=== PATIENT | male | born 1955 | race Caucasian/White ===

== ENCOUNTER 2017-02-03 10:46 | Inpatient (IN) | payer MEDICARE ==
--- NOTE | 2017-02-03 12:02 | ED Physician Chart ---
ED Chief Complaint/HPI - Patient Information Date Seen:: 02/03/17 Time Seen:: 11:24 Chief Complaint:: Pt was found wandering in the public. History of Present Illness:: Brought in by Edith RENTERIA on 5150 because pt was found wandering on the street. Pt appears to be comfortable and is in no distress. Pt breathes comfortably and speaks clearly. He denies any bodily pain or discomfort. He prefers to sleep and is not cooperative; thus, H & P are limited. Allergies:: Allergies Allergy/AdvReac Type Severity Reaction Status Date / Time No Known Allergies Allergy Verified 02/03/17 11:16 Vitals:: Vital Signs - 8 hr 02/03/17 11:16 Temp 99.1 F HR 105 RR 16 BP 109/61 O2 Sat % 94 Historian:: Patient Family MD/PCP:: Unknown LMP:: N/A Review:: Nurse's Note Reviewed ED Review of Systems - Review of Systems General/Constitutional: Other (Pt does not cooperate for ROS.) ED Past Medical History - Past Medical History Past Medical History: Other (Pt does not cooperate to provide info on PMH.) Family History: Other (Pt does not cooperate to provide info on FHx.) Social History: Other (Pt does not cooperate to provide info on SHx.) Surgical History: other (Pt does not cooperate to provide info on Surgical Hx.) Psychiatricy History: Bipolar Medication: Reviewed Family Medical History - Family Member Mother History Unknown: Yes ED Physical Exam - Physical Examination General/Constitutional: Awake, Well-developed, well-nourished, Alert, No distress, Non-toxic appearing, Ambulatory Other Gen/Cons comments:: Breathes comfortably and speaks clearly. Pt is not fully cooperative. Head: Atraumatic Eyes: Lids, conjuctiva normal, PERRL, EOMI Skin: Nl inspection, No skin lesions, Well hydrated, No lymphadenopathy ENMT: External ears, nose nl, Nasal exam nl, Oropharynx nl Neck: Nontender, Full ROM w/o pain, No nuchal rigidity, No mass, No stridor Respiratory: Nl effort/Exclusion, Clear to Auscultation, No Wheeze/Rhonchi/Rales Cardio Vascular: RRR, No murmur, gallop, rubs GI: No tenderness/rebounding/guarding, No organomegaly, Normal BS's, Nondistended, No mass/bruits Other GI comments:: Abdomen is soft. Extremities: No tenderness or effusion, Full ROM, No edema Neuro/Psych: Alert/oriented (knows his name only.) Other Neuro/Psych comments:: Spontaneous movements noticed in all 4 extremities. Pt does not cooperate for full neurological exam. ED Labs/Radiology/EKG Results - Lab Results Results: Laboratory Tests 02/03/17 02/03/17 02/03/17 12:05 12:05 12:05 WBC 7.4 D RBC 4.62 Hgb 12.7 Hct 39.1 L MCV 84.6 MCH 27.5 MCHC Differential 32.5 RDW 13.3 Plt Count 287 D MPV 7.4 Neutrophils % 80.6 H Lymphocytes % 11.2 L Monocytes % 8.0 Eosinophils % 0.1 Basophils % 0.1 PT 10.9 INR 1.05 PTT (Actin FS) 26.1 Sodium 136 Potassium 4.0 Chloride 99 Carbon Dioxide 29.6 Anion Gap 11.4 BUN 22 Creatinine 1.0 Est GFR ( Amer) > 60.0 Est GFR (Non-Af Amer) > 60.0 BUN/Creatinine Ratio 22.0 Glucose 127 H Calcium 9.3 Total Bilirubin 0.6 AST 154 H ALT 64 H Alkaline Phosphatase 56 Total Protein 6.6 Albumin 3.8 L Globulin 2.8 Albumin/Globulin Ratio 1.4 TSH Urine Source Urine Color Urine Clarity Urine pH Ur Specific [place] Urine Protein Urine Glucose (UA) Urine Ketones Urine Blood Urine Nitrate Urine Bilirubin Urine Urobilinogen Ur Leukocyte Esterase Urine RBC Urine WBC Ur Epithelial Cells Urine Bacteria Urine Mucus Salicylates < 25.0 L Urine Opiates Screen Urine Methadone Screen Acetaminophen < 10.0 L Ur Barbiturates Screen Ur Tricyclics Screen Ur Phencyclidine Scrn Amphetamines Screen U Methamphetamines Scrn U Benzodiazepines Scrn U Cocaine Metab Screen U Cannabinoids Screen Ethyl Alcohol < 10 02/03/17 02/03/17 02/03/17 12:05 12:35 12:35 WBC RBC Hgb Hct MCV MCH MCHC Differential RDW Plt Count MPV Neutrophils % Lymphocytes % Monocytes % Eosinophils % Basophils % PT INR PTT (Actin FS) Sodium Potassium Chloride Carbon Dioxide Anion Gap BUN Creatinine Est GFR ( Amer) Est GFR (Non-Af Amer) BUN/Creatinine Ratio Glucose Calcium Total Bilirubin AST ALT Alkaline Phosphatase Total Protein Albumin Globulin Albumin/Globulin Ratio TSH 1.50 Urine Source CATH Urine Color YELLOW Urine Clarity CLEAR Urine pH 6.0 Ur Specific [place] >= 1.030 Urine Protein 30 H Urine Glucose (UA) NEGATIVE Urine Ketones 15 H Urine Blood MODERATE H Urine Nitrate NEGATIVE Urine Bilirubin SMALL H Urine Urobilinogen 0.2 Ur Leukocyte Esterase NEGATIVE Urine RBC 5-10 H Urine WBC 0-2 Ur Epithelial Cells OCCASIONAL Urine Bacteria 1+ H Urine Mucus FEW Salicylates Urine Opiates Screen POSITIVE H Urine Methadone Screen NEGATIVE Acetaminophen Ur Barbiturates Screen NEGATIVE Ur Tricyclics Screen POSITIVE H Ur Phencyclidine Scrn NEGATIVE Amphetamines Screen POSITIVE H U Methamphetamines Scrn NEGATIVE U Benzodiazepines Scrn POSITIVE H U Cocaine Metab Screen NEGATIVE U Cannabinoids Screen NEGATIVE Ethyl Alcohol ED Septic Shock - . Is Septic Shock (SBP<90, OR Lactate>4 mmol\L) present?: No - <6hrs of presentation: Vital Signs: Vital Signs - 8 hr 02/03/17 11:16 Temp 99.1 F HR 105 RR 16 BP 109/61 O2 Sat % 94 ED Reassessment (Disposition) - Reassessment Reassessment:: 1335 Pt remains stable. No new complaint or findings. 1350 Remaining lab results just became available. Lab results have been reviewed with pt. Management plan has been discussed. Pt is medically cleared for psych evaluation. 2300 Pt has been comfortable and stable. Pt is still uncooperative to provide further info. Awaiting psych evaluation. 02/04/17 0700 Pt slept through the night uneventfully. Psych evaluation is still pending. Case has been signed off to Dr. Hatch for continued care. Reassessment Condition:: Improved - Diagnosis Diagnosis:: Polysubstance abuse with amphetamine and opioid. Bipolar disorder. Urinary tract infection. Elevated ALT/AST, consider alcoholic liver disease. Mild hyperglycemia. ED Discharge Plan - Patient Disposition Instructions: Psychosis
[2017-02-03 12:11] LABS: % BASOPHILS 0.1 % (0.0-2.0); % EOSINOPHILS 0.1 % (0.0-5.0); % LYMPHOCYTES 11.2 % (20.0-50.0); % NEUTROPHILS 80.6 % (40.0-80.0); HEMATOCRIT 39.1 % (41.0-60); HEMOGLOBIN 12.7 gm/dL (12-16); LYMPHOCYTE ABSOLUTE 0.8 Th/cmm (1.5-3.0); MEAN CELL VOLUME 84.6 fl (80-99); MEAN CORPUSCULAR HEMOGLOBIN 27.5 pg (26.0-30.0); MEAN CORPUSCULAR HGB CONC 32.5 pg (28.0-36.0); MEAN PLATELET VOLUME 7.4 fl; MONOCYTE ABSOLUTE 0.6 Th/cmm (0.3-1.0); RED BLOOD COUNT 4.62 Mil/cmm (4.30-5.70); RED CELL DISTRIBUTION WIDTH 13.3 % (11.5-20.0)
[2017-02-03 12:12] LABS: PLATELET COUNT 287 Th/cmm (150-400); WHITE BLOOD COUNT 7.4 Th/cmm (4.8-10.8)
[2017-02-03 12:26] LABS: INR 1.05 (0.5-1.4); PROTHROMBIN TIME (TEST) 10.9 SECONDS (9.5-11.5)
[2017-02-03 12:29] LABS: ACETAMINOPHEN < 10.0 ug/mL (10.0-30.0); ALB/GLOB RATIO 1.4 (1.0-1.8); ALBUMIN 3.8 gm/dL (4.2-5.5); ALKALINE PHOSPHATASE 56 U/L (34-104); ANION GAP 11.4 (7.0-16.0); BILIRUBIN,TOTAL 0.6 mg/dL (0.3-1.0); BUN - UREA NITROGEN 22 mg/dL (7-25); CALCIUM SERUM 9.3 mg/dL (8.6-10.3); CARBON DIOXIDE 29.6 mEq/L (21.0-31.0); CHLORIDE 99 mEq/L (98-107); GFR AFRICAN-AMERICAN > 60.0 ml/min (>90); GFR NON AFRICAN-AMERICAN > 60.0 ml/min; GLUCOSE 127 mg/dL (70-105); SALICYLATES (ASPIRIN) < 25.0 mg/L (30.0-100.0); SGOT 154 U/L (13-39); SGPT/ALT 64 U/L (7-52); SODIUM SERUM 136 mEq/L (136-145); TOTAL PROTEIN,SERUM 6.6 gm/dL (6.0-8.3)
[2017-02-03 12:41] LABS: URINE MICROSCOPIC INDICATED? YES; URINE SOURCE CATH
[2017-02-03 12:46] LABS: URINE BILIRUBIN SMALL (NEGATIVE); URINE BLOOD MODERATE (NEGATIVE); URINE GLUCOSE (UA) NEGATIVE (NEGATIVE); URINE KETONE 15 mg/dL (NEGATIVE); URINE LEUKOCYTE ESTERASE NEGATIVE (NEGATIVE); URINE NITRATE NEGATIVE (NEGATIVE); URINE PROTEIN 30 mg/dL (NEGATIVE); URINE UROBILINOGEN 0.2 E.U./dL (0.2 - 1.0)
[2017-02-03 12:50] LABS: URINE CLARITY CLEAR (CLEAR); URINE COLOR YELLOW
[2017-02-03 12:53] LABS: URINE BACTERIA 1+ /hpf (NONE SEEN); URINE EPITHELIAL CELLS OCCASIONAL /lpf (FEW); URINE WBC 0-2 /hpf (0-5)
[2017-02-03 13:10] LABS: AMPHETAMINE URINE POSITIVE (NEGATIVE); BARBITURATES URINE NEGATIVE (NEGATIVE); COCAINE METABOLITE QUAL URINE NEGATIVE (NEGATIVE); PHENCYCLIDINE (PCP) URINE NEGATIVE (NEGATIVE)
[2017-02-03 13:11] LABS: BENZODIAZEPINES QUAL URINE POSITIVE (NEGATIVE); CANNABINOID THC NEGATIVE (NEGATIVE); METHADONE URINE NEGATIVE (NEGATIVE); METHAMPHETAMINES QUAL URINE NEGATIVE (NEGATIVE); OPIATES (MORPHINE) QUAL. URINE POSITIVE (NEGATIVE); TRICYCLICS (TCA) QUAL. URINE POSITIVE (NEGATIVE)
[2017-02-03] MEDS ORDERED: Sulfamethoxazole/TMP 800/160mg Tab PO ONE (13:40)
[2017-02-03] MEDS ORDERED: Sulfamethoxazole/TMP 800/160mg Tab ONE (15:02)
[2017-02-04] MEDS ORDERED: Sulfamethoxazole/TMP 800/160mg Tab PO ONE (01:29)
[2017-02-04] MEDS ORDERED: Sulfamethoxazole/TMP 800/160mg Tab ONE (07:23)
[2017-02-04] MEDS ORDERED: Hydrocodone/APAP 10 mg/325 mg Tab PO PRN (20:19)
[2017-02-04 20:24] VITALS: BP 103/64
[2017-02-04] MEDS ORDERED: Magnesium Hydroxide (MOM) 30 mL UDC PO PRN (20:28)
[2017-02-04] MEDS ORDERED: Maalox 30 mL Cup PO PRN (20:28)
[2017-02-05] MEDS: Multivitamin Tab PO SCH (09:44)
[2017-02-05] MEDS: Sulfamethoxazole/TMP 800/160mg Tab PO SCH ×2 (09:44→16:55)
--- NOTE | 2017-02-05 13:00 | History & Physical ---
ADMIT DATE: 02/05/2017 PATIENT IDENTIFICATION: A 61-year-old male. CHIEF COMPLAINT: "I am fine." HISTORY OF PRESENT ILLNESS: This is a 61-year-old male with a history of BPH, DJD, chronic pain, brought into the Emergency Room at [facility] for evaluation of aggressive behavior. When patient knocked the house asking to buy the bike and the patient was noted to have aggressive behavior and the patient was evaluated and subsequently admitted to the hospital for further treatment. PAST MEDICAL HISTORY: Remarkable for: 1. DJD. 2. Chronic pain. 3. BPH. 4. Hyperlipidemia. 5. History of post-traumatic stress syndrome. MEDICATIONS: List has been reviewed and reconciled appropriately. ALLERGIES: The patient is not allergic to any medications. SOCIAL HISTORY: The patient is homeless. The patient has a history of smoking cigarette also has a history of polysubstance abuse. The patient denies any alcohol use. FAMILY MEDICAL HISTORY: Unknown. REVIEW OF SYSTEMS: The patient currently denies any headache, blurred vision, double vision, dysphagia, odynophagia, runny nose, stuffy nose, fever, chills, cough, chest pain, shortness of breath, palpitation, dizziness, nausea, vomiting, diarrhea, dysuria, hematuria, hematochezia, melena. No history of any seizure or syncopal episode. PHYSICAL EXAMINATION: GENERAL: Alert, awake, oriented, lying in the bed without any acute distress. VITAL SIGNS: Temperature 98.1, pulse 78, respiratory rate 18, blood pressure 132/78. HEENT: Normocephalic, atraumatic. Extraocular muscles are intact. Tongue was pink and coated. Multiple poor dentition noted. NECK: Supple, no JVD, no hepatojugular reflex. No lymphadenopathy, thyromegaly or carotid bruit. HEART: Both heart sounds are regular. No S3, no S4, no murmur. CHEST: Lung equal in expansion, no wheezing, no crackles. ABDOMEN: Soft. No guarding, no rigidity. Liver, spleen palpable. No palpable mass. EXTREMITIES: No edema, no cyanosis. NEUROLOGIC: Nonfocal. AVAILABLE DIAGNOSTIC DATA: Reviewed. CLINICAL IMPRESSION: 1. Psychotic disorder exacerbation. 2. Chronic pain syndrome. 3. Posttraumatic stress syndrome. 4. Benign prostatic hyperplasia. 5. Degenerative joint disease. 6. Most likely prostatitis and urinary tract infection. 7. Debility. PLAN: The patient will be resuming his home medications, which include Soma as well as [place] for pain management. The patient will be receiving Flomax for his BPH, antibiotic will be continued for his urinary tract infection with Bactrim: Psychotic evaluation and management deferred to psychiatrist. The patient is medically stable to participate in the activity with the [facility]. The patient will be seen by us during his stay as well. I sincerely thank you, Dr. Charisma Huff for giving me the opportunity to participate in patient of yours. JOB# [id number]
[2017-02-06] MEDS: Sulfamethoxazole/TMP 800/160mg Tab PO SCH ×2 (09:04→16:51)
[2017-02-06] MEDS: Multivitamin Tab PO SCH (09:04)
--- NOTE | 2017-02-06 09:51 | General Progress Note ---
Subjective - Review of Systems Subjective: Patient is seen and examined. No new complaints. Patient is ambulating in hallway. Objective - Results Result Diagrams: 02/03/17 12:05 02/03/17 12:05 Recent Labs: Laboratory Last Values WBC 7.4 Th/cmm (4.8-10.8) D 02/03/17 12:05 RBC 4.62 Mil/cmm (4.30-5.70) 02/03/17 12:05 Hgb 12.7 gm/dL (12-16) 02/03/17 12:05 Hct 39.1 % (41.0-60) L 02/03/17 12:05 MCV 84.6 fl (80-99) 02/03/17 12:05 MCH 27.5 pg (26.0-30.0) 02/03/17 12:05 MCHC Differential 32.5 pg (28.0-36.0) 02/03/17 12:05 RDW 13.3 % (11.5-20.0) 02/03/17 12:05 Plt Count 287 Th/cmm (150-400) D 02/03/17 12:05 MPV 7.4 fl 02/03/17 12:05 Neutrophils % 80.6 % (40.0-80.0) H 02/03/17 12:05 Lymphocytes % 11.2 % (20.0-50.0) L 02/03/17 12:05 Monocytes % 8.0 % (2.0-10.0) 02/03/17 12:05 Eosinophils % 0.1 % (0.0-5.0) 02/03/17 12:05 Basophils % 0.1 % (0.0-2.0) 02/03/17 12:05 PT 10.9 SECONDS (9.5-11.5) 02/03/17 12:05 INR 1.05 (0.5-1.4) 02/03/17 12:05 PTT (Actin FS) 26.1 SECONDS (26.0-38.0) 02/03/17 12:05 Sodium 136 mEq/L (136-145) 02/03/17 12:05 Potassium 4.0 mEq/L (3.5-5.1) 02/03/17 12:05 Chloride 99 mEq/L (98-107) 02/03/17 12:05 Carbon Dioxide 29.6 mEq/L (21.0-31.0) 02/03/17 12:05 Anion Gap 11.4 (7.0-16.0) 02/03/17 12:05 BUN 22 mg/dL (7-25) 02/03/17 12:05 Creatinine 1.0 mg/dL (0.7-1.3) 02/03/17 12:05 Est GFR ( Amer) > 60.0 ml/min (>90) 02/03/17 12:05 Est GFR (Non-Af Amer) > 60.0 ml/min 02/03/17 12:05 BUN/Creatinine Ratio 22.0 02/03/17 12:05 Glucose 127 mg/dL (70-105) H 02/03/17 12:05 Calcium 9.3 mg/dL (8.6-10.3) 02/03/17 12:05 Total Bilirubin 0.6 mg/dL (0.3-1.0) 02/03/17 12:05 AST 154 U/L (13-39) H 02/03/17 12:05 ALT 64 U/L (7-52) H 02/03/17 12:05 Alkaline Phosphatase 56 U/L (34-104) 02/03/17 12:05 Total Protein 6.6 gm/dL (6.0-8.3) 02/03/17 12:05 Albumin 3.8 gm/dL (4.2-5.5) L 02/03/17 12:05 Globulin 2.8 gm/dL 02/03/17 12:05 Albumin/Globulin Ratio 1.4 (1.0-1.8) 02/03/17 12:05 TSH 1.50 uIU/ml (0.34-5.60) 02/03/17 12:05 Urine Source CATH 02/03/17 12:35 Urine Color YELLOW 02/03/17 12:35 Urine Clarity CLEAR (CLEAR) 02/03/17 12:35 Urine pH 6.0 (4.6 - 8.0) 02/03/17 12:35 Ur Specific [place] >= 1.030 (1.005-1.030) 02/03/17 12:35 Urine Protein 30 mg/dL (NEGATIVE) H 02/03/17 12:35 Urine Glucose (UA) NEGATIVE mg/dL (NEGATIVE) 02/03/17 12:35 Urine Ketones 15 mg/dL (NEGATIVE) H 02/03/17 12:35 Urine Blood MODERATE (NEGATIVE) H 02/03/17 12:35 Urine Nitrate NEGATIVE (NEGATIVE) 02/03/17 12:35 Urine Bilirubin SMALL (NEGATIVE) H 02/03/17 12:35 Urine Urobilinogen 0.2 E.U./dL (0.2 - 1.0) 02/03/17 12:35 Ur Leukocyte Esterase NEGATIVE (NEGATIVE) 02/03/17 12:35 Urine RBC 5-10 /hpf (0-5) H 02/03/17 12:35 Urine WBC 0-2 /hpf (0-5) 02/03/17 12:35 Ur Epithelial Cells OCCASIONAL /lpf (FEW) 02/03/17 12:35 Urine Bacteria 1+ /hpf (NONE SEEN) H 02/03/17 12:35 Urine Mucus FEW /lpf (FEW) 02/03/17 12:35 Salicylates < 25.0 mg/L (30.0-100.0) L 02/03/17 12:05 Urine Opiates Screen POSITIVE (NEGATIVE) H 02/03/17 12:35 Urine Methadone Screen NEGATIVE (NEGATIVE) 02/03/17 12:35 Acetaminophen < 10.0 ug/mL (10.0-30.0) L 02/03/17 12:05 Ur Barbiturates Screen NEGATIVE (NEGATIVE) 02/03/17 12:35 Ur Tricyclics Screen POSITIVE (NEGATIVE) H 02/03/17 12:35 Ur Phencyclidine Scrn NEGATIVE (NEGATIVE) 02/03/17 12:35 Amphetamines Screen POSITIVE (NEGATIVE) H 02/03/17 12:35 U Methamphetamines Scrn NEGATIVE (NEGATIVE) 02/03/17 12:35 U Benzodiazepines Scrn POSITIVE (NEGATIVE) H 02/03/17 12:35 U Cocaine Metab Screen NEGATIVE (NEGATIVE) 02/03/17 12:35 U Cannabinoids Screen NEGATIVE (NEGATIVE) 02/03/17 12:35 Ethyl Alcohol < 10 mg/dL (0-10) 02/03/17 12:05 - Physical Exam Vitals and I&O: Vital Signs Temp 97.8 F 02/06/17 06:43 Pulse 71 02/06/17 06:43 Resp 18 02/06/17 06:43 BP 124/77 02/06/17 06:43 Pulse Ox 96 02/06/17 06:43 Intake & Output 02/05/17 02/06/17 02/06/17 18:59 06:59 18:59 Intake Total 1200 960 Balance 1200 960 Intake: Oral 1200 960 Other: # Voids 4 3 # Bowel Movements 1 0 Active Medications: Current Medications Acetaminophen (Tylenol) 650 mg PO Q4HR PRN PRN Reason: Mild Pain / Temp above 100 Stop: 04/05/17 20:27 Acetaminophen/Hydrocodone Bitart ([place] 10 Mg/325 Mg) 1 tab PO Q6H PRN PRN Reason: Severe Pain Stop: 04/05/17 20:18 Al Hydrox/Mg Hydrox/Simethicone (Maalox) 30 ml PO Q4HR PRN PRN Reason: GI DISTRESS Stop: 04/05/17 20:27 Carisoprodol (Soma) 350 mg PO Q8HR PRN PRN Reason: Spasms Stop: 04/05/17 20:18 Divalproex Sodium (Depakote Er) 500 mg PO BID PATRICE PRN Reason: Protocol Stop: 04/06/17 08:59 Last Admin: 02/06/17 09:04 Dose: 500 mg Duloxetine HCl (Cymbalta) 60 mg PO BID PATRICE PRN Reason: Protocol Stop: 04/06/17 08:59 Last Admin: 02/06/17 09:04 Dose: 60 mg Lorazepam (Ativan) 2 mg PO Q6H PRN; Protocol PRN Reason: Agitation Stop: 04/06/17 05:43 Magnesium Hydroxide (Milk Of Magnesia) 30 ml PO HS PRN PRN Reason: Constipation Multivitamins/Vitamin C (Theragran) 1 tab PO DAILY PATRICE Stop: 04/06/17 08:59 Last Admin: 02/06/17 09:04 Dose: 1 tab Mupirocin (Bactroban Oint) 1 appl NS BID PATRICE Stop: 02/09/17 17:01 Last Admin: 02/06/17 09:04 Dose: 1 appl Quetiapine Fumarate (Seroquel Xr) 800 mg PO HS PATRICE PRN Reason: Protocol Stop: 04/06/17 20:59 Last Admin: 02/05/17 20:36 Dose: Not Given Tamsulosin HCl (Flomax) 0.4 mg PO HS PATRICE Stop: 04/05/17 20:59 Last Admin: 02/05/17 20:35 Dose: 0.4 mg Trazodone HCl (Desyrel) 200 mg PO HS PATRICE PRN Reason: Protocol Stop: 04/06/17 20:59 Last Admin: 02/05/17 20:36 Dose: Not Given Trimethoprim/Sulfamethoxazole (Bactrim Ds) 1 tab PO BID PATRICE Stop: 02/11/17 17:01 Last Admin: 02/06/17 09:04 Dose: 1 tab Zolpidem Tartrate (Ambien) 5 mg PO HS PRN PRN Reason: Insomnia Stop: 04/05/17 20:27 General: Alert, Oriented x3, No acute distress HEENT: Atraumatic, PERRLA, EOMI, Mucous membr. moist/pink Neck: Supple, JVD Cardiovascular: Regular rate, Normal S1, Normal S2 Lungs: Clear to auscultation, Normal air movement Abdomen: Bowel sounds, Soft Extremities: Pulses Neurological: Normal gait, Normal speech, Normal tone, Sensation intact, Reflexes 2+ - Procedures Procedures: Procedures Procedure Code Date CONTINUOUS INVASIVE MECHANICAL VENTILATION <96 CONSEC HRS 96.71 06/05/13 GROUP PSYCHOTHERAPY 29386 08/25/15 GROUP PSYCHOTHERAPY [id number] 08/25/15 INSERT EMERGENCY AIRWAY [id number] 06/05/13 INSERT ENDOTRACHEAL TUBE 96.04 06/05/13 VACCINATION NEC 99.55 06/24/13 Assessment/Plan - Problem List Patient Problems: All Active Problems Altered mental status (Active) R41.82 Drug overdose (Active) T50.901A Psychotic disorder (Acute) F29 - Assessment Assessment: BPH. Prostatits Chronic pain syndrome. DJD Psych disorder Post traumatic stress syndrome. - Plan Plan: Po antibiotics Flomax Pain control Psych meds Psych follow up General nursing care Continue other meds. Discussed with staff.
--- NOTE | 2017-02-06 15:08 | Psychosocial Evaluation ---
DATE OF SERVICE: 02/05/2017 CHIEF COMPLAINT: "I don't know. The police got me here." HISTORY OF PRESENT ILLNESS: The patient is a 61-year-old male who is well known to me from treatment of schizoaffective disorder. The patient has been confused and the patient was found by the police knocking on people's doors. The patient was disoriented and confused and he did not give any reason why he was knocking on people's doors. Chart reviewed and patient interviewed and discussed the patient's condition with the staff. The patient is still confused, who recognized myself, but he did not know my name and he did not know where he is at. He also was very reluctant to answer any of my questions and seems to be preoccupied. He also did not know where he lives and he could not tell me about his age or date. Also, it seems that the patient has not been taking his psychiatric medications and maybe he has been in the streets. PAST PSYCHIATRIC HISTORY: The patient has history of multiple psychiatric hospitalizations for treatment of schizoaffective disorder and also depression and possible suicidal thoughts. PAST MEDICAL HISTORY: The patient currently had no major medical problems and was medically cleared in the Emergency Room. CHEMICAL DEPENDENCY HISTORY: The patient has history of cannabis use. Not known at this time if he is still abusing any drugs. SOCIAL HISTORY: The patient seems to be homeless at this time. No other information known at this time. ALLERGIES: No known allergies. MENTAL STATUS EXAMINATION: The patient appears older than his stated age. Disheveled. Confused. Suspicious and paranoid. The patient tried to answer questions, but he seems to be confused and was not able to answer any of the questions as mentioned above and he also is reluctant and seemed paranoid to answer the questions. Also seems to be preoccupied. The patient does not answer questions regarding hallucinations or delusions or regarding suicide or homicide. The patient is alert, but seems to be disoriented to place, time, and person. Unable to assess his memory at this time because the patient was not able to answer questions. Poor insight and poor judgment. ASSESSMENT: Primary diagnosis: Schizoaffective disorder, bipolar type, with psychotic features. TREATMENT PLAN: Continue to monitor his behavior and his condition closely. Also, we will start the patient on Seroquel and we will adjust the dose. Also, we will try to get more information from the patient when able to answer more questions. ESTIMATED LENGTH OF STAY: 7-10 days. THE PATIENT'S STRENGTHS AND WEAKNESSES: The patient's strength is not clear at this time. Weaknesses: Poor judgment and his hallucinations. AFTER DISCHARGE PLAN: Placement and outpatient treatment. The patient also is a candidate for partial program. JOB# [id number]
--- NOTE | 2017-02-07 05:25 | Progress Notes ---
DATE: SUBJECTIVE: Chart reviewed and the patient interviewed. Also discussed the patient's condition with the staff and reviewed records and labs. The patient is still confused. The patient also is still unable to answer any of my questions coherently. He also still seems to be preoccupied and is still responding to stimuli. During my interview, the patient is disheveled. He is very slow in response. He seems to be slightly easier to redirect him than yesterday. He also denied any side effects of medications. ASSESSMENT: The patient is still psychotic and confused and considered to be gravely disabled. LABORATORY DATA: No new labs available for review. Urine drug screen was done and it is positive for amphetamines and for benzodiazepine. TREATMENT PLAN: Continue monitoring his behavior and his condition closely. Also, we will try to get more information from the patient regarding placement and where he was living. Estimated length of stay 2-3 days. JOB# [id number]
[2017-02-07] MEDS: Sulfamethoxazole/TMP 800/160mg Tab PO SCH ×2 (09:05→17:41)
[2017-02-07] MEDS: Multivitamin Tab PO SCH (09:05)
--- NOTE | 2017-02-07 20:04 | Progress Notes ---
DATE: 02/07/2017 SUBJECTIVE: Chart reviewed and the patient interviewed. Also discussed the patient's condition with the staff and reviewed records and labs. The patient is still confused and suspicious and paranoid, although he seems to be more alert and less sedated today. He still seems to be responding to stimuli. The patient also today is pacing up and down the unit. He is still unable to carry on any coherent conversation. Otherwise, the patient is compliant with taking his medications. The patient denies any side effects of medications. ASSESSMENT: The patient is still psychotic and is still considered to be gravely disabled. TREATMENT PLAN: Continue to monitor his behavior and his condition closely. Also, continue to adjust psychotropic medications and working on placement issue. Also, working on his confusion. JOB# [id number]
[2017-02-08] MEDS: Multivitamin Tab PO SCH (09:19)
[2017-02-08] MEDS: Sulfamethoxazole/TMP 800/160mg Tab PO SCH ×2 (09:19→16:16)
--- NOTE | 2017-02-08 09:25 | General Progress Note ---
Subjective - Review of Systems Subjective: Patient is seen and examined. No new complaints. Objective - Results Result Diagrams: 02/03/17 12:05 02/03/17 12:05 Recent Labs: Laboratory Last Values WBC 7.4 Th/cmm (4.8-10.8) D 02/03/17 12:05 RBC 4.62 Mil/cmm (4.30-5.70) 02/03/17 12:05 Hgb 12.7 gm/dL (12-16) 02/03/17 12:05 Hct 39.1 % (41.0-60) L 02/03/17 12:05 MCV 84.6 fl (80-99) 02/03/17 12:05 MCH 27.5 pg (26.0-30.0) 02/03/17 12:05 MCHC Differential 32.5 pg (28.0-36.0) 02/03/17 12:05 RDW 13.3 % (11.5-20.0) 02/03/17 12:05 Plt Count 287 Th/cmm (150-400) D 02/03/17 12:05 MPV 7.4 fl 02/03/17 12:05 Neutrophils % 80.6 % (40.0-80.0) H 02/03/17 12:05 Lymphocytes % 11.2 % (20.0-50.0) L 02/03/17 12:05 Monocytes % 8.0 % (2.0-10.0) 02/03/17 12:05 Eosinophils % 0.1 % (0.0-5.0) 02/03/17 12:05 Basophils % 0.1 % (0.0-2.0) 02/03/17 12:05 PT 10.9 SECONDS (9.5-11.5) 02/03/17 12:05 INR 1.05 (0.5-1.4) 02/03/17 12:05 PTT (Actin FS) 26.1 SECONDS (26.0-38.0) 02/03/17 12:05 Sodium 136 mEq/L (136-145) 02/03/17 12:05 Potassium 4.0 mEq/L (3.5-5.1) 02/03/17 12:05 Chloride 99 mEq/L (98-107) 02/03/17 12:05 Carbon Dioxide 29.6 mEq/L (21.0-31.0) 02/03/17 12:05 Anion Gap 11.4 (7.0-16.0) 02/03/17 12:05 BUN 22 mg/dL (7-25) 02/03/17 12:05 Creatinine 1.0 mg/dL (0.7-1.3) 02/03/17 12:05 Est GFR ( Amer) > 60.0 ml/min (>90) 02/03/17 12:05 Est GFR (Non-Af Amer) > 60.0 ml/min 02/03/17 12:05 BUN/Creatinine Ratio 22.0 02/03/17 12:05 Glucose 127 mg/dL (70-105) H 02/03/17 12:05 Calcium 9.3 mg/dL (8.6-10.3) 02/03/17 12:05 Total Bilirubin 0.6 mg/dL (0.3-1.0) 02/03/17 12:05 AST 154 U/L (13-39) H 02/03/17 12:05 ALT 64 U/L (7-52) H 02/03/17 12:05 Alkaline Phosphatase 56 U/L (34-104) 02/03/17 12:05 Total Protein 6.6 gm/dL (6.0-8.3) 02/03/17 12:05 Albumin 3.8 gm/dL (4.2-5.5) L 02/03/17 12:05 Globulin 2.8 gm/dL 02/03/17 12:05 Albumin/Globulin Ratio 1.4 (1.0-1.8) 02/03/17 12:05 TSH 1.50 uIU/ml (0.34-5.60) 02/03/17 12:05 Urine Source CATH 02/03/17 12:35 Urine Color YELLOW 02/03/17 12:35 Urine Clarity CLEAR (CLEAR) 02/03/17 12:35 Urine pH 6.0 (4.6 - 8.0) 02/03/17 12:35 Ur Specific [place] >= 1.030 (1.005-1.030) 02/03/17 12:35 Urine Protein 30 mg/dL (NEGATIVE) H 02/03/17 12:35 Urine Glucose (UA) NEGATIVE mg/dL (NEGATIVE) 02/03/17 12:35 Urine Ketones 15 mg/dL (NEGATIVE) H 02/03/17 12:35 Urine Blood MODERATE (NEGATIVE) H 02/03/17 12:35 Urine Nitrate NEGATIVE (NEGATIVE) 02/03/17 12:35 Urine Bilirubin SMALL (NEGATIVE) H 02/03/17 12:35 Urine Urobilinogen 0.2 E.U./dL (0.2 - 1.0) 02/03/17 12:35 Ur Leukocyte Esterase NEGATIVE (NEGATIVE) 02/03/17 12:35 Urine RBC 5-10 /hpf (0-5) H 02/03/17 12:35 Urine WBC 0-2 /hpf (0-5) 02/03/17 12:35 Ur Epithelial Cells OCCASIONAL /lpf (FEW) 02/03/17 12:35 Urine Bacteria 1+ /hpf (NONE SEEN) H 02/03/17 12:35 Urine Mucus FEW /lpf (FEW) 02/03/17 12:35 Salicylates < 25.0 mg/L (30.0-100.0) L 02/03/17 12:05 Urine Opiates Screen POSITIVE (NEGATIVE) H 02/03/17 12:35 Urine Methadone Screen NEGATIVE (NEGATIVE) 02/03/17 12:35 Acetaminophen < 10.0 ug/mL (10.0-30.0) L 02/03/17 12:05 Ur Barbiturates Screen NEGATIVE (NEGATIVE) 02/03/17 12:35 Ur Tricyclics Screen POSITIVE (NEGATIVE) H 02/03/17 12:35 Ur Phencyclidine Scrn NEGATIVE (NEGATIVE) 02/03/17 12:35 Amphetamines Screen POSITIVE (NEGATIVE) H 02/03/17 12:35 U Methamphetamines Scrn NEGATIVE (NEGATIVE) 02/03/17 12:35 U Benzodiazepines Scrn POSITIVE (NEGATIVE) H 02/03/17 12:35 U Cocaine Metab Screen NEGATIVE (NEGATIVE) 02/03/17 12:35 U Cannabinoids Screen NEGATIVE (NEGATIVE) 02/03/17 12:35 Ethyl Alcohol < 10 mg/dL (0-10) 02/03/17 12:05 - Physical Exam Vitals and I&O: Vital Signs Temp 97.8 F 02/08/17 06:43 Pulse 81 02/08/17 06:43 Resp 20 02/08/17 06:43 BP 108/69 02/08/17 06:43 Pulse Ox 98 02/08/17 06:43 Intake & Output 02/07/17 02/08/17 02/08/17 18:59 06:59 18:59 Intake Total 900 120 Balance 900 120 Intake: Oral 900 120 Other: # Voids 4 3 # Bowel Movements 1 Active Medications: Current Medications Acetaminophen (Tylenol) 650 mg PO Q4HR PRN PRN Reason: Mild Pain / Temp above 100 Stop: 04/05/17 20:27 Acetaminophen/Hydrocodone Bitart (Atkins 10 Mg/325 Mg) 1 tab PO Q6H PRN PRN Reason: Severe Pain Stop: 04/05/17 20:18 Al Hydrox/Mg Hydrox/Simethicone (Maalox) 30 ml PO Q4HR PRN PRN Reason: GI DISTRESS Stop: 04/05/17 20:27 Carisoprodol (Soma) 350 mg PO Q8HR PRN PRN Reason: Spasms Stop: 04/05/17 20:18 Divalproex Sodium (Depakote Er) 500 mg PO BID PATRICE PRN Reason: Protocol Stop: 04/06/17 08:59 Last Admin: 02/08/17 09:19 Dose: 500 mg Duloxetine HCl (Cymbalta) 60 mg PO BID PATRICE PRN Reason: Protocol Stop: 04/06/17 08:59 Last Admin: 02/08/17 09:19 Dose: 60 mg Lorazepam (Ativan) 2 mg PO Q6H PRN; Protocol PRN Reason: Agitation Stop: 04/06/17 05:43 Last Admin: 02/08/17 09:18 Dose: 2 mg Magnesium Hydroxide (Milk Of Magnesia) 30 ml PO HS PRN PRN Reason: Constipation Multivitamins/Vitamin C (Theragran) 1 tab PO DAILY PATRICE Stop: 04/06/17 08:59 Last Admin: 02/08/17 09:19 Dose: 1 tab Mupirocin (Bactroban Oint) 1 appl NS BID PATRICE Stop: 02/09/17 17:01 Last Admin: 02/08/17 09:20 Dose: 1 appl Quetiapine Fumarate (Seroquel Xr) 800 mg PO HS PATRICE PRN Reason: Protocol Stop: 04/06/17 20:59 Last Admin: 02/07/17 22:04 Dose: 800 mg Tamsulosin HCl (Flomax) 0.4 mg PO HS PATRICE Stop: 04/05/17 20:59 Last Admin: 02/07/17 22:04 Dose: 0.4 mg Trazodone HCl (Desyrel) 200 mg PO HS PATRICE PRN Reason: Protocol Stop: 04/06/17 20:59 Last Admin: 02/07/17 22:04 Dose: 200 mg Trimethoprim/Sulfamethoxazole (Bactrim Ds) 1 tab PO BID PATRICE Stop: 02/11/17 17:01 Last Admin: 02/08/17 09:19 Dose: 1 tab Zolpidem Tartrate (Ambien) 5 mg PO HS PRN PRN Reason: Insomnia Stop: 04/05/17 20:27 General: Alert, Oriented x3, No acute distress HEENT: Atraumatic, PERRLA, EOMI, Mucous membr. moist/pink Neck: Supple, JVD Cardiovascular: Regular rate, Normal S1, Normal S2 Lungs: Clear to auscultation, Normal air movement Abdomen: Bowel sounds, Soft Extremities: Pulses Neurological: Normal gait, Normal speech, Normal tone, Sensation intact, Reflexes 2+ - Procedures Procedures: Procedures Procedure Code Date CONTINUOUS INVASIVE MECHANICAL VENTILATION <96 CONSEC HRS 96.71 06/05/13 GROUP PSYCHOTHERAPY 96230 08/25/15 GROUP PSYCHOTHERAPY [id number] 08/25/15 INSERT EMERGENCY AIRWAY [id number] 06/05/13 INSERT ENDOTRACHEAL TUBE 96.04 06/05/13 VACCINATION NEC 99.55 06/24/13 Assessment/Plan - Problem List Patient Problems: All Active Problems Altered mental status (Active) R41.82 Drug overdose (Active) T50.901A Psychotic disorder (Acute) F29 - Assessment Assessment: BPH. Prostatits Chronic pain syndrome. DJD Psych disorder Post traumatic stress syndrome. - Plan Plan: Po antibiotics as ordered. Flomax. Pain control. Psych meds Psych follow up. General nursing care. Continue other meds. Discussed with staff.
[2017-02-09] MEDS: Multivitamin Tab PO SCH (09:03)
[2017-02-09] MEDS: Sulfamethoxazole/TMP 800/160mg Tab PO SCH ×2 (09:04→17:22)
--- NOTE | 2017-02-09 12:55 | Progress Notes ---
DATE: 02/09/[address] Huff. Case was discussed with staff of the patient, reviewed records. This is a well-known case to me as seen him covering for Dr. Huff by [facility]. The patient apparently was admitted here on the course of 02/2017 because of confusion time, the patient is not on people's doors disoriented, confused, did not give any reason why he was not on people's door. The patient could not recognize appropriately. Dr. Huff when he came in, he was very reluctant to answer questions. The patient has multiple prior hospitalizations was at [facility] with history of depression and suicide thoughts. The patient continues to be depressed, overwhelmed. He was able to recognize me. He is compliant with the medication with no side effects with Depakote 500 mg twice a day and duloxetine 60 mg twice a day with no side effects, no sedation, no nausea. He is also on Seroquel 800 mg at bedtime and group therapy, milieu therapy, adjust medication as needed. JOB# [id number]
--- NOTE | 2017-02-09 21:34 | Progress Notes ---
DATE: 02/08/2017 SUBJECTIVE: Chart reviewed and the patient interviewed. Also discussed the patient's condition with the staff and reviewed records and labs. The patient remains confused and anxious. The patient also is still not able to tell me where was he living prior to his admission and also he still seems to be preoccupied. Also, personal hygiene is still poor. He denies any use of street drugs prior to his admission and it is not clear the reason for his confusion except that he might not be compliant with taking his medications. During interview, the patient is rambling and he is having disorganized thoughts. Also, personal hygiene is still poor. Also, still seems to be preoccupied. ASSESSMENT: The patient is still psychotic and considered to be gravely disabled. TREATMENT PLAN: We will continue to monitor his behavior and his condition closely. Also, continue to work on his psychosis and adjusting psychotropic medications. Estimated length of stay 5-7 days. LABS: No new labs available for review. REASON FOR CONTINUED HOSPITAL STAY: The patient is still psychotic and confused. JOB# [id number]
[2017-02-10] MEDS: Multivitamin Tab PO SCH (08:10)
[2017-02-10] MEDS: Sulfamethoxazole/TMP 800/160mg Tab PO SCH ×2 (08:10→16:51)
--- NOTE | 2017-02-10 11:16 | Progress Notes ---
DATE: 02/10/2017 Case was discussed with staff of patient's records. The patient continues to have poor insight. Continues to be unable to make safe plan for self-care. He has multiple prior hospitalizations. Continues to be depressed, overwhelmed. No side effects with the medication, no sedation, no nausea, no extrapyramidal symptoms. He has a positive MRSA. His urine drug screen was positive for amphetamine, methamphetamine, tricyclic and cannabinoids. ____, he was using drugs before he came here. TSH is within normal range. His urinalysis shows proteinuria and ketonuria and blood and white cells and I was already signed off by Dr. Kent. His CBC shows low hematocrit, low lymphocyte, and high neutrophil. The rest within normal range. Chemistry panel with high blood sugar, high AST, and ALT. Dr. Kent signed off on that. So he is already aware of it. I will continue patient group therapy, milieu therapy, adjust medication as needed. JOB# [id number]
[2017-02-11] MEDS: Sulfamethoxazole/TMP 800/160mg Tab PO SCH ×2 (08:05→16:35)
[2017-02-11] MEDS: Multivitamin Tab PO SCH (08:05)
--- NOTE | 2017-02-12 00:13 | Progress Notes ---
DATE: 02/11/2017 Case was discussed with staff of the patient, reviewed records. The patient continues to have poor insight. He isolates himself. He is unpredictable and impulsive, needing redirection. He is compliant with the medication with no side effects, no sedation, no nausea, no extrapyramidal symptoms. He lives at [facility]. He is able to carry on a conversation appropriately. Able to recognize me. Apparently, he was using drugs prior to coming here, which may explain his confusion, acting out behavior and we will continue to work with the patient in group therapy, milieu therapy, and adjust the medication as needed. JOB# [id number]
[2017-02-12] MEDS: Multivitamin Tab PO SCH (08:26)
--- NOTE | 2017-02-12 12:02 | Progress Notes ---
DATE: 02/12/2017 Case was discussed with staff of the patient, reviewed records. The patient continues to be somewhat confused, easily agitated, internally preoccupied. Continues to be unpredictable, impulsive, needing redirection. Sleeping well and eating well. No side effects of the medication, no sedation, no nausea, no extrapyramidal symptoms. We will continue the patient in group therapy and milieu therapy and adjust medication as needed. [facility]# [id number]
[2017-02-13] MEDS: Multivitamin Tab PO SCH (08:18)
--- NOTE | 2017-02-14 08:05 | Progress Notes ---
DATE: 02/13/2017 SUBJECTIVE: Chart reviewed and the patient interviewed. Also discussed the patient's condition with the staff and reviewed records and labs. The patient still has flat affect and is still interacting minimally with others. Also, still having mood swings and still has periods of agitation. The patient also is still unable to provide any safe plan for self-care. Otherwise, the patient is compliant with taking his medications with no side effects of medications. MENTAL STATUS EXAMINATION: The patient is anxious and is disheveled. He also seems to be slightly confused. The patient also is unable to provide any safe plan for self-care and he has no income and talking about going to certain places that required money. ASSESSMENT: The patient is still considered to be gravely disabled. TREATMENT PLAN: We will continue monitoring his behavior and his condition closely. Also, discussed with the staff, possible placement in [facility] if possible and we will continue to work on placement issue and discharge plans as well as adjusting psychotropic medications. ESTIMATED LENGTH OF STAY: 2-4 days. REASON FOR HOSPITALIZATION: The patient is still considered to be gravely disabled. LABS: No new labs available for review. JOB# [id number]
[2017-02-14] MEDS: Multivitamin Tab PO SCH (08:10)
--- NOTE | 2017-02-14 09:53 | General Progress Note ---
Subjective - Review of Systems Subjective: Patient isn't examined. Patient denies any chest pain, shortness of breath, palpitation, dizziness, nausea, vomiting, headache, seizure, syncopal episode. Objective - Results Result Diagrams: 02/03/17 12:05 02/03/17 12:05 Recent Labs: Laboratory Last Values WBC 7.4 Th/cmm (4.8-10.8) D 02/03/17 12:05 RBC 4.62 Mil/cmm (4.30-5.70) 02/03/17 12:05 Hgb 12.7 gm/dL (12-16) 02/03/17 12:05 Hct 39.1 % (41.0-60) L 02/03/17 12:05 MCV 84.6 fl (80-99) 02/03/17 12:05 MCH 27.5 pg (26.0-30.0) 02/03/17 12:05 MCHC Differential 32.5 pg (28.0-36.0) 02/03/17 12:05 RDW 13.3 % (11.5-20.0) 02/03/17 12:05 Plt Count 287 Th/cmm (150-400) D 02/03/17 12:05 MPV 7.4 fl 02/03/17 12:05 Neutrophils % 80.6 % (40.0-80.0) H 02/03/17 12:05 Lymphocytes % 11.2 % (20.0-50.0) L 02/03/17 12:05 Monocytes % 8.0 % (2.0-10.0) 02/03/17 12:05 Eosinophils % 0.1 % (0.0-5.0) 02/03/17 12:05 Basophils % 0.1 % (0.0-2.0) 02/03/17 12:05 PT 10.9 SECONDS (9.5-11.5) 02/03/17 12:05 INR 1.05 (0.5-1.4) 02/03/17 12:05 PTT (Actin FS) 26.1 SECONDS (26.0-38.0) 02/03/17 12:05 Sodium 136 mEq/L (136-145) 02/03/17 12:05 Potassium 4.0 mEq/L (3.5-5.1) 02/03/17 12:05 Chloride 99 mEq/L (98-107) 02/03/17 12:05 Carbon Dioxide 29.6 mEq/L (21.0-31.0) 02/03/17 12:05 Anion Gap 11.4 (7.0-16.0) 02/03/17 12:05 BUN 22 mg/dL (7-25) 02/03/17 12:05 Creatinine 1.0 mg/dL (0.7-1.3) 02/03/17 12:05 Est GFR ( Amer) > 60.0 ml/min (>90) 02/03/17 12:05 Est GFR (Non-Af Amer) > 60.0 ml/min 02/03/17 12:05 BUN/Creatinine Ratio 22.0 02/03/17 12:05 Glucose 127 mg/dL (70-105) H 02/03/17 12:05 Calcium 9.3 mg/dL (8.6-10.3) 02/03/17 12:05 Total Bilirubin 0.6 mg/dL (0.3-1.0) 02/03/17 12:05 AST 154 U/L (13-39) H 02/03/17 12:05 ALT 64 U/L (7-52) H 02/03/17 12:05 Alkaline Phosphatase 56 U/L (34-104) 02/03/17 12:05 Total Protein 6.6 gm/dL (6.0-8.3) 02/03/17 12:05 Albumin 3.8 gm/dL (4.2-5.5) L 02/03/17 12:05 Globulin 2.8 gm/dL 02/03/17 12:05 Albumin/Globulin Ratio 1.4 (1.0-1.8) 02/03/17 12:05 TSH 1.50 uIU/ml (0.34-5.60) 02/03/17 12:05 Urine Source CATH 02/03/17 12:35 Urine Color YELLOW 02/03/17 12:35 Urine Clarity CLEAR (CLEAR) 02/03/17 12:35 Urine pH 6.0 (4.6 - 8.0) 02/03/17 12:35 Ur Specific [place] >= 1.030 (1.005-1.030) 02/03/17 12:35 Urine Protein 30 mg/dL (NEGATIVE) H 02/03/17 12:35 Urine Glucose (UA) NEGATIVE mg/dL (NEGATIVE) 02/03/17 12:35 Urine Ketones 15 mg/dL (NEGATIVE) H 02/03/17 12:35 Urine Blood MODERATE (NEGATIVE) H 02/03/17 12:35 Urine Nitrate NEGATIVE (NEGATIVE) 02/03/17 12:35 Urine Bilirubin SMALL (NEGATIVE) H 02/03/17 12:35 Urine Urobilinogen 0.2 E.U./dL (0.2 - 1.0) 02/03/17 12:35 Ur Leukocyte Esterase NEGATIVE (NEGATIVE) 02/03/17 12:35 Urine RBC 5-10 /hpf (0-5) H 02/03/17 12:35 Urine WBC 0-2 /hpf (0-5) 02/03/17 12:35 Ur Epithelial Cells OCCASIONAL /lpf (FEW) 02/03/17 12:35 Urine Bacteria 1+ /hpf (NONE SEEN) H 02/03/17 12:35 Urine Mucus FEW /lpf (FEW) 02/03/17 12:35 Salicylates < 25.0 mg/L (30.0-100.0) L 02/03/17 12:05 Urine Opiates Screen POSITIVE (NEGATIVE) H 02/03/17 12:35 Urine Methadone Screen NEGATIVE (NEGATIVE) 02/03/17 12:35 Acetaminophen < 10.0 ug/mL (10.0-30.0) L 02/03/17 12:05 Ur Barbiturates Screen NEGATIVE (NEGATIVE) 02/03/17 12:35 Ur Tricyclics Screen POSITIVE (NEGATIVE) H 02/03/17 12:35 Ur Phencyclidine Scrn NEGATIVE (NEGATIVE) 02/03/17 12:35 Amphetamines Screen POSITIVE (NEGATIVE) H 02/03/17 12:35 U Methamphetamines Scrn NEGATIVE (NEGATIVE) 02/03/17 12:35 U Benzodiazepines Scrn POSITIVE (NEGATIVE) H 02/03/17 12:35 U Cocaine Metab Screen NEGATIVE (NEGATIVE) 02/03/17 12:35 U Cannabinoids Screen NEGATIVE (NEGATIVE) 02/03/17 12:35 Ethyl Alcohol < 10 mg/dL (0-10) 02/03/17 12:05 - Physical Exam Vitals and I&O: Vital Signs Temp 97.4 F 02/14/17 06:50 Pulse 76 02/14/17 06:50 Resp 20 02/14/17 06:50 BP 110/70 02/14/17 06:50 Pulse Ox 97 02/14/17 06:50 Intake & Output 02/13/17 02/14/17 02/14/17 18:59 06:59 18:59 Intake Total 1200 120 Balance 1200 120 Intake: Oral 1200 120 Other: # Voids 3 # Bowel Movements 1 Active Medications: Current Medications Acetaminophen (Tylenol) 650 mg PO Q4HR PRN PRN Reason: Mild Pain / Temp above 100 Stop: 04/05/17 20:27 Al Hydrox/Mg Hydrox/Simethicone (Maalox) 30 ml PO Q4HR PRN PRN Reason: GI DISTRESS Stop: 04/05/17 20:27 Divalproex Sodium (Depakote Er) 500 mg PO BID PATRICE PRN Reason: Protocol Stop: 04/06/17 08:59 Last Admin: 02/14/17 08:10 Dose: 500 mg Duloxetine HCl (Cymbalta) 60 mg PO BID PATRICE PRN Reason: Protocol Stop: 04/06/17 08:59 Last Admin: 02/14/17 08:10 Dose: 60 mg Lorazepam (Ativan) 2 mg PO Q6H PRN; Protocol PRN Reason: Agitation Stop: 04/06/17 05:43 Last Admin: 02/14/17 03:58 Dose: 2 mg Multivitamins/Vitamin C (Theragran) 1 tab PO DAILY PATRICE Stop: 04/06/17 08:59 Last Admin: 02/14/17 08:10 Dose: 1 tab Quetiapine Fumarate (Seroquel Xr) 800 mg PO HS PATRICE PRN Reason: Protocol Stop: 04/06/17 20:59 Last Admin: 02/13/17 23:08 Dose: Not Given Tamsulosin HCl (Flomax) 0.4 mg PO HS PATRICE Stop: 04/05/17 20:59 Last Admin: 02/13/17 21:21 Dose: 0.4 mg Trazodone HCl (Desyrel) 200 mg PO HS PATRICE PRN Reason: Protocol Stop: 04/06/17 20:59 Last Admin: 02/13/17 21:21 Dose: 200 mg Zolpidem Tartrate (Ambien) 5 mg PO HS PRN PRN Reason: Insomnia Stop: 04/05/17 20:27 General: Alert, Oriented x3, No acute distress HEENT: Atraumatic, PERRLA, EOMI, Mucous membr. moist/pink Neck: Supple, JVD Cardiovascular: Regular rate, Normal S1, Normal S2 Lungs: Clear to auscultation, Normal air movement Abdomen: Bowel sounds, Soft Extremities: Pulses Neurological: Normal gait, Normal speech, Normal tone, Sensation intact, Reflexes 2+ - Procedures Procedures: Procedures Procedure Code Date CONTINUOUS INVASIVE MECHANICAL VENTILATION <96 CONSEC HRS 96.71 06/05/13 GROUP PSYCHOTHERAPY 00835 08/25/15 GROUP PSYCHOTHERAPY [id number] 08/25/15 INSERT EMERGENCY AIRWAY [id number] 06/05/13 INSERT ENDOTRACHEAL TUBE 96.04 06/05/13 VACCINATION NEC 99.55 06/24/13 Assessment/Plan - Problem List Patient Problems: All Active Problems Altered mental status (Active) R41.82 Drug overdose (Active) T50.901A Psychotic disorder (Acute) F29 - Assessment Assessment: BPH. Prostatits Chronic pain syndrome. DJD Psych disorder Post traumatic stress syndrome. - Plan Plan: Psychiatry was additional management deferred to psychiatrist. Flomax. Pain control. Symptoms management. Medication management. Psych follow up. General nursing care. Continue other meds. Discussed with staff. Nutritional Asmnt/Malnutr-PDOC - Dietary Evaluation Malnutrition Findings (Please click <Entered> for more info): Nutritional Asmnt/Malnutrition Start: 02/11/17 15: 28 Text: Status: Complete Freq: Document 02/11/17 15:28 LCADIG (Rec: 02/11/17 15:43 [email or web address]) Nutritional Asmnt/Malnutrition Patient General Information Nutritional Screening Low Risk Diagnosis psychosis Pertinent Medical Hx/Surgical Hx DJD, chronic pain, BPH, hyperlipidemia, post tramatic stress syndrome Subjective Information Per notes, PO intake 100%, meeting 100% of nutritional needs. Current Diet Order/ Nutrition Support regular Pertinent Medications MVI, vit C, bactrim Pertinent Labs Glu 127H, AST 154H, ALT 64H, Alb 3.8L Nutritional Hx/Data Height 1.8 m Height (Calculated Centimeters) 180.3 Current Weight (lbs) 90.718 kg Weight (Calculated Kilograms) 90.7 Weight (Calculated Grams) 35961.5 [place] Body Weight 172 % [place] Body Weight 116 Body Mass Index (BMI) 27.8 Weight Status Overweight GI Symptoms GI Symptoms None Last BM 02/10 Difficult in: None Skin Integrity/Comment: intact Current %PO Good (75-100%) Estimated Nutritional Goals BEE in Kcals: Using Current wt Adj wt of IBW Calories/Kcals/Kg 25-30 Kcals Calculated Protein: Using Current wt Adj wt of IBW Protein g/k.8-1 Protein Calculated 65-81 Fluid: ml Nutritional Problem No current Nutrition Prob Problem N/A Malnutrition Alert Protein-Calorie Malnutrition N/A Is there a minimum of two criteria No selected? Query Text:Check all the applicable criteria. A minimum of two criteria are recommended for diagnosis of either severe or non-severe malnutrition. Intervention/Recommendation Comments 1. Continue with current diet as ordered. 2. Monitor PO intake, wt weekly, labs and skin integrity 3. F/U as low risk in 7 days, 02/18 Expected Outcomes/Goals Expected Outcomes/Goals 1. PO intake continue to meet at least 75% of nutritional needs. 2. Wt stability, skin to remain intact, labs to approach WNL.
--- NOTE | 2017-02-15 01:25 | Progress Notes ---
DATE: SUBJECTIVE: Chart reviewed and the patient interviewed. Also discussed the patient's condition with the staff and reviewed records and labs. The patient is still rambling and is still restless and confused. The patient also is still disheveled. Personal hygiene is still poor. The patient is also still unable to provide any safe plan for self-care. He has also have episodes of irritability and anger. On the other hand, the patient is compliant with taking his medications with no side effects of medications. ASSESSMENT: The patient is still psychotic and also need placement. TREATMENT PLAN: We will continue monitoring his behavior and his condition closely. Also, continue to work on his irritability and also on his placement issue. Darvin Crenshaw is supposed to come to interview him later on today, but questionable if he has some Medicare days left or coverage and will check that later on with case hardener. JOB# [id number]
[2017-02-15] MEDS: Multivitamin Tab PO SCH (09:03)
[2017-02-16] MEDS: Multivitamin Tab PO SCH (09:00)
--- NOTE | 2017-02-16 16:15 | Progress Notes ---
DATE: 02/15/2017 PSYCHIATRIC PROGRESS NOTE Chart reviewed. The patient interviewed. Also discussed the patient's condition with the staff and reviewed records and labs. The patient is still extremely irritable and in angry mood. The patient also is still suspicious. The patient also is still demanding to go to a motel or hotel, but at the same time, he has no income and no money reserve to go there. The patient also is still at times thought to be confused. On the other hand he is compliant with taking his medications and no behavioral problems. During interview, the patient is calm and cooperative. Also thought processes, mainly goal directed. He denied hallucinations or delusions and denies suicidal or homicide. ASSESSMENT: The patient is showing improvement. TREATMENT PLAN: Continue current treatment. Also discussed with [employer]er [employer] the placement issue and it seems that the patient most probably will be discharged to a [facility]. At the same time, we will continue monitoring behavior and condition closely and will continue to follow up until the patient is discharged. If the patient is not discharged today as instructed then social work include to work on [facility] placement for the patient for next week since his criteria started to be less acute. JOB# [id number]
[2017-02-17] MEDS: Multivitamin Tab PO SCH (08:48)
--- NOTE | 2017-02-17 09:07 | Progress Notes ---
DATE: The patient was seen and evaluated. The patient's chart reviewed. Overnight nursing staff reported the patient is starting to feel a little bit less restless, less disorganized with intermittent in the times, some redirection for his ADLs. Today on [id number] evaluation, the patient reports he has been compliant with medications. He is a little bit less distraught, although noticed to have poor hygiene. MENTAL STATUS EXAMINATION: Poor attention to his ADLs, some mild irritability, anger. ASSESSMENT AND PLAN: The patient is a 61-year-old male with a history of schizophrenia. We will continue with the current medication regimen of Cymbalta 60 mg b.i.d., Seroquel 100 mg p.o. at bedtime, is able to tolerate medication well without any complications and continue working very closely with the medical case manager for safety point. JOB# [id number]
[2017-02-18] MEDS: Multivitamin Tab PO SCH (08:44)
--- NOTE | 2017-02-18 09:24 | General Progress Note ---
Subjective - Review of Systems Subjective: Patient is seen and examined. No new complaints or events. Objective - Results Result Diagrams: 02/03/17 12:05 02/03/17 12:05 Recent Labs: Laboratory Last Values WBC 7.4 Th/cmm (4.8-10.8) D 02/03/17 12:05 RBC 4.62 Mil/cmm (4.30-5.70) 02/03/17 12:05 Hgb 12.7 gm/dL (12-16) 02/03/17 12:05 Hct 39.1 % (41.0-60) L 02/03/17 12:05 MCV 84.6 fl (80-99) 02/03/17 12:05 MCH 27.5 pg (26.0-30.0) 02/03/17 12:05 MCHC Differential 32.5 pg (28.0-36.0) 02/03/17 12:05 RDW 13.3 % (11.5-20.0) 02/03/17 12:05 Plt Count 287 Th/cmm (150-400) D 02/03/17 12:05 MPV 7.4 fl 02/03/17 12:05 Neutrophils % 80.6 % (40.0-80.0) H 02/03/17 12:05 Lymphocytes % 11.2 % (20.0-50.0) L 02/03/17 12:05 Monocytes % 8.0 % (2.0-10.0) 02/03/17 12:05 Eosinophils % 0.1 % (0.0-5.0) 02/03/17 12:05 Basophils % 0.1 % (0.0-2.0) 02/03/17 12:05 PT 10.9 SECONDS (9.5-11.5) 02/03/17 12:05 INR 1.05 (0.5-1.4) 02/03/17 12:05 PTT (Actin FS) 26.1 SECONDS (26.0-38.0) 02/03/17 12:05 Sodium 136 mEq/L (136-145) 02/03/17 12:05 Potassium 4.0 mEq/L (3.5-5.1) 02/03/17 12:05 Chloride 99 mEq/L (98-107) 02/03/17 12:05 Carbon Dioxide 29.6 mEq/L (21.0-31.0) 02/03/17 12:05 Anion Gap 11.4 (7.0-16.0) 02/03/17 12:05 BUN 22 mg/dL (7-25) 02/03/17 12:05 Creatinine 1.0 mg/dL (0.7-1.3) 02/03/17 12:05 Est GFR ( Amer) > 60.0 ml/min (>90) 02/03/17 12:05 Est GFR (Non-Af Amer) > 60.0 ml/min 02/03/17 12:05 BUN/Creatinine Ratio 22.0 02/03/17 12:05 Glucose 127 mg/dL (70-105) H 02/03/17 12:05 Calcium 9.3 mg/dL (8.6-10.3) 02/03/17 12:05 Total Bilirubin 0.6 mg/dL (0.3-1.0) 02/03/17 12:05 AST 154 U/L (13-39) H 02/03/17 12:05 ALT 64 U/L (7-52) H 02/03/17 12:05 Alkaline Phosphatase 56 U/L (34-104) 02/03/17 12:05 Total Protein 6.6 gm/dL (6.0-8.3) 02/03/17 12:05 Albumin 3.8 gm/dL (4.2-5.5) L 02/03/17 12:05 Globulin 2.8 gm/dL 02/03/17 12:05 Albumin/Globulin Ratio 1.4 (1.0-1.8) 02/03/17 12:05 TSH 1.50 uIU/ml (0.34-5.60) 02/03/17 12:05 Urine Source CATH 02/03/17 12:35 Urine Color YELLOW 02/03/17 12:35 Urine Clarity CLEAR (CLEAR) 02/03/17 12:35 Urine pH 6.0 (4.6 - 8.0) 02/03/17 12:35 Ur Specific [place] >= 1.030 (1.005-1.030) 02/03/17 12:35 Urine Protein 30 mg/dL (NEGATIVE) H 02/03/17 12:35 Urine Glucose (UA) NEGATIVE mg/dL (NEGATIVE) 02/03/17 12:35 Urine Ketones 15 mg/dL (NEGATIVE) H 02/03/17 12:35 Urine Blood MODERATE (NEGATIVE) H 02/03/17 12:35 Urine Nitrate NEGATIVE (NEGATIVE) 02/03/17 12:35 Urine Bilirubin SMALL (NEGATIVE) H 02/03/17 12:35 Urine Urobilinogen 0.2 E.U./dL (0.2 - 1.0) 02/03/17 12:35 Ur Leukocyte Esterase NEGATIVE (NEGATIVE) 02/03/17 12:35 Urine RBC 5-10 /hpf (0-5) H 02/03/17 12:35 Urine WBC 0-2 /hpf (0-5) 02/03/17 12:35 Ur Epithelial Cells OCCASIONAL /lpf (FEW) 02/03/17 12:35 Urine Bacteria 1+ /hpf (NONE SEEN) H 02/03/17 12:35 Urine Mucus FEW /lpf (FEW) 02/03/17 12:35 Salicylates < 25.0 mg/L (30.0-100.0) L 02/03/17 12:05 Urine Opiates Screen POSITIVE (NEGATIVE) H 02/03/17 12:35 Urine Methadone Screen NEGATIVE (NEGATIVE) 02/03/17 12:35 Acetaminophen < 10.0 ug/mL (10.0-30.0) L 02/03/17 12:05 Ur Barbiturates Screen NEGATIVE (NEGATIVE) 02/03/17 12:35 Ur Tricyclics Screen POSITIVE (NEGATIVE) H 02/03/17 12:35 Ur Phencyclidine Scrn NEGATIVE (NEGATIVE) 02/03/17 12:35 Amphetamines Screen POSITIVE (NEGATIVE) H 02/03/17 12:35 U Methamphetamines Scrn NEGATIVE (NEGATIVE) 02/03/17 12:35 U Benzodiazepines Scrn POSITIVE (NEGATIVE) H 02/03/17 12:35 U Cocaine Metab Screen NEGATIVE (NEGATIVE) 02/03/17 12:35 U Cannabinoids Screen NEGATIVE (NEGATIVE) 02/03/17 12:35 Ethyl Alcohol < 10 mg/dL (0-10) 02/03/17 12:05 - Physical Exam Vitals and I&O: Vital Signs Temp 98.2 F 02/18/17 06:03 Pulse 84 12/18/17 06:03 Resp 20 02/18/17 06:03 BP 112/70 02/18/17 06:03 Pulse Ox 97 02/18/17 06:03 Intake & Output 02/17/17 02/18/17 02/18/17 18:59 06:59 18:59 Intake Total 2200 300 Balance 2200 300 Intake: Oral 2200 300 Other: # Voids 4 1 # Bowel Movements 0 0 Active Medications: Current Medications Acetaminophen (Tylenol) 650 mg PO Q4HR PRN PRN Reason: Mild Pain / Temp above 100 Stop: 04/05/17 20:27 Al Hydrox/Mg Hydrox/Simethicone (Maalox) 30 ml PO Q4HR PRN PRN Reason: GI DISTRESS Stop: 04/05/17 20:27 Divalproex Sodium (Depakote Er) 500 mg PO BID PATRICE PRN Reason: Protocol Stop: 04/06/17 08:59 Last Admin: 02/18/17 08:44 Dose: 500 mg Duloxetine HCl (Cymbalta) 60 mg PO BID PATRICE PRN Reason: Protocol Stop: 04/06/17 08:59 Last Admin: 02/18/17 08:44 Dose: 60 mg Lorazepam (Ativan) 2 mg PO Q6H PRN; Protocol PRN Reason: Agitation Stop: 04/06/17 05:43 Last Admin: 02/18/17 06:05 Dose: 2 mg Multivitamins/Vitamin C (Theragran) 1 tab PO DAILY PATRICE Stop: 04/06/17 08:59 Last Admin: 02/18/17 08:44 Dose: 1 tab Quetiapine Fumarate (Seroquel Xr) 800 mg PO HS PATRICE PRN Reason: Protocol Stop: 04/06/17 20:59 Last Admin: 02/17/17 22:07 Dose: 800 mg Tamsulosin HCl (Flomax) 0.4 mg PO HS PATRICE Stop: 04/05/17 20:59 Last Admin: 02/17/17 22:10 Dose: 0.4 mg Trazodone HCl (Desyrel) 200 mg PO HS PATRCIE PRN Reason: Protocol Stop: 04/06/17 20:59 Last Admin: 02/17/17 22:07 Dose: 200 mg Zolpidem Tartrate (Ambien) 5 mg PO HS PRN PRN Reason: Insomnia Stop: 04/05/17 20:27 General: Alert, Oriented x3, No acute distress HEENT: Atraumatic, PERRLA, EOMI, Mucous membr. moist/pink Neck: Supple, JVD Cardiovascular: Regular rate, Normal S1, Normal S2 Lungs: Clear to auscultation, Normal air movement Abdomen: Bowel sounds, Soft Extremities: Pulses Neurological: Normal gait, Normal speech, Normal tone, Sensation intact, Reflexes 2+ - Procedures Procedures: Procedures Procedure Code Date CONTINUOUS INVASIVE MECHANICAL VENTILATION <96 CONSEC HRS 96.71 06/05/13 GROUP PSYCHOTHERAPY 79701 08/25/15 GROUP PSYCHOTHERAPY GZHZZZZ 08/25/15 INSERT EMERGENCY AIRWAY [id number] 06/05/13 INSERT ENDOTRACHEAL TUBE 96.04 06/05/13 VACCINATION NEC 99.55 06/24/13 Assessment/Plan - Problem List Patient Problems: All Active Problems Altered mental status (Active) R41.82 Drug overdose (Active) T50.901A Psychotic disorder (Acute) F29 - Assessment Assessment: BPH. Prostatits Chronic pain syndrome. DJD Psych disorder Post traumatic stress syndrome. Debility. - Plan Plan: Psychiatry management deferred to psychiatrist. Flomax for BPH. Pain control. Symptoms management. Medication management. Psych follow up. General nursing care. Continue other meds. Discussed with staff. Nutritional Asmnt/Malnutr-PDOC - Dietary Evaluation Malnutrition Findings (Please click <Entered> for more info): Nutritional Asmnt/Malnutrition Start: 02/11/17 15: 28 Text: Status: Complete Freq: Document 02/11/17 15:28 LCADIG (Rec: 02/11/17 15:43 [email or web address]) Nutritional Asmnt/Malnutrition Patient General Information Nutritional Screening Low Risk Diagnosis psychosis Pertinent Medical Hx/Surgical Hx DJD, chronic pain, BPH, hyperlipidemia, post tramatic stress syndrome Subjective Information Per notes, PO intake 100%, meeting 100% of nutritional needs. Current Diet Order/ Nutrition Support regular Pertinent Medications MVI, vit C, bactrim Pertinent Labs Glu 127H, AST 154H, ALT 64H, Alb 3.8L Nutritional Hx/Data Height 1.8 m Height (Calculated Centimeters) 180.3 Current Weight (lbs) 90.718 kg Weight (Calculated Kilograms) 90.7 Weight (Calculated Grams) 96022.5 [place] Body Weight 172 % [place] Body Weight 116 Body Mass Index (BMI) 27.8 Weight Status Overweight GI Symptoms GI Symptoms None Last BM 02/10 Difficult in: None Skin Integrity/Comment: intact Current %PO Good (75-100%) Estimated Nutritional Goals BEE in Kcals: Using Current wt Adj wt of IBW Calories/Kcals/Kg 25-30 Kcals Calculated Protein: Using Current wt Adj wt of IBW Protein g/k.8-1 Protein Calculated 65-81 Fluid: ml Nutritional Problem No current Nutrition Prob Problem N/A Malnutrition Alert Protein-Calorie Malnutrition N/A Is there a minimum of two criteria No selected? Query Text:Check all the applicable criteria. A minimum of two criteria are recommended for diagnosis of either severe or non-severe malnutrition. Intervention/Recommendation Comments 1. Continue with current diet as ordered. 2. Monitor PO intake, wt weekly, labs and skin integrity 3. F/U as low risk in 7 days, 02/18 Expected Outcomes/Goals Expected Outcomes/Goals 1. PO intake continue to meet at least 75% of nutritional needs. 2. Wt stability, skin to remain intact, labs to approach WNL.
--- NOTE | 2017-02-18 09:56 | Progress Notes ---
DATE: 02/17/2017 SUBJECTIVE: The patient was seen and evaluated. The patient's chart reviewed. Overnight, nursing staff reported of mild irritability, but more redirectable than before. Today, on [id number] evaluation, the patient is little more calmer, cooperative and thought process is a little more goal oriented. MENTAL STATUS EXAMINATION: Denies any auditory or visual hallucinations. Denies any HI/SI. Some improvement is noted. ASSESSMENT AND PLAN: The patient continues to stabilize with the current medication regimen. We will continue monitoring and evaluating. We will continue working very closely with his rehabilitation caseworker to discharge the patient to a safe disposition to minimize the risk of ____ with homelessness. JOB# [id number]
--- NOTE | 2017-02-18 13:29 | Progress Notes ---
DATE: SUBJECTIVE: Chart reviewed and the patient interviewed. Also, I discussed the patient's condition with the staff and reviewed records and labs. The patient is still anxious and seems to be slightly confused. The patient also is still talking about his placement and he is still unable to provide a safe plan for placement or for discharge. The patient also is still resisting care. He also is still slightly suspicious and slightly paranoid. ASSESSMENT: The patient is still psychotic. The patient still needs close monitoring and placement. TREATMENT PLAN: Continue working on discharge plans and on placement issue. JOB# [id number]
[2017-02-19] MEDS: Multivitamin Tab PO SCH (08:10)
--- NOTE | 2017-02-20 00:13 | Progress Notes ---
DATE: 02/19/2017 SUBJECTIVE: Chart reviewed and the patient interviewed. Also discussed the patient's condition with the staff and reviewed records and labs. The patient's affect is brighter. The patient seems to be slightly less irritable and less agitated. He is still asking to leave to a facility with "my girlfriend." His girlfriend has been on a wheelchair and they cannot go into a prison according to executive secretary social welfare. At the same time, the patient is compliant with taking his medications. He seems to be less confused and less irritable. ASSESSMENT: The patient still needs placement. TREATMENT PLAN: Continue monitoring his medications and also working with case loader operator in regard to discharge plans and the placement issue. JOB# [id number]
[2017-02-20] MEDS: Multivitamin Tab PO SCH (13:02)
--- NOTE | 2017-02-20 22:49 | Progress Notes ---
DATE: 02/20/2017 SUBJECTIVE: Chart reviewed and the patient interviewed. Also discussed the patient's condition with the staff and reviewed records and labs. The patient is still trying to find excuses not to leave the facility. The patient said that he is not able to go to a intermediate and is asking to go to a place with his girlfriend who is also a patient in the hospital. The patient seems to be less confused and more cooperative with the treatment except that the patient is not willing to leave the facility. The patient is compliant with taking his medications with no side effects of medications. He denies any suicidal or homicidal ideations and he denies any auditory or visual hallucinations or delusions. ASSESSMENT: The patient is less psychotic. TREATMENT PLAN: Continue working with manager rn case in regard to discharge plans. The patient can go to either a motel or to a intermediate. I continued to talk to the social work coordinator about the importance of discharging the patient and giving him the hospital help, secondary gain, but she is still not able to discharge him in spite of my discharge orders for the last couple of days. We will continue working on discharging the patient and will continue to follow up. JOB# [id number]
[2017-02-21] MEDS: Multivitamin Tab PO SCH (08:26)
--- NOTE | 2017-02-21 10:39 | General Progress Note ---
Subjective - Review of Systems Subjective: Patient is seen and examined. Patient denies any chest pain,SOB,cough,headache,seizure,syncope,diarrhea, constipation. Objective - Results Result Diagrams: 02/03/17 12:05 02/03/17 12:05 Recent Labs: Laboratory Last Values WBC 7.4 Th/cmm (4.8-10.8) D 02/03/17 12:05 RBC 4.62 Mil/cmm (4.30-5.70) 02/03/17 12:05 Hgb 12.7 gm/dL (12-16) 02/03/17 12:05 Hct 39.1 % (41.0-60) L 02/03/17 12:05 MCV 84.6 fl (80-99) 02/03/17 12:05 MCH 27.5 pg (26.0-30.0) 02/03/17 12:05 MCHC Differential 32.5 pg (28.0-36.0) 02/03/17 12:05 RDW 13.3 % (11.5-20.0) 02/03/17 12:05 Plt Count 287 Th/cmm (150-400) D 02/03/17 12:05 MPV 7.4 fl 02/03/17 12:05 Neutrophils % 80.6 % (40.0-80.0) H 02/03/17 12:05 Lymphocytes % 11.2 % (20.0-50.0) L 02/03/17 12:05 Monocytes % 8.0 % (2.0-10.0) 02/03/17 12:05 Eosinophils % 0.1 % (0.0-5.0) 02/03/17 12:05 Basophils % 0.1 % (0.0-2.0) 02/03/17 12:05 PT 10.9 SECONDS (9.5-11.5) 02/03/17 12:05 INR 1.05 (0.5-1.4) 02/03/17 12:05 PTT (Actin FS) 26.1 SECONDS (26.0-38.0) 02/03/17 12:05 Sodium 136 mEq/L (136-145) 02/03/17 12:05 Potassium 4.0 mEq/L (3.5-5.1) 02/03/17 12:05 Chloride 99 mEq/L (98-107) 02/03/17 12:05 Carbon Dioxide 29.6 mEq/L (21.0-31.0) 02/03/17 12:05 Anion Gap 11.4 (7.0-16.0) 02/03/17 12:05 BUN 22 mg/dL (7-25) 02/03/17 12:05 Creatinine 1.0 mg/dL (0.7-1.3) 02/03/17 12:05 Est GFR ( Amer) > 60.0 ml/min (>90) 02/03/17 12:05 Est GFR (Non-Af Amer) > 60.0 ml/min 02/03/17 12:05 BUN/Creatinine Ratio 22.0 02/03/17 12:05 Glucose 127 mg/dL (70-105) H 02/03/17 12:05 Calcium 9.3 mg/dL (8.6-10.3) 02/03/17 12:05 Total Bilirubin 0.6 mg/dL (0.3-1.0) 02/03/17 12:05 AST 154 U/L (13-39) H 02/03/17 12:05 ALT 64 U/L (7-52) H 02/03/17 12:05 Alkaline Phosphatase 56 U/L (34-104) 02/03/17 12:05 Total Protein 6.6 gm/dL (6.0-8.3) 02/03/17 12:05 Albumin 3.8 gm/dL (4.2-5.5) L 02/03/17 12:05 Globulin 2.8 gm/dL 02/03/17 12:05 Albumin/Globulin Ratio 1.4 (1.0-1.8) 02/03/17 12:05 TSH 1.50 uIU/ml (0.34-5.60) 02/03/17 12:05 Urine Source CATH 02/03/17 12:35 Urine Color YELLOW 02/03/17 12:35 Urine Clarity CLEAR (CLEAR) 02/03/17 12:35 Urine pH 6.0 (4.6 - 8.0) 02/03/17 12:35 Ur Specific [place] >= 1.030 (1.005-1.030) 02/03/17 12:35 Urine Protein 30 mg/dL (NEGATIVE) H 02/03/17 12:35 Urine Glucose (UA) NEGATIVE mg/dL (NEGATIVE) 02/03/17 12:35 Urine Ketones 15 mg/dL (NEGATIVE) H 02/03/17 12:35 Urine Blood MODERATE (NEGATIVE) H 02/03/17 12:35 Urine Nitrate NEGATIVE (NEGATIVE) 02/03/17 12:35 Urine Bilirubin SMALL (NEGATIVE) H 02/03/17 12:35 Urine Urobilinogen 0.2 E.U./dL (0.2 - 1.0) 02/03/17 12:35 Ur Leukocyte Esterase NEGATIVE (NEGATIVE) 02/03/17 12:35 Urine RBC 5-10 /hpf (0-5) H 02/03/17 12:35 Urine WBC 0-2 /hpf (0-5) 02/03/17 12:35 Ur Epithelial Cells OCCASIONAL /lpf (FEW) 02/03/17 12:35 Urine Bacteria 1+ /hpf (NONE SEEN) H 02/03/17 12:35 Urine Mucus FEW /lpf (FEW) 02/03/17 12:35 Salicylates < 25.0 mg/L (30.0-100.0) L 02/03/17 12:05 Urine Opiates Screen POSITIVE (NEGATIVE) H 02/03/17 12:35 Urine Methadone Screen NEGATIVE (NEGATIVE) 02/03/17 12:35 Acetaminophen < 10.0 ug/mL (10.0-30.0) L 02/03/17 12:05 Ur Barbiturates Screen NEGATIVE (NEGATIVE) 02/03/17 12:35 Ur Tricyclics Screen POSITIVE (NEGATIVE) H 02/03/17 12:35 Ur Phencyclidine Scrn NEGATIVE (NEGATIVE) 02/03/17 12:35 Amphetamines Screen POSITIVE (NEGATIVE) H 02/03/17 12:35 U Methamphetamines Scrn NEGATIVE (NEGATIVE) 02/03/17 12:35 U Benzodiazepines Scrn POSITIVE (NEGATIVE) H 02/03/17 12:35 U Cocaine Metab Screen NEGATIVE (NEGATIVE) 02/03/17 12:35 U Cannabinoids Screen NEGATIVE (NEGATIVE) 02/03/17 12:35 Ethyl Alcohol < 10 mg/dL (0-10) 02/03/17 12:05 - Physical Exam Vitals and I&O: Vital Signs Temp 98 F 02/20/17 15:12 Pulse 94 12/20/17 15:12 Resp 20 02/20/17 15:12 BP 120/74 02/20/17 15:12 Pulse Ox 98 02/20/17 15:12 Intake & Output 02/20/17 02/21/17 02/21/17 18:59 06:59 18:59 Intake Total 240 Balance 240 Intake: Oral 240 Other: # Voids 2 # Bowel Movements 0 Active Medications: Current Medications Acetaminophen (Tylenol) 650 mg PO Q4HR PRN PRN Reason: Mild Pain / Temp above 100 Stop: 04/05/17 20:27 Al Hydrox/Mg Hydrox/Simethicone (Maalox) 30 ml PO Q4HR PRN PRN Reason: GI DISTRESS Stop: 04/05/17 20:27 Divalproex Sodium (Depakote Er) 500 mg PO BID PATRICE PRN Reason: Protocol Stop: 04/06/17 08:59 Last Admin: 02/21/17 08:26 Dose: 500 mg Duloxetine HCl (Cymbalta) 60 mg PO BID PATRICE PRN Reason: Protocol Stop: 04/06/17 08:59 Last Admin: 02/21/17 08:26 Dose: 60 mg Lorazepam (Ativan) 2 mg PO Q6H PRN; Protocol PRN Reason: Agitation Stop: 04/06/17 05:43 Last Admin: 02/21/17 07:42 Dose: 2 mg Multivitamins/Vitamin C (Theragran) 1 tab PO DAILY PATRICE Stop: 04/06/17 08:59 Last Admin: 02/21/17 08:26 Dose: 1 tab Quetiapine Fumarate (Seroquel Xr) 800 mg PO HS PATRICE PRN Reason: Protocol Stop: 04/06/17 20:59 Last Admin: 02/20/17 21:05 Dose: 800 mg Tamsulosin HCl (Flomax) 0.4 mg PO HS PATRICE Stop: 04/05/17 20:59 Last Admin: 02/20/17 21:05 Dose: 0.4 mg Trazodone HCl (Desyrel) 200 mg PO HS PATRICE PRN Reason: Protocol Stop: 04/06/17 20:59 Last Admin: 02/20/17 21:05 Dose: 200 mg Zolpidem Tartrate (Ambien) 5 mg PO HS PRN PRN Reason: Insomnia Stop: 04/05/17 20:27 General: Alert, Oriented x3, No acute distress HEENT: Atraumatic, PERRLA, EOMI, Mucous membr. moist/pink Neck: Supple, JVD Cardiovascular: Regular rate, Normal S1, Normal S2 Lungs: Clear to auscultation, Normal air movement Abdomen: Bowel sounds, Soft Extremities: Pulses Neurological: Normal gait, Normal speech, Normal tone, Sensation intact, Reflexes 2+ - Procedures Procedures: Procedures Procedure Code Date CONTINUOUS INVASIVE MECHANICAL VENTILATION <96 CONSEC HRS 96.71 06/05/13 GROUP PSYCHOTHERAPY 71527 08/25/15 GROUP PSYCHOTHERAPY GZHZZZZ 08/25/15 INSERT EMERGENCY AIRWAY [id number] 06/05/13 INSERT ENDOTRACHEAL TUBE 96.04 06/05/13 VACCINATION NEC 99.55 06/24/13 Assessment/Plan - Problem List Patient Problems: All Active Problems Altered mental status (Active) R41.82 Drug overdose (Active) T50.901A Psychotic disorder (Acute) F29 - Assessment Assessment: BPH. Prostatits Chronic pain syndrome. DJD Psych disorder Post traumatic stress syndrome. Debility. - Plan Plan: Psych meds. Psych follow up. Avoid bladder outlet obstruction. Flomax for BPH. Pain control. Symptoms management. Medication management. Psych follow up. General nursing care. Continue other meds. Discussed with staff. Nutritional Asmnt/Malnutr-PDOC - Dietary Evaluation Malnutrition Findings (Please click <Entered> for more info): Nutritional Asmnt/Malnutrition Start: 02/11/17 15: 28 Text: Status: Complete Freq: Document 02/11/17 15:28 LCHENG (Rec: 02/11/17 15:43 ADI [email or web address]) Nutritional Asmnt/Malnutrition Patient General Information Nutritional Screening Low Risk Diagnosis psychosis Pertinent Medical Hx/Surgical Hx DJD, chronic pain, BPH, hyperlipidemia, post tramatic stress syndrome Subjective Information Per notes, PO intake 100%, meeting 100% of nutritional needs. Current Diet Order/ Nutrition Support regular Pertinent Medications MVI, vit C, bactrim Pertinent Labs Glu 127H, AST 154H, ALT 64H, Alb 3.8L Nutritional Hx/Data Height 1.8 m Height (Calculated Centimeters) 180.3 Current Weight (lbs) 90.718 kg Weight (Calculated Kilograms) 90.7 Weight (Calculated Grams) 70385.5 [place] Body Weight 172 % [place] Body Weight 116 Body Mass Index (BMI) 27.8 Weight Status Overweight GI Symptoms GI Symptoms None Last BM 02/10 Difficult in: None Skin Integrity/Comment: intact Current %PO Good (75-100%) Estimated Nutritional Goals BEE in Kcals: Using Current wt Adj wt of IBW Calories/Kcals/Kg 25-30 Kcals Calculated Protein: Using Current wt Adj wt of IBW Protein g/k.8-1 Protein Calculated 65-81 Fluid: ml Nutritional Problem No current Nutrition Prob Problem N/A Malnutrition Alert Protein-Calorie Malnutrition N/A Is there a minimum of two criteria No selected? Query Text:Check all the applicable criteria. A minimum of two criteria are recommended for diagnosis of either severe or non-severe malnutrition. Intervention/Recommendation Comments 1. Continue with current diet as ordered. 2. Monitor PO intake, wt weekly, labs and skin integrity 3. F/U as low risk in 7 days, 02/18 Expected Outcomes/Goals Expected Outcomes/Goals 1. PO intake continue to meet at least 75% of nutritional needs. 2. Wt stability, skin to remain intact, labs to approach WNL.
--- NOTE | 2017-03-31 16:06 | Discharge Summary ---
DATE OF DISCHARGE: 02/21/2017 FINAL DIAGNOSES AND PRIMARY DIAGNOSES: Schizoaffective disorder, bipolar type, with psychotic features. REASON FOR HOSPITALIZATION: The patient was admitted to the hospital because of confusion and he was found by the police knocking on people's door in a confused state and was placed on a hold and brought into the hospital. HOSPITAL COURSE: The patient continued to be confused. The patient also was easily agitated and irritable. He also was anxious. The patient was started on Seroquel XR in a dose of 800 mg every day. The patient, in the beginning continued to be confused, but gradually the patient's affect was brighter. The patient was less irritable and less agitated. The patient also was more cooperative with the staff. The patient's placement was an issue and at the end, the patient was accepted in a [facility] and he was discharged there with plans for outpatient treatment in my office. Physical exam of the patient showed no major medical issues except benign prostatic hypertrophy and the patient was taking Flomax. AFTER DISCHARGE PLANS: The patient will be followed as an outpatient in my office. EXPECTED OUTCOME AFTER DISCHARGE: Guarded because of the patient's history with noncompliant with treatment recommendations and with discharge plans. JOB# [id number]
== END 2017-02-21 15:45 | disposition home or self-care (01) | DRG 885 ==
LOC: ER 10:46 → GERO 02-04 13:40
PROVIDERS: ADMIT Psychiatry & Neurology Psychiatry; ATTEND Psychiatry & Neurology Psychiatry
DX: F25.0 Schizoaffective disorder, bipolar type (principal); F29 Unspecified psychosis not due to a substance or known physiological condition; E78.5 Hyperlipidemia, unspecified; N39.0 Urinary tract infection, site not specified; F11.10 Opioid abuse, uncomplicated; F15.10 Other stimulant abuse, uncomplicated; F43.10 Post-traumatic stress disorder, unspecified; G89.4 Chronic pain syndrome; N40.0 Benign prostatic hyperplasia without lower urinary tract symptoms; M19.90 Unspecified osteoarthritis, unspecified site; N41.9 Inflammatory disease of prostate, unspecified; F19.10 Other psychoactive substance abuse, uncomplicated; R73.9 Hyperglycemia, unspecified; Z87.891 Personal history of nicotine dependence
CPT/HCPCS: 36415-UA; 80053-TC; 80307; 80320-TC; 80329-TC; 81001-TC; 84443-TC; 85025-TC; 85610-TC; 90899; G0410; Z7502; Z7610

== ENCOUNTER 2017-05-09 18:43 | Inpatient (IN) | payer MEDICARE ==
--- NOTE | 2017-05-09 21:22 | ED Physician Chart ---
ED Chief Complaint/HPI - Patient Information Date Seen:: 05/09/17 Time Seen:: 21:05 Chief Complaint:: depression History of Present Illness:: Patient's girlfriend recently and he's been depressed since then. He admits to depression but denies the desire to hurt himself or anyone else. Allergies:: Allergies Allergy/AdvReac Type Severity Reaction Status Date / Time No Known Allergies Allergy Verified 05/09/17 21:00 Vitals:: Vital Signs - 8 hr 05/09/17 20:00 Temp 97.8 F HR 72 RR 18 BP 111/72 O2 Sat % 97 Historian:: Patient Review:: Nurse's Note Reviewed, Transfer documents Reviewed ED Review of Systems - Review of Systems General/Constitutional: No fever, No chills Skin: No skin lesions Head: No headache Eyes: Acuity change ENT: No earache Neck: No neck pain, No swelling Cardio Vascular: No chest pain, No palpitations Pulmonary: No SOB GI: No nausea, No vomiting, No diarrhea G/U: No dysuria Musculoskeletal: No bone or joint pain Endocrine: No polyuria, No polydipsia Psychiatric: Prior psych history Hematopoietic: No bruising Allergic/Immuno: No urticaria Neurological: No syncope, No focal symptoms ED Past Medical History - Past Medical History Past Medical History: Other (bipolar disorder; benign prostatic hypertrophy; depression; schizoaffective disorder) Family History: Cancer Social History: Non Smoker, No Alcohol Surgical History: other (herniated disc) Psychiatricy History: Depression, Bipolar, Other (bipolar disorder) Family Medical History - Family Member Mother History Unknown: Yes Ethnicity: Non- Living Status: Still Living Hx Family Cancer: No Hx Family Coronary Artery Disease: No Hx Family Congestive Heart Failure: No Hx Family Hypertension: No Hx Family Stroke: No Hx Family Diabetes: No Hx Family Seizures: No Hx Family Dementia: No Hx Family AIDS: No Hx Family HIV: No Hx Family COPD: No Hx Family Hepatitis: No Hx Family Psychiatric Problems: No Hx Family Tuberculosis: No ED Labs/Radiology/EKG Results - Lab Results Comments:: Laboratory Results - last 24 hr 05/09/17 05/09/17 21:23 21:23 WBC 5.4 RBC 4.66 Hgb 13.2 Hct 39.4 L MCV 84.7 MCH 28.3 MCHC Differential 33.4 RDW 14.6 Plt Count 279 MPV 7.2 Neutrophils % 48.8 Lymphocytes % 41.7 Monocytes % 7.6 Eosinophils % 1.1 Basophils % 0.8 Sodium 136 Potassium 3.6 Chloride 103 Carbon Dioxide 28.1 Anion Gap 8.5 BUN 20 Creatinine 1.2 Est GFR ( Amer) > 60.0 Est GFR (Non-Af Amer) > 60.0 BUN/Creatinine Ratio 16.7 Glucose 111 H Calcium 9.3 Total Bilirubin 0.3 AST 20 ALT 16 Alkaline Phosphatase 50 Total Protein 6.7 Albumin 4.0 L Globulin 2.7 Albumin/Globulin Ratio 1.5 Triglycerides 160 H Cholesterol 202 H LDL Cholesterol Direct 139 HDL Cholesterol 45 - Radiology Results Results: Patient refuses EKG ED Septic Shock - . Is Septic Shock (SBP<90, OR Lactate>4 mmol\L) present?: No - <6hrs of presentation: Vital Signs: Vital Signs - 8 hr 05/09/17 20:00 Temp 97.8 F HR 72 RR 18 BP 111/72 O2 Sat % 97 ED Reassessment (Disposition) - Reassessment Reassessment Condition:: Unchanged - Diagnosis Diagnosis:: Depression; schizoaffective disorder; bipolar disorder - Patient Disposition Admitted to:: [facility] Admitting Medical Physician:: Joan Cano Admitting Psych Physician:: Sara Cao
[2017-05-09 21:29] LABS: % BASOPHILS 0.8 % (0.0-2.0); % EOSINOPHILS 1.1 % (0.0-5.0); % LYMPHOCYTES 41.7 % (20.0-50.0); % MONOCYTES 7.6 % (2.0-10.0); % NEUTROPHILS 48.8 % (40.0-80.0); EOSINOPHILE ABSOLUTE 0.1 Th/cmm (0.1-0.4); HEMATOCRIT 39.4 % (41.0-60); HEMOGLOBIN 13.2 gm/dL (12-16); LYMPHOCYTE ABSOLUTE 2.3 Th/cmm (1.5-3.0); MEAN CELL VOLUME 84.7 fl (80-99); MEAN CORPUSCULAR HEMOGLOBIN 28.3 pg (26.0-30.0); MEAN CORPUSCULAR HGB CONC 33.4 pg (28.0-36.0); MEAN PLATELET VOLUME 7.2 fl; MONOCYTE ABSOLUTE 0.4 Th/cmm (0.3-1.0); NEUTROPHILE ABSOLUTE 2.6 Th/cmm (1.8-8.0); PLATELET COUNT 279 Th/cmm (150-400); RED BLOOD COUNT 4.66 Mil/cmm (4.30-5.70); RED CELL DISTRIBUTION WIDTH 14.6 % (11.5-20.0); WHITE BLOOD COUNT 5.4 Th/cmm (4.8-10.8)
[2017-05-09 21:47] LABS: ALB/GLOB RATIO 1.5 (1.0-1.8); ALKALINE PHOSPHATASE 50 U/L (34-104); ANION GAP 8.5 (7.0-16.0); BILIRUBIN,TOTAL 0.3 mg/dL (0.3-1.0); BUN - UREA NITROGEN 20 mg/dL (7-25); CALCIUM SERUM 9.3 mg/dL (8.6-10.3); CARBON DIOXIDE 28.1 mEq/L (21.0-31.0); CHLORIDE 103 mEq/L (98-107); CHOLESTEROL 202 mg/dL (<200); CREATININE - SERUM 1.2 mg/dL (0.7-1.3); GFR AFRICAN-AMERICAN > 60.0 ml/min (>90); GFR NON AFRICAN-AMERICAN > 60.0 ml/min; GLUCOSE 111 mg/dL (70-105); HDL -HIGH DENSITY LIPOPROTEIN 45 mg/dL (23-92); POTASSIUM SERUM 3.6 mEq/L (3.5-5.1); SGOT 20 U/L (13-39); SGPT/ALT 16 U/L (7-52); SODIUM SERUM 136 mEq/L (136-145); TOTAL PROTEIN,SERUM 6.7 gm/dL (6.0-8.3); TRIGLYCERIDES 160 mg/dL (<150)
[2017-05-09 23:40] VITALS: BP 135/74
[2017-05-10] MEDS ORDERED: Magnesium Hydroxide (MOM) 30 mL UDC PO PRN (00:10)
[2017-05-10] MEDS ORDERED: Maalox 30 mL Cup PO PRN (00:10)
[2017-05-10] MEDS: Multivitamin Tab PO SCH (09:49)
--- NOTE | 2017-05-10 14:18 | History & Physical ---
ADMIT DATE: 05/09/2017 IDENTIFYING INFORMATION: The patient is a 62-year-old male. CHIEF COMPLAINT: No answer. HISTORY OF PRESENT ILLNESS: The patient apparently transferred and [facility] and they said that the patient has been very depressed. His fiancee a few days ago and that he has been agitated. When I tried to talk to him today, he was not participating. He is a well-known case to me. I have seen him many times before covering at [facility]. The patient also with history of substance abuse problem. MEDICAL HISTORY: Deferred to the medical doctor. MEDICATIONS: The patient has been on active Seroquel, Depakote, and Cymbalta. FAMILY AND SOCIAL HISTORY: The patient's fiancee just . The patient otherwise would not give me any information. I have no access to his records at this point. MENTAL STATUS EXAMINATION: The patient is appropriately dressed. His mood is depressed. Affect is sad. Thoughts are clear, concrete. Speech is coherent, not participating, and depressed. He would not answer any of my questions. He was upset that he was here. I was unable to test his memory. When asked about suicide, homicide, he would not answer. When asked about hallucination, he would not answer. His insight and judgment is impaired. IMPRESSION: AXIS I: Depression, recurrent, severe with possible psychosis, rule out bipolar disorder. MEDICAL DIAGNOSES: Deferred to the medical doctor. His asset is accepting treatment. Negative, poor cognition. INITIAL TREATMENT PLAN: The patient will be started back on his medication. We will do group therapy, milieu therapy, and individual therapy. ESTIMATED LENGTH OF STAY: 3-7 days. DISCHARGE CRITERIA: Decrease in depression, feeling better after discharge, outpatient. JOB# [id number]
[2017-05-10 18:29] LABS: A1C % 5.2 % (4.0-6.0)
--- NOTE | 2017-05-10 21:30 | History & Physical ---
ADMIT DATE: 05/09/2017 HISTORY OF PRESENT ILLNESS: The patient is a 62-year-old male with long history of benign prostatic hypertrophy, degenerative joint disease, psychosis, admitted to our [facility] for evaluation and treatment. The patient denies any chest pain, shortness of breath, nausea, vomiting, fever, or chills. PAST MEDICAL HISTORY: Significant for benign prostatic hypertrophy, degenerative joint disease, and psychosis. PAST SURGICAL HISTORY: No recent surgery. ALLERGIES: None. MEDICATIONS: Follow admission reconciliation. SOCIAL HISTORY: No smoking. No alcohol. No drugs. FAMILY HISTORY: Noncontributory. REVIEW OF SYSTEMS: IMMUNOSYSTEM: No history of chronic renal disorder. CARDIOVASCULAR SYSTEM: No coronary artery disease. ENDOCRINE SYSTEM: No diabetes or thyroid problem. GASTROINTESTINAL SYSTEM: No upper or lower gastrointestinal bleed. NEUROLOGICAL SYSTEM: Seizure disorder. MUSCULOSKELETAL SYSTEM: No muscular dystrophy. HEMATOLOGIC SYSTEM: No bleeding tendency. RESPIRATORY SYSTEM: No asthma. GENITOURINARY: No dysuria or hematuria. PHYSICAL EXAMINATION: GENERAL: He is awake, alert, oriented. VITAL SIGNS: Temperature 98, heart rate 88, and blood pressure 132/70. HEENT: Normocephalic. Pupils reactive to light and accommodation. Sclerae clear. NECK: Supple. Negative for lymphadenopathy, JVD, or bruit. CHEST: Entry of air bilateral normal. No rhonchi or wheezing. HEART: S1, S2 normal, no gallop rhythm. ABDOMEN: Soft, bowel sounds positive. EXTREMITIES: No edema. NEUROLOGIC: He is awake, alert, mildly confused. ASSESSMENT: 1. Benign prostatic hypertrophy. 2. Degenerative joint disease. 3. Psychosis. PLAN: The patient admitted to the hospital for more evaluation and treatment. The patient is medically stable for activity. JOB# [id number]
[2017-05-11] MEDS: Multivitamin Tab PO SCH (09:59)
--- NOTE | 2017-05-11 19:22 | Internal Medicine Prog Note ---
Internal Medicine Subjective - Subjective Service Date: 05/11/17 Patient seen and examined:: without staff Patient is:: awake, verbal, in bed, talking, confused Per staff patient has:: no adverse event (HE DENIES AN PAIN OR SOB.) Internal Medicine Objective - Results Result Diagrams: 05/09/17 21:23 05/09/17 21:23 Recent Labs: Laboratory Last Values WBC 5.4 Th/cmm (4.8-10.8) 05/09/17 21:23 RBC 4.66 Mil/cmm (4.30-5.70) 05/09/17 21:23 Hgb 13.2 gm/dL (12-16) 05/09/17 21:23 Hct 39.4 % (41.0-60) L 05/09/17 21: MCV 84.7 fl (80-99) 05/09/17 21:23 MCH 28.3 pg (26.0-30.0) 05/09/17 21: MCHC Differential 33.4 pg (28.0-36.0) 05/09/17 21:23 RDW 14.6 % (11.5-20.0) 05/09/17 21: Plt Count 279 Th/cmm (150-400) 05/09/17 21:23 MPV 7.2 fl 05/09/17 21: Neutrophils % 48.8 % (40.0-80.0) 05/09/17 21: Lymphocytes % 41.7 % (20.0-50.0) 05/09/17 21: Monocytes % 7.6 % (2.0-10.0) 05/09/17 21:23 Eosinophils % 1.1 % (0.0-5.0) 05/09/17 21:23 Basophils % 0.8 % (0.0-2.0) 05/09/17 21:23 Sodium 136 mEq/L (136-145) 05/09/17 21:23 Potassium 3.6 mEq/L (3.5-5.1) 05/09/17 21:23 Chloride 103 mEq/L (98-107) 05/09/17 21:23 Carbon Dioxide 28.1 mEq/L (21.0-31.0) 05/09/17 21:23 Anion Gap 8.5 (7.0-16.0) 05/09/17 21:23 BUN 20 mg/dL (7-25) 05/09/17 21:23 Creatinine 1.2 mg/dL (0.7-1.3) 05/09/17 21:23 Est GFR ( Amer) > 60.0 ml/min (>90) 05/09/17 21:23 Est GFR (Non-Af Amer) > 60.0 ml/min 05/09/17 21:23 BUN/Creatinine Ratio 16.7 05/09/17 21:23 Glucose 111 mg/dL (70-105) H 05/09/17 21:23 Hemoglobin A1c % 5.2 % (4.0-6.0) 05/09/17 21:23 Calcium 9.3 mg/dL (8.6-10.3) 05/09/17 21:23 Total Bilirubin 0.3 mg/dL (0.3-1.0) 05/09/17 21:23 AST 20 U/L (13-39) 05/09/17 21:23 ALT 16 U/L (7-52) 05/09/17 21:23 Alkaline Phosphatase 50 U/L (34-104) 05/09/17 21:23 Total Protein 6.7 gm/dL (6.0-8.3) 05/09/17 21:23 Albumin 4.0 gm/dL (4.2-5.5) L 05/09/17 21:23 Globulin 2.7 gm/dL 05/09/17 21:23 Albumin/Globulin Ratio 1.5 (1.0-1.8) 05/09/17 21:23 Triglycerides 160 mg/dL (<150) H 05/09/17 21:23 Cholesterol 202 mg/dL (<200) H 05/09/17 21:23 LDL Cholesterol Direct 139 mg/dL (75-193) 05/09/17 21:23 HDL Cholesterol 45 mg/dL (23-92) 05/09/17 21:23 TSH 0.92 uIU/ml (0.34-5.60) 05/09/17 21:23 RPR NONREACTIVE (NONREACTIVE) 05/09/17 21:23 - Physical Exam Vitals and I&O: Vital Signs Temp 98.5 F 03/10/18 16:41 Pulse 66 05/11/17 16:41 Resp 18 05/11/17 16:41 BP 138/90 05/11/17 16:41 Pulse Ox 100 05/11/17 16:41 Intake & Output 05/11/17 05/11/17 05/12/17 06:59 18:59 07:59 Intake Total 460 1300 Balance 460 1300 Intake: Oral 460 1300 Other: # Voids 1 3 # Bowel Movements 2 Active Medications: Current Medications Acetaminophen (Tylenol) 650 mg PO Q4HR PRN PRN Reason: Mild Pain / Temp above 100 Stop: 07/09/17 00:09 Al Hydrox/Mg Hydrox/Simethicone (Maalox) 30 ml PO Q4HR PRN PRN Reason: GI DISTRESS Stop: 07/09/17 00:09 Divalproex Sodium (Depakote Er) 500 mg PO BID PATRICE PRN Reason: Protocol Stop: 07/09/17 08:59 Last Admin: 05/11/17 17:25 Dose: 500 mg Duloxetine HCl (Cymbalta) 30 mg PO DAILY PATRICE PRN Reason: Protocol Stop: 07/09/17 08:59 Last Admin: 05/11/17 09:59 Dose: 30 mg Lorazepam (Ativan) 2 mg PO Q8H PRN; Protocol PRN Reason: Anxiety/agitation Stop: 07/09/17 05:26 Magnesium Hydroxide (Milk Of Magnesia) 30 ml PO HS PRN PRN Reason: Constipation Multivitamins/Vitamin C (Theragran) 1 tab PO DAILY PATRICE Stop: 07/09/17 08:59 Last Admin: 05/11/17 09:59 Dose: 1 tab Quetiapine Fumarate (Seroquel Xr) 800 mg PO HS PATRICE PRN Reason: Protocol Stop: 07/09/17 20:59 Last Admin: 05/10/17 20:42 Dose: 800 mg Tamsulosin HCl (Flomax) 0.4 mg PO HS PATRICE Stop: 07/09/17 20:59 Last Admin: 05/10/17 20:42 Dose: 0.4 mg Zolpidem Tartrate (Ambien) 5 mg PO HS PRN PRN Reason: Insomnia Stop: 07/09/17 00:09 General: demented HEENT: NC/AT, PERRLA, EOMI, anicteric sclerae, throat clear Neck: Supple, No JVD, No thyromegaly Lungs: CTAB Cardiovascular: RRR, Normal S1, Normal S2, without murmur Abdomen: soft, non-tender, non-distended Extremities: clear Neurological: no change - Procedures Procedures: Procedures Procedure Code Date CONTINUOUS INVASIVE MECHANICAL VENTILATION <96 CONSEC HRS 96.71 06/05/13 GROUP PSYCHOTHERAPY 19016 08/25/15 GROUP PSYCHOTHERAPY GZHZZZZ 08/25/15 INSERT EMERGENCY AIRWAY [id number] 06/05/13 INSERT ENDOTRACHEAL TUBE 96.04 06/05/13 VACCINATION NEC 99.55 06/24/13 Internal Medicine Assmt/Plan - Assessment Assessment: 1.BPH. 2.DJD. 3.PSYCHOSIS. - Plan Plan: CONTINUE ON CURRENT MEDICATION AND DIET.
--- NOTE | 2017-05-12 03:55 | Progress Notes ---
DATE: SUBJECTIVE: Chart reviewed and the patient interviewed. Also, discussed the patient's condition with the staff and reviewed records and labs. "I am getting crazy and this place is making even more." The patient said that his girlfriend of 47 years 3 days ago suddenly from a heart attack. The patient has been severely depressed and has been severely anxious. The patient also has been feeling hopeless and helpless. He is in angry and in irritable mood. Also his thought processes are circumstantial and tangential. The patient has been living in [facility]. He denies any auditory or visual hallucinations, but he is extremely angry and irritable. ASSESSMENT: The patient is still depressed and in angry mood. TREATMENT PLAN: We will continue to monitor his behavior and his condition closely. Also, continue to work on his ineffective coping and his severe level of depression and we will continue to follow up. Also continue adjusting psychotropic medications. [facility]# [id number]
[2017-05-12] MEDS: Multivitamin Tab PO SCH (08:20)
--- NOTE | 2017-05-12 23:50 | Internal Medicine Prog Note ---
Internal Medicine Subjective - Subjective Service Date: 05/12/17 Patient seen and examined:: without staff Patient is:: awake, verbal, in bed, talking, confused Per staff patient has:: no adverse event (HE DENIES AN PAIN OR SOB.) Internal Medicine Objective - Results Result Diagrams: 05/09/17 21:23 05/09/17 21:23 Recent Labs: Laboratory Last Values WBC 5.4 Th/cmm (4.8-10.8) 05/09/17 21:23 RBC 4.66 Mil/cmm (4.30-5.70) 05/09/17 21:23 Hgb 13.2 gm/dL (12-16) 05/09/17 21:23 Hct 39.4 % (41.0-60) L 05/09/17 21: MCV 84.7 fl (80-99) 05/09/17 21:23 MCH 28.3 pg (26.0-30.0) 05/09/17 21: MCHC Differential 33.4 pg (28.0-36.0) 05/09/17 21:23 RDW 14.6 % (11.5-20.0) 05/09/17 21: Plt Count 279 Th/cmm (150-400) 05/09/17 21:23 MPV 7.2 fl 05/09/17 21: Neutrophils % 48.8 % (40.0-80.0) 05/09/17 21: Lymphocytes % 41.7 % (20.0-50.0) 05/09/17 21: Monocytes % 7.6 % (2.0-10.0) 05/09/17 21:23 Eosinophils % 1.1 % (0.0-5.0) 05/09/17 21:23 Basophils % 0.8 % (0.0-2.0) 05/09/17 21:23 Sodium 136 mEq/L (136-145) 05/09/17 21:23 Potassium 3.6 mEq/L (3.5-5.1) 05/09/17 21:23 Chloride 103 mEq/L (98-107) 05/09/17 21:23 Carbon Dioxide 28.1 mEq/L (21.0-31.0) 05/09/17 21:23 Anion Gap 8.5 (7.0-16.0) 05/09/17 21:23 BUN 20 mg/dL (7-25) 05/09/17 21:23 Creatinine 1.2 mg/dL (0.7-1.3) 05/09/17 21:23 Est GFR ( Amer) > 60.0 ml/min (>90) 05/09/17 21:23 Est GFR (Non-Af Amer) > 60.0 ml/min 05/09/17 21:23 BUN/Creatinine Ratio 16.7 05/09/17 21:23 Glucose 111 mg/dL (70-105) H 05/09/17 21:23 Hemoglobin A1c % 5.2 % (4.0-6.0) 05/09/17 21:23 Calcium 9.3 mg/dL (8.6-10.3) 05/09/17 21:23 Total Bilirubin 0.3 mg/dL (0.3-1.0) 05/09/17 21:23 AST 20 U/L (13-39) 05/09/17 21:23 ALT 16 U/L (7-52) 05/09/17 21:23 Alkaline Phosphatase 50 U/L (34-104) 05/09/17 21:23 Total Protein 6.7 gm/dL (6.0-8.3) 05/09/17 21:23 Albumin 4.0 gm/dL (4.2-5.5) L 05/09/17 21:23 Globulin 2.7 gm/dL 05/09/17 21:23 Albumin/Globulin Ratio 1.5 (1.0-1.8) 05/09/17 21:23 Triglycerides 160 mg/dL (<150) H 05/09/17 21:23 Cholesterol 202 mg/dL (<200) H 05/09/17 21:23 LDL Cholesterol Direct 139 mg/dL (75-193) 05/09/17 21:23 HDL Cholesterol 45 mg/dL (23-92) 05/09/17 21:23 TSH 0.92 uIU/ml (0.34-5.60) 05/09/17 21:23 RPR NONREACTIVE (NONREACTIVE) 05/09/17 21:23 - Physical Exam Vitals and I&O: Vital Signs Temp 98.0 F 03/11/18 20:19 Pulse 77 05/12/17 20:19 Resp 19 05/12/17 20:19 BP 124/79 05/12/17 20:19 Pulse Ox 98 05/12/17 20:19 Intake & Output 05/12/17 05/12/17 05/13/17 06:59 18:59 06:59 Intake Total 1300 Balance 1300 Intake: Oral 1300 Other: # Voids 3 # Bowel Movements Active Medications: Current Medications Acetaminophen (Tylenol) 650 mg PO Q4HR PRN PRN Reason: Mild Pain / Temp above 100 Stop: 07/09/17 00:09 Al Hydrox/Mg Hydrox/Simethicone (Maalox) 30 ml PO Q4HR PRN PRN Reason: GI DISTRESS Stop: 07/09/17 00:09 Divalproex Sodium (Depakote Er) 500 mg PO BID PATRICE PRN Reason: Protocol Stop: 07/09/17 08:59 Last Admin: 05/12/17 17:53 Dose: 500 mg Duloxetine HCl (Cymbalta) 30 mg PO DAILY PATRICE PRN Reason: Protocol Stop: 07/09/17 08:59 Last Admin: 05/12/17 08:20 Dose: 30 mg Lorazepam (Ativan) 2 mg PO Q8H PRN; Protocol PRN Reason: Anxiety/agitation Stop: 07/09/17 05:26 Magnesium Hydroxide (Milk Of Magnesia) 30 ml PO HS PRN PRN Reason: Constipation Multivitamins/Vitamin C (Theragran) 1 tab PO DAILY PATRICE Stop: 07/09/17 08:59 Last Admin: 05/12/17 08:20 Dose: 1 tab Quetiapine Fumarate (Seroquel Xr) 800 mg PO HS PATRICE PRN Reason: Protocol Stop: 07/09/17 20:59 Last Admin: 05/12/17 21:41 Dose: 800 mg Tamsulosin HCl (Flomax) 0.4 mg PO HS PATRICE Stop: 07/09/17 20:59 Last Admin: 05/12/17 21:41 Dose: 0.4 mg Zolpidem Tartrate (Ambien) 5 mg PO HS PRN PRN Reason: Insomnia Stop: 07/09/17 00:09 Last Admin: 05/11/17 21:45 Dose: 5 mg General: demented HEENT: NC/AT, PERRLA, EOMI, anicteric sclerae, throat clear Neck: Supple, No JVD, No thyromegaly Lungs: CTAB Cardiovascular: RRR, Normal S1, Normal S2, without murmur Abdomen: soft, non-tender, non-distended Extremities: clear Neurological: no change - Procedures Procedures: Procedures Procedure Code Date CONTINUOUS INVASIVE MECHANICAL VENTILATION <96 CONSEC HRS 96.71 06/05/13 GROUP PSYCHOTHERAPY 00172 08/25/15 GROUP PSYCHOTHERAPY GZHZZZZ 08/25/15 INSERT EMERGENCY AIRWAY [id number] 06/05/13 INSERT ENDOTRACHEAL TUBE 96.04 06/05/13 VACCINATION NEC 99.55 06/24/13 Internal Medicine Assmt/Plan - Assessment Assessment: 1.BPH. 2.DJD. 3.PSYCHOSIS. - Plan Plan: CONTINUE ON CURRENT MEDICATION AND DIET.
[2017-05-13] MEDS: Multivitamin Tab PO SCH (09:37)
[2017-05-13 17:15] LABS: URINE MICROSCOPIC INDICATED? YES; URINE SOURCE CLEAN C
[2017-05-13 17:18] LABS: URINE BILIRUBIN NEGATIVE (NEGATIVE); URINE BLOOD NEGATIVE (NEGATIVE); URINE GLUCOSE (UA) NEGATIVE (NEGATIVE); URINE KETONE TRACE mg/dL (NEGATIVE); URINE LEUKOCYTE ESTERASE NEGATIVE (NEGATIVE); URINE NITRATE NEGATIVE (NEGATIVE); URINE PROTEIN NEGATIVE (NEGATIVE); URINE UROBILINOGEN 0.2 E.U./dL (0.2 - 1.0)
[2017-05-13 17:21] LABS: URINE CLARITY CLEAR (CLEAR); URINE COLOR YELLOW
--- NOTE | 2017-05-13 19:10 | Internal Medicine Prog Note ---
Internal Medicine Subjective - Subjective Service Date: 05/13/17 Patient seen and examined:: with staff (he feels better) Patient is:: awake, verbal, in bed, talking, confused Per staff patient has:: no adverse event (HE DENIES AN PAIN OR SOB.) Internal Medicine Objective - Results Result Diagrams: 05/09/17 21:23 05/09/17 21:23 Recent Labs: Laboratory Last Values WBC 5.4 Th/cmm (4.8-10.8) 05/09/17 21:23 RBC 4.66 Mil/cmm (4.30-5.70) 05/09/17 21:23 Hgb 13.2 gm/dL (12-16) 05/09/17 21:23 Hct 39.4 % (41.0-60) L 05/09/17 21:23 MCV 84.7 fl (80-99) 05/09/17 21:23 MCH 28.3 pg (26.0-30.0) 05/09/17 21: MCHC Differential 33.4 pg (28.0-36.0) 05/09/17 21:23 RDW 14.6 % (11.5-20.0) 05/09/17 21:23 Plt Count 279 Th/cmm (150-400) 05/09/17 21:23 MPV 7.2 fl 05/09/17 21:23 Neutrophils % 48.8 % (40.0-80.0) 05/09/17 21: Lymphocytes % 41.7 % (20.0-50.0) 05/09/17 21: Monocytes % 7.6 % (2.0-10.0) 05/09/17 21:23 Eosinophils % 1.1 % (0.0-5.0) 05/09/17 21:23 Basophils % 0.8 % (0.0-2.0) 05/09/17 21:23 Sodium 136 mEq/L (136-145) 05/09/17 21:23 Potassium 3.6 mEq/L (3.5-5.1) 05/09/17 21:23 Chloride 103 mEq/L (98-107) 05/09/17 21:23 Carbon Dioxide 28.1 mEq/L (21.0-31.0) 05/09/17 21:23 Anion Gap 8.5 (7.0-16.0) 05/09/17 21:23 BUN 20 mg/dL (7-25) 05/09/17 21:23 Creatinine 1.2 mg/dL (0.7-1.3) 05/09/17 21:23 Est GFR ( Amer) > 60.0 ml/min (>90) 05/09/17 21:23 Est GFR (Non-Af Amer) > 60.0 ml/min 05/09/17 21:23 BUN/Creatinine Ratio 16.7 05/09/17 21:23 Glucose 111 mg/dL (70-105) H 05/09/17 21:23 Hemoglobin A1c % 5.2 % (4.0-6.0) 05/09/17 21:23 Calcium 9.3 mg/dL (8.6-10.3) 05/09/17 21:23 Total Bilirubin 0.3 mg/dL (0.3-1.0) 05/09/17 21:23 AST 20 U/L (13-39) 05/09/17 21:23 ALT 16 U/L (7-52) 05/09/17 21:23 Alkaline Phosphatase 50 U/L (34-104) 05/09/17 21:23 Total Protein 6.7 gm/dL (6.0-8.3) 05/09/17 21:23 Albumin 4.0 gm/dL (4.2-5.5) L 05/09/17 21:23 Globulin 2.7 gm/dL 05/09/17 21:23 Albumin/Globulin Ratio 1.5 (1.0-1.8) 05/09/17 21:23 Triglycerides 160 mg/dL (<150) H 05/09/17 21:23 Cholesterol 202 mg/dL (<200) H 05/09/17 21:23 LDL Cholesterol Direct 139 mg/dL (75-193) 05/09/17 21:23 HDL Cholesterol 45 mg/dL (23-92) 05/09/17 21:23 TSH 0.92 uIU/ml (0.34-5.60) 05/09/17 21:23 Urine Color YELLOW 05/13/17 17:00 Urine Clarity CLEAR (CLEAR) 05/13/17 17:00 Urine pH 6.0 (4.6 - 8.0) 05/13/17 17:00 Ur Specific [place] 1.025 (1.005-1.030) 05/13/17 17:00 Urine Protein NEGATIVE mg/dL (NEGATIVE) 05/13/17 17:00 Urine Glucose (UA) NEGATIVE mg/dL (NEGATIVE) 05/13/17 17:00 Urine Ketones TRACE mg/dL (NEGATIVE) 05/13/17 17:00 Urine Blood NEGATIVE (NEGATIVE) 05/13/17 17:00 Urine Nitrate NEGATIVE (NEGATIVE) 05/13/17 17:00 Urine Bilirubin NEGATIVE (NEGATIVE) 05/13/17 17:00 Urine Urobilinogen 0.2 E.U./dL (0.2 - 1.0) 05/13/17 17:00 Ur Leukocyte Esterase NEGATIVE (NEGATIVE) 05/13/17 17:00 RPR NONREACTIVE (NONREACTIVE) 05/09/17 21:23 - Physical Exam Vitals and I&O: Vital Signs Temp 98.6 F 05/13/17 18:07 Pulse 74 05/13/17 18:07 Resp 18 05/13/17 18:07 BP 125/76 05/13/17 18:07 Pulse Ox 100 05/13/17 18:07 Intake & Output 05/13/17 05/13/17 05/14/17 06:59 18:59 06:59 Intake Total 120 Balance 120 Intake: Oral 120 Other: # Voids 1 # Bowel Movements 0 Active Medications: Current Medications Acetaminophen (Tylenol) 650 mg PO Q4HR PRN PRN Reason: Mild Pain / Temp above 100 Stop: 07/09/17 00:09 Al Hydrox/Mg Hydrox/Simethicone (Maalox) 30 ml PO Q4HR PRN PRN Reason: GI DISTRESS Stop: 07/09/17 00:09 Divalproex Sodium (Depakote Er) 500 mg PO BID PATRICE PRN Reason: Protocol Stop: 07/09/17 08:59 Last Admin: 05/13/17 16:53 Dose: 500 mg Duloxetine HCl (Cymbalta) 60 mg PO DAILY PATRICE PRN Reason: Protocol Stop: 07/13/17 08:59 Lorazepam (Ativan) 2 mg PO Q8H PRN; Protocol PRN Reason: Anxiety/agitation Stop: 07/09/17 05:26 Magnesium Hydroxide (Milk Of Magnesia) 30 ml PO HS PRN PRN Reason: Constipation Multivitamins/Vitamin C (Theragran) 1 tab PO DAILY PATRICE Stop: 07/09/17 08:59 Last Admin: 05/13/17 09:37 Dose: 1 tab Quetiapine Fumarate (Seroquel Xr) 800 mg PO HS PATRICE PRN Reason: Protocol Stop: 07/09/17 20:59 Last Admin: 05/12/17 21:41 Dose: 800 mg Tamsulosin HCl (Flomax) 0.4 mg PO HS PATRICE Stop: 07/09/17 20:59 Last Admin: 05/12/17 21:41 Dose: 0.4 mg Zolpidem Tartrate (Ambien) 5 mg PO HS PRN PRN Reason: Insomnia Stop: 07/09/17 00:09 Last Admin: 05/11/17 21:45 Dose: 5 mg General: demented HEENT: NC/AT, PERRLA, EOMI, anicteric sclerae, throat clear Neck: Supple, No JVD, No thyromegaly Lungs: CTAB Cardiovascular: RRR, Normal S1, Normal S2, without murmur Abdomen: soft, non-tender, non-distended Extremities: clear Neurological: no change - Procedures Procedures: Procedures Procedure Code Date CONTINUOUS INVASIVE MECHANICAL VENTILATION <96 CONSEC HRS 96.71 06/05/13 GROUP PSYCHOTHERAPY 10410 08/25/15 GROUP PSYCHOTHERAPY GZHZZZZ 08/25/15 INSERT EMERGENCY AIRWAY [id number] 06/05/13 INSERT ENDOTRACHEAL TUBE 96.04 06/05/13 VACCINATION NEC 99.55 06/24/13 Internal Medicine Assmt/Plan - Assessment Assessment: 1.BPH. 2.DJD. 3.PSYCHOSIS. - Plan Plan: CONTINUE ON CURRENT MEDICATION AND DIET.
--- NOTE | 2017-05-13 21:53 | Progress Notes ---
DATE: 05/13/2017 Case was discussed with staff of the patient. The patient continues to report grieving the of his 47-year-old fiance who passed over few days prior to admission from a heart attack. The patient continues to be very depressed, anxious, continues to be circumstantial. He continues to be angry, irritable. He has been compliant with the medication with no side effects, no sedation, no nausea, no extrapyramidal symptoms. He is on Seroquel 800 mg at bedtime, Cymbalta 30 mg daily, which I will be increasing the dose to 60 mg a day and so far no side effects, no sedation, no nausea, no extrapyramidal symptoms. The patient is also demanding to be on more Ativan. He is already on 2 mg every 8 hours with a history of addiction; however, he reported that he needs to be able to deal with the of his girlfriend and we will continue outpatient group therapy, milieu therapy, adjust medication as needed. [facility]# [id number]
[2017-05-14] MEDS: Multivitamin Tab PO SCH (08:52)
[2017-05-14 09:04] LABS: URINE BACTERIA OCCASIONAL /hpf (NONE SEEN); URINE EPITHELIAL CELLS FEW /lpf (FEW); URINE WBC 0-2 /hpf (0-5)
--- NOTE | 2017-05-14 12:35 | Discharge Summary ---
DATE OF DISCHARGE: 05/14/2017 IDENTIFYING INFORMATION: The patient is a 62-year-old male. CHIEF COMPLAINT: No answer. HISTORY OF PRESENT ILLNESS: Transferred here after a call from the board and care where he lives and they said that he is being depressed. His fiance a few days and that he has been agitated. When tried to talk to him, he was not participating, and nonverbal. I have seen at [facility] many times. The patient with a history of substance abuse. The patient minimized all the events that led to his admission. COURSE IN THE HOSPITAL: The patient was continued with medication prior to admission, which is Depakote 500 mg twice a day and Cymbalta, which I increased to 60 mg daily, and a multivitamin. He was on Seroquel 800 mg a day. He does have medications and also continued on his Flomax, multivitamin, magnesium, and Dulcolax. The patient progressively got better. He was sleeping well, eating well so as he improved. From the very beginning, he denied any intent to harm himself or anybody. He was concerned that he may lose his place and he promised that he will go to the day program as of tomorrow. So, as he improved, he was doing well. We felt he was ready to go to a lesser level of care. FINAL DIAGNOSIS: AXIS I: bipolar disorder, depressed. MEDICAL DIAGNOSIS: History of substance abuse. MEDICAL DIAGNOSES: Deferred to the medical doctor. The patient will be discharged with followup or the day program as of tomorrow at [place]. We will follow up with the psychiatrist, primary care physician and therapist. EXPECTED OUTCOME: Stable, if the patient complies with the above. JOB# [id number]
== END 2017-05-14 15:30 | disposition home or self-care (01) | DRG 885 ==
LOC: ER 18:43 → GERO2 22:11
PROVIDERS: ADMIT Psychiatry & Neurology Psychiatry; ATTEND Psychiatry & Neurology Psychiatry
DX: F31.5 Bipolar disorder, current episode depressed, severe, with psychotic features (principal); F03.91 Unspecified dementia, unspecified severity, with behavioral disturbance; M19.90 Unspecified osteoarthritis, unspecified site; N40.0 Benign prostatic hyperplasia without lower urinary tract symptoms; Z80.9 Family history of malignant neoplasm, unspecified; Z79.899 Other long term (current) drug therapy
CPT/HCPCS: 36415-UA; 80053-TC; 80061-TC; 81001-TC; 83036-90; 84443-TC; 85025-TC; 86592-TC; Z7610

== ENCOUNTER 2018-04-11 22:15 | Inpatient (IN) | payer MEDICARE ==
[2018-04-11] MEDS ORDERED: Magnesium Hydroxide (MOM) 30 mL UDC PO PRN (23:37)
[2018-04-11] MEDS ORDERED: Maalox 30 mL Cup PO PRN (23:37)
[2018-04-12 01:42] VITALS: BP 124/70
[2018-04-12 06:57] LABS: CHOLESTEROL 198 mg/dL (<200); HDL -HIGH DENSITY LIPOPROTEIN 45 mg/dL (23-92); TRIGLYCERIDES 273 mg/dL (<150)
[2018-04-12] MEDS: Multivitamin Tab PO SCH (08:48)
--- NOTE | 2018-04-12 13:43 | History & Physical ---
ADMIT DATE: 04/11/2018 IDENTIFYING INFORMATION: The patient is a 63-year-old male. CHIEF COMPLAINT: "I have been depressed." HISTORY OF PRESENT ILLNESS: The patient apparently was transferred from nursing facility as he has been depressed. He reports his 6 months ago and has been depressed since then. He reports that she overdosed. The patient is a well-known ____ to me. I have seen him before at [facility] for Dr. Huff. He has been hospitalized many times. He denies any current visual hallucinations or paranoia. He denies any current intent to harm himself or anybody. He feels very depressed. PAST PSYCHIATRIC HISTORY: Multiple prior admissions to this facility and other facility because of depression. MEDICAL HISTORY: The patient has no known drug allergy. MEDICATIONS: The patient was started on Depakote, Cymbalta, Ativan as needed, and Seroquel 800 mg at bedtime. He has benign prostatic hypertrophy, on Flomax. FAMILY AND SOCIAL HISTORY: The patient's 6 months ago for overdose. Denies family history of psychotic disorder. He is on disability, lives in a nursing facility. Denies current substance abuse; however, in the past, used to abuse alcohol and drugs. MENTAL STATUS EXAMINATION: The patient is appropriately dressed, not well groomed. He was alert and oriented to place, person, time, and situation. He reports feeling depressed, overwhelmed, unable to enjoy himself, with poor sleep, poor appetite, poor energy and motivation. He denies that he will harm himself or anybody now as long as he is in a safe place. He denies any visual hallucination. He seems to have average intelligence. ____ to give information, fund of knowledge and knowledge of the person and ____. Concentration is fair. He is able to answer questions appropriately as well as questions forward and backward. Long-term memory is good with age and date of . Recent memory events that led to coming here. Insight about his illness is fair. Judgment is poor with him, very depressed and wanting to harm himself. IMPRESSION: Major depression, recurrent, severe with no psychosis; rule out bipolar disorder. MEDICAL DIAGNOSES: As per medical doctor. PLAN: The patient was started back on his medication. We will do group therapy, milieu therapy, and individual therapy. ESTIMATED LENGTH OF STAY: 3-7 days. DISCHARGE CRITERIA: Decreasing agitation, feeling better, after discharge, no longer suicidal. After discharge, outpatient. [facility]# [id number]
--- NOTE | 2018-04-12 21:11 | History & Physical ---
ADMIT DATE: 04/11/2018 HISTORY OF PRESENT ILLNESS: The patient is a 63-year-old male with long history of hyperlipidemia, benign prostatic hypertrophy, insomnia, psychosis, admitted to [facility] under Dr. Huff's service. The patient denies any chest pain, shortness of breath, nausea, vomiting, fever or chills. PAST MEDICAL HISTORY: Significant for benign prostatic hypertrophy, hyperlipidemia, insomnia, psychosis. PAST SURGICAL HISTORY: No recent surgery. ALLERGIES: None. MEDICATIONS: Follow admission reconciliation. SOCIAL HISTORY: No smoking, no alcohol, no drugs. FAMILY HISTORY: Noncontributory. REVIEW OF SYSTEMS: IMMUNO SYSTEM: No history of chronic renal disorder. CARDIOVASCULAR SYSTEM: No coronary artery disease. ENDOCRINE SYSTEM: No diabetes or thyroid problem. GASTROINTESTINAL SYSTEM: No upper or lower gastrointestinal bleed. NEUROLOGICAL SYSTEM: No seizure disorder. SKELETOMUSCULAR SYSTEM: No muscular dystrophy. HEMATOLOGICAL: No bleeding tendencies. RESPIRATORY SYSTEM: No asthma. GENITOURINARY: No dysuria or hematuria. PHYSICAL EXAMINATION: GENERAL: He is awake, alert, oriented. VITAL SIGNS: Temperature 98, heart rate 88, blood pressure 132/70. HEENT: Normocephalic. Pupils reactive to light and accommodation. Sclerae clear. NECK: Supple. Negative for lymphadenopathy, JVD or bruit. CHEST: Entry of air bilateral normal. No rhonchi or wheezing. HEART: S1, S2 normal. No murmur or gallop rhythm. ABDOMEN: Soft, bowel sounds positive. EXTREMITIES: No edema. NEUROLOGIC: He is awake, alert, confused. No focal motor deficits. Cranial nerves 2-12 are intact. LABORATORY DATA: Triglyceride 273, cholesterol 198. ASSESSMENT: 1. Benign prostatic hypertrophy. 2. Hyperlipidemia. 3. Insomnia. 4. Psychosis. PLAN: The patient admitted to the hospital under Dr. Huff's service. Medical problems addressed during this hospitalization is psychosis. Medical problems addressed at discharge is benign prostatic hypertrophy, hyperlipidemia. The patient is medically stable for activity. Thank you Dr. Huff for asking me to see your patient. The patient cleared for activity. JOB# [id number]
[2018-04-13] MEDS: Multivitamin Tab PO SCH (08:33)
--- NOTE | 2018-04-13 20:57 | Internal Medicine Prog Note ---
Internal Medicine Subjective - Subjective Service Date: 04/13/18 Patient seen and examined:: with staff Patient is:: awake, verbal, in bed, talking, confused Per staff patient has:: no adverse event Internal Medicine Objective - Results Recent Labs: Laboratory Last Values Triglycerides 273 mg/dL (<150) H 04/12/18 06:15 Cholesterol 198 mg/dL (<200) 04/12/18 06:15 LDL Cholesterol Direct 119 mg/dL (75-193) 04/12/18 06:15 HDL Cholesterol 45 mg/dL (23-92) 04/12/18 06:15 - Physical Exam Vitals and I&O: Vital Signs Temp 98.8 F 04/13/18 18:32 Pulse 68 04/13/18 18:32 Resp 20 04/13/18 18:32 BP 104/68 04/13/18 18:32 Pulse Ox 96 04/13/18 18:32 Intake & Output 04/13/18 04/13/18 04/14/18 06:59 18:59 06:59 Intake Total 240 Balance 240 Intake: Oral 240 Other: # Voids 2 Active Medications: Current Medications Acetaminophen (Tylenol) 650 mg PO Q4HR PRN PRN Reason: Mild Pain / Temp above 100 Stop: 06/10/18 23:36 Al Hydrox/Mg Hydrox/Simethicone (Maalox) 30 ml PO Q4HR PRN PRN Reason: GI DISTRESS Stop: 06/10/18 23:36 Divalproex Sodium (Depakote Er) 500 mg PO BID PATRICE; Protocol Stop: 06/11/18 08:59 Last Admin: 04/13/18 16:07 Dose: 500 mg Duloxetine HCl (Cymbalta) 60 mg PO DAILY PATRICE; Protocol Stop: 06/11/18 08:59 Last Admin: 04/13/18 08:33 Dose: 60 mg Lorazepam (Ativan) 2 mg PO Q8H PRN; Protocol PRN Reason: Anxiety/agitation Stop: 06/10/18 23:36 Last Admin: 04/13/18 12:00 Dose: 2 mg Magnesium Hydroxide (Milk Of Magnesia) 30 ml PO HS PRN PRN Reason: Constipation Stop: 06/10/18 23:36 Multivitamins/Vitamin C (Theragran) 1 tab PO DAILY PATRICE Stop: 06/11/18 08:59 Last Admin: 04/13/18 08:33 Dose: 1 tab Quetiapine Fumarate (Seroquel Xr) 800 mg PO HS PATRICE; Protocol Stop: 06/11/18 20:59 Last Admin: 04/12/18 20:30 Dose: 800 mg Tamsulosin HCl (Flomax) 0.4 mg PO HS PATRICE Stop: 06/11/18 20:59 Last Admin: 04/12/18 20:31 Dose: 0.4 mg Zolpidem Tartrate (Ambien) 5 mg PO HS PRN PRN Reason: Insomnia Stop: 06/10/18 23:36 General: demented HEENT: NC/AT, PERRLA, EOMI, anicteric sclerae, throat clear Neck: Supple, No JVD, No thyromegaly, +2 carotid pulse wo bruit, No LAD Lungs: CTAB Cardiovascular: RRR, Normal S1, Normal S2, without murmur Abdomen: soft, non-tender, non-distended Extremities: clear Neurological: no change - Procedures Procedures: Procedures Procedure Code Date CONTINUOUS INVASIVE MECHANICAL VENTILATION <96 CONSEC HRS 96.71 06/05/13 GROUP PSYCHOTHERAPY 98159 08/25/15 GROUP PSYCHOTHERAPY GZHZZZZ 08/25/15 INSERT EMERGENCY AIRWAY [id number] 06/05/13 INSERT ENDOTRACHEAL TUBE 96.04 06/05/13 VACCINATION NEC 99.55 06/24/13 Internal Medicine Assmt/Plan - Assessment Assessment: 1.BPH. 2.HYPERLIPIDEMIA. 3.INSOMNIA. 4.PSYCHOSIS. - Plan Plan: CONTINUE ON CURRENT MEDICATION AND DIET.
--- NOTE | 2018-04-14 01:45 | Progress Notes ---
DATE: 04/13/2018 Case was discussed with staff of the patient, reviewed records. The patient continues to be depressed. Reporting have thoughts of wanting to harm himself. Continues to have poor insight, dealing with the passing of his ; however, he has been hospitalized many times since then. The patient has been compliant with the medication with no side effects, no sedation, no nausea, no extrapyramidal symptoms. We will continue to work with the patient in group therapy, milieu therapy, and adjust the medication as needed. JOB# [id number]
[2018-04-14] MEDS: Multivitamin Tab PO SCH (08:58)
--- NOTE | 2018-04-14 19:11 | Internal Medicine Prog Note ---
Internal Medicine Subjective - Subjective Service Date: 04/14/18 Patient seen and examined:: without staff Patient is:: awake, verbal, in bed, talking, confused Per staff patient has:: no adverse event Internal Medicine Objective - Results Recent Labs: Laboratory Last Values Triglycerides 273 mg/dL (<150) H 04/12/18 06:15 Cholesterol 198 mg/dL (<200) 04/12/18 06:15 LDL Cholesterol Direct 119 mg/dL (75-193) 04/12/18 06:15 HDL Cholesterol 45 mg/dL (23-92) 04/12/18 06:15 - Physical Exam Vitals and I&O: Vital Signs Temp 98.5 F 04/14/18 14:00 Pulse 76 04/14/18 14:00 Resp 18 04/14/18 14:00 BP 131/75 04/14/18 14:00 Pulse Ox 100 04/14/18 14:00 Intake & Output 04/14/18 04/14/18 04/15/18 06:59 18:59 06:59 Intake Total 480 Balance 480 Intake: Oral 480 Other: # Voids 2 Active Medications: Current Medications Acetaminophen (Tylenol) 650 mg PO Q4HR PRN PRN Reason: Mild Pain / Temp above 100 Stop: 06/10/18 23:36 Al Hydrox/Mg Hydrox/Simethicone (Maalox) 30 ml PO Q4HR PRN PRN Reason: GI DISTRESS Stop: 06/10/18 23:36 Divalproex Sodium (Depakote Er) 500 mg PO BID PATRICE; Protocol Stop: 06/11/18 08:59 Last Admin: 04/14/18 16:37 Dose: 500 mg Duloxetine HCl (Cymbalta) 60 mg PO DAILY PATRICE; Protocol Stop: 06/11/18 08:59 Last Admin: 04/14/18 08:57 Dose: 60 mg Lorazepam (Ativan) 2 mg PO Q8H PRN; Protocol PRN Reason: Anxiety/agitation Stop: 06/10/18 23:36 Last Admin: 04/14/18 18:37 Dose: 2 mg Magnesium Hydroxide (Milk Of Magnesia) 30 ml PO HS PRN PRN Reason: Constipation Stop: 06/10/18 23:36 Multivitamins/Vitamin C (Theragran) 1 tab PO DAILY PATRICE Stop: 06/11/18 08:59 Last Admin: 04/14/18 08:58 Dose: 1 tab Quetiapine Fumarate (Seroquel Xr) 800 mg PO HS PATRICE; Protocol Stop: 06/11/18 20:59 Last Admin: 04/13/18 21:17 Dose: 800 mg Tamsulosin HCl (Flomax) 0.4 mg PO HS PATRICE Stop: 06/11/18 20:59 Last Admin: 04/13/18 21:17 Dose: 0.4 mg Zolpidem Tartrate (Ambien) 5 mg PO HS PRN PRN Reason: Insomnia Stop: 06/10/18 23:36 General: demented HEENT: NC/AT, PERRLA, EOMI, anicteric sclerae, throat clear Neck: Supple, No JVD, No thyromegaly, +2 carotid pulse wo bruit, No LAD Lungs: CTAB Cardiovascular: RRR, Normal S1, Normal S2, without murmur Abdomen: soft, non-tender, non-distended Extremities: clear Neurological: no change - Procedures Procedures: Procedures Procedure Code Date CONTINUOUS INVASIVE MECHANICAL VENTILATION <96 CONSEC HRS 96.71 06/05/13 GROUP PSYCHOTHERAPY 44246 08/25/15 GROUP PSYCHOTHERAPY GZHZZZZ 08/25/15 INSERT EMERGENCY AIRWAY [id number] 06/05/13 INSERT ENDOTRACHEAL TUBE 96.04 06/05/13 VACCINATION NEC 99.55 06/24/13 Internal Medicine Assmt/Plan - Assessment Assessment: 1.BPH. 2.HYPERLIPIDEMIA. 3.INSOMNIA. 4.PSYCHOSIS. - Plan Plan: CONTINUE ON CURRENT MEDICATION AND DIET.
[2018-04-15] MEDS: Multivitamin Tab PO SCH (09:40)
--- NOTE | 2018-04-15 10:50 | Internal Medicine Prog Note ---
Internal Medicine Subjective - Subjective Service Date: 04/15/18 Patient seen and examined:: without staff (HE FEELS WELL,NO COMLAINTS.) Patient is:: awake, verbal, in bed, talking, confused Per staff patient has:: no adverse event Internal Medicine Objective - Results Recent Labs: Laboratory Last Values Triglycerides 273 mg/dL (<150) H 04/12/18 06:15 Cholesterol 198 mg/dL (<200) 04/12/18 06:15 LDL Cholesterol Direct 119 mg/dL (75-193) 04/12/18 06:15 HDL Cholesterol 45 mg/dL (23-92) 04/12/18 06:15 - Physical Exam Vitals and I&O: Vital Signs Temp 97.8 F 04/15/18 06:22 Pulse 65 04/15/18 06:22 Resp 20 04/15/18 06:22 BP 107/67 04/15/18 06:22 Pulse Ox 96 04/15/18 06:22 Intake & Output 04/14/18 04/15/18 04/15/18 18:59 06:59 18:59 Intake Total 300 Balance 300 Intake: Oral 300 Other: # Voids 1 # Bowel Movements 0 Active Medications: Current Medications Acetaminophen (Tylenol) 650 mg PO Q4HR PRN PRN Reason: Mild Pain / Temp above 100 Stop: 06/10/18 23:36 Al Hydrox/Mg Hydrox/Simethicone (Maalox) 30 ml PO Q4HR PRN PRN Reason: GI DISTRESS Stop: 06/10/18 23:36 Divalproex Sodium (Depakote Er) 500 mg PO BID PATRICE; Protocol Stop: 06/11/18 08:59 Last Admin: 04/15/18 09:40 Dose: 500 mg Duloxetine HCl (Cymbalta) 60 mg PO DAILY PATRICE; Protocol Stop: 06/11/18 08:59 Last Admin: 04/15/18 09:40 Dose: 60 mg Lorazepam (Ativan) 2 mg PO Q8H PRN; Protocol PRN Reason: Anxiety/agitation Stop: 06/10/18 23:36 Last Admin: 04/15/18 09:40 Dose: 2 mg Magnesium Hydroxide (Milk Of Magnesia) 30 ml PO HS PRN PRN Reason: Constipation Stop: 06/10/18 23:36 Multivitamins/Vitamin C (Theragran) 1 tab PO DAILY PATRICE Stop: 06/11/18 08:59 Last Admin: 04/15/18 09:40 Dose: 1 tab Quetiapine Fumarate (Seroquel Xr) 800 mg PO HS PATRICE; Protocol Stop: 06/11/18 20:59 Last Admin: 04/14/18 20:33 Dose: 800 mg Tamsulosin HCl (Flomax) 0.4 mg PO HS PATRICE Stop: 06/11/18 20:59 Last Admin: 04/14/18 20:33 Dose: 0.4 mg Zolpidem Tartrate (Ambien) 5 mg PO HS PRN PRN Reason: Insomnia Stop: 06/10/18 23:36 Last Admin: 04/14/18 20:33 Dose: 5 mg General: demented HEENT: NC/AT, PERRLA, EOMI, anicteric sclerae, throat clear Neck: Supple, No JVD, No thyromegaly, +2 carotid pulse wo bruit, No LAD Lungs: CTAB Cardiovascular: RRR, Normal S1, Normal S2, without murmur Abdomen: soft, non-tender, non-distended Extremities: clear Neurological: no change - Procedures Procedures: Procedures Procedure Code Date CONTINUOUS INVASIVE MECHANICAL VENTILATION <96 CONSEC HRS 96.71 06/05/13 GROUP PSYCHOTHERAPY 99566 08/25/15 GROUP PSYCHOTHERAPY GZHZZZZ 08/25/15 INSERT EMERGENCY AIRWAY [id number] 06/05/13 INSERT ENDOTRACHEAL TUBE 96.04 06/05/13 VACCINATION NEC 99.55 06/24/13 Internal Medicine Assmt/Plan - Assessment Assessment: 1.BPH. 2.HYPERLIPIDEMIA. 3.INSOMNIA. 4.PSYCHOSIS. - Plan Plan: CONTINUE ON CURRENT MEDICATION AND DIET.
--- NOTE | 2018-04-15 13:44 | Progress Notes ---
DATE: 04/14/2018 The patient is coming from a intermediate facility. Apparently, 6 months ago, depressed. Apparently, she overdosed. Dr. Cao knows the patient from [facility], hospitalized many times, multiple prior admissions. The patient is refusing to speak with me stating that I discharged him in the past, which is not in my recollection and he was calling the anti-semitic for some unclear reasons and then refused to speak with me after this. Ongoing verbalizations of SI per staff, very angry, upset, depressed appearing, withdrawn per dialysis social worker, he is homeless, residing in hotels, continuing to endorse SI. PLAN: We will continue to monitor. Given the endorsement of suicidal ideation, there is ongoing safety concerns. He is unfortunately a alluding to his passing away about 6 months ago. History of hospitalizations. [facility]# [id number]
[2018-04-16] MEDS: Multivitamin Tab PO SCH (09:04)
--- NOTE | 2018-04-16 12:54 | Progress Notes ---
DATE: 04/15/2018 SUBJECTIVE: The patient currently is a 63-year-old male, currently in the hospital. 6 months ago, depressed since then; apparently, she had overdosed. The patient with multiple hospitalizations in the past. He slept for about 9 hours last night, alert and oriented to name and place, he knows why he is here. The patient appears depressed, withdrawn, melancholic, ongoing concerns about suicide, suicidality. The patient is currently homeless, has no place to go and mostly living in hotels. The patient continues to intermittently verbalize SI. Medications were reviewed. ASSESSMENT: The patient is depressed, withdrawn, on fairly high doses of Seroquel and also Cymbalta. PLAN: We will continue to monitor. The patient with ongoing suicidal symptoms, not safe for lower level of care. JOB# [id number]
--- NOTE | 2018-04-16 20:20 | Internal Medicine Prog Note ---
Internal Medicine Subjective - Subjective Service Date: 04/16/18 Patient seen and examined:: with staff Patient is:: awake, verbal, in bed, talking, confused Per staff patient has:: no adverse event Internal Medicine Objective - Results Recent Labs: Laboratory Last Values Triglycerides 273 mg/dL (<150) H 04/12/18 06:15 Cholesterol 198 mg/dL (<200) 04/12/18 06:15 LDL Cholesterol Direct 119 mg/dL (75-193) 04/12/18 06:15 HDL Cholesterol 45 mg/dL (23-92) 04/12/18 06:15 - Physical Exam Vitals and I&O: Vital Signs Temp 98.1 F 04/16/18 14:00 Pulse 77 04/16/18 14:00 Resp 20 04/16/18 14:00 BP 114/73 04/16/18 14:00 Pulse Ox 98 04/16/18 14:00 Intake & Output 04/16/18 04/16/18 04/17/18 06:59 18:59 06:59 Intake Total 240 Balance 240 Intake: Oral 240 Other: # Voids 3 2 # Bowel Movements 0 0 Active Medications: Current Medications Acetaminophen (Tylenol) 650 mg PO Q4HR PRN PRN Reason: Mild Pain / Temp above 100 Stop: 06/10/18 23:36 Al Hydrox/Mg Hydrox/Simethicone (Maalox) 30 ml PO Q4HR PRN PRN Reason: GI DISTRESS Stop: 06/10/18 23:36 Divalproex Sodium (Depakote Er) 500 mg PO BID [facility]; Protocol Stop: 06/11/18 08:59 Last Admin: 04/16/18 17:35 Dose: 500 mg Duloxetine HCl (Cymbalta) 60 mg PO DAILY PATRICE; Protocol Stop: 06/11/18 08:59 Last Admin: 04/16/18 09:04 Dose: 60 mg Lorazepam (Ativan) 2 mg PO Q8H PRN; Protocol PRN Reason: Anxiety/agitation Stop: 06/10/18 23:36 Last Admin: 04/16/18 19:29 Dose: 2 mg Magnesium Hydroxide (Milk Of Magnesia) 30 ml PO HS PRN PRN Reason: Constipation Stop: 06/10/18 23:36 Multivitamins/Vitamin C (Theragran) 1 tab PO DAILY PATRICE Stop: 06/11/18 08:59 Last Admin: 04/16/18 09:04 Dose: 1 tab Quetiapine Fumarate (Seroquel Xr) 800 mg PO HS PATRICE; Protocol Stop: 06/11/18 20:59 Last Admin: 04/15/18 21:05 Dose: 800 mg Tamsulosin HCl (Flomax) 0.4 mg PO HS PATRICE Stop: 06/11/18 20:59 Last Admin: 04/15/18 21:05 Dose: 0.4 mg Zolpidem Tartrate (Ambien) 5 mg PO HS PRN PRN Reason: Insomnia Stop: 06/10/18 23:36 Last Admin: 04/15/18 21:05 Dose: 5 mg General: demented HEENT: NC/AT, PERRLA, EOMI, anicteric sclerae, throat clear Neck: Supple, No JVD, No thyromegaly, +2 carotid pulse wo bruit, No LAD Lungs: CTAB Cardiovascular: RRR, Normal S1, Normal S2, without murmur Abdomen: soft, non-tender, non-distended Extremities: clear Neurological: no change - Procedures Procedures: Procedures Procedure Code Date CONTINUOUS INVASIVE MECHANICAL VENTILATION <96 CONSEC HRS 96.71 06/05/13 GROUP PSYCHOTHERAPY [id number] 08/25/15 GROUP PSYCHOTHERAPY GZHZZZZ 08/25/15 INSERT EMERGENCY AIRWAY [id number] 06/05/13 INSERT ENDOTRACHEAL TUBE 96.04 06/05/13 VACCINATION NEC 99.55 06/24/13 Internal Medicine Assmt/Plan - Assessment Assessment: 1.BPH. 2.HYPERLIPIDEMIA. 3.INSOMNIA. 4.PSYCHOSIS. - Plan Plan: CONTINUE ON CURRENT MEDICATION AND DIET.
[2018-04-17] MEDS: Multivitamin Tab PO SCH (09:04)
--- NOTE | 2018-04-17 12:42 | Progress Notes ---
DATE: 04/16/2018 SUBJECTIVE: The patient continues to refuse interview, stating "I have nothing to say to you." The patient apparently is really upset because , multiple hospitalizations, well known to different psychiatrists in the hospital. Per staff, slept for about 8 hours, easily agitated, irritable, preoccupied and as of right now, not talking to me whatsoever. ASSESSMENT: The patient is refusing to speak with me. Ongoing symptoms; severely depressed, irritable. Continue Seroquel. Medications were noted. JOB# [id number]
--- NOTE | 2018-04-17 16:37 | Internal Medicine Prog Note ---
Internal Medicine Subjective - Subjective Service Date: 04/17/18 Patient seen and examined:: with staff Patient is:: awake, verbal, in bed, talking, confused Per staff patient has:: no adverse event Internal Medicine Objective - Results Recent Labs: Laboratory Last Values Triglycerides 273 mg/dL (<150) H 04/12/18 06:15 Cholesterol 198 mg/dL (<200) 04/12/18 06:15 LDL Cholesterol Direct 119 mg/dL (75-193) 04/12/18 06:15 HDL Cholesterol 45 mg/dL (23-92) 04/12/18 06:15 - Physical Exam Vitals and I&O: Vital Signs Temp 98.2 F 04/17/18 14:04 Pulse 80 04/17/18 14:04 Resp 20 04/17/18 14:04 BP 121/74 04/17/18 14:04 Pulse Ox 97 04/17/18 14:04 Intake & Output 04/16/18 04/17/18 04/17/18 18:59 06:59 18:59 Intake Total 120 Balance 120 Intake: Oral 120 Other: # Voids 2 2 # Bowel Movements 0 Active Medications: Current Medications Acetaminophen (Tylenol) 650 mg PO Q4HR PRN PRN Reason: Mild Pain / Temp above 100 Stop: 06/10/18 23:36 Al Hydrox/Mg Hydrox/Simethicone (Maalox) 30 ml PO Q4HR PRN PRN Reason: GI DISTRESS Stop: 06/10/18 23:36 Divalproex Sodium (Depakote Er) 500 mg PO BID [facility]; Protocol Stop: 06/11/18 08:59 Last Admin: 04/17/18 09:05 Dose: 500 mg Duloxetine HCl (Cymbalta) 60 mg PO BID [facility]; Protocol Stop: 06/16/18 08:59 Last Admin: 04/17/18 09:04 Dose: 60 mg Lorazepam (Ativan) 2 mg PO Q8H PRN; Protocol PRN Reason: Anxiety/agitation Stop: 06/10/18 23:36 Last Admin: 04/17/18 11:17 Dose: 2 mg Magnesium Hydroxide (Milk Of Magnesia) 30 ml PO HS PRN PRN Reason: Constipation Stop: 06/10/18 23:36 Multivitamins/Vitamin C (Theragran) 1 tab PO DAILY [facility]RICE Stop: 06/11/18 08:59 Last Admin: 04/17/18 09:04 Dose: 1 tab Quetiapine Fumarate (Seroquel Xr) 800 mg PO HS PATRICE; Protocol Stop: 06/11/18 20:59 Last Admin: 04/16/18 20:42 Dose: 800 mg Tamsulosin HCl (Flomax) 0.4 mg PO HS PATRICE Stop: 06/11/18 20:59 Last Admin: 04/16/18 20:43 Dose: 0.4 mg Zolpidem Tartrate (Ambien) 5 mg PO HS PRN PRN Reason: Insomnia Stop: 06/10/18 23:36 Last Admin: 04/16/18 20:43 Dose: 5 mg General: demented HEENT: NC/AT, PERRLA, EOMI, anicteric sclerae, throat clear Neck: Supple, No JVD, No thyromegaly, +2 carotid pulse wo bruit, No LAD Lungs: CTAB Cardiovascular: RRR, Normal S1, Normal S2, without murmur Abdomen: soft, non-tender, non-distended Extremities: clear Neurological: no change - Procedures Procedures: Procedures Procedure Code Date CONTINUOUS INVASIVE MECHANICAL VENTILATION <96 CONSEC HRS 96.71 06/05/13 GROUP PSYCHOTHERAPY 38146 08/25/15 GROUP PSYCHOTHERAPY GZHZZZZ 08/25/15 INSERT EMERGENCY AIRWAY [id number] 06/05/13 INSERT ENDOTRACHEAL TUBE 96.04 06/05/13 VACCINATION NEC 99.55 06/24/13 Internal Medicine Assmt/Plan - Assessment Assessment: 1.BPH. 2.HYPERLIPIDEMIA. 3.INSOMNIA. 4.PSYCHOSIS. - Plan Plan: CONTINUE ON CURRENT MEDICATION AND DIET.
--- NOTE | 2018-04-18 07:41 | Progress Notes ---
DATE: 04/17/2018 SUBJECTIVE: Chart reviewed and the patient interviewed. Also discussed the patient's condition with the staff and reviewed records and labs. The patient continued to be severely depressed and withdrawn. The patient also has lack of energy and lack of motivations. He also is still feeling hopeless and helpless. He also is interacting minimally with peers and with others. Otherwise, the patient continued to comply with taking his medications with no side effects of medications. ASSESSMENT: The patient is still depressed and high risk suicide. TREATMENT PLAN: Continue to monitor his behavior and his condition closely. Also, we will increase Cymbalta to 60 mg twice a day and will continue Seroquel 800 mg at bedtime and Depakote 500 mg twice a day. Also discussed with the patient placement issue and possible discharge plans and will work with case supervisor in regard to discharge plans. At the same time, we will continue monitoring his behavior and work on his ineffective coping. JOB# [id number]
[2018-04-18] MEDS: Multivitamin Tab PO SCH (08:18)
--- NOTE | 2018-04-18 21:10 | Internal Medicine Prog Note ---
Internal Medicine Subjective - Subjective Service Date: 04/11/18 Patient seen and examined:: with staff Patient is:: awake, verbal, in bed, talking, confused Per staff patient has:: no adverse event Internal Medicine Objective - Results Recent Labs: Laboratory Last Values Triglycerides 273 mg/dL (<150) H 04/12/18 06:15 Cholesterol 198 mg/dL (<200) 04/12/18 06:15 LDL Cholesterol Direct 119 mg/dL (75-193) 04/12/18 06:15 HDL Cholesterol 45 mg/dL (23-92) 04/12/18 06:15 - Physical Exam Vitals and I&O: Vital Signs Temp 98.2 F 04/18/18 14:00 Pulse 88 04/18/18 14:00 Resp 20 04/18/18 14:00 BP 127/79 04/18/18 14:00 Pulse Ox 98 04/18/18 14:00 Intake & Output 04/18/18 04/18/18 04/19/18 06:59 18:59 06:59 Intake Total 120 1500 Balance 120 1500 Intake: Oral 120 1500 Other: # Voids 3 3 # Bowel Movements 0 Active Medications: Current Medications Acetaminophen (Tylenol) 650 mg PO Q4HR PRN PRN Reason: Mild Pain / Temp above 100 Stop: 06/10/18 23:36 Al Hydrox/Mg Hydrox/Simethicone (Maalox) 30 ml PO Q4HR PRN PRN Reason: GI DISTRESS Stop: 06/10/18 23:36 Divalproex Sodium (Depakote Er) 500 mg PO BID [facility]; Protocol Stop: 06/11/18 08:59 Last Admin: 04/18/18 16:45 Dose: 500 mg Duloxetine HCl (Cymbalta) 60 mg PO BID [facility]; Protocol Stop: 06/16/18 08:59 Last Admin: 04/18/18 16:45 Dose: 60 mg Lorazepam (Ativan) 2 mg PO Q8H PRN; Protocol PRN Reason: Anxiety/agitation Stop: 06/10/18 23:36 Last Admin: 04/18/18 18:03 Dose: 2 mg Magnesium Hydroxide (Milk Of Magnesia) 30 ml PO HS PRN PRN Reason: Constipation Stop: 06/10/18 23:36 Multivitamins/Vitamin C (Theragran) 1 tab PO DAILY [facility] Stop: 06/11/18 08:59 Last Admin: 04/18/18 08:18 Dose: 1 tab Quetiapine Fumarate (Seroquel Xr) 800 mg PO HS [facility]; Protocol Stop: 06/11/18 20:59 Last Admin: 04/18/18 20:59 Dose: 800 mg Tamsulosin HCl (Flomax) 0.4 mg PO HS [facility] Stop: 06/11/18 20:59 Last Admin: 04/18/18 20:59 Dose: 0.4 mg Zolpidem Tartrate (Ambien) 5 mg PO HS PRN PRN Reason: Insomnia Stop: 06/10/18 23:36 Last Admin: 04/17/18 21:02 Dose: 5 mg General: demented HEENT: NC/AT, PERRLA, EOMI, anicteric sclerae, throat clear Neck: Supple, No JVD, No thyromegaly, +2 carotid pulse wo bruit, No LAD Lungs: CTAB Cardiovascular: RRR, Normal S1, Normal S2, without murmur Abdomen: soft, non-tender, non-distended Extremities: clear Neurological: no change - Procedures Procedures: Procedures Procedure Code Date CONTINUOUS INVASIVE MECHANICAL VENTILATION <96 CONSEC HRS 96.71 06/05/13 GROUP PSYCHOTHERAPY 78856 08/25/15 GROUP PSYCHOTHERAPY GZHZZZZ 08/25/15 INSERT EMERGENCY AIRWAY [id number] 06/05/13 INSERT ENDOTRACHEAL TUBE 96.04 06/05/13 VACCINATION NEC 99.55 06/24/13 Internal Medicine Assmt/Plan - Assessment Assessment: 1.BPH. 2.HYPERLIPIDEMIA. 3.INSOMNIA. 4.PSYCHOSIS. - Plan Plan: CONTINUE ON CURRENT MEDICATION AND DIET. Nutritional Asmnt/Malnutr-PDOC - Dietary Evaluation Malnutrition Findings (Please click <Entered> for more info): Nutritional Asmnt/Malnutrition Start: 04/18/18 15: 02 Text: Status: Complete Freq: Protocol: Document 04/18/18 15:02 LCHENG (Rec: 04/18/18 15:09 LCADIG DAIN-[email or web address]) Nutritional Asmnt/Malnutrition Patient General Information Nutritional Screening Low Risk Diagnosis suicidal ideation Pertinent Medical Hx/Surgical Hx BPH, hyperlipidemia, insomnia, pscychosis Subjective Information Pt seen eating in dining room. Per EMR, PO intake 100%. Current Diet Order/ Nutrition Support regular Pertinent Medications theragran, seroquel Pertinent Labs 04/12 reviewed Nutritional Hx/Data Height 1.83 m Height (Calculated Centimeters) 182.9 Current Weight (lbs) 82.554 kg Weight (Calculated Kilograms) 82.6 Weight (Calculated Grams) 92153.8 [place] Body Weight 178 Body Mass Index (BMI) 24.7 Weight Status Approriate GI Symptoms GI Symptoms None Last BM 04/15 Difficult in: None Skin Integrity/Comment: dryness Current %PO Good (75-100%) Estimated Nutritional Goals BEE in Kcals: Using Current wt Calories/Kcals/Kg 25-30 Kcals Calculated 1610-8058 Protein: Using Current wt Protein g/k Protein Calculated 82 Fluid: ml 2074-249ml (1ml/kcal) Nutritional Problem No current Nutrition Prob Problem N/A Malnutrition Alert Is there a minimum of two criteria No selected? Query Text:Check all the applicable criteria. A minimum of two criteria are recommended for diagnosis of either severe or non-severe malnutrition. Malnutrition Related to Morbid Obesity Malnutrition related to morbid obesity No Intervention/Recommendation Comments 1. Continue with current diet as ordered. 2. Monitor PO intake, wt, labs and skin integrity 3. F/U as low risk in 7 days Expected Outcomes/Goals Expected Outcomes/Goals 1. PO intake to meet at least 75% of nutritional needs. 2. Wt stability, skin to remain intact, labs to approach WNL.
[2018-04-19] MEDS: Multivitamin Tab PO SCH (08:20)
--- NOTE | 2018-04-19 14:45 | Progress Notes ---
DATE: 04/18/2018 DATE: 04/18/2018. SUBJECTIVE: Chart reviewed and the patient interviewed. Also discussed the patient's condition with the staff and reviewed records and labs. The patient remains in a depressed mood. The patient also is still isolative and withdrawn and he stays by himself most of the time. The patient also is still feeling hopeless and helpless with intermittent thoughts of suicide. Otherwise, the patient continued to comply with taking his medications with no side effects of medications. ASSESSMENT: The patient is still depressed and still high risk for suicide. TREATMENT PLAN: Continue to monitor behavior and condition closely. Also, continue to work on his ineffective coping and also work on discharge plans. [facility]# [id number]
--- NOTE | 2018-04-19 16:33 | Progress Notes ---
DATE: 04/19/2018 The patient in the hospital, depressed, withdrawn, wanting to talk to me with Dr. Huff noting he remains helpless, hopeless, ongoing concerns about safety, suicidality. Medications were noted. The patient has consistently been refusing to speak with me, well oriented, but angry, upset, ongoing verbalizations of anxiety, feeling on edge. The patient remains symptomatic, ongoing safety concerns. We will continue to monitor on an inpatient basis. [facility]# [id number]
--- NOTE | 2018-04-19 17:46 | General Progress Note ---
Subjective - Review of Systems Service Date: 04/19/18 Subjective: resting comfortably no distress Objective - Results Recent Labs: Laboratory Last Values Triglycerides 273 mg/dL (<150) H 04/12/18 06:15 Cholesterol 198 mg/dL (<200) 04/12/18 06:15 LDL Cholesterol Direct 119 mg/dL (75-193) 04/12/18 06:15 HDL Cholesterol 45 mg/dL (23-92) 04/12/18 06:15 - Physical Exam Vitals and I&O: Vital Signs Temp 97.6 F 04/19/18 14:00 Pulse 90 04/19/18 14:00 Resp 20 04/19/18 14:00 BP 135/77 04/19/18 14:00 Pulse Ox 97 04/19/18 14:00 Intake & Output 04/18/18 04/19/18 04/19/18 18:59 06:59 18:59 Intake Total 1500 Balance 1500 Intake: Oral 1500 Other: # Voids 3 # Bowel Movements 0 1 Active Medications: Current Medications Acetaminophen (Tylenol) 650 mg PO Q4HR PRN PRN Reason: Mild Pain / Temp above 100 Stop: 06/10/18 23:36 Al Hydrox/Mg Hydrox/Simethicone (Maalox) 30 ml PO Q4HR PRN PRN Reason: GI DISTRESS Stop: 06/10/18 23:36 Divalproex Sodium (Depakote Er) 500 mg PO BID [facility]; Protocol Stop: 06/11/18 08:59 Last Admin: 04/19/18 16:07 Dose: 500 mg Duloxetine HCl (Cymbalta) 60 mg PO BID [facility]; Protocol Stop: 06/16/18 08:59 Last Admin: 04/19/18 16:07 Dose: 60 mg Lorazepam (Ativan) 2 mg PO Q8H PRN; Protocol PRN Reason: Anxiety/agitation Stop: 06/10/18 23:36 Last Admin: 04/19/18 10:54 Dose: 2 mg Magnesium Hydroxide (Milk Of Magnesia) 30 ml PO HS PRN PRN Reason: Constipation Stop: 06/10/18 23:36 Multivitamins/Vitamin C (Theragran) 1 tab PO DAILY [facility] Stop: 06/11/18 08:59 Last Admin: 04/19/18 08:20 Dose: 1 tab Quetiapine Fumarate (Seroquel Xr) 800 mg PO HS [facility]; Protocol Stop: 06/11/18 20:59 Last Admin: 04/18/18 20:59 Dose: 800 mg Tamsulosin HCl (Flomax) 0.4 mg PO HS [facility] Stop: 06/11/18 20:59 Last Admin: 04/18/18 20:59 Dose: 0.4 mg Zolpidem Tartrate (Ambien) 5 mg PO HS PRN PRN Reason: Insomnia Stop: 06/10/18 23:36 Last Admin: 04/17/18 21:02 Dose: 5 mg General: No acute distress HEENT: Atraumatic, PERRLA Neck: Supple, JVD, Thyromegaly Cardiovascular: Regular rate, Normal S1, Normal S2 Lungs: Clear to auscultation Abdomen: Bowel sounds, Soft - Procedures Procedures: Procedures Procedure Code Date CONTINUOUS INVASIVE MECHANICAL VENTILATION <96 CONSEC HRS 96.71 06/05/13 GROUP PSYCHOTHERAPY 36163 08/25/15 GROUP PSYCHOTHERAPY GZHZZZZ 08/25/15 INSERT EMERGENCY AIRWAY [id number] 06/05/13 INSERT ENDOTRACHEAL TUBE 96.04 06/05/13 VACCINATION NEC 99.55 06/24/13 Assessment/Plan - Assessment Assessment: 1.BPH. 2.HYPERLIPIDEMIA. 3.INSOMNIA. 4.PSYCHOSIS. - Plan Plan: continue current treatment Nutritional Asmnt/Malnutr-PDOC - Dietary Evaluation Malnutrition Findings (Please click <Entered> for more info): Nutritional Asmnt/Malnutrition Start: 04/18/18 15: 02 Text: Status: Complete Freq: Protocol: Document 04/18/18 15:02 LCHENG (Rec: 04/18/18 15:09 LCADIG DAIN-[email or web address]) Nutritional Asmnt/Malnutrition Patient General Information Nutritional Screening Low Risk Diagnosis suicidal ideation Pertinent Medical Hx/Surgical Hx BPH, hyperlipidemia, insomnia, pscychosis Subjective Information Pt seen eating in dining room. Per EMR, PO intake 100%. Current Diet Order/ Nutrition Support regular Pertinent Medications theragran, seroquel Pertinent Labs 04/12 reviewed Nutritional Hx/Data Height 1.83 m Height (Calculated Centimeters) 182.9 Current Weight (lbs) 82.554 kg Weight (Calculated Kilograms) 82.6 Weight (Calculated Grams) 08938.8 [place] Body Weight 178 Body Mass Index (BMI) 24.7 Weight Status Approriate GI Symptoms GI Symptoms None Last BM 04/15 Difficult in: None Skin Integrity/Comment: dryness Current %PO Good (75-100%) Estimated Nutritional Goals BEE in Kcals: Using Current wt Calories/Kcals/Kg 25-30 Kcals Calculated 8281-7434 Protein: Using Current wt Protein g/k Protein Calculated 82 Fluid: ml 2074-2490ml (1ml/kcal) Nutritional Problem No current Nutrition Prob Problem N/A Malnutrition Alert Is there a minimum of two criteria No selected? Query Text:Check all the applicable criteria. A minimum of two criteria are recommended for diagnosis of either severe or non-severe malnutrition. Malnutrition Related to Morbid Obesity Malnutrition related to morbid obesity No Intervention/Recommendation Comments 1. Continue with current diet as ordered. 2. Monitor PO intake, wt, labs and skin integrity 3. F/U as low risk in 7 days Expected Outcomes/Goals Expected Outcomes/Goals 1. PO intake to meet at least 75% of nutritional needs. 2. Wt stability, skin to remain intact, labs to approach WNL.
[2018-04-20] MEDS: Multivitamin Tab PO SCH (09:40)
--- NOTE | 2018-04-20 17:08 | Progress Notes ---
DATE: 04/20/2018 The patient is well oriented, still depressed, withdrawn, melancholic, states that he has had a lot of losses. His wives have . The patient is lonely, he is still suicidal, endorsing suicidal ideations, fantasizing, not michael for safety. ASSESSMENT: The patient is mostly withdrawn, depressed, melancholic, ongoing SI, fair sleep, fair appetite, ongoing SI and anxiety and psychological distress, turmoil. PLAN: We will continue to monitor given his ongoing and severe symptoms, he is not safe for discharge. JOB# [id number]
--- NOTE | 2018-04-20 19:02 | General Progress Note ---
Subjective - Review of Systems Service Date: 04/20/18 Subjective: resting comfortably no distress Objective - Results Recent Labs: Laboratory Last Values Triglycerides 273 mg/dL (<150) H 04/12/18 06:15 Cholesterol 198 mg/dL (<200) 04/12/18 06:15 LDL Cholesterol Direct 119 mg/dL (75-193) 04/12/18 06:15 HDL Cholesterol 45 mg/dL (23-92) 04/12/18 06:15 - Physical Exam Vitals and I&O: Vital Signs Temp 98.0 F 04/20/18 14:00 Pulse 84 04/20/18 14:00 Resp 20 04/20/18 14:00 BP 125/67 04/20/18 14:00 Pulse Ox 98 04/20/18 14:00 Intake & Output 04/20/18 04/20/18 04/21/18 06:59 18:59 06:59 Intake Total 240 900 Balance 240 900 Intake: Oral 240 900 Other: # Voids 2 3 # Bowel Movements 1 Active Medications: Current Medications Acetaminophen (Tylenol) 650 mg PO Q4HR PRN PRN Reason: Mild Pain / Temp above 100 Stop: 06/10/18 23:36 Al Hydrox/Mg Hydrox/Simethicone (Maalox) 30 ml PO Q4HR PRN PRN Reason: GI DISTRESS Stop: 06/10/18 23:36 Divalproex Sodium (Depakote Er) 500 mg PO BID [facility]; Protocol Stop: 06/11/18 08:59 Last Admin: 04/20/18 17:45 Dose: 500 mg Duloxetine HCl (Cymbalta) 60 mg PO BID [facility]; Protocol Stop: 06/16/18 08:59 Last Admin: 04/20/18 17:44 Dose: 60 mg Lorazepam (Ativan) 2 mg PO Q8H PRN; Protocol PRN Reason: Anxiety/agitation Stop: 06/10/18 23:36 Last Admin: 04/20/18 17:46 Dose: 2 mg Magnesium Hydroxide (Milk Of Magnesia) 30 ml PO HS PRN PRN Reason: Constipation Stop: 06/10/18 23:36 Multivitamins/Vitamin C (Theragran) 1 tab PO DAILY [facility] Stop: 06/11/18 08:59 Last Admin: 04/20/18 09:40 Dose: Not Given Quetiapine Fumarate (Seroquel Xr) 800 mg PO HS [facility]; Protocol Stop: 06/11/18 20:59 Last Admin: 04/19/18 20:26 Dose: 800 mg Tamsulosin HCl (Flomax) 0.8 mg PO HS [facility] Stop: 06/18/18 20:59 Last Admin: 04/19/18 20:26 Dose: 0.8 mg Zolpidem Tartrate (Ambien) 5 mg PO HS PRN PRN Reason: Insomnia Stop: 06/10/18 23:36 Last Admin: 04/19/18 20:27 Dose: 5 mg General: No acute distress HEENT: Atraumatic, PERRLA Neck: Supple, JVD, Thyromegaly Cardiovascular: Regular rate, Normal S1, Normal S2 Lungs: Clear to auscultation Abdomen: Bowel sounds, Soft - Procedures Procedures: Procedures Procedure Code Date CONTINUOUS INVASIVE MECHANICAL VENTILATION <96 CONSEC HRS 96.71 06/05/13 GROUP PSYCHOTHERAPY 13283 08/25/15 GROUP PSYCHOTHERAPY GZHZZZZ 08/25/15 INSERT EMERGENCY AIRWAY [id number] 06/05/13 INSERT ENDOTRACHEAL TUBE 96.04 06/05/13 VACCINATION NEC 99.55 06/24/13 Assessment/Plan - Assessment Assessment: 1.BPH. 2.HYPERLIPIDEMIA. 3.INSOMNIA. 4.PSYCHOSIS. - Plan Plan: continue current treatment Nutritional Asmnt/Malnutr-PDOC - Dietary Evaluation Malnutrition Findings (Please click <Entered> for more info): Nutritional Asmnt/Malnutrition Start: 04/18/18 15: 02 Text: Status: Complete Freq: Protocol: Document 04/18/18 15:02 LCHENG (Rec: 04/18/18 15:09 LCADIG DAIN-FNS1) Nutritional Asmnt/Malnutrition Patient General Information Nutritional Screening Low Risk Diagnosis suicidal ideation Pertinent Medical Hx/Surgical Hx BPH, hyperlipidemia, insomnia, pscychosis Subjective Information Pt seen eating in dining room. Per EMR, PO intake 100%. Current Diet Order/ Nutrition Support regular Pertinent Medications theragran, seroquel Pertinent Labs 04/12 reviewed Nutritional Hx/Data Height 1.83 m Height (Calculated Centimeters) 182.9 Current Weight (lbs) 82.554 kg Weight (Calculated Kilograms) 82.6 Weight (Calculated Grams) 63308.8 [place] Body Weight 178 Body Mass Index (BMI) 24.7 Weight Status Approriate GI Symptoms GI Symptoms None Last BM / Difficult in: None Skin Integrity/Comment: dryness Current %PO Good (75-100%) Estimated Nutritional Goals BEE in Kcals: Using Current wt Calories/Kcals/Kg 25-30 Kcals Calculated 5976-6793 Protein: Using Current wt Protein g/k Protein Calculated 82 Fluid: ml 5-2490ml (1ml/kcal) Nutritional Problem No current Nutrition Prob Problem N/A Malnutrition Alert Is there a minimum of two criteria No selected? Query Text:Check all the applicable criteria. A minimum of two criteria are recommended for diagnosis of either severe or non-severe malnutrition. Malnutrition Related to Morbid Obesity Malnutrition related to morbid obesity No Intervention/Recommendation Comments 1. Continue with current diet as ordered. 2. Monitor PO intake, wt, labs and skin integrity 3. F/U as low risk in 7 days Expected Outcomes/Goals Expected Outcomes/Goals 1. PO intake to meet at least 75% of nutritional needs. 2. Wt stability, skin to remain intact, labs to approach WNL.
[2018-04-21] MEDS: Multivitamin Tab PO SCH (08:49)
--- NOTE | 2018-04-21 14:27 | General Progress Note ---
Subjective - Review of Systems Service Date: 04/21/18 Subjective: resting comfortably no distress Objective - Results Recent Labs: Laboratory Last Values Triglycerides 273 mg/dL (<150) H 04/12/18 06:15 Cholesterol 198 mg/dL (<200) 04/12/18 06:15 LDL Cholesterol Direct 119 mg/dL (75-193) 04/12/18 06:15 HDL Cholesterol 45 mg/dL (23-92) 04/12/18 06:15 - Physical Exam Vitals and I&O: Vital Signs Temp 97.7 F 04/21/18 14:09 Pulse 86 04/21/18 14:09 Resp 20 04/21/18 14:09 BP 121/71 04/21/18 14:09 Pulse Ox 94 04/21/18 14:09 Intake & Output 04/20/18 04/21/18 04/21/18 18:59 06:59 18:59 Intake Total 900 480 Balance 900 480 Intake: Oral 900 480 Other: # Voids 3 1 # Bowel Movements 1 Active Medications: Current Medications Acetaminophen (Tylenol) 650 mg PO Q4HR PRN PRN Reason: Mild Pain / Temp above 100 Stop: 06/10/18 23:36 Al Hydrox/Mg Hydrox/Simethicone (Maalox) 30 ml PO Q4HR PRN PRN Reason: GI DISTRESS Stop: 06/10/18 23:36 Divalproex Sodium (Depakote Er) 500 mg PO BID [facility]; Protocol Stop: 06/11/18 08:59 Last Admin: 04/21/18 08:49 Dose: 500 mg Duloxetine HCl (Cymbalta) 60 mg PO BID [facility]; Protocol Stop: 06/16/18 08:59 Last Admin: 04/21/18 08:49 Dose: 60 mg Lorazepam (Ativan) 2 mg PO Q8H PRN; Protocol PRN Reason: Anxiety/agitation Stop: 06/10/18 23:36 Last Admin: 04/21/18 10:02 Dose: 2 mg Magnesium Hydroxide (Milk Of Magnesia) 30 ml PO HS PRN PRN Reason: Constipation Stop: 06/10/18 23:36 Multivitamins/Vitamin C (Theragran) 1 tab PO DAILY [facility] Stop: 06/11/18 08:59 Last Admin: 04/21/18 08:49 Dose: 1 tab Quetiapine Fumarate (Seroquel Xr) 800 mg PO HS [facility]; Protocol Stop: 06/11/18 20:59 Last Admin: 04/20/18 20:41 Dose: 800 mg Tamsulosin HCl (Flomax) 0.8 mg PO HS [facility] Stop: 06/18/18 20:59 Last Admin: 04/20/18 20:41 Dose: 0.8 mg Zolpidem Tartrate (Ambien) 5 mg PO HS PRN PRN Reason: Insomnia Stop: 06/10/18 23:36 Last Admin: 04/20/18 20:41 Dose: 5 mg General: No acute distress HEENT: Atraumatic, PERRLA Neck: Supple, JVD, Thyromegaly Cardiovascular: Regular rate, Normal S1, Normal S2 Lungs: Clear to auscultation Abdomen: Bowel sounds, Soft - Procedures Procedures: Procedures Procedure Code Date CONTINUOUS INVASIVE MECHANICAL VENTILATION <96 CONSEC HRS 96.71 06/05/13 GROUP PSYCHOTHERAPY 15380 08/25/15 GROUP PSYCHOTHERAPY GZHZZZZ 08/25/15 INSERT EMERGENCY AIRWAY [id number] 06/05/13 INSERT ENDOTRACHEAL TUBE 96.04 06/05/13 VACCINATION NEC 99.55 06/24/13 Assessment/Plan - Assessment Assessment: 1.BPH. 2.HYPERLIPIDEMIA. 3.INSOMNIA. 4.PSYCHOSIS. - Plan Plan: continue current treatment Nutritional Asmnt/Malnutr-PDOC - Dietary Evaluation Malnutrition Findings (Please click <Entered> for more info): Nutritional Asmnt/Malnutrition Start: 04/18/18 15: 02 Text: Status: Complete Freq: Protocol: Document 04/18/18 15:02 LCHENG (Rec: 04/18/18 15:09 LCADIG DAIN-FNS1) Nutritional Asmnt/Malnutrition Patient General Information Nutritional Screening Low Risk Diagnosis suicidal ideation Pertinent Medical Hx/Surgical Hx BPH, hyperlipidemia, insomnia, pscychosis Subjective Information Pt seen eating in dining room. Per EMR, PO intake 100%. Current Diet Order/ Nutrition Support regular Pertinent Medications theragran, seroquel Pertinent Labs 04/12 reviewed Nutritional Hx/Data Height 1.83 m Height (Calculated Centimeters) 182.9 Current Weight (lbs) 82.554 kg Weight (Calculated Kilograms) 82.6 Weight (Calculated Grams) 32430.8 [place] Body Weight 178 Body Mass Index (BMI) 24.7 Weight Status Approriate GI Symptoms GI Symptoms None Last BM / Difficult in: None Skin Integrity/Comment: dryness Current %PO Good (75-100%) Estimated Nutritional Goals BEE in Kcals: Using Current wt Calories/Kcals/Kg 25-30 Kcals Calculated 3846-0123 Protein: Using Current wt Protein g/k Protein Calculated 82 Fluid: ml 5-2490ml (1ml/kcal) Nutritional Problem No current Nutrition Prob Problem N/A Malnutrition Alert Is there a minimum of two criteria No selected? Query Text:Check all the applicable criteria. A minimum of two criteria are recommended for diagnosis of either severe or non-severe malnutrition. Malnutrition Related to Morbid Obesity Malnutrition related to morbid obesity No Intervention/Recommendation Comments 1. Continue with current diet as ordered. 2. Monitor PO intake, wt, labs and skin integrity 3. F/U as low risk in 7 days Expected Outcomes/Goals Expected Outcomes/Goals 1. PO intake to meet at least 75% of nutritional needs. 2. Wt stability, skin to remain intact, labs to approach WNL.
[2018-04-22] MEDS: Multivitamin Tab PO SCH (08:07)
--- NOTE | 2018-04-22 14:41 | Progress Notes ---
DATE: 04/21/2018 SUBJECTIVE: Chart reviewed and the patient interviewed. Also discussed the patient's condition with the staff and reviewed records and labs. The patient continued to be severely depressed and is anxious and is still feeling hopeless and helpless. The patient also is still guarded and withdrawn and interacting minimally with others. The patient also still has intermittent thoughts of suicide. The patient also is compliant with taking medications with no side effects of medications. ASSESSMENT: The patient is still severely depressed and high risk of suicide. TREATMENT PLAN: Continue monitoring his behavior and his condition closely. Also, continue to adjust the psychotropic medications. Also working with porter sample case in regard to discharge plans and placement issue. JOB# [id number]
--- NOTE | 2018-04-22 21:14 | Internal Medicine Prog Note ---
Internal Medicine Subjective - Subjective Service Date: 04/22/18 Patient seen and examined:: without staff Patient is:: awake, verbal, in bed, talking, confused Per staff patient has:: no adverse event Internal Medicine Objective - Results Recent Labs: Laboratory Last Values Triglycerides 273 mg/dL (<150) H 04/12/18 06:15 Cholesterol 198 mg/dL (<200) 04/12/18 06:15 LDL Cholesterol Direct 119 mg/dL (75-193) 04/12/18 06:15 HDL Cholesterol 45 mg/dL (23-92) 04/12/18 06:15 - Physical Exam Vitals and I&O: Vital Signs Temp 98.4 F 04/22/18 20:27 Pulse 84 04/22/18 20:27 Resp 20 04/22/18 20:27 BP 120/73 04/22/18 20:27 Pulse Ox 94 04/22/18 20:27 Intake & Output 04/22/18 04/22/18 04/23/18 06:59 18:59 06:59 Intake Total 720 120 Balance 720 120 Intake: Oral 720 120 Other: # Voids 1 3 # Bowel Movements 0 Active Medications: Current Medications Acetaminophen (Tylenol) 650 mg PO Q4HR PRN PRN Reason: Mild Pain / Temp above 100 Stop: 06/10/18 23:36 Al Hydrox/Mg Hydrox/Simethicone (Maalox) 30 ml PO Q4HR PRN PRN Reason: GI DISTRESS Stop: 06/10/18 23:36 Divalproex Sodium (Depakote Er) 500 mg PO BID [facility]; Protocol Stop: 06/11/18 08:59 Last Admin: 04/22/18 16:40 Dose: 500 mg Duloxetine HCl (Cymbalta) 60 mg PO BID [facility]; Protocol Stop: 06/16/18 08:59 Last Admin: 04/22/18 16:41 Dose: 60 mg Lorazepam (Ativan) 2 mg PO Q8H PRN; Protocol PRN Reason: Anxiety/agitation Stop: 06/10/18 23:36 Last Admin: 04/22/18 20:12 Dose: 2 mg Magnesium Hydroxide (Milk Of Magnesia) 30 ml PO HS PRN PRN Reason: Constipation Stop: 06/10/18 23:36 Multivitamins/Vitamin C (Theragran) 1 tab PO DAILY [facility] Stop: 06/11/18 08:59 Last Admin: 04/22/18 08:07 Dose: 1 tab Quetiapine Fumarate (Seroquel Xr) 800 mg PO HS [facility]; Protocol Stop: 06/11/18 20:59 Last Admin: 04/22/18 20:12 Dose: 800 mg Tamsulosin HCl (Flomax) 0.8 mg PO HS [facility] Stop: 06/18/18 20:59 Last Admin: 04/22/18 20:12 Dose: 0.8 mg Zolpidem Tartrate (Ambien) 5 mg PO HS PRN PRN Reason: Insomnia Stop: 06/10/18 23:36 Last Admin: 04/21/18 21:29 Dose: 5 mg General: demented HEENT: NC/AT, PERRLA, EOMI, anicteric sclerae, throat clear Neck: Supple, No JVD, No thyromegaly, +2 carotid pulse wo bruit, No LAD Lungs: CTAB Cardiovascular: RRR, Normal S1, Normal S2, without murmur Abdomen: soft, non-tender, non-distended Extremities: clear Neurological: no change - Procedures Procedures: Procedures Procedure Code Date CONTINUOUS INVASIVE MECHANICAL VENTILATION <96 CONSEC HRS 96.71 06/05/13 GROUP PSYCHOTHERAPY 24834 08/25/15 GROUP PSYCHOTHERAPY GZHZZZZ 08/25/15 INSERT EMERGENCY AIRWAY [id number] 06/05/13 INSERT ENDOTRACHEAL TUBE 96.04 06/05/13 VACCINATION NEC 99.55 06/24/13 Internal Medicine Assmt/Plan - Assessment Assessment: 1.BPH. 2.HYPERLIPIDEMIA. 3.INSOMNIA. 4.PSYCHOSIS. - Plan Plan: CONTINUE ON CURRENT MEDICATION AND DIET. Nutritional Asmnt/Malnutr-PDOC - Dietary Evaluation Malnutrition Findings (Please click <Entered> for more info): Nutritional Asmnt/Malnutrition Start: 04/18/18 15: 02 Text: Status: Complete Freq: Protocol: Document 04/18/18 15:02 LCHENG (Rec: 04/18/18 15:09 [email or web address] [email or web address]) Nutritional Asmnt/Malnutrition Patient General Information Nutritional Screening Low Risk Diagnosis suicidal ideation Pertinent Medical Hx/Surgical Hx BPH, hyperlipidemia, insomnia, pscychosis Subjective Information Pt seen eating in dining room. Per EMR, PO intake 100%. Current Diet Order/ Nutrition Support regular Pertinent Medications theragran, seroquel Pertinent Labs 04/12 reviewed Nutritional Hx/Data Height 1.83 m Height (Calculated Centimeters) 182.9 Current Weight (lbs) 82.554 kg Weight (Calculated Kilograms) 82.6 Weight (Calculated Grams) 25643.8 [place] Body Weight 178 Body Mass Index (BMI) 24.7 Weight Status Approriate GI Symptoms GI Symptoms None Last BM 04/15 Difficult in: None Skin Integrity/Comment: dryness Current %PO Good (75-100%) Estimated Nutritional Goals BEE in Kcals: Using Current wt Calories/Kcals/Kg 25-30 Kcals Calculated 2707-2846 Protein: Using Current wt Protein g/k Protein Calculated 82 Fluid: ml 2074-249ml (1ml/kcal) Nutritional Problem No current Nutrition Prob Problem N/A Malnutrition Alert Is there a minimum of two criteria No selected? Query Text:Check all the applicable criteria. A minimum of two criteria are recommended for diagnosis of either severe or non-severe malnutrition. Malnutrition Related to Morbid Obesity Malnutrition related to morbid obesity No Intervention/Recommendation Comments 1. Continue with current diet as ordered. 2. Monitor PO intake, wt, labs and skin integrity 3. F/U as low risk in 7 days Expected Outcomes/Goals Expected Outcomes/Goals 1. PO intake to meet at least 75% of nutritional needs. 2. Wt stability, skin to remain intact, labs to approach WNL.
--- NOTE | 2018-04-22 22:18 | Progress Notes ---
DATE: SUBJECTIVE: Chart reviewed and the patient interviewed. Also discussed the patient's condition with the staff and reviewed the records and labs. The patient is still severely depressed and he is still guarded and withdrawn. The patient also continues to grieve his losses. The patient also is still, at times, having mood swings. Otherwise, the patient is denying any side effects of medications and he seems to be interacting more and doing more work in his recovery. ASSESSMENT: The patient is still depressed and high risk of suicide. TREATMENT PLAN: Continue to monitor his behavior and continue to work on his ineffective coping. Also, I contacted detention in [place] in order to have placement for the patient and we will continue to work with them in regard to placement. The patient will be interviewed today or tomorrow by them. JOB# [id number]
[2018-04-23] MEDS: Multivitamin Tab PO SCH (09:17)
--- NOTE | 2018-04-23 19:02 | Internal Medicine Prog Note ---
Internal Medicine Subjective - Subjective Service Date: 04/23/18 Patient seen and examined:: with staff Patient is:: awake, verbal, in bed, talking, confused Per staff patient has:: no adverse event Internal Medicine Objective - Results Recent Labs: Laboratory Last Values Triglycerides 273 mg/dL (<150) H 04/12/18 06:15 Cholesterol 198 mg/dL (<200) 04/12/18 06:15 LDL Cholesterol Direct 119 mg/dL (75-193) 04/12/18 06:15 HDL Cholesterol 45 mg/dL (23-92) 04/12/18 06:15 - Physical Exam Vitals and I&O: Vital Signs Temp 98.0 F 04/23/18 14:00 Pulse 88 04/23/18 14:00 Resp 20 04/23/18 14:00 BP 125/56 04/23/18 14:00 Pulse Ox 97 04/23/18 14:00 Intake & Output 04/23/18 04/23/18 04/24/18 06:59 18:59 06:59 Intake Total 120 900 Balance 120 900 Intake: Oral 120 900 Other: # Voids 1 3 # Bowel Movements 0 1 Active Medications: Current Medications Acetaminophen (Tylenol) 650 mg PO Q4HR PRN PRN Reason: Mild Pain / Temp above 100 Stop: 06/10/18 23:36 Al Hydrox/Mg Hydrox/Simethicone (Maalox) 30 ml PO Q4HR PRN PRN Reason: GI DISTRESS Stop: 06/10/18 23:36 Divalproex Sodium (Depakote Er) 500 mg PO BID [facility]; Protocol Stop: 06/11/18 08:59 Last Admin: 04/23/18 16:42 Dose: 500 mg Duloxetine HCl (Cymbalta) 60 mg PO BID [facility]; Protocol Stop: 06/16/18 08:59 Last Admin: 04/23/18 16:41 Dose: 60 mg Lorazepam (Ativan) 2 mg PO Q8H PRN; Protocol PRN Reason: Anxiety/agitation Stop: 06/10/18 23:36 Last Admin: 04/23/18 17:18 Dose: 2 mg Magnesium Hydroxide (Milk Of Magnesia) 30 ml PO HS PRN PRN Reason: Constipation Stop: 06/10/18 23:36 Multivitamins/Vitamin C (Theragran) 1 tab PO DAILY [facility] Stop: 06/11/18 08:59 Last Admin: 04/23/18 09:17 Dose: 1 tab Quetiapine Fumarate (Seroquel Xr) 800 mg PO HS [facility]; Protocol Stop: 06/11/18 20:59 Last Admin: 04/22/18 20:12 Dose: 800 mg Tamsulosin HCl (Flomax) 0.8 mg PO HS [facility] Stop: 06/18/18 20:59 Last Admin: 04/22/18 20:12 Dose: 0.8 mg Zolpidem Tartrate (Ambien) 5 mg PO HS PRN PRN Reason: Insomnia Stop: 06/10/18 23:36 Last Admin: 04/21/18 21:29 Dose: 5 mg General: demented HEENT: NC/AT, PERRLA, EOMI, anicteric sclerae, throat clear Neck: Supple, No JVD, No thyromegaly, +2 carotid pulse wo bruit, No LAD Lungs: CTAB Cardiovascular: RRR, Normal S1, Normal S2, without murmur Abdomen: soft, non-tender, non-distended Extremities: clear Neurological: no change - Procedures Procedures: Procedures Procedure Code Date CONTINUOUS INVASIVE MECHANICAL VENTILATION <96 CONSEC HRS 96.71 06/05/13 GROUP PSYCHOTHERAPY 62900 08/25/15 GROUP PSYCHOTHERAPY GZHZZZZ 08/25/15 INSERT EMERGENCY AIRWAY [id number] 06/05/13 INSERT ENDOTRACHEAL TUBE 96.04 06/05/13 VACCINATION NEC 99.55 06/24/13 Internal Medicine Assmt/Plan - Assessment Assessment: 1.BPH. 2.HYPERLIPIDEMIA. 3.INSOMNIA. 4.PSYCHOSIS. - Plan Plan: CONTINUE ON CURRENT MEDICATION AND DIET. Nutritional Asmnt/Malnutr-PDOC - Dietary Evaluation Malnutrition Findings (Please click <Entered> for more info): Nutritional Asmnt/Malnutrition Start: 04/18/18 15: 02 Text: Status: Complete Freq: Protocol: Document 04/18/18 15:02 LCHENG (Rec: 04/18/18 15:09 LCADIG [email or web address]) Nutritional Asmnt/Malnutrition Patient General Information Nutritional Screening Low Risk Diagnosis suicidal ideation Pertinent Medical Hx/Surgical Hx BPH, hyperlipidemia, insomnia, pscychosis Subjective Information Pt seen eating in dining room. Per EMR, PO intake 100%. Current Diet Order/ Nutrition Support regular Pertinent Medications theragran, seroquel Pertinent Labs 04/12 reviewed Nutritional Hx/Data Height 1.83 m Height (Calculated Centimeters) 182.9 Current Weight (lbs) 82.554 kg Weight (Calculated Kilograms) 82.6 Weight (Calculated Grams) 81621.8 [place] Body Weight 178 Body Mass Index (BMI) 24.7 Weight Status Approriate GI Symptoms GI Symptoms None Last BM 04/15 Difficult in: None Skin Integrity/Comment: dryness Current %PO Good (75-100%) Estimated Nutritional Goals BEE in Kcals: Using Current wt Calories/Kcals/Kg 25-30 Kcals Calculated 3741-9195 Protein: Using Current wt Protein g/k Protein Calculated 82 Fluid: ml 2074-2490ml (1ml/kcal) Nutritional Problem No current Nutrition Prob Problem N/A Malnutrition Alert Is there a minimum of two criteria No selected? Query Text:Check all the applicable criteria. A minimum of two criteria are recommended for diagnosis of either severe or non-severe malnutrition. Malnutrition Related to Morbid Obesity Malnutrition related to morbid obesity No Intervention/Recommendation Comments 1. Continue with current diet as ordered. 2. Monitor PO intake, wt, labs and skin integrity 3. F/U as low risk in 7 days Expected Outcomes/Goals Expected Outcomes/Goals 1. PO intake to meet at least 75% of nutritional needs. 2. Wt stability, skin to remain intact, labs to approach WNL.
--- NOTE | 2018-04-23 23:44 | Progress Notes ---
DATE: 04/23/2018 SUBJECTIVE: Chart reviewed and the patient interviewed. Also discussed the patient's condition with the staff and reviewed records and labs. The patient is still depressed. The patient also is still isolative and withdrawn. Also, still feeling hopeless and helpless with minimal interaction with others, but he is participating in groups. The patient also continued grieving her losses. On the other hand, the patient denies any thoughts of suicide. Also, compliant with taking medications, which include Seroquel, Cymbalta, and Depakote. ASSESSMENT: The patient is still depressed, but not suicidal. TREATMENT PLAN: Continue monitoring behavior. Also, working on placement issue for the patient. JOB# [id number]
[2018-04-24] MEDS: Multivitamin Tab PO SCH (08:13)
--- NOTE | 2018-04-24 17:26 | Internal Medicine Prog Note ---
Internal Medicine Subjective - Subjective Service Date: 04/24/18 Patient is:: awake, verbal, in bed, talking, confused Per staff patient has:: no adverse event Internal Medicine Objective - Results Recent Labs: Laboratory Last Values Triglycerides 273 mg/dL (<150) H 04/12/18 06:15 Cholesterol 198 mg/dL (<200) 04/12/18 06:15 LDL Cholesterol Direct 119 mg/dL (75-193) 04/12/18 06:15 HDL Cholesterol 45 mg/dL (23-92) 04/12/18 06:15 - Physical Exam Vitals and I&O: Vital Signs Temp 99.4 F 04/24/18 14:00 Pulse 88 04/24/18 14:00 Resp 20 04/24/18 14:00 BP 125/67 04/24/18 14:00 Pulse Ox 96 04/24/18 14:00 Intake & Output 04/23/18 04/24/18 04/24/18 18:59 06:59 18:59 Intake Total 900 240 Balance 900 240 Intake: Oral 900 240 Other: # Voids 3 2 # Bowel Movements 1 Active Medications: Current Medications Acetaminophen (Tylenol) 650 mg PO Q4HR PRN PRN Reason: Mild Pain / Temp above 100 Stop: 06/10/18 23:36 Al Hydrox/Mg Hydrox/Simethicone (Maalox) 30 ml PO Q4HR PRN PRN Reason: GI DISTRESS Stop: 06/10/18 23:36 Divalproex Sodium (Depakote Er) 500 mg PO BID [facility]; Protocol Stop: 06/11/18 08:59 Last Admin: 04/24/18 16:08 Dose: 500 mg Duloxetine HCl (Cymbalta) 60 mg PO BID [facility]; Protocol Stop: 06/16/18 08:59 Last Admin: 04/24/18 16:08 Dose: 60 mg Lorazepam (Ativan) 2 mg PO Q8H PRN; Protocol PRN Reason: Anxiety/agitation Stop: 06/10/18 23:36 Last Admin: 04/24/18 16:08 Dose: 2 mg Magnesium Hydroxide (Milk Of Magnesia) 30 ml PO HS PRN PRN Reason: Constipation Stop: 06/10/18 23:36 Multivitamins/Vitamin C (Theragran) 1 tab PO DAILY [facility] Stop: 06/11/18 08:59 Last Admin: 04/24/18 08:13 Dose: 1 tab Quetiapine Fumarate (Seroquel Xr) 800 mg PO HS [facility]; Protocol Stop: 06/11/18 20:59 Last Admin: 04/23/18 20:58 Dose: 800 mg Tamsulosin HCl (Flomax) 0.8 mg PO HS [facility] Stop: 06/18/18 20:59 Last Admin: 04/23/18 20:58 Dose: 0.8 mg Zolpidem Tartrate (Ambien) 5 mg PO HS PRN PRN Reason: Insomnia Stop: 06/10/18 23:36 Last Admin: 04/23/18 21:14 Dose: 5 mg General: demented HEENT: NC/AT, PERRLA, EOMI, anicteric sclerae, throat clear Neck: Supple, No JVD, No thyromegaly, +2 carotid pulse wo bruit, No LAD Lungs: CTAB Cardiovascular: RRR, Normal S1, Normal S2, without murmur Abdomen: soft, non-tender, non-distended Extremities: clear Neurological: no change - Procedures Procedures: Procedures Procedure Code Date CONTINUOUS INVASIVE MECHANICAL VENTILATION <96 CONSEC HRS 96.71 06/05/13 GROUP PSYCHOTHERAPY 19458 08/25/15 GROUP PSYCHOTHERAPY GZHZZZZ 08/25/15 INSERT EMERGENCY AIRWAY [id number] 06/05/13 INSERT ENDOTRACHEAL TUBE 96.04 06/05/13 VACCINATION NEC 99.55 06/24/13 Internal Medicine Assmt/Plan - Assessment Assessment: 1.BPH. 2.HYPERLIPIDEMIA. 3.INSOMNIA. 4.PSYCHOSIS. - Plan Plan: CONTINUE ON CURRENT MEDICATION AND DIET. Nutritional Asmnt/Malnutr-PDOC - Dietary Evaluation Malnutrition Findings (Please click <Entered> for more info): Nutritional Asmnt/Malnutrition Start: 04/18/18 15: 02 Text: Status: Complete Freq: Protocol: Document 04/18/18 15:02 LCHENG (Rec: 04/18/18 15:09 LCADIG [email or web address]) Nutritional Asmnt/Malnutrition Patient General Information Nutritional Screening Low Risk Diagnosis suicidal ideation Pertinent Medical Hx/Surgical Hx BPH, hyperlipidemia, insomnia, pscychosis Subjective Information Pt seen eating in dining room. Per EMR, PO intake 100%. Current Diet Order/ Nutrition Support regular Pertinent Medications theragran, seroquel Pertinent Labs 04/12 reviewed Nutritional Hx/Data Height 1.83 m Height (Calculated Centimeters) 182.9 Current Weight (lbs) 82.554 kg Weight (Calculated Kilograms) 82.6 Weight (Calculated Grams) 64316.8 [place] Body Weight 178 Body Mass Index (BMI) 24.7 Weight Status Approriate GI Symptoms GI Symptoms None Last BM 04/15 Difficult in: None Skin Integrity/Comment: dryness Current %PO Good (75-100%) Estimated Nutritional Goals BEE in Kcals: Using Current wt Calories/Kcals/Kg 25-30 Kcals Calculated 5181-4478 Protein: Using Current wt Protein g/k Protein Calculated 82 Fluid: ml 5-2490ml (1ml/kcal) Nutritional Problem No current Nutrition Prob Problem N/A Malnutrition Alert Is there a minimum of two criteria No selected? Query Text:Check all the applicable criteria. A minimum of two criteria are recommended for diagnosis of either severe or non-severe malnutrition. Malnutrition Related to Morbid Obesity Malnutrition related to morbid obesity No Intervention/Recommendation Comments 1. Continue with current diet as ordered. 2. Monitor PO intake, wt, labs and skin integrity 3. F/U as low risk in 7 days Expected Outcomes/Goals Expected Outcomes/Goals 1. PO intake to meet at least 75% of nutritional needs. 2. Wt stability, skin to remain intact, labs to approach WNL.
--- NOTE | 2018-04-24 19:07 | Progress Notes ---
DATE: 04/24/2018 PSYCHIATRIC PROGRESS NOTE SUBJECTIVE: Chart reviewed and the patient interviewed. Also discussed the patient's condition with the staff and reviewed records and labs. The patient is still severely depressed. The patient also is still feeling hopeless and helpless. The patient also still tends to isolate himself, although he has been getting out more. Otherwise, the patient continued to comply with taking his medications with no side effects of medications. ASSESSMENT: The patient is still depressed and at high risk for suicide. TREATMENT PLAN: Continue monitoring his behavior and his condition closely. Also, continue to work on discharge plans and the placement issue. The patient was interviewed yesterday by [facility] and is waiting for the results of their interview. [facility]# [id number]
[2018-04-25] MEDS: Multivitamin Tab PO SCH (09:03)
--- NOTE | 2018-04-28 09:24 | Discharge Summary ---
DATE OF DISCHARGE: 04/25/2018 FINAL DIAGNOSIS AND PRIMARY DIAGNOSIS: Bipolar disorder, depressed episode, severe without psychotic features. REASON FOR HOSPITALIZATION: The patient was admitted to the hospital because of increased depression and suicidal ideations as the patient was grieving his losses and have difficulty adjusting. HOSPITAL COURSE: The patient continued to be severely depressed and continued to feel hopeless and helpless. The patient had also continued to have thoughts of suicide. The patient was instructed on Seroquel 800 mg at the time and Depakote adjusted to 500 mg twice a day and Cymbalta increased to 60 mg twice a day. The patient's affect was brighter. The patient was less depressed and he was not suicidal. He also was able to comply with his medications and also cooperative with his treatment and the patient was discharged and accepted in [facility]. Physical exam of the patient showed no major medical problems. AFTER DISCHARGE PLANS: The patient discharged from the hospital with plans to follow him there. EXPECTED OUTCOME AFTER DISCHARGE: Fair if the patient continued with his outpatient treatment and follow up his discharge plans. [facility]# [id number]
== END 2018-04-25 18:30 | DRG 885 ==
LOC: GERO 22:15
PROVIDERS: ADMIT Psychiatry & Neurology Psychiatry; ATTEND Psychiatry & Neurology Psychiatry
DX: F33.2 Major depressive disorder, recurrent severe without psychotic features (principal); N40.0 Benign prostatic hyperplasia without lower urinary tract symptoms; E78.5 Hyperlipidemia, unspecified; G47.00 Insomnia, unspecified
CPT/HCPCS: 36415-UA; 80061-TC; 83036-90; G0410; Z7610

== ENCOUNTER 2018-07-25 11:53 | Inpatient (IN) | payer MEDICARE, MEDICAID ==
--- NOTE | 2018-07-25 13:02 | ED Physician Chart ---
ED Chief Complaint/HPI - Patient Information Date Seen:: 07/25/18 Time Seen:: 12:15 Chief Complaint:: Agitation History of Present Illness:: onset x 2 days of agitation and hostile behavior; no report of trauma, SIs, H/As , S/T, neck pain, cough, C/P, SOB, Abd. Pain, or urinary s/s Allergies:: Allergies Allergy/AdvReac Type Severity Reaction Status Date / Time No Known Allergies Allergy Verified 05/09/17 21:00 Vitals:: Vital Signs - 8 hr 07/25/18 12:15 Temp 97.6 F HR 88 RR 16 BP 127/79 O2 Sat % 97 Historian:: Patient Review:: Nurse's Note Reviewed, Old Chart Reviewed ED Review of Systems - Review of Systems General/Constitutional: No fever, No chills, No weight loss, No weakness, No diaphoresis, No edema, No loss of appetite Skin: No skin lesions, No rash, No bruising Head: No headache, No light-headedness Eyes: No loss of vision, No pain, No diplopia ENT: No earache, No nasal drainage, No sore throat, No tinnitus Neck: No neck pain, No swelling, No thyromegaly, No stiffness, No mass noted Cardio Vascular: No chest pain, No palpitations, No PND, No orthopnea, No edema Pulmonary: No SOB, No cough, No sputum, No wheezing GI: No nausea, No vomiting, No diarrhea, No pain, No melena, No hematochezia, No constipation, No hematemesis G/U: No dysuria, No frequency, No hematuria, No nacturia Musculoskeletal: No bone or joint pain, No back pain, No muscle pain Endocrine: No polyuria, No polydipsia Psychiatric: Prior psych history, Depression, Anxiety, No suicidal ideation, No homicidal ideation, No auditory hallucination, No visual hallucination Hematopoietic: No bruising, No lymphadenopathy Allergic/Immuno: No urticaria, No angioedema Neurological: No syncope, No focal symptoms, No weakness, No paresthesia, No headache, No seizure, No dizziness, No confusion, No vertigo ED Past Medical History - Past Medical History Obtainable: Yes Past Medical History: HTN Family History: HTN Social History: Non Smoker, No Alcohol, No Drug Use, Single, Care Facility Surgical History: None Psychiatricy History: Depression, Bipolar Medication: Reviewed Family Medical History - Family Member Mother History Unknown: Yes Ethnicity: Unknown Living Status: Unknown Hx Family Cancer: No Hx Family Coronary Artery Disease: No Hx Family Congestive Heart Failure: No Hx Family Hypertension: No Hx Family Stroke: No Hx Family Diabetes: No Hx Family Seizures: No Hx Family Dementia: No Hx Family AIDS: No Hx Family HIV: No Hx Family COPD: No Hx Family Hepatitis: No Hx Family Psychiatric Problems: No Hx Family Tuberculosis: No ED Physical Exam - Physical Examination General/Constitutional: Awake, Well-developed, well-nourished, Alert, No distress, GCS 15, Non-toxic appearing, Ambulatory Head: Atraumatic Eyes: Lids, conjuctiva normal, PERRL, EOMI Skin: Nl inspection, No rash, No skin lesions, No ecchymosis, Well hydrated, No lymphadenopathy ENMT: External ears, nose nl, TM canals nl, Nasal exam nl, Lips, teeth, gums nl , Oropharynx nl, Tonsils nl Neck: Nontender, Full ROM w/o pain, No JVD, No nuchal rigidity, No bruit, No mass, No stridor Other Neck comments:: supple; no meningeal signs; no cervical tenderness Respiratory: Nl effort/Exclusion, Clear to Auscultation, No Wheeze/Rhonchi/Rales Cardio Vascular: RRR, No murmur, gallop, rubs, NL S1 S2, Carotid/Femoral/Distal pulses equal bilaterally GI: No tenderness/rebounding/guarding, No organomegaly, No hernia, Normal BS's, Nondistended, No mass/bruits, No McBurney tenderness, Rectum exam nl Other GI comments:: no pulsatile masses : No CVA tenderness Extremities: No tenderness or effusion, Full ROM, normal strength in all extremities, No edema, Normal digits & nails Neuro/Psych: Alert/oriented, DTR's symmetric, Normal sensory exam, Normal motor strength, Judgement/insight normal, Mood normal, Normal gait, No focal deficits Other Neuro/Psych comments:: + Psychomotor Agitation; no SIs; Mood/Affect: Labile Misc: Normal back, No paraspinal tenderness ED Labs/Radiology/EKG Results - Lab Results Comments:: Reviewed - EKG Interpretations EKG Time:: 13:08 Rate & Rhythm: 76; NSR Comments:: non-specific st-t changes ED Septic Shock - . Is Septic Shock (SBP<90, OR Lactate>4 mmol\L) present?: No - <6hrs of presentation: Vital Signs: Vital Signs - 8 hr 07/25/18 12:15 Temp 97.6 F HR 88 RR 16 BP 127/79 O2 Sat % 97 ED Reassessment (Disposition) - Reassessment Reassessment Condition:: Improved - Diagnosis Diagnosis:: Agitation; Medical Clearance; Bipolar Disoder - Aftercare/Follow up Instructions Aftercare/Follow-Up Instructions:: Counseled pt regarding lab results/diagnosis & need follow up, Counseled pt & family regarding lab results/diagnosis & need follow up - Patient Disposition Discharge/Transfer:: Acute Care w/in this hosp Admitted to:: [facility] Condition at Disposition:: Stable, Improved
[2018-07-25 13:19] LABS: % BASOPHILS 0.5 % (0.0-2.0); % EOSINOPHILS 0.6 % (0.0-5.0); % LYMPHOCYTES 27.9 % (20.0-50.0); % MONOCYTES 6.7 % (2.0-10.0); % NEUTROPHILS 64.3 % (40.0-80.0); HEMATOCRIT 46.8 % (41.0-60); HEMOGLOBIN 15.1 gm/dL (12-16); MEAN CELL VOLUME 84.8 fl (80-99); MEAN CORPUSCULAR HEMOGLOBIN 27.4 pg (26.0-30.0); MEAN CORPUSCULAR HGB CONC 32.3 pg (28.0-36.0); MONOCYTE ABSOLUTE 0.5 Th/cmm (0.3-1.0); NEUTROPHILE ABSOLUTE 4.5 Th/cmm (1.8-8.0); PLATELET COUNT 263 Th/cmm (150-400); RED BLOOD COUNT 5.52 Mil/cmm (4.30-5.70); RED CELL DISTRIBUTION WIDTH 13.3 % (11.5-20.0)
[2018-07-25 13:42] LABS: ACETAMINOPHEN < 10.0 ug/mL (10.0-30.0); ALB/GLOB RATIO 1.7 (1.0-1.8); ALBUMIN 4.6 gm/dL (4.2-5.5); ALKALINE PHOSPHATASE 73 U/L (34-104); ANION GAP 15.6 (7.0-16.0); BILIRUBIN,TOTAL 0.8 mg/dL (0.3-1.0); BUN - UREA NITROGEN 13 mg/dL (7-25); CALCIUM SERUM 9.9 mg/dL (8.6-10.3); CARBON DIOXIDE 25.5 mEq/L (21.0-31.0); CHLORIDE 99 mEq/L (98-107); CHOLESTEROL 207 mg/dL (<200); GFR AFRICAN-AMERICAN > 60.0 ml/min (>90); GFR NON AFRICAN-AMERICAN > 60.0 ml/min; GLUCOSE 92 mg/dL (70-105); HDL -HIGH DENSITY LIPOPROTEIN 55 mg/dL (23-92); POTASSIUM SERUM 4.1 mEq/L (3.5-5.1); SGOT 24 U/L (13-39); SGPT/ALT 20 U/L (7-52); SODIUM SERUM 136 mEq/L (136-145); TOTAL PROTEIN,SERUM 7.3 gm/dL (6.0-8.3); TRIGLYCERIDES 77 mg/dL (<150)
[2018-07-25 16:18] LABS: URINE SOURCE CLEAN C
[2018-07-25 16:22] LABS: URINE BILIRUBIN NEGATIVE (NEGATIVE); URINE BLOOD NEGATIVE (NEGATIVE); URINE GLUCOSE (UA) NEGATIVE (NEGATIVE); URINE KETONE 15 mg/dL (NEGATIVE); URINE LEUKOCYTE ESTERASE NEGATIVE (NEGATIVE); URINE NITRATE NEGATIVE (NEGATIVE); URINE PROTEIN 30 mg/dL (NEGATIVE); URINE UROBILINOGEN 0.2 E.U./dL (0.2 - 1.0)
[2018-07-25 16:24] LABS: URINE CLARITY CLEAR (CLEAR); URINE COLOR YELLOW
[2018-07-25 16:28] LABS: URINE BACTERIA FEW /hpf (NONE SEEN); URINE EPITHELIAL CELLS FEW /lpf (FEW); URINE WBC 0-2 /hpf (0-5)
[2018-07-25 16:30] LABS: AMPHETAMINE URINE POSITIVE (NEGATIVE); BARBITURATES URINE NEGATIVE (NEGATIVE); BENZODIAZEPINES QUAL URINE POSITIVE (NEGATIVE); CANNABINOID THC NEGATIVE (NEGATIVE); COCAINE METABOLITE QUAL URINE NEGATIVE (NEGATIVE); METHADONE URINE NEGATIVE (NEGATIVE); METHAMPHETAMINES QUAL URINE NEGATIVE (NEGATIVE); OPIATES (MORPHINE) QUAL. URINE NEGATIVE (NEGATIVE); PHENCYCLIDINE (PCP) URINE NEGATIVE (NEGATIVE); TRICYCLICS (TCA) QUAL. URINE NEGATIVE (NEGATIVE)
[2018-07-25 16:35] LABS: URINE MICROSCOPIC INDICATED? YES
[2018-07-25 17:52] VITALS: BP 129/75
[2018-07-25] MEDS ORDERED: Maalox 30 mL Cup PO PRN (17:58)
--- NOTE | 2018-07-25 18:15 | History & Physical ---
ADMIT DATE: 07/25/2018 HISTORY OF PRESENT ILLNESS: The patient is a 63-year-old male with long history of benign prostatic hypertrophy, chronic back pain, psychosis, admitted to [facility] with Dr. Huff's service for evaluation and treatment. The patient denies any chest pain, shortness of breath, nausea, vomiting. No pain. PAST MEDICAL HISTORY: Benign prostatic hypertrophy, chronic constipation, psychosis. PAST SURGICAL HISTORY: No recent surgery. ALLERGIES: None. MEDICATIONS: Follow admission reconciliation. SOCIAL HISTORY: No smoker, no alcohol, no drug. FAMILY HISTORY: Noncontributory. REVIEW OF SYSTEMS: RENAL SYSTEM: No history of chronic renal disorder. CARDIOVASCULAR SYSTEM: No coronary artery disease. ENDOCRINE SYSTEM: No diabetes or thyroid problem. GASTROINTESTINAL SYSTEM: No upper or lower gastrointestinal bleed. NEUROLOGICAL SYSTEM: No seizure disorder. MUSCULOSKELETAL SYSTEM: No muscular dystrophy. HEMATOLOGIC SYSTEM: No bleeding tendencies. GENITOURINARY: He has benign prostatic hypertrophy. PHYSICAL EXAMINATION: GENERAL: He is awake, alert, oriented. VITAL SIGNS: Temperature 97.6, heart rate 88, blood pressure 127/79. HEENT: Normocephalic. Pupils reactive to light and accommodation. Sclerae clear. NECK: Supple. Negative for lymphadenopathy, JVD or bruit. CHEST: Bilaterally normal. No rhonchi or wheezing. HEART: S1, S2 normal. No murmur or gallop. ABDOMEN: Soft, bowel sounds positive. EXTREMITIES: No edema. BACK: Nontender. SKIN: Intact. GENITAL AND RECTAL: Done by primary physician, no complaint. NEUROLOGIC: He is awake, alert, oriented. Cranial nerves 1-12 are intact. ASSESSMENT: 1. Benign prostatic hypertrophy. 2. Chronic constipation. 3. Psychosis. PLAN: The patient admitted to the hospital under Dr. Huff's service. MEDICAL PROBLEMS TO BE ADDRESSED DURING HOSPITALIZATION: Psychosis. Problem to be addressed at discharge: Benign prostatic hypertrophy, this is medically stable for activity. Thank you Dr. Huff for asking to see your patient. The patient is full code. JOB# [id number]
[2018-07-25] MEDS ORDERED: Magnesium Hydroxide (MOM) 30 mL UDC PO PRN (19:58)
[2018-07-26 07:05] LABS: A1C 5.7 % (4.8-5.6)
[2018-07-26] MEDS: Multivitamin Tab PO SCH (08:10)
--- NOTE | 2018-07-26 18:26 | Psychiatric Evaluation ---
DATE OF SERVICE: PSYCHIATRIC INITIAL EVALUATION AND MENTAL STATUS EXAM PATIENT'S AGE: 63-year-old. SEX: Male. PHYSICIAN: Dr. Huff. CHIEF COMPLAINT: "I am homeless and have not been eating or sleeping for days." HISTORY OF PRESENT ILLNESS: The patient is a 63-year-old male who has been under my care for several years for treatment of schizoaffective disorder. The patient walked into my office on the same day of admission complaining of severe depression and hopeless and helpless feelings and "giving up life." The patient said "I am 63-year-old male and look at me I have nothing to live for." The patient had suicidal ideations with no specific plans. He has history of suicide. The patient is severely depressed and restless and has been feeling hopeless and helpless. He has not been sleeping at night and has lack of energy and lack of motivations. PAST PSYCHIATRIC HISTORY: The patient has history of multiple psychiatric hospitalizations and treatment of schizoaffective disorder, bipolar type and also depressed episodes. PAST MEDICAL HISTORY: The patient has history of benign prostatic hypertrophy and also chronic constipation. CHEMICAL DEPENDENCY HISTORY: The patient denies any recent alcohol or drug use. FAMILY PSYCHIATRIC AND CHEMICAL DEPENDENCY HISTORY: The patient denies. SOCIAL HISTORY: The patient currently is homeless. He was living in [facility] and left 2 months ago. He denies any alcohol or drug use. ALLERGIES: No known allergies. MENTAL STATUS EXAMINATION: The patient appears his stated age. Anxious. Sad affect. In a depressed mood. Disheveled. Thought processes are mainly goal directed. The patient denies auditory or visual hallucinations or delusions. The patient admits to suicidal ideations, but denies any homicidal ideations. The patient is alert and oriented to time, place, person, and situation. Intact immediate, recent and remote memories. Fair insight and fair judgment. Seems to be of average intelligence based on his verbal ability. ASSESSMENT: PRIMARY DIAGNOSIS: Schizoaffective disorder, bipolar type, depressed episode, severe, without psychotic features. MEDICAL DIAGNOSES: Benign prostatic hypertrophy. Chronic constipation. TREATMENT PLAN: We will monitor the patient's behavior and condition closely because of his severe depression and suicidal ideations. We will start individual as well as milieu psychotherapy. We will restart Depakote and Cymbalta and will adjust the dose. ESTIMATED LENGTH OF STAY: 7-10 days. THE PATIENT'S STRENGTHS AND WEAKNESSES: The patient seems to be in relatively fair health and cooperative with his treatment. Weaknesses is his ineffective coping. AFTER DISCHARGE PLAN: The patient will need placement and outpatient treatment and followup will continue as an outpatient. CRITERIA FOR DISCHARGE: The patient will not be suicidal and will stabilize psychotropic medications and will establish outpatient treatment plans. JOB# [id number]
--- NOTE | 2018-07-26 18:49 | General Progress Note ---
Subjective - Review of Systems Service Date: 07/26/18 Subjective: RESTING COMFORTABLY NO DISTRESS Objective - Results Result Diagrams: 07/25/18 13:13 07/25/18 13:13 Recent Labs: Laboratory Last Values WBC 7.0 Th/cmm (4.8-10.8) 07/25/18 13:13 RBC 5.52 Mil/cmm (4.30-5.70) 07/25/18 13:13 Hgb 15.1 gm/dL (12-16) 07/25/18 13:13 Hct 46.8 % (41.0-60) 07/25/18 13:13 MCV 84.8 fl (80-99) 07/25/18 13:13 MCH 27.4 pg (26.0-30.0) 07/25/18 13:13 MCHC Differential 32.3 pg (28.0-36.0) 07/25/18 13:13 RDW 13.3 % (11.5-20.0) 07/25/18 13:13 Plt Count 263 Th/cmm (150-400) 07/25/18 13:13 MPV 7.9 fl 07/25/18 13:13 Neutrophils % 64.3 % (40.0-80.0) 07/25/18 13:13 Lymphocytes % 27.9 % (20.0-50.0) 07/25/18 13:13 Monocytes % 6.7 % (2.0-10.0) 07/25/18 13:13 Eosinophils % 0.6 % (0.0-5.0) 07/25/18 13:13 Basophils % 0.5 % (0.0-2.0) 07/25/18 13:13 Sodium 136 mEq/L (136-145) 07/25/18 13:13 Potassium 4.1 mEq/L (3.5-5.1) 07/25/18 13:13 Chloride 99 mEq/L (98-107) 07/25/18 13:13 Carbon Dioxide 25.5 mEq/L (21.0-31.0) 07/25/18 13:13 Anion Gap 15.6 (7.0-16.0) 07/25/18 13:13 BUN 13 mg/dL (7-25) 07/25/18 13:13 Creatinine 1.0 mg/dL (0.7-1.3) 07/25/18 13:13 Est GFR ( Amer) > 60.0 ml/min (>90) 07/25/18 13:13 Est GFR (Non-Af Amer) > 60.0 ml/min 07/25/18 13:13 BUN/Creatinine Ratio 13.0 07/25/18 13:13 Glucose 92 mg/dL (70-105) 07/25/18 13:13 Calcium 9.9 mg/dL (8.6-10.3) 07/25/18 13:13 Total Bilirubin 0.8 mg/dL (0.3-1.0) 07/25/18 13:13 AST 24 U/L (13-39) 07/25/18 13:13 ALT 20 U/L (7-52) 07/25/18 13:13 Alkaline Phosphatase 73 U/L (34-104) 07/25/18 13:13 Troponin I < 0.01 ng/mL (0.01-0.05) L 07/25/18 13:13 Total Protein 7.3 gm/dL (6.0-8.3) 07/25/18 13:13 Albumin 4.6 gm/dL (4.2-5.5) 07/25/18 13:13 Globulin 2.7 gm/dL 07/25/18 13:13 Albumin/Globulin Ratio 1.7 (1.0-1.8) 07/25/18 13:13 Triglycerides 77 mg/dL (<150) 07/25/18 13:13 Cholesterol 207 mg/dL (<200) H 07/25/18 13:13 LDL Cholesterol Direct 128 mg/dL (75-193) 07/25/18 13:13 HDL Cholesterol 55 mg/dL (23-92) 07/25/18 13:13 TSH 1.48 uIU/ml (0.34-5.60) 07/25/18 13:13 Urine Source CLEAN C 07/25/18 13:30 Urine Color YELLOW 07/25/18 13:30 Urine Clarity CLEAR (CLEAR) 07/25/18 13:30 Urine pH 6.0 (4.6 - 8.0) 07/25/18 13:30 Ur Specific [place] >= 1.030 (1.005-1.030) 07/25/18 13:30 Urine Protein 30 mg/dL (NEGATIVE) H 07/25/18 13:30 Urine Glucose (UA) NEGATIVE mg/dL (NEGATIVE) 07/25/18 13:30 Urine Ketones 15 mg/dL (NEGATIVE) H 07/25/18 13:30 Urine Blood NEGATIVE (NEGATIVE) 07/25/18 13:30 Urine Nitrate NEGATIVE (NEGATIVE) 07/25/18 13:30 Urine Bilirubin NEGATIVE (NEGATIVE) 07/25/18 13:30 Urine Urobilinogen 0.2 E.U./dL (0.2 - 1.0) 07/25/18 13:30 Ur Leukocyte Esterase NEGATIVE (NEGATIVE) 07/25/18 13:30 Urine RBC 2-5 /hpf (0-5) H 07/25/18 13:30 Urine WBC 0-2 /hpf (0-5) 07/25/18 13:30 Ur Epithelial Cells FEW /lpf (FEW) 07/25/18 13:30 Urine Bacteria FEW /hpf (NONE SEEN) 07/25/18 13:30 Urine Mucus MODERATE /lpf (FEW) 07/25/18 13:30 Salicylates < 25.0 mg/L (30.0-100.0) L 07/25/18 13:13 Urine Opiates Screen NEGATIVE (NEGATIVE) 07/25/18 13:30 Urine Methadone Screen NEGATIVE (NEGATIVE) 07/25/18 13:30 Acetaminophen < 10.0 ug/mL (10.0-30.0) L 07/25/18 13:13 Ur Barbiturates Screen NEGATIVE (NEGATIVE) 07/25/18 13:30 Ur Tricyclics Screen NEGATIVE (NEGATIVE) 07/25/18 13:30 Ur Phencyclidine Scrn NEGATIVE (NEGATIVE) 07/25/18 13:30 Amphetamines Screen POSITIVE (NEGATIVE) H 07/25/18 13:30 U Methamphetamines Scrn NEGATIVE (NEGATIVE) 07/25/18 13:30 U Benzodiazepines Scrn POSITIVE (NEGATIVE) H 07/25/18 13:30 U Cocaine Metab Screen NEGATIVE (NEGATIVE) 07/25/18 13:30 U Cannabinoids Screen NEGATIVE (NEGATIVE) 07/25/18 13:30 Ethyl Alcohol < 10 mg/dL (0-10) 07/25/18 13:13 - Physical Exam Vitals and I&O: Vital Signs Temp 97.7 F 07/26/18 14:38 Pulse 84 07/26/18 14:38 Resp 20 07/26/18 14:38 BP 127/78 07/26/18 14:38 Pulse Ox 95 07/26/18 14:38 Intake & Output 07/25/18 07/26/18 07/26/18 18:59 06:59 18:59 Intake Total 720 1000 Balance 720 1000 Weight (lbs) 90.265 kg Intake: Oral 720 1000 Other: # Voids 2 4 # Bowel Movements 1 Weight Source Estimated Active Medications: Current Medications Acetaminophen (Tylenol) 650 mg PO Q4H PRN PRN Reason: MILD PAIN (LEVEL 1-3) Stop: 09/23/18 17:55 Last Admin: 07/25/18 20:25 Dose: 650 mg Al Hydrox/Mg Hydrox/Simethicone (Maalox) 30 ml PO Q4HR PRN PRN Reason: GI DISTRESS Stop: 09/23/18 17:57 Divalproex Sodium (Depakote Er) 500 mg PO BID [facility]; Protocol Stop: 09/24/18 08:59 Last Admin: 07/26/18 16:26 Dose: 500 mg Duloxetine HCl (Cymbalta) 60 mg PO BID [facility]; Protocol Stop: 09/24/18 08:59 Last Admin: 07/26/18 16:26 Dose: 60 mg Lorazepam (Ativan) 2 mg PO Q6HR PRN; Protocol PRN Reason: Anxiety Stop: 09/23/18 18:03 Last Admin: 07/26/18 13:26 Dose: 2 mg Magnesium Hydroxide (Milk Of Magnesia) 30 ml PO HS PRN PRN Reason: Constipation Multivitamins/Vitamin C (Theragran) 1 tab PO DAILY [facility] Stop: 09/24/18 08:59 Last Admin: 07/26/18 08:10 Dose: 1 tab Quetiapine Fumarate (Seroquel) 100 mg PO TID [facility]; Protocol Stop: 09/24/18 08:59 Last Admin: 07/26/18 13:25 Dose: 100 mg Tamsulosin HCl (Flomax) 0.4 mg PO HS [facility] Stop: 09/23/18 20:59 Last Admin: 07/25/18 20:25 Dose: 0.4 mg Zolpidem Tartrate (Ambien) 5 mg PO HS PRN PRN Reason: Insomnia Stop: 09/23/18 19:40 Last Admin: 07/25/18 20:25 Dose: 5 mg General: Alert, No acute distress HEENT: Atraumatic Neck: Supple, JVD Cardiovascular: Regular rate, Normal S1, Normal S2 Lungs: Clear to auscultation Abdomen: Bowel sounds, Soft - Procedures Procedures: Procedures Procedure Code Date CONTINUOUS INVASIVE MECHANICAL VENTILATION <96 CONSEC HRS 96.71 06/05/13 GROUP PSYCHOTHERAPY 38339 08/25/15 GROUP PSYCHOTHERAPY GZHZZZZ 08/25/15 INSERT EMERGENCY AIRWAY 22242 06/05/13 INSERT ENDOTRACHEAL TUBE 96.04 06/05/13 VACCINATION NEC 99.55 06/24/13 Assessment/Plan - Assessment Assessment: PSYCHOSIS CHRONIC CONSTIPATION BPH - Plan Plan: CONTINUE CURRENT TREATMENT
[2018-07-27] MEDS: Multivitamin Tab PO SCH (08:10)
--- NOTE | 2018-07-27 19:03 | General Progress Note ---
Subjective - Review of Systems Service Date: 07/27/18 Subjective: RESTING COMFORTABLY NO DISTRESS Objective - Results Result Diagrams: 07/25/18 13:13 07/25/18 13:13 Recent Labs: Laboratory Last Values WBC 7.0 Th/cmm (4.8-10.8) 07/25/18 13:13 RBC 5.52 Mil/cmm (4.30-5.70) 07/25/18 13:13 Hgb 15.1 gm/dL (12-16) 07/25/18 13:13 Hct 46.8 % (41.0-60) 07/25/18 13:13 MCV 84.8 fl (80-99) 07/25/18 13:13 MCH 27.4 pg (26.0-30.0) 07/25/18 13:13 MCHC Differential 32.3 pg (28.0-36.0) 07/25/18 13:13 RDW 13.3 % (11.5-20.0) 07/25/18 13:13 Plt Count 263 Th/cmm (150-400) 07/25/18 13:13 MPV 7.9 fl 07/25/18 13:13 Neutrophils % 64.3 % (40.0-80.0) 07/25/18 13:13 Lymphocytes % 27.9 % (20.0-50.0) 07/25/18 13:13 Monocytes % 6.7 % (2.0-10.0) 07/25/18 13:13 Eosinophils % 0.6 % (0.0-5.0) 07/25/18 13:13 Basophils % 0.5 % (0.0-2.0) 07/25/18 13:13 Sodium 136 mEq/L (136-145) 07/25/18 13:13 Potassium 4.1 mEq/L (3.5-5.1) 07/25/18 13:13 Chloride 99 mEq/L (98-107) 07/25/18 13:13 Carbon Dioxide 25.5 mEq/L (21.0-31.0) 07/25/18 13:13 Anion Gap 15.6 (7.0-16.0) 07/25/18 13:13 BUN 13 mg/dL (7-25) 07/25/18 13:13 Creatinine 1.0 mg/dL (0.7-1.3) 07/25/18 13:13 Est GFR ( Amer) > 60.0 ml/min (>90) 07/25/18 13:13 Est GFR (Non-Af Amer) > 60.0 ml/min 07/25/18 13:13 BUN/Creatinine Ratio 13.0 07/25/18 13:13 Glucose 92 mg/dL (70-105) 07/25/18 13:13 Calcium 9.9 mg/dL (8.6-10.3) 07/25/18 13:13 Total Bilirubin 0.8 mg/dL (0.3-1.0) 07/25/18 13:13 AST 24 U/L (13-39) 07/25/18 13:13 ALT 20 U/L (7-52) 07/25/18 13:13 Alkaline Phosphatase 73 U/L (34-104) 07/25/18 13:13 Troponin I < 0.01 ng/mL (0.01-0.05) L 07/25/18 13:13 Total Protein 7.3 gm/dL (6.0-8.3) 07/25/18 13:13 Albumin 4.6 gm/dL (4.2-5.5) 07/25/18 13:13 Globulin 2.7 gm/dL 07/25/18 13:13 Albumin/Globulin Ratio 1.7 (1.0-1.8) 07/25/18 13:13 Triglycerides 77 mg/dL (<150) 07/25/18 13:13 Cholesterol 207 mg/dL (<200) H 07/25/18 13:13 LDL Cholesterol Direct 128 mg/dL (75-193) 07/25/18 13:13 HDL Cholesterol 55 mg/dL (23-92) 07/25/18 13:13 TSH 1.48 uIU/ml (0.34-5.60) 07/25/18 13:13 Urine Source CLEAN C 07/25/18 13:30 Urine Color YELLOW 07/25/18 13:30 Urine Clarity CLEAR (CLEAR) 07/25/18 13:30 Urine pH 6.0 (4.6 - 8.0) 07/25/18 13:30 Ur Specific [place] >= 1.030 (1.005-1.030) 07/25/18 13:30 Urine Protein 30 mg/dL (NEGATIVE) H 07/25/18 13:30 Urine Glucose (UA) NEGATIVE mg/dL (NEGATIVE) 07/25/18 13:30 Urine Ketones 15 mg/dL (NEGATIVE) H 07/25/18 13:30 Urine Blood NEGATIVE (NEGATIVE) 07/25/18 13:30 Urine Nitrate NEGATIVE (NEGATIVE) 07/25/18 13:30 Urine Bilirubin NEGATIVE (NEGATIVE) 07/25/18 13:30 Urine Urobilinogen 0.2 E.U./dL (0.2 - 1.0) 07/25/18 13:30 Ur Leukocyte Esterase NEGATIVE (NEGATIVE) 07/25/18 13:30 Urine RBC 2-5 /hpf (0-5) H 07/25/18 13:30 Urine WBC 0-2 /hpf (0-5) 07/25/18 13:30 Ur Epithelial Cells FEW /lpf (FEW) 07/25/18 13:30 Urine Bacteria FEW /hpf (NONE SEEN) 07/25/18 13:30 Urine Mucus MODERATE /lpf (FEW) 07/25/18 13:30 Salicylates < 25.0 mg/L (30.0-100.0) L 07/25/18 13:13 Urine Opiates Screen NEGATIVE (NEGATIVE) 07/25/18 13:30 Urine Methadone Screen NEGATIVE (NEGATIVE) 07/25/18 13:30 Acetaminophen < 10.0 ug/mL (10.0-30.0) L 07/25/18 13:13 Ur Barbiturates Screen NEGATIVE (NEGATIVE) 07/25/18 13:30 Ur Tricyclics Screen NEGATIVE (NEGATIVE) 07/25/18 13:30 Ur Phencyclidine Scrn NEGATIVE (NEGATIVE) 07/25/18 13:30 Amphetamines Screen POSITIVE (NEGATIVE) H 07/25/18 13:30 U Methamphetamines Scrn NEGATIVE (NEGATIVE) 07/25/18 13:30 U Benzodiazepines Scrn POSITIVE (NEGATIVE) H 07/25/18 13:30 U Cocaine Metab Screen NEGATIVE (NEGATIVE) 07/25/18 13:30 U Cannabinoids Screen NEGATIVE (NEGATIVE) 07/25/18 13:30 Ethyl Alcohol < 10 mg/dL (0-10) 07/25/18 13:13 - Physical Exam Vitals and I&O: Vital Signs Temp 97.7 F 07/27/18 14:00 Pulse 76 07/27/18 14:00 Resp 18 07/27/18 14:00 BP 92/62 07/27/18 14:00 Pulse Ox 97 07/27/18 14:00 Intake & Output 07/27/18 07/27/18 07/28/18 06:59 18:59 06:59 Intake Total 240 Balance 240 Intake: Oral 240 Other: # Voids 2 # Bowel Movements 0 Active Medications: Current Medications Acetaminophen (Tylenol) 650 mg PO Q4H PRN PRN Reason: MILD PAIN (LEVEL 1-3) Stop: 09/23/18 17:55 Last Admin: 07/25/18 20:25 Dose: 650 mg Al Hydrox/Mg Hydrox/Simethicone (Maalox) 30 ml PO Q4HR PRN PRN Reason: GI DISTRESS Stop: 09/23/18 17:57 Divalproex Sodium (Depakote Er) 500 mg PO BID [facility]; Protocol Stop: 09/24/18 08:59 Last Admin: 07/27/18 17:02 Dose: 500 mg Duloxetine HCl (Cymbalta) 60 mg PO BID [facility]; Protocol Stop: 09/24/18 08:59 Last Admin: 07/27/18 17:03 Dose: 60 mg Lorazepam (Ativan) 2 mg PO Q6HR PRN; Protocol PRN Reason: Anxiety Stop: 09/23/18 18:03 Last Admin: 07/27/18 18:49 Dose: 2 mg Magnesium Hydroxide (Milk Of Magnesia) 30 ml PO HS PRN PRN Reason: Constipation Multivitamins/Vitamin C (Theragran) 1 tab PO DAILY [facility] Stop: 09/24/18 08:59 Last Admin: 07/27/18 08:10 Dose: 1 tab Quetiapine Fumarate (Seroquel) 100 mg PO TID [facility]; Protocol Stop: 09/24/18 08:59 Last Admin: 07/27/18 15:56 Dose: Not Given Tamsulosin HCl (Flomax) 0.4 mg PO HS [facility] Stop: 09/23/18 20:59 Last Admin: 07/26/18 20:29 Dose: 0.4 mg Zolpidem Tartrate (Ambien) 5 mg PO HS PRN PRN Reason: Insomnia Stop: 09/23/18 19:40 Last Admin: 07/25/18 20:25 Dose: 5 mg General: Alert, No acute distress HEENT: Atraumatic Neck: Supple, JVD Cardiovascular: Regular rate, Normal S1, Normal S2 Lungs: Clear to auscultation Abdomen: Bowel sounds, Soft - Procedures Procedures: Procedures Procedure Code Date CONTINUOUS INVASIVE MECHANICAL VENTILATION <96 CONSEC HRS 96.71 06/05/13 GROUP PSYCHOTHERAPY 26807 08/25/15 GROUP PSYCHOTHERAPY GZHZZZZ 08/25/15 INSERT EMERGENCY AIRWAY 29691 06/05/13 INSERT ENDOTRACHEAL TUBE 96.04 06/05/13 VACCINATION NEC 99.55 06/24/13 Assessment/Plan - Assessment Assessment: PSYCHOSIS CHRONIC CONSTIPATION BPH - Plan Plan: CONTINUE CURRENT TREATMENT
[2018-07-28] MEDS: Multivitamin Tab PO SCH (08:43)
--- NOTE | 2018-07-28 09:54 | Progress Notes ---
DATE: 07/27/2018 SUBJECTIVE: Chart reviewed and the patient interviewed. Also discussed the patient's condition with the staff and reviewed the records and labs. "I am giving up." The patient is still severely depressed and he is feeling hopeless and helpless. The patient also is interacting minimally with others. The patient continued to talk about his depressed feelings because of his inability to have steady life and he has been homeless and he is not able to get any social life or steady life. He also still has lack of energy and lack of motivations. He also is still isolative and withdrawn. Also, during interview, still has poor eye contact and lack of motivations. ASSESSMENT: The patient is still severely depressed and need close monitoring. TREATMENT PLAN: We will adjust the dose of medications, to be Depakote 500 mg twice a day and Cymbalta 60 mg twice a day and Seroquel 100 mg 3 times a day. Also, continue to work on his ineffective coping and follow up closely. JOB# [id number]
--- NOTE | 2018-07-28 14:58 | General Progress Note ---
Subjective - Review of Systems Service Date: 07/28/18 Subjective: RESTING COMFORTABLY NO DISTRESS Objective - Results Result Diagrams: 07/25/18 13:13 07/25/18 13:13 Recent Labs: Laboratory Last Values WBC 7.0 Th/cmm (4.8-10.8) 07/25/18 13:13 RBC 5.52 Mil/cmm (4.30-5.70) 07/25/18 13:13 Hgb 15.1 gm/dL (12-16) 07/25/18 13:13 Hct 46.8 % (41.0-60) 07/25/18 13:13 MCV 84.8 fl (80-99) 07/25/18 13:13 MCH 27.4 pg (26.0-30.0) 07/25/18 13:13 MCHC Differential 32.3 pg (28.0-36.0) 07/25/18 13:13 RDW 13.3 % (11.5-20.0) 07/25/18 13:13 Plt Count 263 Th/cmm (150-400) 07/25/18 13:13 MPV 7.9 fl 07/25/18 13:13 Neutrophils % 64.3 % (40.0-80.0) 07/25/18 13:13 Lymphocytes % 27.9 % (20.0-50.0) 07/25/18 13:13 Monocytes % 6.7 % (2.0-10.0) 07/25/18 13:13 Eosinophils % 0.6 % (0.0-5.0) 07/25/18 13:13 Basophils % 0.5 % (0.0-2.0) 07/25/18 13:13 Sodium 136 mEq/L (136-145) 07/25/18 13:13 Potassium 4.1 mEq/L (3.5-5.1) 07/25/18 13:13 Chloride 99 mEq/L (98-107) 07/25/18 13:13 Carbon Dioxide 25.5 mEq/L (21.0-31.0) 07/25/18 13:13 Anion Gap 15.6 (7.0-16.0) 07/25/18 13:13 BUN 13 mg/dL (7-25) 07/25/18 13:13 Creatinine 1.0 mg/dL (0.7-1.3) 07/25/18 13:13 Est GFR ( Amer) > 60.0 ml/min (>90) 07/25/18 13:13 Est GFR (Non-Af Amer) > 60.0 ml/min 07/25/18 13:13 BUN/Creatinine Ratio 13.0 07/25/18 13:13 Glucose 92 mg/dL (70-105) 07/25/18 13:13 Calcium 9.9 mg/dL (8.6-10.3) 07/25/18 13:13 Total Bilirubin 0.8 mg/dL (0.3-1.0) 07/25/18 13:13 AST 24 U/L (13-39) 07/25/18 13:13 ALT 20 U/L (7-52) 07/25/18 13:13 Alkaline Phosphatase 73 U/L (34-104) 07/25/18 13:13 Troponin I < 0.01 ng/mL (0.01-0.05) L 07/25/18 13:13 Total Protein 7.3 gm/dL (6.0-8.3) 07/25/18 13:13 Albumin 4.6 gm/dL (4.2-5.5) 07/25/18 13:13 Globulin 2.7 gm/dL 07/25/18 13:13 Albumin/Globulin Ratio 1.7 (1.0-1.8) 07/25/18 13:13 Triglycerides 77 mg/dL (<150) 07/25/18 13:13 Cholesterol 207 mg/dL (<200) H 07/25/18 13:13 LDL Cholesterol Direct 128 mg/dL (75-193) 07/25/18 13:13 HDL Cholesterol 55 mg/dL (23-92) 07/25/18 13:13 TSH 1.48 uIU/ml (0.34-5.60) 07/25/18 13:13 Urine Source CLEAN C 07/25/18 13:30 Urine Color YELLOW 07/25/18 13:30 Urine Clarity CLEAR (CLEAR) 07/25/18 13:30 Urine pH 6.0 (4.6 - 8.0) 07/25/18 13:30 Ur Specific [place] >= 1.030 (1.005-1.030) 07/25/18 13:30 Urine Protein 30 mg/dL (NEGATIVE) H 07/25/18 13:30 Urine Glucose (UA) NEGATIVE mg/dL (NEGATIVE) 07/25/18 13:30 Urine Ketones 15 mg/dL (NEGATIVE) H 07/25/18 13:30 Urine Blood NEGATIVE (NEGATIVE) 07/25/18 13:30 Urine Nitrate NEGATIVE (NEGATIVE) 07/25/18 13:30 Urine Bilirubin NEGATIVE (NEGATIVE) 07/25/18 13:30 Urine Urobilinogen 0.2 E.U./dL (0.2 - 1.0) 07/25/18 13:30 Ur Leukocyte Esterase NEGATIVE (NEGATIVE) 07/25/18 13:30 Urine RBC 2-5 /hpf (0-5) H 07/25/18 13:30 Urine WBC 0-2 /hpf (0-5) 07/25/18 13:30 Ur Epithelial Cells FEW /lpf (FEW) 07/25/18 13:30 Urine Bacteria FEW /hpf (NONE SEEN) 07/25/18 13:30 Urine Mucus MODERATE /lpf (FEW) 07/25/18 13:30 Salicylates < 25.0 mg/L (30.0-100.0) L 07/25/18 13:13 Urine Opiates Screen NEGATIVE (NEGATIVE) 07/25/18 13:30 Urine Methadone Screen NEGATIVE (NEGATIVE) 07/25/18 13:30 Acetaminophen < 10.0 ug/mL (10.0-30.0) L 07/25/18 13:13 Ur Barbiturates Screen NEGATIVE (NEGATIVE) 07/25/18 13:30 Ur Tricyclics Screen NEGATIVE (NEGATIVE) 07/25/18 13:30 Ur Phencyclidine Scrn NEGATIVE (NEGATIVE) 07/25/18 13:30 Amphetamines Screen POSITIVE (NEGATIVE) H 07/25/18 13:30 U Methamphetamines Scrn NEGATIVE (NEGATIVE) 07/25/18 13:30 U Benzodiazepines Scrn POSITIVE (NEGATIVE) H 07/25/18 13:30 U Cocaine Metab Screen NEGATIVE (NEGATIVE) 07/25/18 13:30 U Cannabinoids Screen NEGATIVE (NEGATIVE) 07/25/18 13:30 Ethyl Alcohol < 10 mg/dL (0-10) 07/25/18 13:13 - Physical Exam Vitals and I&O: Vital Signs Temp 98.5 F 07/28/18 06:01 Pulse 70 07/28/18 06:01 Resp 20 07/28/18 13:47 BP 95/62 07/28/18 06:01 Pulse Ox 94 07/28/18 06:01 Intake & Output 07/27/18 07/28/18 07/28/18 18:59 06:59 18:59 Intake Total 120 Balance 120 Intake: Oral 120 Other: # Voids 3 # Bowel Movements 0 Active Medications: Current Medications Acetaminophen (Tylenol) 650 mg PO Q4H PRN PRN Reason: MILD PAIN (LEVEL 1-3) Stop: 09/23/18 17:55 Last Admin: 07/25/18 20:25 Dose: 650 mg Al Hydrox/Mg Hydrox/Simethicone (Maalox) 30 ml PO Q4HR PRN PRN Reason: GI DISTRESS Stop: 09/23/18 17:57 Divalproex Sodium (Depakote Er) 500 mg PO BID [facility]; Protocol Stop: 09/24/18 08:59 Last Admin: 07/28/18 08:43 Dose: 500 mg Duloxetine HCl (Cymbalta) 60 mg PO BID [facility]; Protocol Stop: 09/24/18 08:59 Last Admin: 07/28/18 08:43 Dose: 60 mg Lorazepam (Ativan) 2 mg PO Q6HR PRN; Protocol PRN Reason: Anxiety Stop: 09/23/18 18:03 Last Admin: 07/28/18 11:59 Dose: 2 mg Magnesium Hydroxide (Milk Of Magnesia) 30 ml PO HS PRN PRN Reason: Constipation Multivitamins/Vitamin C (Theragran) 1 tab PO DAILY PATRICE Stop: 09/24/18 08:59 Last Admin: 07/28/18 08:43 Dose: 1 tab Quetiapine Fumarate (Seroquel) 100 mg PO TID [facility]; Protocol Stop: 09/24/18 08:59 Last Admin: 07/28/18 08:43 Dose: 100 mg Tamsulosin HCl (Flomax) 0.4 mg PO HS PATRICE Stop: 09/23/18 20:59 Last Admin: 07/27/18 20:16 Dose: 0.4 mg Zolpidem Tartrate (Ambien) 5 mg PO HS PRN PRN Reason: Insomnia Stop: 09/23/18 19:40 Last Admin: 07/27/18 20:16 Dose: 5 mg General: Alert, No acute distress HEENT: Atraumatic Neck: Supple, JVD Cardiovascular: Regular rate, Normal S1, Normal S2 Lungs: Clear to auscultation Abdomen: Bowel sounds, Soft - Procedures Procedures: Procedures Procedure Code Date CONTINUOUS INVASIVE MECHANICAL VENTILATION <96 CONSEC HRS 96.71 06/05/13 GROUP PSYCHOTHERAPY [id number] 08/25/15 GROUP PSYCHOTHERAPY [id number] 08/25/15 INSERT EMERGENCY AIRWAY [id number] 06/05/13 INSERT ENDOTRACHEAL TUBE 96.04 06/05/13 VACCINATION NEC 99.55 06/24/13 Assessment/Plan - Assessment Assessment: PSYCHOSIS CHRONIC CONSTIPATION BPH - Plan Plan: CONTINUE CURRENT TREATMENT
--- NOTE | 2018-07-28 20:06 | Progress Notes ---
DATE: SUBJECTIVE: Chart was reviewed and the patient interviewed. Also discussed the patient's condition with the staff and reviewed records and labs. The patient continued to be severely depressed with hopeless and helpless feeling. The patient also is still withdrawn and still interacting minimally with others. The patient also still feels that there is no reason for him to live. Otherwise, the patient is cooperative with treatment and is compliant with taking his medications with no side effects of medications. ASSESSMENT: The patient is depressed and is still feeling hopeless. TREATMENT PLAN: Continue monitoring his behavior closely and continue adjusting psychotropic medications and working on behavioral modifications. JOB# [id number]
[2018-07-29] MEDS: Multivitamin Tab PO SCH (08:33)
--- NOTE | 2018-07-29 23:52 | Internal Medicine Prog Note ---
Internal Medicine Subjective - Subjective Service Date: 07/29/18 Patient seen and examined:: without staff (HE FEELS WELL) Patient is:: awake, verbal, in bed, confused Per staff patient has:: no adverse event Internal Medicine Objective - Results Result Diagrams: 07/25/18 13:13 07/25/18 13:13 Recent Labs: Laboratory Last Values WBC 7.0 Th/cmm (4.8-10.8) 07/25/18 13:13 RBC 5.52 Mil/cmm (4.30-5.70) 07/25/18 13:13 Hgb 15.1 gm/dL (12-16) 07/25/18 13:13 Hct 46.8 % (41.0-60) 07/25/18 13:13 MCV 84.8 fl (80-99) 07/25/18 13:13 MCH 27.4 pg (26.0-30.0) 07/25/18 13:13 MCHC Differential 32.3 pg (28.0-36.0) 07/25/18 13:13 RDW 13.3 % (11.5-20.0) 07/25/18 13:13 Plt Count 263 Th/cmm (150-400) 07/25/18 13:13 MPV 7.9 fl 07/25/18 13:13 Neutrophils % 64.3 % (40.0-80.0) 07/25/18 13:13 Lymphocytes % 27.9 % (20.0-50.0) 07/25/18 13:13 Monocytes % 6.7 % (2.0-10.0) 07/25/18 13:13 Eosinophils % 0.6 % (0.0-5.0) 07/25/18 13:13 Basophils % 0.5 % (0.0-2.0) 07/25/18 13:13 Sodium 136 mEq/L (136-145) 07/25/18 13:13 Potassium 4.1 mEq/L (3.5-5.1) 07/25/18 13:13 Chloride 99 mEq/L (98-107) 07/25/18 13:13 Carbon Dioxide 25.5 mEq/L (21.0-31.0) 07/25/18 13:13 Anion Gap 15.6 (7.0-16.0) 07/25/18 13:13 BUN 13 mg/dL (7-25) 07/25/18 13:13 Creatinine 1.0 mg/dL (0.7-1.3) 07/25/18 13:13 Est GFR ( Amer) > 60.0 ml/min (>90) 07/25/18 13:13 Est GFR (Non-Af Amer) > 60.0 ml/min 07/25/18 13:13 BUN/Creatinine Ratio 13.0 07/25/18 13:13 Glucose 92 mg/dL (70-105) 07/25/18 13:13 Calcium 9.9 mg/dL (8.6-10.3) 07/25/18 13:13 Total Bilirubin 0.8 mg/dL (0.3-1.0) 07/25/18 13:13 AST 24 U/L (13-39) 07/25/18 13:13 ALT 20 U/L (7-52) 07/25/18 13:13 Alkaline Phosphatase 73 U/L (34-104) 07/25/18 13:13 Troponin I < 0.01 ng/mL (0.01-0.05) L 07/25/18 13:13 Total Protein 7.3 gm/dL (6.0-8.3) 07/25/18 13:13 Albumin 4.6 gm/dL (4.2-5.5) 07/25/18 13:13 Globulin 2.7 gm/dL 07/25/18 13:13 Albumin/Globulin Ratio 1.7 (1.0-1.8) 07/25/18 13:13 Triglycerides 77 mg/dL (<150) 07/25/18 13:13 Cholesterol 207 mg/dL (<200) H 07/25/18 13:13 LDL Cholesterol Direct 128 mg/dL (75-193) 07/25/18 13:13 HDL Cholesterol 55 mg/dL (23-92) 07/25/18 13:13 TSH 1.48 uIU/ml (0.34-5.60) 07/25/18 13:13 Urine Source CLEAN C 07/25/18 13:30 Urine Color YELLOW 07/25/18 13:30 Urine Clarity CLEAR (CLEAR) 07/25/18 13:30 Urine pH 6.0 (4.6 - 8.0) 07/25/18 13:30 Ur Specific [place] >= 1.030 (1.005-1.030) 07/25/18 13:30 Urine Protein 30 mg/dL (NEGATIVE) H 07/25/18 13:30 Urine Glucose (UA) NEGATIVE mg/dL (NEGATIVE) 07/25/18 13:30 Urine Ketones 15 mg/dL (NEGATIVE) H 07/25/18 13:30 Urine Blood NEGATIVE (NEGATIVE) 07/25/18 13:30 Urine Nitrate NEGATIVE (NEGATIVE) 07/25/18 13:30 Urine Bilirubin NEGATIVE (NEGATIVE) 07/25/18 13:30 Urine Urobilinogen 0.2 E.U./dL (0.2 - 1.0) 07/25/18 13:30 Ur Leukocyte Esterase NEGATIVE (NEGATIVE) 07/25/18 13:30 Urine RBC 2-5 /hpf (0-5) H 07/25/18 13:30 Urine WBC 0-2 /hpf (0-5) 07/25/18 13:30 Ur Epithelial Cells FEW /lpf (FEW) 07/25/18 13:30 Urine Bacteria FEW /hpf (NONE SEEN) 07/25/18 13:30 Urine Mucus MODERATE /lpf (FEW) 07/25/18 13:30 Salicylates < 25.0 mg/L (30.0-100.0) L 07/25/18 13:13 Urine Opiates Screen NEGATIVE (NEGATIVE) 07/25/18 13:30 Urine Methadone Screen NEGATIVE (NEGATIVE) 07/25/18 13:30 Acetaminophen < 10.0 ug/mL (10.0-30.0) L 07/25/18 13:13 Ur Barbiturates Screen NEGATIVE (NEGATIVE) 07/25/18 13:30 Ur Tricyclics Screen NEGATIVE (NEGATIVE) 07/25/18 13:30 Ur Phencyclidine Scrn NEGATIVE (NEGATIVE) 07/25/18 13:30 Amphetamines Screen POSITIVE (NEGATIVE) H 07/25/18 13:30 U Methamphetamines Scrn NEGATIVE (NEGATIVE) 07/25/18 13:30 U Benzodiazepines Scrn POSITIVE (NEGATIVE) H 07/25/18 13:30 U Cocaine Metab Screen NEGATIVE (NEGATIVE) 07/25/18 13:30 U Cannabinoids Screen NEGATIVE (NEGATIVE) 07/25/18 13:30 Ethyl Alcohol < 10 mg/dL (0-10) 07/25/18 13:13 - Physical Exam Vitals and I&O: Vital Signs Temp 98.4 F 07/29/18 19:45 Pulse 86 07/29/18 19:45 Resp 20 07/29/18 20:00 BP 122/68 07/29/18 19:45 Pulse Ox 95 07/29/18 19:45 Intake & Output 07/29/18 07/29/18 07/30/18 06:59 18:59 06:59 Intake Total 240 900 120 Balance 240 900 120 Intake: Oral 240 900 120 Other: # Voids 3 3 3 # Bowel Movements 0 1 0 Active Medications: Current Medications Acetaminophen (Tylenol) 650 mg PO Q4H PRN PRN Reason: MILD PAIN (LEVEL 1-3) Stop: 09/23/18 17:55 Last Admin: 07/25/18 20:25 Dose: 650 mg Al Hydrox/Mg Hydrox/Simethicone (Maalox) 30 ml PO Q4HR PRN PRN Reason: GI DISTRESS Stop: 09/23/18 17:57 Divalproex Sodium (Depakote Er) 500 mg PO BID [facility]; Protocol Stop: 09/24/18 08:59 Last Admin: 07/29/18 17:00 Dose: 500 mg Duloxetine HCl (Cymbalta) 60 mg PO BID [facility]; Protocol Stop: 09/24/18 08:59 Last Admin: 07/29/18 17:00 Dose: 60 mg Lorazepam (Ativan) 2 mg PO Q6HR PRN; Protocol PRN Reason: Anxiety Stop: 09/23/18 18:03 Last Admin: 07/29/18 20:38 Dose: 2 mg Magnesium Hydroxide (Milk Of Magnesia) 30 ml PO HS PRN PRN Reason: Constipation Multivitamins/Vitamin C (Theragran) 1 tab PO DAILY [facility] Stop: 09/24/18 08:59 Last Admin: 07/29/18 08:33 Dose: 1 tab Quetiapine Fumarate (Seroquel) 100 mg PO TID [facility]; Protocol Stop: 09/24/18 08:59 Last Admin: 07/29/18 20:39 Dose: 100 mg Tamsulosin HCl (Flomax) 0.4 mg PO HS [facility] Stop: 09/23/18 20:59 Last Admin: 07/29/18 20:39 Dose: 0.4 mg Zolpidem Tartrate (Ambien) 5 mg PO HS PRN PRN Reason: Insomnia Stop: 09/23/18 19:40 Last Admin: 07/29/18 20:39 Dose: 5 mg General: demented HEENT: NC/AT, PERRLA, EOMI, anicteric sclerae, throat clear Neck: Supple, No JVD, No thyromegaly, +2 carotid pulse wo bruit Lungs: CTAB Cardiovascular: RRR, Normal S1, Normal S2, without murmur Abdomen: soft, non-tender, non-distended Extremities: clear Neurological: no change - Procedures Procedures: Procedures Procedure Code Date CONTINUOUS INVASIVE MECHANICAL VENTILATION <96 CONSEC HRS 96.71 06/05/13 GROUP PSYCHOTHERAPY 18533 08/25/15 GROUP PSYCHOTHERAPY GZHZZZZ 08/25/15 INSERT EMERGENCY AIRWAY 40055 06/05/13 INSERT ENDOTRACHEAL TUBE 96.04 06/05/13 VACCINATION NEC 99.55 06/24/13 Internal Medicine Assmt/Plan - Assessment Assessment: 1.BPH. 2.PSYCHOSIS - Plan Plan: CONTINUE ON CURRENT MEDICATION AND DIET.
--- NOTE | 2018-07-30 02:14 | Progress Notes ---
DATE: 07/29/2018 Case was discussed with staff of the patient, reviewed records. This is a well-known case to me. I have seen him before many times, covering for Dr. Huff. A 63-year-old male who was admitted on 07/25/2018, has not been sleeping or eating for days and has been very depressed. Has a history of schizoaffective disorder. He was seen on the same day in the office by Dr. Huff. ASSESSMENT AND PLAN: Severe depression, hopelessness, helplessness, ____ on the life. The patient with a history of multiple prior psychiatric hospitalizations. The patient continues to be depressed, isolating himself, overwhelmed, feeling hopeless, withdrawn, isolating himself in her room. He has been cooperative with treatment, compliant with the medication, no side effects with the medication, no sedation, no nausea and no extrapyramidal symptoms. He is on Depakote 500 mg twice a day, Cymbalta 60 mg twice a day and Seroquel 100 mg 3 times a day. We will continue to work with the patient in group therapy, milieu therapy and adjust the medication as needed. JOB# [id number]
[2018-07-30] MEDS: Multivitamin Tab PO SCH (08:44)
--- NOTE | 2018-07-30 13:06 | Internal Medicine Prog Note ---
Internal Medicine Subjective - Subjective Service Date: 07/30/18 Patient seen and examined:: with staff (HE ID DOING BETTER) Patient is:: awake, verbal, in bed, confused Per staff patient has:: no adverse event Internal Medicine Objective - Results Result Diagrams: 07/25/18 13:13 07/25/18 13:13 Recent Labs: Laboratory Last Values WBC 7.0 Th/cmm (4.8-10.8) 07/25/18 13:13 RBC 5.52 Mil/cmm (4.30-5.70) 07/25/18 13:13 Hgb 15.1 gm/dL (12-16) 07/25/18 13:13 Hct 46.8 % (41.0-60) 07/25/18 13:13 MCV 84.8 fl (80-99) 07/25/18 13:13 MCH 27.4 pg (26.0-30.0) 07/25/18 13:13 MCHC Differential 32.3 pg (28.0-36.0) 07/25/18 13:13 RDW 13.3 % (11.5-20.0) 07/25/18 13:13 Plt Count 263 Th/cmm (150-400) 07/25/18 13:13 MPV 7.9 fl 07/25/18 13:13 Neutrophils % 64.3 % (40.0-80.0) 07/25/18 13:13 Lymphocytes % 27.9 % (20.0-50.0) 07/25/18 13:13 Monocytes % 6.7 % (2.0-10.0) 07/25/18 13:13 Eosinophils % 0.6 % (0.0-5.0) 07/25/18 13:13 Basophils % 0.5 % (0.0-2.0) 07/25/18 13:13 Sodium 136 mEq/L (136-145) 07/25/18 13:13 Potassium 4.1 mEq/L (3.5-5.1) 07/25/18 13:13 Chloride 99 mEq/L (98-107) 07/25/18 13:13 Carbon Dioxide 25.5 mEq/L (21.0-31.0) 07/25/18 13:13 Anion Gap 15.6 (7.0-16.0) 07/25/18 13:13 BUN 13 mg/dL (7-25) 07/25/18 13:13 Creatinine 1.0 mg/dL (0.7-1.3) 07/25/18 13:13 Est GFR ( Amer) > 60.0 ml/min (>90) 07/25/18 13:13 Est GFR (Non-Af Amer) > 60.0 ml/min 07/25/18 13:13 BUN/Creatinine Ratio 13.0 07/25/18 13:13 Glucose 92 mg/dL (70-105) 07/25/18 13:13 Calcium 9.9 mg/dL (8.6-10.3) 07/25/18 13:13 Total Bilirubin 0.8 mg/dL (0.3-1.0) 07/25/18 13:13 AST 24 U/L (13-39) 07/25/18 13:13 ALT 20 U/L (7-52) 07/25/18 13:13 Alkaline Phosphatase 73 U/L (34-104) 07/25/18 13:13 Troponin I < 0.01 ng/mL (0.01-0.05) L 07/25/18 13:13 Total Protein 7.3 gm/dL (6.0-8.3) 07/25/18 13:13 Albumin 4.6 gm/dL (4.2-5.5) 07/25/18 13:13 Globulin 2.7 gm/dL 07/25/18 13:13 Albumin/Globulin Ratio 1.7 (1.0-1.8) 07/25/18 13:13 Triglycerides 77 mg/dL (<150) 07/25/18 13:13 Cholesterol 207 mg/dL (<200) H 07/25/18 13:13 LDL Cholesterol Direct 128 mg/dL (75-193) 07/25/18 13:13 HDL Cholesterol 55 mg/dL (23-92) 07/25/18 13:13 TSH 1.48 uIU/ml (0.34-5.60) 07/25/18 13:13 Urine Source CLEAN C 07/25/18 13:30 Urine Color YELLOW 07/25/18 13:30 Urine Clarity CLEAR (CLEAR) 07/25/18 13:30 Urine pH 6.0 (4.6 - 8.0) 07/25/18 13:30 Ur Specific [place] >= 1.030 (1.005-1.030) 07/25/18 13:30 Urine Protein 30 mg/dL (NEGATIVE) H 07/25/18 13:30 Urine Glucose (UA) NEGATIVE mg/dL (NEGATIVE) 07/25/18 13:30 Urine Ketones 15 mg/dL (NEGATIVE) H 07/25/18 13:30 Urine Blood NEGATIVE (NEGATIVE) 07/25/18 13:30 Urine Nitrate NEGATIVE (NEGATIVE) 07/25/18 13:30 Urine Bilirubin NEGATIVE (NEGATIVE) 07/25/18 13:30 Urine Urobilinogen 0.2 E.U./dL (0.2 - 1.0) 07/25/18 13:30 Ur Leukocyte Esterase NEGATIVE (NEGATIVE) 07/25/18 13:30 Urine RBC 2-5 /hpf (0-5) H 07/25/18 13:30 Urine WBC 0-2 /hpf (0-5) 07/25/18 13:30 Ur Epithelial Cells FEW /lpf (FEW) 07/25/18 13:30 Urine Bacteria FEW /hpf (NONE SEEN) 07/25/18 13:30 Urine Mucus MODERATE /lpf (FEW) 07/25/18 13:30 Salicylates < 25.0 mg/L (30.0-100.0) L 07/25/18 13:13 Urine Opiates Screen NEGATIVE (NEGATIVE) 07/25/18 13:30 Urine Methadone Screen NEGATIVE (NEGATIVE) 07/25/18 13:30 Acetaminophen < 10.0 ug/mL (10.0-30.0) L 07/25/18 13:13 Ur Barbiturates Screen NEGATIVE (NEGATIVE) 07/25/18 13:30 Ur Tricyclics Screen NEGATIVE (NEGATIVE) 07/25/18 13:30 Ur Phencyclidine Scrn NEGATIVE (NEGATIVE) 07/25/18 13:30 Amphetamines Screen POSITIVE (NEGATIVE) H 07/25/18 13:30 U Methamphetamines Scrn NEGATIVE (NEGATIVE) 07/25/18 13:30 U Benzodiazepines Scrn POSITIVE (NEGATIVE) H 07/25/18 13:30 U Cocaine Metab Screen NEGATIVE (NEGATIVE) 07/25/18 13:30 U Cannabinoids Screen NEGATIVE (NEGATIVE) 07/25/18 13:30 Ethyl Alcohol < 10 mg/dL (0-10) 07/25/18 13:13 RPR NONREACTIVE (NONREACTIVE) 07/25/18 13:13 - Physical Exam Vitals and I&O: Vital Signs Temp 97.9 F 07/30/18 05:46 Pulse 81 07/30/18 05:46 Resp 20 07/30/18 07:22 BP 119/73 07/30/18 05:46 Pulse Ox 92 07/30/18 05:46 Intake & Output 07/29/18 07/30/18 07/30/18 18:59 06:59 18:59 Intake Total 900 240 Balance 900 240 Intake: Oral 900 240 Other: # Voids 3 1 # Bowel Movements 1 0 Active Medications: Current Medications Acetaminophen (Tylenol) 650 mg PO Q4H PRN PRN Reason: MILD PAIN (LEVEL 1-3) Stop: 09/23/18 17:55 Last Admin: 07/25/18 20:25 Dose: 650 mg Al Hydrox/Mg Hydrox/Simethicone (Maalox) 30 ml PO Q4HR PRN PRN Reason: GI DISTRESS Stop: 09/23/18 17:57 Divalproex Sodium (Depakote Er) 500 mg PO BID [facility]; Protocol Stop: 09/24/18 08:59 Last Admin: 07/30/18 08:44 Dose: 500 mg Duloxetine HCl (Cymbalta) 60 mg PO BID [facility]; Protocol Stop: 09/24/18 08:59 Last Admin: 07/30/18 08:44 Dose: 60 mg Lorazepam (Ativan) 2 mg PO Q6HR PRN; Protocol PRN Reason: Anxiety Stop: 09/23/18 18:03 Last Admin: 07/30/18 08:42 Dose: 2 mg Magnesium Hydroxide (Milk Of Magnesia) 30 ml PO HS PRN PRN Reason: Constipation Multivitamins/Vitamin C (Theragran) 1 tab PO DAILY [facility] Stop: 09/24/18 08:59 Last Admin: 07/30/18 08:44 Dose: 1 tab Quetiapine Fumarate (Seroquel) 100 mg PO TID [facility]; Protocol Stop: 09/24/18 08:59 Last Admin: 07/30/18 08:42 Dose: 100 mg Tamsulosin HCl (Flomax) 0.4 mg PO HS [facility] Stop: 09/23/18 20:59 Last Admin: 07/29/18 20:39 Dose: 0.4 mg Zolpidem Tartrate (Ambien) 5 mg PO HS PRN PRN Reason: Insomnia Stop: 09/23/18 19:40 Last Admin: 07/29/18 20:39 Dose: 5 mg General: demented HEENT: NC/AT, PERRLA, EOMI, anicteric sclerae, throat clear Neck: Supple, No JVD, No thyromegaly, +2 carotid pulse wo bruit Lungs: CTAB Cardiovascular: RRR, Normal S1, Normal S2, without murmur Abdomen: soft, non-tender, non-distended Extremities: clear Neurological: no change - Procedures Procedures: Procedures Procedure Code Date CONTINUOUS INVASIVE MECHANICAL VENTILATION <96 CONSEC HRS 96.71 06/05/13 GROUP PSYCHOTHERAPY 67508 08/25/15 GROUP PSYCHOTHERAPY GZHZZZZ 08/25/15 INSERT EMERGENCY AIRWAY 17089 06/05/13 INSERT ENDOTRACHEAL TUBE 96.04 06/05/13 VACCINATION NEC 99.55 06/24/13 Internal Medicine Assmt/Plan - Assessment Assessment: 1.BPH. 2.PSYCHOSIS - Plan Plan: CONTINUE ON CURRENT MEDICATION AND DIET.
[2018-07-31] MEDS: Multivitamin Tab PO SCH (08:28)
--- NOTE | 2018-07-31 11:27 | Progress Notes ---
DATE: SUBJECTIVE: Chart was reviewed and the patient interviewed. Also discussed the patient's condition with the staff and reviewed records and labs. The patient is in a depressed mood. The patient is still feeling hopeless and helpless and still feels that there is no reason for him to live. The patient also still has difficulty in concentration and focus and is still guarded. He also is still anxious. Otherwise, the patient is compliant while taking his medications with no side effects of medications. ASSESSMENT: The patient is still depressed and withdrawn. TREATMENT PLAN: Continue monitoring his behavior and his condition closely. Also, continue adjusting psychotropic medications and work on discharge plans and placement issue. JOB# [id number]
--- NOTE | 2018-07-31 14:19 | Internal Medicine Prog Note ---
Internal Medicine Subjective - Subjective Service Date: 07/31/18 Patient seen and examined:: without staff (HE FEELS WELL) Patient is:: awake, verbal, in bed, confused Per staff patient has:: no adverse event Internal Medicine Objective - Results Result Diagrams: 07/25/18 13:13 07/25/18 13:13 Recent Labs: Laboratory Last Values WBC 7.0 Th/cmm (4.8-10.8) 07/25/18 13:13 RBC 5.52 Mil/cmm (4.30-5.70) 07/25/18 13:13 Hgb 15.1 gm/dL (12-16) 07/25/18 13:13 Hct 46.8 % (41.0-60) 07/25/18 13:13 MCV 84.8 fl (80-99) 07/25/18 13:13 MCH 27.4 pg (26.0-30.0) 07/25/18 13:13 MCHC Differential 32.3 pg (28.0-36.0) 07/25/18 13:13 RDW 13.3 % (11.5-20.0) 07/25/18 13:13 Plt Count 263 Th/cmm (150-400) 07/25/18 13:13 MPV 7.9 fl 07/25/18 13:13 Neutrophils % 64.3 % (40.0-80.0) 07/25/18 13:13 Lymphocytes % 27.9 % (20.0-50.0) 07/25/18 13:13 Monocytes % 6.7 % (2.0-10.0) 07/25/18 13:13 Eosinophils % 0.6 % (0.0-5.0) 07/25/18 13:13 Basophils % 0.5 % (0.0-2.0) 07/25/18 13:13 Sodium 136 mEq/L (136-145) 07/25/18 13:13 Potassium 4.1 mEq/L (3.5-5.1) 07/25/18 13:13 Chloride 99 mEq/L (98-107) 07/25/18 13:13 Carbon Dioxide 25.5 mEq/L (21.0-31.0) 07/25/18 13:13 Anion Gap 15.6 (7.0-16.0) 07/25/18 13:13 BUN 13 mg/dL (7-25) 07/25/18 13:13 Creatinine 1.0 mg/dL (0.7-1.3) 07/25/18 13:13 Est GFR ( Amer) > 60.0 ml/min (>90) 07/25/18 13:13 Est GFR (Non-Af Amer) > 60.0 ml/min 07/25/18 13:13 BUN/Creatinine Ratio 13.0 07/25/18 13:13 Glucose 92 mg/dL (70-105) 07/25/18 13:13 Calcium 9.9 mg/dL (8.6-10.3) 07/25/18 13:13 Total Bilirubin 0.8 mg/dL (0.3-1.0) 07/25/18 13:13 AST 24 U/L (13-39) 07/25/18 13:13 ALT 20 U/L (7-52) 07/25/18 13:13 Alkaline Phosphatase 73 U/L (34-104) 07/25/18 13:13 Troponin I < 0.01 ng/mL (0.01-0.05) L 07/25/18 13:13 Total Protein 7.3 gm/dL (6.0-8.3) 07/25/18 13:13 Albumin 4.6 gm/dL (4.2-5.5) 07/25/18 13:13 Globulin 2.7 gm/dL 07/25/18 13:13 Albumin/Globulin Ratio 1.7 (1.0-1.8) 07/25/18 13:13 Triglycerides 77 mg/dL (<150) 07/25/18 13:13 Cholesterol 207 mg/dL (<200) H 07/25/18 13:13 LDL Cholesterol Direct 128 mg/dL (75-193) 07/25/18 13:13 HDL Cholesterol 55 mg/dL (23-92) 07/25/18 13:13 TSH 1.48 uIU/ml (0.34-5.60) 07/25/18 13:13 Urine Source CLEAN C 07/25/18 13:30 Urine Color YELLOW 07/25/18 13:30 Urine Clarity CLEAR (CLEAR) 07/25/18 13:30 Urine pH 6.0 (4.6 - 8.0) 07/25/18 13:30 Ur Specific [place] >= 1.030 (1.005-1.030) 07/25/18 13:30 Urine Protein 30 mg/dL (NEGATIVE) H 07/25/18 13:30 Urine Glucose (UA) NEGATIVE mg/dL (NEGATIVE) 07/25/18 13:30 Urine Ketones 15 mg/dL (NEGATIVE) H 07/25/18 13:30 Urine Blood NEGATIVE (NEGATIVE) 07/25/18 13:30 Urine Nitrate NEGATIVE (NEGATIVE) 07/25/18 13:30 Urine Bilirubin NEGATIVE (NEGATIVE) 07/25/18 13:30 Urine Urobilinogen 0.2 E.U./dL (0.2 - 1.0) 07/25/18 13:30 Ur Leukocyte Esterase NEGATIVE (NEGATIVE) 07/25/18 13:30 Urine RBC 2-5 /hpf (0-5) H 07/25/18 13:30 Urine WBC 0-2 /hpf (0-5) 07/25/18 13:30 Ur Epithelial Cells FEW /lpf (FEW) 07/25/18 13:30 Urine Bacteria FEW /hpf (NONE SEEN) 07/25/18 13:30 Urine Mucus MODERATE /lpf (FEW) 07/25/18 13:30 Salicylates < 25.0 mg/L (30.0-100.0) L 07/25/18 13:13 Urine Opiates Screen NEGATIVE (NEGATIVE) 07/25/18 13:30 Urine Methadone Screen NEGATIVE (NEGATIVE) 07/25/18 13:30 Acetaminophen < 10.0 ug/mL (10.0-30.0) L 07/25/18 13:13 Ur Barbiturates Screen NEGATIVE (NEGATIVE) 07/25/18 13:30 Ur Tricyclics Screen NEGATIVE (NEGATIVE) 07/25/18 13:30 Ur Phencyclidine Scrn NEGATIVE (NEGATIVE) 07/25/18 13:30 Amphetamines Screen POSITIVE (NEGATIVE) H 07/25/18 13:30 U Methamphetamines Scrn NEGATIVE (NEGATIVE) 07/25/18 13:30 U Benzodiazepines Scrn POSITIVE (NEGATIVE) H 07/25/18 13:30 U Cocaine Metab Screen NEGATIVE (NEGATIVE) 07/25/18 13:30 U Cannabinoids Screen NEGATIVE (NEGATIVE) 07/25/18 13:30 Ethyl Alcohol < 10 mg/dL (0-10) 07/25/18 13:13 RPR NONREACTIVE (NONREACTIVE) 07/25/18 13:13 - Physical Exam Vitals and I&O: Vital Signs Temp 98.6 F 07/31/18 14:00 Pulse 91 07/31/18 14:00 Resp 18 07/31/18 14:00 BP 101/68 07/31/18 14:00 Pulse Ox 96 07/31/18 14:00 Intake & Output 07/30/18 07/31/18 07/31/18 18:59 06:59 18:59 Intake Total 900 Balance 900 Intake: Oral 900 Other: # Voids 3 # Bowel Movements 1 Active Medications: Current Medications Acetaminophen (Tylenol) 650 mg PO Q4H PRN PRN Reason: MILD PAIN (LEVEL 1-3) Stop: 09/23/18 17:55 Last Admin: 07/25/18 20:25 Dose: 650 mg Al Hydrox/Mg Hydrox/Simethicone (Maalox) 30 ml PO Q4HR PRN PRN Reason: GI DISTRESS Stop: 09/23/18 17:57 Divalproex Sodium (Depakote Er) 500 mg PO BID [facility]; Protocol Stop: 09/24/18 08:59 Last Admin: 07/31/18 08:27 Dose: 500 mg Duloxetine HCl (Cymbalta) 60 mg PO BID [facility]; Protocol Stop: 09/24/18 08:59 Last Admin: 07/31/18 08:28 Dose: 60 mg Lorazepam (Ativan) 2 mg PO Q6HR PRN; Protocol PRN Reason: Anxiety Stop: 09/23/18 18:03 Last Admin: 07/31/18 09:01 Dose: 2 mg Magnesium Hydroxide (Milk Of Magnesia) 30 ml PO HS PRN PRN Reason: Constipation Multivitamins/Vitamin C (Theragran) 1 tab PO DAILY [facility] Stop: 09/24/18 08:59 Last Admin: 07/31/18 08:28 Dose: 1 tab Quetiapine Fumarate (Seroquel) 100 mg PO TID [facility]; Protocol Stop: 09/24/18 08:59 Last Admin: 07/31/18 08:28 Dose: 100 mg Tamsulosin HCl (Flomax) 0.4 mg PO HS [facility] Stop: 09/23/18 20:59 Last Admin: 07/30/18 20:22 Dose: 0.4 mg Trazodone HCl (Desyrel) 50 mg PO HS PATRICE; Protocol Stop: 09/29/18 20:59 Zolpidem Tartrate (Ambien) 5 mg PO HS PRN PRN Reason: Insomnia Stop: 09/23/18 19:40 Last Admin: 07/30/18 20:22 Dose: 5 mg General: demented HEENT: NC/AT, PERRLA, EOMI, anicteric sclerae, throat clear Neck: Supple, No JVD, No thyromegaly, +2 carotid pulse wo bruit Lungs: CTAB Cardiovascular: RRR, Normal S1, Normal S2, without murmur Abdomen: soft, non-tender, non-distended Extremities: clear Neurological: no change - Procedures Procedures: Procedures Procedure Code Date CONTINUOUS INVASIVE MECHANICAL VENTILATION <96 CONSEC HRS 96.71 06/05/13 GROUP PSYCHOTHERAPY [id number] 08/25/15 GROUP PSYCHOTHERAPY [id number] 08/25/15 INSERT EMERGENCY AIRWAY [id number] 06/05/13 INSERT ENDOTRACHEAL TUBE 96.04 06/05/13 VACCINATION NEC 99.55 06/24/13 Internal Medicine Assmt/Plan - Assessment Assessment: 1.BPH. 2.PSYCHOSIS - Plan Plan: CONTINUE ON CURRENT MEDICATION AND DIET.
[2018-08-01] MEDS: Multivitamin Tab PO SCH (08:23)
--- NOTE | 2018-08-01 14:14 | Internal Medicine Prog Note ---
Internal Medicine Subjective - Subjective Service Date: 08/01/18 Patient seen and examined:: without staff (HE FEELS WELL) Patient is:: awake, verbal, in bed, confused Per staff patient has:: no adverse event Internal Medicine Objective - Results Result Diagrams: 07/25/18 13:13 07/25/18 13:13 Recent Labs: Laboratory Last Values WBC 7.0 Th/cmm (4.8-10.8) 07/25/18 13:13 RBC 5.52 Mil/cmm (4.30-5.70) 07/25/18 13:13 Hgb 15.1 gm/dL (12-16) 07/25/18 13:13 Hct 46.8 % (41.0-60) 07/25/18 13:13 MCV 84.8 fl (80-99) 07/25/18 13:13 MCH 27.4 pg (26.0-30.0) 07/25/18 13:13 MCHC Differential 32.3 pg (28.0-36.0) 07/25/18 13:13 RDW 13.3 % (11.5-20.0) 07/25/18 13:13 Plt Count 263 Th/cmm (150-400) 07/25/18 13:13 MPV 7.9 fl 07/25/18 13:13 Neutrophils % 64.3 % (40.0-80.0) 07/25/18 13:13 Lymphocytes % 27.9 % (20.0-50.0) 07/25/18 13:13 Monocytes % 6.7 % (2.0-10.0) 07/25/18 13:13 Eosinophils % 0.6 % (0.0-5.0) 07/25/18 13:13 Basophils % 0.5 % (0.0-2.0) 07/25/18 13:13 Sodium 136 mEq/L (136-145) 07/25/18 13:13 Potassium 4.1 mEq/L (3.5-5.1) 07/25/18 13:13 Chloride 99 mEq/L (98-107) 07/25/18 13:13 Carbon Dioxide 25.5 mEq/L (21.0-31.0) 07/25/18 13:13 Anion Gap 15.6 (7.0-16.0) 07/25/18 13:13 BUN 13 mg/dL (7-25) 07/25/18 13:13 Creatinine 1.0 mg/dL (0.7-1.3) 07/25/18 13:13 Est GFR ( Amer) > 60.0 ml/min (>90) 07/25/18 13:13 Est GFR (Non-Af Amer) > 60.0 ml/min 07/25/18 13:13 BUN/Creatinine Ratio 13.0 07/25/18 13:13 Glucose 92 mg/dL (70-105) 07/25/18 13:13 Calcium 9.9 mg/dL (8.6-10.3) 07/25/18 13:13 Total Bilirubin 0.8 mg/dL (0.3-1.0) 07/25/18 13:13 AST 24 U/L (13-39) 07/25/18 13:13 ALT 20 U/L (7-52) 07/25/18 13:13 Alkaline Phosphatase 73 U/L (34-104) 07/25/18 13:13 Troponin I < 0.01 ng/mL (0.01-0.05) L 07/25/18 13:13 Total Protein 7.3 gm/dL (6.0-8.3) 07/25/18 13:13 Albumin 4.6 gm/dL (4.2-5.5) 07/25/18 13:13 Globulin 2.7 gm/dL 07/25/18 13:13 Albumin/Globulin Ratio 1.7 (1.0-1.8) 07/25/18 13:13 Triglycerides 77 mg/dL (<150) 07/25/18 13:13 Cholesterol 207 mg/dL (<200) H 07/25/18 13:13 LDL Cholesterol Direct 128 mg/dL (75-193) 07/25/18 13:13 HDL Cholesterol 55 mg/dL (23-92) 07/25/18 13:13 TSH 1.48 uIU/ml (0.34-5.60) 07/25/18 13:13 Urine Source CLEAN C 07/25/18 13:30 Urine Color YELLOW 07/25/18 13:30 Urine Clarity CLEAR (CLEAR) 07/25/18 13:30 Urine pH 6.0 (4.6 - 8.0) 07/25/18 13:30 Ur Specific [place] >= 1.030 (1.005-1.030) 07/25/18 13:30 Urine Protein 30 mg/dL (NEGATIVE) H 07/25/18 13:30 Urine Glucose (UA) NEGATIVE mg/dL (NEGATIVE) 07/25/18 13:30 Urine Ketones 15 mg/dL (NEGATIVE) H 07/25/18 13:30 Urine Blood NEGATIVE (NEGATIVE) 07/25/18 13:30 Urine Nitrate NEGATIVE (NEGATIVE) 07/25/18 13:30 Urine Bilirubin NEGATIVE (NEGATIVE) 07/25/18 13:30 Urine Urobilinogen 0.2 E.U./dL (0.2 - 1.0) 07/25/18 13:30 Ur Leukocyte Esterase NEGATIVE (NEGATIVE) 07/25/18 13:30 Urine RBC 2-5 /hpf (0-5) H 07/25/18 13:30 Urine WBC 0-2 /hpf (0-5) 07/25/18 13:30 Ur Epithelial Cells FEW /lpf (FEW) 07/25/18 13:30 Urine Bacteria FEW /hpf (NONE SEEN) 07/25/18 13:30 Urine Mucus MODERATE /lpf (FEW) 07/25/18 13:30 Salicylates < 25.0 mg/L (30.0-100.0) L 07/25/18 13:13 Urine Opiates Screen NEGATIVE (NEGATIVE) 07/25/18 13:30 Urine Methadone Screen NEGATIVE (NEGATIVE) 07/25/18 13:30 Acetaminophen < 10.0 ug/mL (10.0-30.0) L 07/25/18 13:13 Ur Barbiturates Screen NEGATIVE (NEGATIVE) 07/25/18 13:30 Ur Tricyclics Screen NEGATIVE (NEGATIVE) 07/25/18 13:30 Ur Phencyclidine Scrn NEGATIVE (NEGATIVE) 07/25/18 13:30 Amphetamines Screen POSITIVE (NEGATIVE) H 07/25/18 13:30 U Methamphetamines Scrn NEGATIVE (NEGATIVE) 07/25/18 13:30 U Benzodiazepines Scrn POSITIVE (NEGATIVE) H 07/25/18 13:30 U Cocaine Metab Screen NEGATIVE (NEGATIVE) 07/25/18 13:30 U Cannabinoids Screen NEGATIVE (NEGATIVE) 07/25/18 13:30 Ethyl Alcohol < 10 mg/dL (0-10) 07/25/18 13:13 RPR NONREACTIVE (NONREACTIVE) 07/25/18 13:13 - Physical Exam Vitals and I&O: Vital Signs Temp 97.1 F 08/01/18 06:35 Pulse 60 08/01/18 06:35 Resp 19 08/01/18 06:35 BP 128/68 08/01/18 06:35 Pulse Ox 94 08/01/18 06:35 Intake & Output 07/31/18 08/01/18 08/01/18 18:59 06:59 18:59 Intake Total 1200 480 Balance 1200 480 Intake: Oral 1200 480 Other: # Voids 2 # Bowel Movements 1 0 Active Medications: Current Medications Acetaminophen (Tylenol) 650 mg PO Q4H PRN PRN Reason: MILD PAIN (LEVEL 1-3) Stop: 09/23/18 17:55 Last Admin: 07/25/18 20:25 Dose: 650 mg Al Hydrox/Mg Hydrox/Simethicone (Maalox) 30 ml PO Q4HR PRN PRN Reason: GI DISTRESS Stop: 09/23/18 17:57 Divalproex Sodium (Depakote Er) 500 mg PO BID [facility]; Protocol Stop: 09/24/18 08:59 Last Admin: 08/01/18 08:23 Dose: 500 mg Duloxetine HCl (Cymbalta) 60 mg PO BID [facility]; Protocol Stop: 09/24/18 08:59 Last Admin: 08/01/18 08:23 Dose: 60 mg Lorazepam (Ativan) 2 mg PO Q6HR PRN; Protocol PRN Reason: Anxiety Stop: 09/23/18 18:03 Last Admin: 08/01/18 11:16 Dose: 2 mg Magnesium Hydroxide (Milk Of Magnesia) 30 ml PO HS PRN PRN Reason: Constipation Multivitamins/Vitamin C (Theragran) 1 tab PO DAILY PATRICE Stop: 09/24/18 08:59 Last Admin: 08/01/18 08:23 Dose: 1 tab Quetiapine Fumarate (Seroquel) 100 mg PO TID PATRICE; Protocol Stop: 09/24/18 08:59 Last Admin: 08/01/18 13:56 Dose: 100 mg Tamsulosin HCl (Flomax) 0.4 mg PO HS PATRICE Stop: 09/23/18 20:59 Last Admin: 07/31/18 20:47 Dose: 0.4 mg Trazodone HCl (Desyrel) 50 mg PO HS PATRICE; Protocol Stop: 09/29/18 20:59 Last Admin: 07/31/18 20:47 Dose: 50 mg Zolpidem Tartrate (Ambien) 5 mg PO HS PRN PRN Reason: Insomnia Stop: 09/23/18 19:40 Last Admin: 07/31/18 20:48 Dose: 5 mg General: demented HEENT: NC/AT, PERRLA, EOMI, anicteric sclerae, throat clear Neck: Supple, No JVD, No thyromegaly, +2 carotid pulse wo bruit Lungs: CTAB Cardiovascular: RRR, Normal S1, Normal S2, without murmur Abdomen: soft, non-tender, non-distended Extremities: clear Neurological: no change - Procedures Procedures: Procedures Procedure Code Date CONTINUOUS INVASIVE MECHANICAL VENTILATION <96 CONSEC HRS 96.71 06/05/13 GROUP PSYCHOTHERAPY 49407 08/25/15 GROUP PSYCHOTHERAPY GZHZZZZ 08/25/15 INSERT EMERGENCY AIRWAY [id number] 06/05/13 INSERT ENDOTRACHEAL TUBE 96.04 06/05/13 VACCINATION NEC 99.55 06/24/13 Internal Medicine Assmt/Plan - Assessment Assessment: 1.BPH. 2.PSYCHOSIS - Plan Plan: CONTINUE ON CURRENT MEDICATION AND DIET.
--- NOTE | 2018-08-01 17:08 | Progress Notes ---
DATE: 07/31/2018 SUBJECTIVE: Chart was reviewed and the patient interviewed. I also discussed the patient's condition with the staff and reviewed records and labs. The patient continued to be in a depressed mood. The patient also is still interacting minimally with peers and with others. He is still feeling hopeless and helpless and continued to have lack of motivations and lack of energy. Also, he is still talking about that there is no reason for him to live and no goal in life and no reason to live. Otherwise, the patient continued to comply with taking medications including Depakote, Cymbalta and Seroquel with no side effects. ASSESSMENT: The patient is still depressed and still can be high risk for suicide. TREATMENT PLAN: Continue to monitor his behavior and his condition closely. Also, continue to work on his ineffective coping and his severe level of depression. [facility]# [id number]
--- NOTE | 2018-08-02 06:20 | Progress Notes ---
DATE: 08/01/2018 PSYCHIATRIC PROGRESS NOTE SUBJECTIVE: Chart was reviewed and the patient interviewed. Also discussed the patient's condition with the staff and reviewed records and labs. The patient remains in a depressed mood and the patient is still anxious. The patient also is still feeling hopeless and helpless. The patient also is still withdrawn and he still feels no reason for him to live. The patient also is complaining of insomnia. Otherwise, the patient is cooperative and compliant with taking his treatment and has no major behavioral issues. The patient has no major medical problems and denies any physical issues. ASSESSMENT: The patient is still depressed and needs close monitoring. TREATMENT PLAN: Continue to monitor his behavior and his condition closely. Also, continue Cymbalta 60 mg twice a day and Depakote 500 mg twice a day. Also, Depakote blood level is pending. JOB# [id number]
[2018-08-02] MEDS: Multivitamin Tab PO SCH (09:41)
--- NOTE | 2018-08-02 23:50 | Progress Notes ---
DATE: 08/02/2018 SUBJECTIVE: Case was discussed with staff of the patient, reviewed records. Covering for Dr. Huff. I have seen him before many times covering for Dr. Huff. continues to be depressed, anxious, continues to feel hopeless and helpless, withdrawn, having no reason to live. He has been also unable to sleep. Cymbalta was increased at 60 mg twice a day. His Depakote level was at 48.3. He continues to look disheveled, internally preoccupied, and depressed. I will ask the staff to change his Depakote to liquid to make sure he is taking the medications on a good dose and we will continue the patient in group therapy, milieu therapy, adjust medication as needed. JOB# [id number] MTDKevin
--- NOTE | 2018-08-02 23:50 | Internal Medicine Prog Note ---
Internal Medicine Subjective - Subjective Service Date: 08/02/18 Patient seen and examined:: with staff (HE IS DOING WELL) Patient is:: awake, verbal, in bed, confused Per staff patient has:: no adverse event Internal Medicine Objective - Results Result Diagrams: 07/25/18 13:13 07/25/18 13:13 Recent Labs: Laboratory Last Values WBC 7.0 Th/cmm (4.8-10.8) 07/25/18 13:13 RBC 5.52 Mil/cmm (4.30-5.70) 07/25/18 13:13 Hgb 15.1 gm/dL (12-16) 07/25/18 13:13 Hct 46.8 % (41.0-60) 07/25/18 13:13 MCV 84.8 fl (80-99) 07/25/18 13:13 MCH 27.4 pg (26.0-30.0) 07/25/18 13:13 MCHC Differential 32.3 pg (28.0-36.0) 07/25/18 13:13 RDW 13.3 % (11.5-20.0) 07/25/18 13:13 Plt Count 263 Th/cmm (150-400) 07/25/18 13:13 MPV 7.9 fl 07/25/18 13:13 Neutrophils % 64.3 % (40.0-80.0) 07/25/18 13:13 Lymphocytes % 27.9 % (20.0-50.0) 07/25/18 13:13 Monocytes % 6.7 % (2.0-10.0) 07/25/18 13:13 Eosinophils % 0.6 % (0.0-5.0) 07/25/18 13:13 Basophils % 0.5 % (0.0-2.0) 07/25/18 13:13 Sodium 136 mEq/L (136-145) 07/25/18 13:13 Potassium 4.1 mEq/L (3.5-5.1) 07/25/18 13:13 Chloride 99 mEq/L (98-107) 07/25/18 13:13 Carbon Dioxide 25.5 mEq/L (21.0-31.0) 07/25/18 13:13 Anion Gap 15.6 (7.0-16.0) 07/25/18 13:13 BUN 13 mg/dL (7-25) 07/25/18 13:13 Creatinine 1.0 mg/dL (0.7-1.3) 07/25/18 13:13 Est GFR ( Amer) > 60.0 ml/min (>90) 07/25/18 13:13 Est GFR (Non-Af Amer) > 60.0 ml/min 07/25/18 13:13 BUN/Creatinine Ratio 13.0 07/25/18 13:13 Glucose 92 mg/dL (70-105) 07/25/18 13:13 Calcium 9.9 mg/dL (8.6-10.3) 07/25/18 13:13 Total Bilirubin 0.8 mg/dL (0.3-1.0) 07/25/18 13:13 AST 24 U/L (13-39) 07/25/18 13:13 ALT 20 U/L (7-52) 07/25/18 13:13 Alkaline Phosphatase 73 U/L (34-104) 07/25/18 13:13 Troponin I < 0.01 ng/mL (0.01-0.05) L 07/25/18 13:13 Total Protein 7.3 gm/dL (6.0-8.3) 07/25/18 13:13 Albumin 4.6 gm/dL (4.2-5.5) 07/25/18 13:13 Globulin 2.7 gm/dL 07/25/18 13:13 Albumin/Globulin Ratio 1.7 (1.0-1.8) 07/25/18 13:13 Triglycerides 77 mg/dL (<150) 07/25/18 13:13 Cholesterol 207 mg/dL (<200) H 07/25/18 13:13 LDL Cholesterol Direct 128 mg/dL (75-193) 07/25/18 13:13 HDL Cholesterol 55 mg/dL (23-92) 07/25/18 13:13 TSH 1.48 uIU/ml (0.34-5.60) 07/25/18 13:13 Urine Source CLEAN C 07/25/18 13:30 Urine Color YELLOW 07/25/18 13:30 Urine Clarity CLEAR (CLEAR) 07/25/18 13:30 Urine pH 6.0 (4.6 - 8.0) 07/25/18 13:30 Ur Specific [place] >= 1.030 (1.005-1.030) 07/25/18 13:30 Urine Protein 30 mg/dL (NEGATIVE) H 07/25/18 13:30 Urine Glucose (UA) NEGATIVE mg/dL (NEGATIVE) 07/25/18 13:30 Urine Ketones 15 mg/dL (NEGATIVE) H 07/25/18 13:30 Urine Blood NEGATIVE (NEGATIVE) 07/25/18 13:30 Urine Nitrate NEGATIVE (NEGATIVE) 07/25/18 13:30 Urine Bilirubin NEGATIVE (NEGATIVE) 07/25/18 13:30 Urine Urobilinogen 0.2 E.U./dL (0.2 - 1.0) 07/25/18 13:30 Ur Leukocyte Esterase NEGATIVE (NEGATIVE) 07/25/18 13:30 Urine RBC 2-5 /hpf (0-5) H 07/25/18 13:30 Urine WBC 0-2 /hpf (0-5) 07/25/18 13:30 Ur Epithelial Cells FEW /lpf (FEW) 07/25/18 13:30 Urine Bacteria FEW /hpf (NONE SEEN) 07/25/18 13:30 Urine Mucus MODERATE /lpf (FEW) 07/25/18 13:30 Salicylates < 25.0 mg/L (30.0-100.0) L 07/25/18 13:13 Urine Opiates Screen NEGATIVE (NEGATIVE) 07/25/18 13:30 Urine Methadone Screen NEGATIVE (NEGATIVE) 07/25/18 13:30 Acetaminophen < 10.0 ug/mL (10.0-30.0) L 07/25/18 13:13 Ur Barbiturates Screen NEGATIVE (NEGATIVE) 07/25/18 13:30 Valproic Acid 48.3 ug/mL (50.0-100.0) L 08/01/18 20:00 Ur Tricyclics Screen NEGATIVE (NEGATIVE) 07/25/18 13:30 Ur Phencyclidine Scrn NEGATIVE (NEGATIVE) 07/25/18 13:30 Amphetamines Screen POSITIVE (NEGATIVE) H 07/25/18 13:30 U Methamphetamines Scrn NEGATIVE (NEGATIVE) 07/25/18 13:30 U Benzodiazepines Scrn POSITIVE (NEGATIVE) H 07/25/18 13:30 U Cocaine Metab Screen NEGATIVE (NEGATIVE) 07/25/18 13:30 U Cannabinoids Screen NEGATIVE (NEGATIVE) 07/25/18 13:30 Ethyl Alcohol < 10 mg/dL (0-10) 07/25/18 13:13 RPR NONREACTIVE (NONREACTIVE) 07/25/18 13:13 - Physical Exam Vitals and I&O: Vital Signs Temp 97.7 F 08/02/18 20:00 Pulse 70 08/02/18 20:00 Resp 20 08/02/18 20:00 BP 120/77 08/02/18 20:00 Pulse Ox 97 08/02/18 20:00 Intake & Output 08/02/18 08/02/18 08/03/18 06:59 18:59 06:59 Intake Total 960 1250 Balance 960 1250 Intake: Oral 960 1250 Other: # Voids 2 Active Medications: Current Medications Acetaminophen (Tylenol) 650 mg PO Q4H PRN PRN Reason: MILD PAIN (LEVEL 1-3) Stop: 09/23/18 17:55 Last Admin: 07/25/18 20:25 Dose: 650 mg Al Hydrox/Mg Hydrox/Simethicone (Maalox) 30 ml PO Q4HR PRN PRN Reason: GI DISTRESS Stop: 09/23/18 17:57 Divalproex Sodium (Depakote Er) 500 mg PO BID [facility]; Protocol Stop: 09/24/18 08:59 Last Admin: 08/02/18 17:15 Dose: 500 mg Duloxetine HCl (Cymbalta) 60 mg PO BID [facility]; Protocol Stop: 09/24/18 08:59 Last Admin: 08/02/18 17:15 Dose: 60 mg Lorazepam (Ativan) 2 mg PO Q6HR PRN; Protocol PRN Reason: Anxiety Stop: 09/23/18 18:03 Last Admin: 08/02/18 20:41 Dose: 2 mg Magnesium Hydroxide (Milk Of Magnesia) 30 ml PO HS PRN PRN Reason: Constipation Multivitamins/Vitamin C (Theragran) 1 tab PO DAILY PATRICE Stop: 09/24/18 08:59 Last Admin: 08/02/18 09:41 Dose: 1 tab Quetiapine Fumarate (Seroquel) 100 mg PO TID PATRICE; Protocol Stop: 09/24/18 08:59 Last Admin: 08/02/18 20:41 Dose: 100 mg Tamsulosin HCl (Flomax) 0.4 mg PO HS PATRICE Stop: 09/23/18 20:59 Last Admin: 08/02/18 20:40 Dose: 0.4 mg Trazodone HCl (Desyrel) 100 mg PO HS PATRICE; Protocol Stop: 09/30/18 20:59 Last Admin: 08/02/18 20:41 Dose: 100 mg General: demented HEENT: NC/AT, PERRLA, EOMI, anicteric sclerae, throat clear Neck: Supple, No JVD, No thyromegaly, +2 carotid pulse wo bruit Lungs: CTAB Cardiovascular: RRR, Normal S1, Normal S2, without murmur Abdomen: soft, non-tender, non-distended Extremities: clear Neurological: no change - Procedures Procedures: Procedures Procedure Code Date CONTINUOUS INVASIVE MECHANICAL VENTILATION <96 CONSEC HRS 96.71 06/05/13 GROUP PSYCHOTHERAPY 32525 08/25/15 GROUP PSYCHOTHERAPY GZHZZZZ 08/25/15 INSERT EMERGENCY AIRWAY 47250 06/05/13 INSERT ENDOTRACHEAL TUBE 96.04 06/05/13 VACCINATION NEC 99.55 06/24/13 Internal Medicine Assmt/Plan - Assessment Assessment: 1.BPH. 2.PSYCHOSIS - Plan Plan: CONTINUE ON CURRENT MEDICATION AND DIET. 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 Current wt reflects usual. Current Diet Order/ Nutrition Support regular Patient / S.O Not Indicated Pertinent Medications Thergran, Flomax, PRN MOM Pertinent Labs (07/25) chol 207 Nutritional Hx/Data Height 1.83 m Height (Calculated Centimeters) 182.9 Current Weight (lbs) 90.265 kg Weight (Calculated Kilograms) 90.3 Weight (Calculated Grams) 81544.9 Usual body Weight (lbs) 200 % Usual Body Weight 100 [place] Body Weight 178 lb % [place] Body Weight 112 Body Mass Index (BMI) 26.9 Recent Weight Change No Weight Status Overweight GI Symptoms GI Symptoms None Last BM 07/31 Difficult in: None Food Allergies No Skin Integrity/Comment: intact, Dev score 22 Current %PO Good (75-100%) Estimated Nutritional Goals BEE in Kcals: Using Current wt Calories/Kcals/Kg 9567-9146 kcal Kcals Calculated 20-25 kcal/kg Protein: Using Current wt Protein g/k-90 Protein Calculated 0.8-1 g/kg Fluid: ml 0553-8133 ml (1 ml/kcal) Nutritional Problem 1. Problem Problem No nutrition dx at this time Intervention/Recommendation Comments 1. continue regular diet Expected Outcomes/Goals Expected Outcomes/Goals Goal: PO intake to meet at least 75% of nutritional needs . Monitor PO intake, wt, labs and skin integrity F/U as low risk in [address]
[2018-08-03] MEDS: Multivitamin Tab PO SCH (08:14)
--- NOTE | 2018-08-03 13:01 | Internal Medicine Prog Note ---
Internal Medicine Subjective - Subjective Service Date: 08/03/18 Patient seen and examined:: with staff (HE FEELS WELL) Patient is:: awake, verbal, in bed, confused Per staff patient has:: no adverse event Internal Medicine Objective - Results Result Diagrams: 07/25/18 13:13 07/25/18 13:13 Recent Labs: Laboratory Last Values WBC 7.0 Th/cmm (4.8-10.8) 07/25/18 13:13 RBC 5.52 Mil/cmm (4.30-5.70) 07/25/18 13:13 Hgb 15.1 gm/dL (12-16) 07/25/18 13:13 Hct 46.8 % (41.0-60) 07/25/18 13:13 MCV 84.8 fl (80-99) 07/25/18 13:13 MCH 27.4 pg (26.0-30.0) 07/25/18 13:13 MCHC Differential 32.3 pg (28.0-36.0) 07/25/18 13:13 RDW 13.3 % (11.5-20.0) 07/25/18 13:13 Plt Count 263 Th/cmm (150-400) 07/25/18 13:13 MPV 7.9 fl 07/25/18 13:13 Neutrophils % 64.3 % (40.0-80.0) 07/25/18 13:13 Lymphocytes % 27.9 % (20.0-50.0) 07/25/18 13:13 Monocytes % 6.7 % (2.0-10.0) 07/25/18 13:13 Eosinophils % 0.6 % (0.0-5.0) 07/25/18 13:13 Basophils % 0.5 % (0.0-2.0) 07/25/18 13:13 Sodium 136 mEq/L (136-145) 07/25/18 13:13 Potassium 4.1 mEq/L (3.5-5.1) 07/25/18 13:13 Chloride 99 mEq/L (98-107) 07/25/18 13:13 Carbon Dioxide 25.5 mEq/L (21.0-31.0) 07/25/18 13:13 Anion Gap 15.6 (7.0-16.0) 07/25/18 13:13 BUN 13 mg/dL (7-25) 07/25/18 13:13 Creatinine 1.0 mg/dL (0.7-1.3) 07/25/18 13:13 Est GFR ( Amer) > 60.0 ml/min (>90) 07/25/18 13:13 Est GFR (Non-Af Amer) > 60.0 ml/min 07/25/18 13:13 BUN/Creatinine Ratio 13.0 07/25/18 13:13 Glucose 92 mg/dL (70-105) 07/25/18 13:13 Calcium 9.9 mg/dL (8.6-10.3) 07/25/18 13:13 Total Bilirubin 0.8 mg/dL (0.3-1.0) 07/25/18 13:13 AST 24 U/L (13-39) 07/25/18 13:13 ALT 20 U/L (7-52) 07/25/18 13:13 Alkaline Phosphatase 73 U/L (34-104) 07/25/18 13:13 Troponin I < 0.01 ng/mL (0.01-0.05) L 07/25/18 13:13 Total Protein 7.3 gm/dL (6.0-8.3) 07/25/18 13:13 Albumin 4.6 gm/dL (4.2-5.5) 07/25/18 13:13 Globulin 2.7 gm/dL 07/25/18 13:13 Albumin/Globulin Ratio 1.7 (1.0-1.8) 07/25/18 13:13 Triglycerides 77 mg/dL (<150) 07/25/18 13:13 Cholesterol 207 mg/dL (<200) H 07/25/18 13:13 LDL Cholesterol Direct 128 mg/dL (75-193) 07/25/18 13:13 HDL Cholesterol 55 mg/dL (23-92) 07/25/18 13:13 TSH 1.48 uIU/ml (0.34-5.60) 07/25/18 13:13 Urine Source CLEAN C 07/25/18 13:30 Urine Color YELLOW 07/25/18 13:30 Urine Clarity CLEAR (CLEAR) 07/25/18 13:30 Urine pH 6.0 (4.6 - 8.0) 07/25/18 13:30 Ur Specific [place] >= 1.030 (1.005-1.030) 07/25/18 13:30 Urine Protein 30 mg/dL (NEGATIVE) H 07/25/18 13:30 Urine Glucose (UA) NEGATIVE mg/dL (NEGATIVE) 07/25/18 13:30 Urine Ketones 15 mg/dL (NEGATIVE) H 07/25/18 13:30 Urine Blood NEGATIVE (NEGATIVE) 07/25/18 13:30 Urine Nitrate NEGATIVE (NEGATIVE) 07/25/18 13:30 Urine Bilirubin NEGATIVE (NEGATIVE) 07/25/18 13:30 Urine Urobilinogen 0.2 E.U./dL (0.2 - 1.0) 07/25/18 13:30 Ur Leukocyte Esterase NEGATIVE (NEGATIVE) 07/25/18 13:30 Urine RBC 2-5 /hpf (0-5) H 07/25/18 13:30 Urine WBC 0-2 /hpf (0-5) 07/25/18 13:30 Ur Epithelial Cells FEW /lpf (FEW) 07/25/18 13:30 Urine Bacteria FEW /hpf (NONE SEEN) 07/25/18 13:30 Urine Mucus MODERATE /lpf (FEW) 07/25/18 13:30 Salicylates < 25.0 mg/L (30.0-100.0) L 07/25/18 13:13 Urine Opiates Screen NEGATIVE (NEGATIVE) 07/25/18 13:30 Urine Methadone Screen NEGATIVE (NEGATIVE) 07/25/18 13:30 Acetaminophen < 10.0 ug/mL (10.0-30.0) L 07/25/18 13:13 Ur Barbiturates Screen NEGATIVE (NEGATIVE) 07/25/18 13:30 Valproic Acid 48.3 ug/mL (50.0-100.0) L 08/01/18 20:00 Ur Tricyclics Screen NEGATIVE (NEGATIVE) 07/25/18 13:30 Ur Phencyclidine Scrn NEGATIVE (NEGATIVE) 07/25/18 13:30 Amphetamines Screen POSITIVE (NEGATIVE) H 07/25/18 13:30 U Methamphetamines Scrn NEGATIVE (NEGATIVE) 07/25/18 13:30 U Benzodiazepines Scrn POSITIVE (NEGATIVE) H 07/25/18 13:30 U Cocaine Metab Screen NEGATIVE (NEGATIVE) 07/25/18 13:30 U Cannabinoids Screen NEGATIVE (NEGATIVE) 07/25/18 13:30 Ethyl Alcohol < 10 mg/dL (0-10) 07/25/18 13:13 RPR NONREACTIVE (NONREACTIVE) 07/25/18 13:13 - Physical Exam Vitals and I&O: Vital Signs Temp 97.3 F 08/03/18 06:24 Pulse 72 08/03/18 06:24 Resp 20 08/03/18 10:40 BP 118/70 08/03/18 06:24 Pulse Ox 97 08/03/18 06:24 Intake & Output 08/02/18 08/03/18 08/03/18 18:59 06:59 18:59 Intake Total 1250 120 Balance 1250 120 Intake: Oral 1250 120 Other: # Voids 2 Active Medications: Current Medications Acetaminophen (Tylenol) 650 mg PO Q4H PRN PRN Reason: MILD PAIN (LEVEL 1-3) Stop: 09/23/18 17:55 Last Admin: 07/25/18 20:25 Dose: 650 mg Al Hydrox/Mg Hydrox/Simethicone (Maalox) 30 ml PO Q4HR PRN PRN Reason: GI DISTRESS Stop: 09/23/18 17:57 Divalproex Sodium (Depakote Er) 500 mg PO BID [facility]; Protocol Stop: 09/24/18 08:59 Last Admin: 08/03/18 08:13 Dose: 500 mg Duloxetine HCl (Cymbalta) 60 mg PO BID [facility]; Protocol Stop: 09/24/18 08:59 Last Admin: 08/03/18 08:14 Dose: 60 mg Lorazepam (Ativan) 2 mg PO Q6HR PRN; Protocol PRN Reason: Anxiety Stop: 09/23/18 18:03 Last Admin: 08/03/18 11:31 Dose: 2 mg Magnesium Hydroxide (Milk Of Magnesia) 30 ml PO HS PRN PRN Reason: Constipation Multivitamins/Vitamin C (Theragran) 1 tab PO DAILY [facility] Stop: 09/24/18 08:59 Last Admin: 08/03/18 08:14 Dose: 1 tab Quetiapine Fumarate (Seroquel) 100 mg PO TID [facility]; Protocol Stop: 09/24/18 08:59 Last Admin: 08/03/18 08:13 Dose: 100 mg Tamsulosin HCl (Flomax) 0.4 mg PO HS [facility] Stop: 09/23/18 20:59 Last Admin: 08/02/18 20:40 Dose: 0.4 mg Trazodone HCl (Desyrel) 100 mg PO HS [facility]; Protocol Stop: 09/30/18 20:59 Last Admin: 08/02/18 20:41 Dose: 100 mg General: demented HEENT: NC/AT, PERRLA, EOMI, anicteric sclerae, throat clear Neck: Supple, No JVD, No thyromegaly, +2 carotid pulse wo bruit Lungs: CTAB Cardiovascular: RRR, Normal S1, Normal S2, without murmur Abdomen: soft, non-tender, non-distended Extremities: clear Neurological: no change - Procedures Procedures: Procedures Procedure Code Date CONTINUOUS INVASIVE MECHANICAL VENTILATION <96 CONSEC HRS 96.71 06/05/13 GROUP PSYCHOTHERAPY 94652 08/25/15 GROUP PSYCHOTHERAPY GZHZZZZ 08/25/15 INSERT EMERGENCY AIRWAY [id number] 06/05/13 INSERT ENDOTRACHEAL TUBE 96.04 06/05/13 VACCINATION NEC 99.55 06/24/13 Internal Medicine Assmt/Plan - Assessment Assessment: 1.BPH. 2.PSYCHOSIS - Plan Plan: CONTINUE ON CURRENT MEDICATION AND DIET. 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 Current wt reflects usual. Current Diet Order/ Nutrition Support regular Patient / S.O Not Indicated Pertinent Medications Thergran, Flomax, PRN MOM Pertinent Labs (07/25) chol 207 Nutritional Hx/Data Height 1.83 m Height (Calculated Centimeters) 182.9 Current Weight (lbs) 90.265 kg Weight (Calculated Kilograms) 90.3 Weight (Calculated Grams) 42328.9 Usual body Weight (lbs) 200 % Usual Body Weight 100 [place] Body Weight 178 lb % [place] Body Weight 112 Body Mass Index (BMI) 26.9 Recent Weight Change No Weight Status Overweight GI Symptoms GI Symptoms None Last BM 07/31 Difficult in: None Food Allergies No Skin Integrity/Comment: intact, Dev score 22 Current %PO Good (75-100%) Estimated Nutritional Goals BEE in Kcals: Using Current wt Calories/Kcals/Kg 5079-9087 kcal Kcals Calculated 20-25 kcal/kg Protein: Using Current wt Protein g/k-90 Protein Calculated 0.8-1 g/kg Fluid: ml 5456-2030 ml (1 ml/kcal) Nutritional Problem 1. Problem Problem No nutrition dx at this time Intervention/Recommendation Comments 1. continue regular diet Expected Outcomes/Goals Expected Outcomes/Goals Goal: PO intake to meet at least 75% of nutritional needs . Monitor PO intake, wt, labs and skin integrity F/U as low risk in [address]
--- NOTE | 2018-08-03 23:48 | Progress Notes ---
DATE: 08/03/2018 SUBJECTIVE: Case was discussed with staff of the patient, reviewed records. The patient continues to be depressed, feeling hopeless and helpless, feeling anxious, continues to feel hopeless and helpless, unpredictable and impulsive. He has no reason to live. His Depakote level was at 48.3, which is acceptable. He is on Cymbalta 60 mg twice a day. No side effects with the medication, no sedation, no nausea, no extrapyramidal symptoms. We will continue to work with the patient in group therapy, milieu therapy, and adjust the medications as needed. JOB# [id number]
[2018-08-04] MEDS: Multivitamin Tab PO SCH (08:57)
--- NOTE | 2018-08-04 19:34 | Internal Medicine Prog Note ---
Internal Medicine Subjective - Subjective Service Date: 08/04/18 Patient seen and examined:: without staff (HE FEELS WELL) Patient is:: awake, verbal, in bed, confused Per staff patient has:: no adverse event Internal Medicine Objective - Results Result Diagrams: 07/25/18 13:13 07/25/18 13:13 Recent Labs: Laboratory Last Values WBC 7.0 Th/cmm (4.8-10.8) 07/25/18 13:13 RBC 5.52 Mil/cmm (4.30-5.70) 07/25/18 13:13 Hgb 15.1 gm/dL (12-16) 07/25/18 13:13 Hct 46.8 % (41.0-60) 07/25/18 13:13 MCV 84.8 fl (80-99) 07/25/18 13:13 MCH 27.4 pg (26.0-30.0) 07/25/18 13:13 MCHC Differential 32.3 pg (28.0-36.0) 07/25/18 13:13 RDW 13.3 % (11.5-20.0) 07/25/18 13:13 Plt Count 263 Th/cmm (150-400) 07/25/18 13:13 MPV 7.9 fl 07/25/18 13:13 Neutrophils % 64.3 % (40.0-80.0) 07/25/18 13:13 Lymphocytes % 27.9 % (20.0-50.0) 07/25/18 13:13 Monocytes % 6.7 % (2.0-10.0) 07/25/18 13:13 Eosinophils % 0.6 % (0.0-5.0) 07/25/18 13:13 Basophils % 0.5 % (0.0-2.0) 07/25/18 13:13 Sodium 136 mEq/L (136-145) 07/25/18 13:13 Potassium 4.1 mEq/L (3.5-5.1) 07/25/18 13:13 Chloride 99 mEq/L (98-107) 07/25/18 13:13 Carbon Dioxide 25.5 mEq/L (21.0-31.0) 07/25/18 13:13 Anion Gap 15.6 (7.0-16.0) 07/25/18 13:13 BUN 13 mg/dL (7-25) 07/25/18 13:13 Creatinine 1.0 mg/dL (0.7-1.3) 07/25/18 13:13 Est GFR ( Amer) > 60.0 ml/min (>90) 07/25/18 13:13 Est GFR (Non-Af Amer) > 60.0 ml/min 07/25/18 13:13 BUN/Creatinine Ratio 13.0 07/25/18 13:13 Glucose 92 mg/dL (70-105) 07/25/18 13:13 Calcium 9.9 mg/dL (8.6-10.3) 07/25/18 13:13 Total Bilirubin 0.8 mg/dL (0.3-1.0) 07/25/18 13:13 AST 24 U/L (13-39) 07/25/18 13:13 ALT 20 U/L (7-52) 07/25/18 13:13 Alkaline Phosphatase 73 U/L (34-104) 07/25/18 13:13 Troponin I < 0.01 ng/mL (0.01-0.05) L 07/25/18 13:13 Total Protein 7.3 gm/dL (6.0-8.3) 07/25/18 13:13 Albumin 4.6 gm/dL (4.2-5.5) 07/25/18 13:13 Globulin 2.7 gm/dL 07/25/18 13:13 Albumin/Globulin Ratio 1.7 (1.0-1.8) 07/25/18 13:13 Triglycerides 77 mg/dL (<150) 07/25/18 13:13 Cholesterol 207 mg/dL (<200) H 07/25/18 13:13 LDL Cholesterol Direct 128 mg/dL (75-193) 07/25/18 13:13 HDL Cholesterol 55 mg/dL (23-92) 07/25/18 13:13 TSH 1.48 uIU/ml (0.34-5.60) 07/25/18 13:13 Urine Source CLEAN C 07/25/18 13:30 Urine Color YELLOW 07/25/18 13:30 Urine Clarity CLEAR (CLEAR) 07/25/18 13:30 Urine pH 6.0 (4.6 - 8.0) 07/25/18 13:30 Ur Specific [place] >= 1.030 (1.005-1.030) 07/25/18 13:30 Urine Protein 30 mg/dL (NEGATIVE) H 07/25/18 13:30 Urine Glucose (UA) NEGATIVE mg/dL (NEGATIVE) 07/25/18 13:30 Urine Ketones 15 mg/dL (NEGATIVE) H 07/25/18 13:30 Urine Blood NEGATIVE (NEGATIVE) 07/25/18 13:30 Urine Nitrate NEGATIVE (NEGATIVE) 07/25/18 13:30 Urine Bilirubin NEGATIVE (NEGATIVE) 07/25/18 13:30 Urine Urobilinogen 0.2 E.U./dL (0.2 - 1.0) 07/25/18 13:30 Ur Leukocyte Esterase NEGATIVE (NEGATIVE) 07/25/18 13:30 Urine RBC 2-5 /hpf (0-5) H 07/25/18 13:30 Urine WBC 0-2 /hpf (0-5) 07/25/18 13:30 Ur Epithelial Cells FEW /lpf (FEW) 07/25/18 13:30 Urine Bacteria FEW /hpf (NONE SEEN) 07/25/18 13:30 Urine Mucus MODERATE /lpf (FEW) 07/25/18 13:30 Salicylates < 25.0 mg/L (30.0-100.0) L 07/25/18 13:13 Urine Opiates Screen NEGATIVE (NEGATIVE) 07/25/18 13:30 Urine Methadone Screen NEGATIVE (NEGATIVE) 07/25/18 13:30 Acetaminophen < 10.0 ug/mL (10.0-30.0) L 07/25/18 13:13 Ur Barbiturates Screen NEGATIVE (NEGATIVE) 07/25/18 13:30 Valproic Acid 48.3 ug/mL (50.0-100.0) L 08/01/18 20:00 Ur Tricyclics Screen NEGATIVE (NEGATIVE) 07/25/18 13:30 Ur Phencyclidine Scrn NEGATIVE (NEGATIVE) 07/25/18 13:30 Amphetamines Screen POSITIVE (NEGATIVE) H 07/25/18 13:30 U Methamphetamines Scrn NEGATIVE (NEGATIVE) 07/25/18 13:30 U Benzodiazepines Scrn POSITIVE (NEGATIVE) H 07/25/18 13:30 U Cocaine Metab Screen NEGATIVE (NEGATIVE) 07/25/18 13:30 U Cannabinoids Screen NEGATIVE (NEGATIVE) 07/25/18 13:30 Ethyl Alcohol < 10 mg/dL (0-10) 07/25/18 13:13 RPR NONREACTIVE (NONREACTIVE) 07/25/18 13:13 - Physical Exam Vitals and I&O: Vital Signs Temp 97.9 F 08/04/18 14:00 Pulse 73 08/04/18 14:00 Resp 20 08/04/18 14:00 BP 106/70 08/04/18 14:00 Pulse Ox 96 08/04/18 14:00 Intake & Output 08/04/18 08/04/18 08/05/18 06:59 18:59 06:59 Intake Total 120 1150 Balance 120 1150 Intake: Oral 120 1150 Other: # Voids 2 Active Medications: Current Medications Acetaminophen (Tylenol) 650 mg PO Q4H PRN PRN Reason: MILD PAIN (LEVEL 1-3) Stop: 09/23/18 17:55 Last Admin: 07/25/18 20:25 Dose: 650 mg Al Hydrox/Mg Hydrox/Simethicone (Maalox) 30 ml PO Q4HR PRN PRN Reason: GI DISTRESS Stop: 09/23/18 17:57 Divalproex Sodium (Depakote Er) 500 mg PO BID [facility]; Protocol Stop: 09/24/18 08:59 Last Admin: 08/04/18 16:59 Dose: 500 mg Duloxetine HCl (Cymbalta) 60 mg PO BID [facility]; Protocol Stop: 09/24/18 08:59 Last Admin: 08/04/18 16:59 Dose: 60 mg Lorazepam (Ativan) 2 mg PO Q6HR PRN; Protocol PRN Reason: Anxiety Stop: 09/23/18 18:03 Last Admin: 08/04/18 17:36 Dose: 2 mg Magnesium Hydroxide (Milk Of Magnesia) 30 ml PO HS PRN PRN Reason: Constipation Multivitamins/Vitamin C (Theragran) 1 tab PO DAILY [facility] Stop: 09/24/18 08:59 Last Admin: 08/04/18 08:57 Dose: 1 tab Quetiapine Fumarate (Seroquel) 100 mg PO TID [facility]; Protocol Stop: 09/24/18 08:59 Last Admin: 08/04/18 13:49 Dose: 100 mg Tamsulosin HCl (Flomax) 0.4 mg PO HS [facility] Stop: 09/23/18 20:59 Last Admin: 08/03/18 20:45 Dose: 0.4 mg Trazodone HCl (Desyrel) 100 mg PO HS [facility]; Protocol Stop: 09/30/18 20:59 Last Admin: 08/03/18 20:45 Dose: 100 mg General: demented HEENT: NC/AT, PERRLA, EOMI, anicteric sclerae, throat clear Neck: Supple, No JVD, No thyromegaly, +2 carotid pulse wo bruit Lungs: CTAB Cardiovascular: RRR, Normal S1, Normal S2, without murmur Abdomen: soft, non-tender, non-distended Extremities: clear Neurological: no change - Procedures Procedures: Procedures Procedure Code Date CONTINUOUS INVASIVE MECHANICAL VENTILATION <96 CONSEC HRS 96.71 06/05/13 GROUP PSYCHOTHERAPY 58194 08/25/15 GROUP PSYCHOTHERAPY GZHZZZZ 08/25/15 INSERT EMERGENCY AIRWAY [id number] 06/05/13 INSERT ENDOTRACHEAL TUBE 96.04 06/05/13 VACCINATION NEC 99.55 06/24/13 Internal Medicine Assmt/Plan - Assessment Assessment: 1.BPH. 2.PSYCHOSIS - Plan Plan: CONTINUE ON CURRENT MEDICATION AND DIET. Nutritional Asmnt/Malnutr-PDOC - Dietary Evaluation Malnutrition Findings (Please click <Entered> for more info): Nutritional Asmnt/Malnutrition Start: 08/01/18 15: 39 Text: Status: Complete Freq: Protocol: Document 08/01/18 15:40 [email or web address] (Rec: 08/01/18 15:51 [email or web address] [facility] Nutritional Asmnt/Malnutrition Patient General Information Nutritional Screening Low Risk Diagnosis psychosis Pertinent Medical Hx/Surgical Hx chronic constipation, schizoaffective disorder, bipolar, BPH Subjective Information Pt reports NKFA, tolerating diet with no chew/swallow difficulty, 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 Current wt reflects usual. Current Diet Order/ Nutrition Support regular Patient / S.O Not Indicated Pertinent Medications Thergran, Flomax, PRN MOM Pertinent Labs (07/25) chol 207 Nutritional Hx/Data Height 1.83 m Height (Calculated Centimeters) 182.9 Current Weight (lbs) 90.265 kg Weight (Calculated Kilograms) 90.3 Weight (Calculated Grams) 22740.9 Usual body Weight (lbs) 200 % Usual Body Weight 100 [place] Body Weight 178 lb % [place] Body Weight 112 Body Mass Index (BMI) 26.9 Recent Weight Change No Weight Status Overweight GI Symptoms GI Symptoms None Last BM 07/31 Difficult in: None Food Allergies No Skin Integrity/Comment: intact, Dev score 22 Current %PO Good (75-100%) Estimated Nutritional Goals BEE in Kcals: Using Current wt Calories/Kcals/Kg 5460-3621 kcal Kcals Calculated 20-25 kcal/kg Protein: Using Current wt Protein g/k-90 Protein Calculated 0.8-1 g/kg Fluid: ml 5929-4482 ml (1 ml/kcal) Nutritional Problem 1. Problem Problem No nutrition dx at this time Intervention/Recommendation Comments 1. continue regular diet Expected Outcomes/Goals Expected Outcomes/Goals Goal: PO intake to meet at least 75% of nutritional needs . Monitor PO intake, wt, labs and skin integrity F/U as low risk in [address]
--- NOTE | 2018-08-05 04:45 | Progress Notes ---
DATE: SUBJECTIVE: Chart was reviewed and the patient interviewed. Also discussed the patient's condition with the staff and reviewed records and labs. The patient is still anxious and is still in a depressed mood. The patient also is still isolative and withdrawn. The patient feels hopeless and helpless. He also is interacting minimally with others. Otherwise, the patient is still looking for placement. PLAN: I contacted [facility] where the patient was before and waiting to hear the outcome from them in regard to placement. JOB# [id number]
[2018-08-05] MEDS: Multivitamin Tab PO SCH (08:34)
--- NOTE | 2018-08-05 11:33 | Progress Notes ---
DATE: SUBJECTIVE: Chart reviewed and the patient interviewed. Also discussed the patient's condition with the staff and reviewed records and labs. The patient remains severely depressed. The patient also is still feeling hopeless and helpless. The patient also is still withdrawn and is still talking about his ex-girlfriend that and "left me with a lot of medical bills." The patient said that he paid all his saved money for her after she . The patient added that he is still feeling hopeless and helpless and he feels that no reason for him to live. Otherwise, the patient continued to comply with taking his medications with no side effects. ASSESSMENT: The patient is still severely depressed. TREATMENT PLAN: Continue to monitor his behavior and condition closely. Also, [facility] refused to take him because "a lot of bills that he did not pay." They said that he owes them about $2000. Placement is still an issue. At the same time, we will continue adjusting psychotropic medications and will continue to follow up. [facility]# [id number]
--- NOTE | 2018-08-05 23:15 | Internal Medicine Prog Note ---
Internal Medicine Subjective - Subjective Service Date: 08/05/18 Patient seen and examined:: without staff (HE FEELS WELL) Patient is:: awake, verbal, in bed, confused Per staff patient has:: no adverse event Internal Medicine Objective - Results Result Diagrams: 07/25/18 13:13 07/25/18 13:13 Recent Labs: Laboratory Last Values WBC 7.0 Th/cmm (4.8-10.8) 07/25/18 13:13 RBC 5.52 Mil/cmm (4.30-5.70) 07/25/18 13:13 Hgb 15.1 gm/dL (12-16) 07/25/18 13:13 Hct 46.8 % (41.0-60) 07/25/18 13:13 MCV 84.8 fl (80-99) 07/25/18 13:13 MCH 27.4 pg (26.0-30.0) 07/25/18 13:13 MCHC Differential 32.3 pg (28.0-36.0) 07/25/18 13:13 RDW 13.3 % (11.5-20.0) 07/25/18 13:13 Plt Count 263 Th/cmm (150-400) 07/25/18 13:13 MPV 7.9 fl 07/25/18 13:13 Neutrophils % 64.3 % (40.0-80.0) 07/25/18 13:13 Lymphocytes % 27.9 % (20.0-50.0) 07/25/18 13:13 Monocytes % 6.7 % (2.0-10.0) 07/25/18 13:13 Eosinophils % 0.6 % (0.0-5.0) 07/25/18 13:13 Basophils % 0.5 % (0.0-2.0) 07/25/18 13:13 Sodium 136 mEq/L (136-145) 07/25/18 13:13 Potassium 4.1 mEq/L (3.5-5.1) 07/25/18 13:13 Chloride 99 mEq/L (98-107) 07/25/18 13:13 Carbon Dioxide 25.5 mEq/L (21.0-31.0) 07/25/18 13:13 Anion Gap 15.6 (7.0-16.0) 07/25/18 13:13 BUN 13 mg/dL (7-25) 07/25/18 13:13 Creatinine 1.0 mg/dL (0.7-1.3) 07/25/18 13:13 Est GFR ( Amer) > 60.0 ml/min (>90) 07/25/18 13:13 Est GFR (Non-Af Amer) > 60.0 ml/min 07/25/18 13:13 BUN/Creatinine Ratio 13.0 07/25/18 13:13 Glucose 92 mg/dL (70-105) 07/25/18 13:13 Calcium 9.9 mg/dL (8.6-10.3) 07/25/18 13:13 Total Bilirubin 0.8 mg/dL (0.3-1.0) 07/25/18 13:13 AST 24 U/L (13-39) 07/25/18 13:13 ALT 20 U/L (7-52) 07/25/18 13:13 Alkaline Phosphatase 73 U/L (34-104) 07/25/18 13:13 Troponin I < 0.01 ng/mL (0.01-0.05) L 07/25/18 13:13 Total Protein 7.3 gm/dL (6.0-8.3) 07/25/18 13:13 Albumin 4.6 gm/dL (4.2-5.5) 07/25/18 13:13 Globulin 2.7 gm/dL 07/25/18 13:13 Albumin/Globulin Ratio 1.7 (1.0-1.8) 07/25/18 13:13 Triglycerides 77 mg/dL (<150) 07/25/18 13:13 Cholesterol 207 mg/dL (<200) H 07/25/18 13:13 LDL Cholesterol Direct 128 mg/dL (75-193) 07/25/18 13:13 HDL Cholesterol 55 mg/dL (23-92) 07/25/18 13:13 TSH 1.48 uIU/ml (0.34-5.60) 07/25/18 13:13 Urine Source CLEAN C 07/25/18 13:30 Urine Color YELLOW 07/25/18 13:30 Urine Clarity CLEAR (CLEAR) 07/25/18 13:30 Urine pH 6.0 (4.6 - 8.0) 07/25/18 13:30 Ur Specific [place] >= 1.030 (1.005-1.030) 07/25/18 13:30 Urine Protein 30 mg/dL (NEGATIVE) H 07/25/18 13:30 Urine Glucose (UA) NEGATIVE mg/dL (NEGATIVE) 07/25/18 13:30 Urine Ketones 15 mg/dL (NEGATIVE) H 07/25/18 13:30 Urine Blood NEGATIVE (NEGATIVE) 07/25/18 13:30 Urine Nitrate NEGATIVE (NEGATIVE) 07/25/18 13:30 Urine Bilirubin NEGATIVE (NEGATIVE) 07/25/18 13:30 Urine Urobilinogen 0.2 E.U./dL (0.2 - 1.0) 07/25/18 13:30 Ur Leukocyte Esterase NEGATIVE (NEGATIVE) 07/25/18 13:30 Urine RBC 2-5 /hpf (0-5) H 07/25/18 13:30 Urine WBC 0-2 /hpf (0-5) 07/25/18 13:30 Ur Epithelial Cells FEW /lpf (FEW) 07/25/18 13:30 Urine Bacteria FEW /hpf (NONE SEEN) 07/25/18 13:30 Urine Mucus MODERATE /lpf (FEW) 07/25/18 13:30 Salicylates < 25.0 mg/L (30.0-100.0) L 07/25/18 13:13 Urine Opiates Screen NEGATIVE (NEGATIVE) 07/25/18 13:30 Urine Methadone Screen NEGATIVE (NEGATIVE) 07/25/18 13:30 Acetaminophen < 10.0 ug/mL (10.0-30.0) L 07/25/18 13:13 Ur Barbiturates Screen NEGATIVE (NEGATIVE) 07/25/18 13:30 Valproic Acid 48.3 ug/mL (50.0-100.0) L 08/01/18 20:00 Ur Tricyclics Screen NEGATIVE (NEGATIVE) 07/25/18 13:30 Ur Phencyclidine Scrn NEGATIVE (NEGATIVE) 07/25/18 13:30 Amphetamines Screen POSITIVE (NEGATIVE) H 07/25/18 13:30 U Methamphetamines Scrn NEGATIVE (NEGATIVE) 07/25/18 13:30 U Benzodiazepines Scrn POSITIVE (NEGATIVE) H 07/25/18 13:30 U Cocaine Metab Screen NEGATIVE (NEGATIVE) 07/25/18 13:30 U Cannabinoids Screen NEGATIVE (NEGATIVE) 07/25/18 13:30 Ethyl Alcohol < 10 mg/dL (0-10) 07/25/18 13:13 RPR NONREACTIVE (NONREACTIVE) 07/25/18 13:13 - Physical Exam Vitals and I&O: Vital Signs Temp 97.4 F 08/05/18 20:24 Pulse 63 08/05/18 20:24 Resp 20 08/05/18 20:24 BP 112/57 08/05/18 20:24 Pulse Ox 98 08/05/18 20:24 Intake & Output 08/05/18 08/05/18 08/06/18 06:59 18:59 06:59 Intake Total 240 120 Balance 240 120 Intake: Oral 240 120 Other: # Voids 2 3 # Bowel Movements 1 0 Active Medications: Current Medications Acetaminophen (Tylenol) 650 mg PO Q4H PRN PRN Reason: MILD PAIN (LEVEL 1-3) Stop: 09/23/18 17:55 Last Admin: 07/25/18 20:25 Dose: 650 mg Al Hydrox/Mg Hydrox/Simethicone (Maalox) 30 ml PO Q4HR PRN PRN Reason: GI DISTRESS Stop: 09/23/18 17:57 Divalproex Sodium (Depakote Er) 500 mg PO BID [facility]; Protocol Stop: 09/24/18 08:59 Last Admin: 08/05/18 17:19 Dose: 500 mg Duloxetine HCl (Cymbalta) 60 mg PO BID [facility]; Protocol Stop: 09/24/18 08:59 Last Admin: 08/05/18 17:19 Dose: 60 mg Lorazepam (Ativan) 2 mg PO Q6HR PRN; Protocol PRN Reason: Anxiety Stop: 09/23/18 18:03 Last Admin: 08/05/18 21:01 Dose: 2 mg Magnesium Hydroxide (Milk Of Magnesia) 30 ml PO HS PRN PRN Reason: Constipation Multivitamins/Vitamin C (Theragran) 1 tab PO DAILY [facility] Stop: 09/24/18 08:59 Last Admin: 08/05/18 08:34 Dose: 1 tab Quetiapine Fumarate (Seroquel) 100 mg PO TID [facility]; Protocol Stop: 09/24/18 08:59 Last Admin: 08/05/18 20:28 Dose: 100 mg Tamsulosin HCl (Flomax) 0.4 mg PO HS [facility] Stop: 09/23/18 20:59 Last Admin: 08/05/18 20:28 Dose: 0.4 mg Trazodone HCl (Desyrel) 100 mg PO HS [facility]; Protocol Stop: 09/30/18 20:59 Last Admin: 08/05/18 20:28 Dose: 100 mg General: demented HEENT: NC/AT, PERRLA, EOMI, anicteric sclerae, throat clear Neck: Supple, No JVD, No thyromegaly, +2 carotid pulse wo bruit Lungs: CTAB Cardiovascular: RRR, Normal S1, Normal S2, without murmur Abdomen: soft, non-tender, non-distended Extremities: clear Neurological: no change - Procedures Procedures: Procedures Procedure Code Date CONTINUOUS INVASIVE MECHANICAL VENTILATION <96 CONSEC HRS 96.71 06/05/13 GROUP PSYCHOTHERAPY 44299 08/25/15 GROUP PSYCHOTHERAPY GZHZZZZ 08/25/15 INSERT EMERGENCY AIRWAY 19683 06/05/13 INSERT ENDOTRACHEAL TUBE 96.04 06/05/13 VACCINATION NEC 99.55 06/24/13 Internal Medicine Assmt/Plan - Assessment Assessment: 1.BPH. 2.PSYCHOSIS - Plan Plan: CONTINUE ON CURRENT MEDICATION AND DIET. 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 Current wt reflects usual. Current Diet Order/ Nutrition Support regular Patient / S.O Not Indicated Pertinent Medications Thergran, Flomax, PRN MOM Pertinent Labs (07/25) chol 207 Nutritional Hx/Data Height 1.83 m Height (Calculated Centimeters) 182.9 Current Weight (lbs) 90.265 kg Weight (Calculated Kilograms) 90.3 Weight (Calculated Grams) 32471.9 Usual body Weight (lbs) 200 % Usual Body Weight 100 [place] Body Weight 178 lb % [place] Body Weight 112 Body Mass Index (BMI) 26.9 Recent Weight Change No Weight Status Overweight GI Symptoms GI Symptoms None Last BM 07/31 Difficult in: None Food Allergies No Skin Integrity/Comment: intact, Dev score 22 Current %PO Good (75-100%) Estimated Nutritional Goals BEE in Kcals: Using Current wt Calories/Kcals/Kg 9119-5680 kcal Kcals Calculated 20-25 kcal/kg Protein: Using Current wt Protein g/k-90 Protein Calculated 0.8-1 g/kg Fluid: ml 4919-9360 ml (1 ml/kcal) Nutritional Problem 1. Problem Problem No nutrition dx at this time Intervention/Recommendation Comments 1. continue regular diet Expected Outcomes/Goals Expected Outcomes/Goals Goal: PO intake to meet at least 75% of nutritional needs . Monitor PO intake, wt, labs and skin integrity F/U as low risk in [address]
[2018-08-06] MEDS: Multivitamin Tab PO SCH (09:01)
--- NOTE | 2018-08-06 11:52 | Progress Notes ---
DATE: 08/06/2018 SUBJECTIVE: Chart was reviewed and the patient interviewed. Also discussed the patient's condition with the staff and reviewed records and labs. "I am going to get the ticket to [place] and I am going to get on 08/18/2018." The patient seems to be more delusional today and he is still grieving the of girlfriend that several years ago. He also is still anxious and is still in a depressed mood, but he denies any intention to harm himself. The patient also is interacting minimally with peers and others. Otherwise, the patient is compliant with taking his medications with no side effects of medications. ASSESSMENT: The patient is still in a depressed mood. TREATMENT PLAN: Continue to monitor his behavior and his condition closely. Also, continue to work on his ineffective coping and followup. JOB# [id number]
--- NOTE | 2018-08-06 20:18 | Internal Medicine Prog Note ---
Internal Medicine Subjective - Subjective Service Date: 08/06/18 Patient seen and examined:: with staff (HE FEELS WELL) Patient is:: awake, verbal, in bed, confused Per staff patient has:: no adverse event Internal Medicine Objective - Results Result Diagrams: 07/25/18 13:13 07/25/18 13:13 Recent Labs: Laboratory Last Values WBC 7.0 Th/cmm (4.8-10.8) 07/25/18 13:13 RBC 5.52 Mil/cmm (4.30-5.70) 07/25/18 13:13 Hgb 15.1 gm/dL (12-16) 07/25/18 13:13 Hct 46.8 % (41.0-60) 07/25/18 13:13 MCV 84.8 fl (80-99) 07/25/18 13:13 MCH 27.4 pg (26.0-30.0) 07/25/18 13:13 MCHC Differential 32.3 pg (28.0-36.0) 07/25/18 13:13 RDW 13.3 % (11.5-20.0) 07/25/18 13:13 Plt Count 263 Th/cmm (150-400) 07/25/18 13:13 MPV 7.9 fl 07/25/18 13:13 Neutrophils % 64.3 % (40.0-80.0) 07/25/18 13:13 Lymphocytes % 27.9 % (20.0-50.0) 07/25/18 13:13 Monocytes % 6.7 % (2.0-10.0) 07/25/18 13:13 Eosinophils % 0.6 % (0.0-5.0) 07/25/18 13:13 Basophils % 0.5 % (0.0-2.0) 07/25/18 13:13 Sodium 136 mEq/L (136-145) 07/25/18 13:13 Potassium 4.1 mEq/L (3.5-5.1) 07/25/18 13:13 Chloride 99 mEq/L (98-107) 07/25/18 13:13 Carbon Dioxide 25.5 mEq/L (21.0-31.0) 07/25/18 13:13 Anion Gap 15.6 (7.0-16.0) 07/25/18 13:13 BUN 13 mg/dL (7-25) 07/25/18 13:13 Creatinine 1.0 mg/dL (0.7-1.3) 07/25/18 13:13 Est GFR ( Amer) > 60.0 ml/min (>90) 07/25/18 13:13 Est GFR (Non-Af Amer) > 60.0 ml/min 07/25/18 13:13 BUN/Creatinine Ratio 13.0 07/25/18 13:13 Glucose 92 mg/dL (70-105) 07/25/18 13:13 Calcium 9.9 mg/dL (8.6-10.3) 07/25/18 13:13 Total Bilirubin 0.8 mg/dL (0.3-1.0) 07/25/18 13:13 AST 24 U/L (13-39) 07/25/18 13:13 ALT 20 U/L (7-52) 07/25/18 13:13 Alkaline Phosphatase 73 U/L (34-104) 07/25/18 13:13 Troponin I < 0.01 ng/mL (0.01-0.05) L 07/25/18 13:13 Total Protein 7.3 gm/dL (6.0-8.3) 07/25/18 13:13 Albumin 4.6 gm/dL (4.2-5.5) 07/25/18 13:13 Globulin 2.7 gm/dL 07/25/18 13:13 Albumin/Globulin Ratio 1.7 (1.0-1.8) 07/25/18 13:13 Triglycerides 77 mg/dL (<150) 07/25/18 13:13 Cholesterol 207 mg/dL (<200) H 07/25/18 13:13 LDL Cholesterol Direct 128 mg/dL (75-193) 07/25/18 13:13 HDL Cholesterol 55 mg/dL (23-92) 07/25/18 13:13 TSH 1.48 uIU/ml (0.34-5.60) 07/25/18 13:13 Urine Source CLEAN C 07/25/18 13:30 Urine Color YELLOW 07/25/18 13:30 Urine Clarity CLEAR (CLEAR) 07/25/18 13:30 Urine pH 6.0 (4.6 - 8.0) 07/25/18 13:30 Ur Specific [place] >= 1.030 (1.005-1.030) 07/25/18 13:30 Urine Protein 30 mg/dL (NEGATIVE) H 07/25/18 13:30 Urine Glucose (UA) NEGATIVE mg/dL (NEGATIVE) 07/25/18 13:30 Urine Ketones 15 mg/dL (NEGATIVE) H 07/25/18 13:30 Urine Blood NEGATIVE (NEGATIVE) 07/25/18 13:30 Urine Nitrate NEGATIVE (NEGATIVE) 07/25/18 13:30 Urine Bilirubin NEGATIVE (NEGATIVE) 07/25/18 13:30 Urine Urobilinogen 0.2 E.U./dL (0.2 - 1.0) 07/25/18 13:30 Ur Leukocyte Esterase NEGATIVE (NEGATIVE) 07/25/18 13:30 Urine RBC 2-5 /hpf (0-5) H 07/25/18 13:30 Urine WBC 0-2 /hpf (0-5) 07/25/18 13:30 Ur Epithelial Cells FEW /lpf (FEW) 07/25/18 13:30 Urine Bacteria FEW /hpf (NONE SEEN) 07/25/18 13:30 Urine Mucus MODERATE /lpf (FEW) 07/25/18 13:30 Salicylates < 25.0 mg/L (30.0-100.0) L 07/25/18 13:13 Urine Opiates Screen NEGATIVE (NEGATIVE) 07/25/18 13:30 Urine Methadone Screen NEGATIVE (NEGATIVE) 07/25/18 13:30 Acetaminophen < 10.0 ug/mL (10.0-30.0) L 07/25/18 13:13 Ur Barbiturates Screen NEGATIVE (NEGATIVE) 07/25/18 13:30 Valproic Acid 48.3 ug/mL (50.0-100.0) L 08/01/18 20:00 Ur Tricyclics Screen NEGATIVE (NEGATIVE) 07/25/18 13:30 Ur Phencyclidine Scrn NEGATIVE (NEGATIVE) 07/25/18 13:30 Amphetamines Screen POSITIVE (NEGATIVE) H 07/25/18 13:30 U Methamphetamines Scrn NEGATIVE (NEGATIVE) 07/25/18 13:30 U Benzodiazepines Scrn POSITIVE (NEGATIVE) H 07/25/18 13:30 U Cocaine Metab Screen NEGATIVE (NEGATIVE) 07/25/18 13:30 U Cannabinoids Screen NEGATIVE (NEGATIVE) 07/25/18 13:30 Ethyl Alcohol < 10 mg/dL (0-10) 07/25/18 13:13 RPR NONREACTIVE (NONREACTIVE) 07/25/18 13:13 - Physical Exam Vitals and I&O: Vital Signs Temp 97.5 F 08/06/18 14:27 Pulse 94 08/06/18 14:27 Resp 20 08/06/18 14:27 BP 134/77 08/06/18 14:27 Pulse Ox 96 08/06/18 14:27 Intake & Output 08/06/18 08/06/18 08/07/18 06:59 18:59 06:59 Intake Total 120 Balance 120 Intake: Oral 120 Other: # Voids 3 3 # Bowel Movements 0 1 Active Medications: Current Medications Acetaminophen (Tylenol) 650 mg PO Q4H PRN PRN Reason: MILD PAIN (LEVEL 1-3) Stop: 09/23/18 17:55 Last Admin: 07/25/18 20:25 Dose: 650 mg Al Hydrox/Mg Hydrox/Simethicone (Maalox) 30 ml PO Q4HR PRN PRN Reason: GI DISTRESS Stop: 09/23/18 17:57 Divalproex Sodium (Depakote Er) 500 mg PO BID [facility]; Protocol Stop: 09/24/18 08:59 Last Admin: 08/06/18 16:23 Dose: 500 mg Duloxetine HCl (Cymbalta) 60 mg PO BID [facility]; Protocol Stop: 09/24/18 08:59 Last Admin: 08/06/18 16:23 Dose: 60 mg Lorazepam (Ativan) 2 mg PO Q6HR PRN; Protocol PRN Reason: Anxiety Stop: 09/23/18 18:03 Last Admin: 08/06/18 18:06 Dose: 2 mg Magnesium Hydroxide (Milk Of Magnesia) 30 ml PO HS PRN PRN Reason: Constipation Multivitamins/Vitamin C (Theragran) 1 tab PO DAILY [facility] Stop: 09/24/18 08:59 Last Admin: 08/06/18 09:01 Dose: 1 tab Quetiapine Fumarate (Seroquel) 100 mg PO TID [facility]; Protocol Stop: 09/24/18 08:59 Last Admin: 08/06/18 14:05 Dose: Not Given Tamsulosin HCl (Flomax) 0.4 mg PO HS [facility] Stop: 09/23/18 20:59 Last Admin: 08/05/18 20:28 Dose: 0.4 mg Trazodone HCl (Desyrel) 100 mg PO HS [facility]; Protocol Stop: 09/30/18 20:59 Last Admin: 08/05/18 20:28 Dose: 100 mg General: demented HEENT: NC/AT, PERRLA, EOMI, anicteric sclerae, throat clear Neck: Supple, No JVD, No thyromegaly, +2 carotid pulse wo bruit Lungs: CTAB Cardiovascular: RRR, Normal S1, Normal S2, without murmur Abdomen: soft, non-tender, non-distended Extremities: clear Neurological: no change - Procedures Procedures: Procedures Procedure Code Date CONTINUOUS INVASIVE MECHANICAL VENTILATION <96 CONSEC HRS 96.71 06/05/13 GROUP PSYCHOTHERAPY 31019 08/25/15 GROUP PSYCHOTHERAPY GZHZZZZ 08/25/15 INSERT EMERGENCY AIRWAY [id number] 06/05/13 INSERT ENDOTRACHEAL TUBE 96.04 06/05/13 VACCINATION NEC 99.55 06/24/13 Internal Medicine Assmt/Plan - Assessment Assessment: 1.BPH. 2.PSYCHOSIS - Plan Plan: CONTINUE ON CURRENT MEDICATION AND DIET. Nutritional Asmnt/Malnutr-PDOC - Dietary Evaluation Malnutrition Findings (Please click <Entered> for more info): Nutritional Asmnt/Malnutrition Start: 08/01/18 15: 39 Text: Status: Complete Freq: Protocol: Document 08/01/18 15:40 [email or web address] (Rec: 08/01/18 15:51 [email or web address] 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 Current wt reflects usual. Current Diet Order/ Nutrition Support regular Patient / S.O Not Indicated Pertinent Medications Thergran, Flomax, PRN MOM Pertinent Labs (07/25) chol 207 Nutritional Hx/Data Height 1.83 m Height (Calculated Centimeters) 182.9 Current Weight (lbs) 90.265 kg Weight (Calculated Kilograms) 90.3 Weight (Calculated Grams) 08514.9 Usual body Weight (lbs) 200 % Usual Body Weight 100 [place] Body Weight 178 lb % [place] Body Weight 112 Body Mass Index (BMI) 26.9 Recent Weight Change No Weight Status Overweight GI Symptoms GI Symptoms None Last BM 07/31 Difficult in: None Food Allergies No Skin Integrity/Comment: intact, Dev score 22 Current %PO Good (75-100%) Estimated Nutritional Goals BEE in Kcals: Using Current wt Calories/Kcals/Kg 5214-3098 kcal Kcals Calculated 20-25 kcal/kg Protein: Using Current wt Protein g/k-90 Protein Calculated 0.8-1 g/kg Fluid: ml 6629-3185 ml (1 ml/kcal) Nutritional Problem 1. Problem Problem No nutrition dx at this time Intervention/Recommendation Comments 1. continue regular diet Expected Outcomes/Goals Expected Outcomes/Goals Goal: PO intake to meet at least 75% of nutritional needs . Monitor PO intake, wt, labs and skin integrity F/U as low risk in [address]
[2018-08-07] MEDS: Multivitamin Tab PO SCH (09:09)
--- NOTE | 2018-08-07 19:54 | Internal Medicine Prog Note ---
Internal Medicine Subjective - Subjective Service Date: 08/07/18 Patient seen and examined:: without staff (HE FEELS WELL) Patient is:: awake, verbal, in bed, confused Per staff patient has:: no adverse event Internal Medicine Objective - Results Result Diagrams: 07/25/18 13:13 07/25/18 13:13 Recent Labs: Laboratory Last Values WBC 7.0 Th/cmm (4.8-10.8) 07/25/18 13:13 RBC 5.52 Mil/cmm (4.30-5.70) 07/25/18 13:13 Hgb 15.1 gm/dL (12-16) 07/25/18 13:13 Hct 46.8 % (41.0-60) 07/25/18 13:13 MCV 84.8 fl (80-99) 07/25/18 13:13 MCH 27.4 pg (26.0-30.0) 07/25/18 13:13 MCHC Differential 32.3 pg (28.0-36.0) 07/25/18 13:13 RDW 13.3 % (11.5-20.0) 07/25/18 13:13 Plt Count 263 Th/cmm (150-400) 07/25/18 13:13 MPV 7.9 fl 07/25/18 13:13 Neutrophils % 64.3 % (40.0-80.0) 07/25/18 13:13 Lymphocytes % 27.9 % (20.0-50.0) 07/25/18 13:13 Monocytes % 6.7 % (2.0-10.0) 07/25/18 13:13 Eosinophils % 0.6 % (0.0-5.0) 07/25/18 13:13 Basophils % 0.5 % (0.0-2.0) 07/25/18 13:13 Sodium 136 mEq/L (136-145) 07/25/18 13:13 Potassium 4.1 mEq/L (3.5-5.1) 07/25/18 13:13 Chloride 99 mEq/L (98-107) 07/25/18 13:13 Carbon Dioxide 25.5 mEq/L (21.0-31.0) 07/25/18 13:13 Anion Gap 15.6 (7.0-16.0) 07/25/18 13:13 BUN 13 mg/dL (7-25) 07/25/18 13:13 Creatinine 1.0 mg/dL (0.7-1.3) 07/25/18 13:13 Est GFR ( Amer) > 60.0 ml/min (>90) 07/25/18 13:13 Est GFR (Non-Af Amer) > 60.0 ml/min 07/25/18 13:13 BUN/Creatinine Ratio 13.0 07/25/18 13:13 Glucose 92 mg/dL (70-105) 07/25/18 13:13 Calcium 9.9 mg/dL (8.6-10.3) 07/25/18 13:13 Total Bilirubin 0.8 mg/dL (0.3-1.0) 07/25/18 13:13 AST 24 U/L (13-39) 07/25/18 13:13 ALT 20 U/L (7-52) 07/25/18 13:13 Alkaline Phosphatase 73 U/L (34-104) 07/25/18 13:13 Troponin I < 0.01 ng/mL (0.01-0.05) L 07/25/18 13:13 Total Protein 7.3 gm/dL (6.0-8.3) 07/25/18 13:13 Albumin 4.6 gm/dL (4.2-5.5) 07/25/18 13:13 Globulin 2.7 gm/dL 07/25/18 13:13 Albumin/Globulin Ratio 1.7 (1.0-1.8) 07/25/18 13:13 Triglycerides 77 mg/dL (<150) 07/25/18 13:13 Cholesterol 207 mg/dL (<200) H 07/25/18 13:13 LDL Cholesterol Direct 128 mg/dL (75-193) 07/25/18 13:13 HDL Cholesterol 55 mg/dL (23-92) 07/25/18 13:13 TSH 1.48 uIU/ml (0.34-5.60) 07/25/18 13:13 Urine Source CLEAN C 07/25/18 13:30 Urine Color YELLOW 07/25/18 13:30 Urine Clarity CLEAR (CLEAR) 07/25/18 13:30 Urine pH 6.0 (4.6 - 8.0) 07/25/18 13:30 Ur Specific Aline >= 1.030 (1.005-1.030) 07/25/18 13:30 Urine Protein 30 mg/dL (NEGATIVE) H 07/25/18 13:30 Urine Glucose (UA) NEGATIVE mg/dL (NEGATIVE) 07/25/18 13:30 Urine Ketones 15 mg/dL (NEGATIVE) H 07/25/18 13:30 Urine Blood NEGATIVE (NEGATIVE) 07/25/18 13:30 Urine Nitrate NEGATIVE (NEGATIVE) 07/25/18 13:30 Urine Bilirubin NEGATIVE (NEGATIVE) 07/25/18 13:30 Urine Urobilinogen 0.2 E.U./dL (0.2 - 1.0) 07/25/18 13:30 Ur Leukocyte Esterase NEGATIVE (NEGATIVE) 07/25/18 13:30 Urine RBC 2-5 /hpf (0-5) H 07/25/18 13:30 Urine WBC 0-2 /hpf (0-5) 07/25/18 13:30 Ur Epithelial Cells FEW /lpf (FEW) 07/25/18 13:30 Urine Bacteria FEW /hpf (NONE SEEN) 07/25/18 13:30 Urine Mucus MODERATE /lpf (FEW) 07/25/18 13:30 Salicylates < 25.0 mg/L (30.0-100.0) L 07/25/18 13:13 Urine Opiates Screen NEGATIVE (NEGATIVE) 07/25/18 13:30 Urine Methadone Screen NEGATIVE (NEGATIVE) 07/25/18 13:30 Acetaminophen < 10.0 ug/mL (10.0-30.0) L 07/25/18 13:13 Ur Barbiturates Screen NEGATIVE (NEGATIVE) 07/25/18 13:30 Valproic Acid 48.3 ug/mL (50.0-100.0) L 08/01/18 20:00 Ur Tricyclics Screen NEGATIVE (NEGATIVE) 07/25/18 13:30 Ur Phencyclidine Scrn NEGATIVE (NEGATIVE) 07/25/18 13:30 Amphetamines Screen POSITIVE (NEGATIVE) H 07/25/18 13:30 U Methamphetamines Scrn NEGATIVE (NEGATIVE) 07/25/18 13:30 U Benzodiazepines Scrn POSITIVE (NEGATIVE) H 07/25/18 13:30 U Cocaine Metab Screen NEGATIVE (NEGATIVE) 07/25/18 13:30 U Cannabinoids Screen NEGATIVE (NEGATIVE) 07/25/18 13:30 Ethyl Alcohol < 10 mg/dL (0-10) 07/25/18 13:13 RPR NONREACTIVE (NONREACTIVE) 07/25/18 13:13 - Physical Exam Vitals and I&O: Vital Signs Temp 98.1 F 08/07/18 14:03 Pulse 85 08/07/18 14:03 Resp 19 08/07/18 14:03 BP 113/60 08/07/18 14:03 Pulse Ox 96 08/07/18 14:03 Intake & Output 08/07/18 08/07/18 08/08/18 06:59 18:59 06:59 Intake Total 120 Balance 120 Intake: Oral 120 Other: # Voids 2 3 # Bowel Movements 1 Active Medications: Current Medications Acetaminophen (Tylenol) 650 mg PO Q4H PRN PRN Reason: MILD PAIN (LEVEL 1-3) Stop: 09/23/18 17:55 Last Admin: 07/25/18 20:25 Dose: 650 mg Al Hydrox/Mg Hydrox/Simethicone (Maalox) 30 ml PO Q4HR PRN PRN Reason: GI DISTRESS Stop: 09/23/18 17:57 Divalproex Sodium (Depakote Er) 500 mg PO BID [facility]; Protocol Stop: 09/24/18 08:59 Last Admin: 08/07/18 16:27 Dose: 500 mg Duloxetine HCl (Cymbalta) 60 mg PO BID [facility]; Protocol Stop: 09/24/18 08:59 Last Admin: 08/07/18 16:27 Dose: 60 mg Lorazepam (Ativan) 2 mg PO Q6HR PRN; Protocol PRN Reason: Anxiety Stop: 09/23/18 18:03 Last Admin: 08/07/18 12:48 Dose: 2 mg Magnesium Hydroxide (Milk Of Magnesia) 30 ml PO HS PRN PRN Reason: Constipation Multivitamins/Vitamin C (Theragran) 1 tab PO DAILY PATRICE Stop: 09/24/18 08:59 Last Admin: 08/07/18 09:09 Dose: 1 tab Quetiapine Fumarate (Seroquel) 100 mg PO TID [facility]; Protocol Stop: 09/24/18 08:59 Last Admin: 08/07/18 14:11 Dose: Not Given Tamsulosin HCl (Flomax) 0.4 mg PO HS [facility] Stop: 09/23/18 20:59 Last Admin: 08/06/18 21:16 Dose: 0.4 mg Trazodone HCl (Desyrel) 100 mg PO HS [facility]; Protocol Stop: 09/30/18 20:59 Last Admin: 08/06/18 21:16 Dose: 100 mg General: demented HEENT: NC/AT, PERRLA, EOMI, anicteric sclerae, throat clear Neck: Supple, No JVD, No thyromegaly, +2 carotid pulse wo bruit Lungs: CTAB Cardiovascular: RRR, Normal S1, Normal S2, without murmur Abdomen: soft, non-tender, non-distended Extremities: clear Neurological: no change - Procedures Procedures: Procedures Procedure Code Date CONTINUOUS INVASIVE MECHANICAL VENTILATION <96 CONSEC HRS 96.71 06/05/13 GROUP PSYCHOTHERAPY 75768 08/25/15 GROUP PSYCHOTHERAPY [id number] 08/25/15 INSERT EMERGENCY AIRWAY [id number] 06/05/13 INSERT ENDOTRACHEAL TUBE 96.04 06/05/13 VACCINATION NEC 99.55 06/24/13 Internal Medicine Assmt/Plan - Assessment Assessment: 1.BPH. 2.PSYCHOSIS - Plan Plan: CONTINUE ON CURRENT MEDICATION AND DIET. Nutritional Asmnt/Malnutr-PDOC - Dietary Evaluation Malnutrition Findings (Please click <Entered> for more info): Nutritional Asmnt/Malnutrition Start: 08/01/18 15: 39 Text: Status: Complete Freq: Protocol: Document 08/01/18 15:40 [email or web address] (Rec: 08/01/18 15:51 [email or web address] Nutritional Asmnt/Malnutrition Patient General Information Nutritional Screening Low Risk Diagnosis psychosis Pertinent Medical Hx/Surgical Hx chronic constipation, schizoaffective disorder, bipolar, BPH Subjective Information Pt reports NKFA, tolerating diet with no chew/swallow difficulty, decreased appetite [employer] however much improved during LOS (100% po intake all recorded meals/snacks past 3 days), declined food preferences, no N/V/D/C, last BM yesterday, ht 6', UBW 200 lb, some wt fluctuations however may have lost 7 lb in past month (not significant, 3 % loss). Current wt reflects usual. Current Diet Order/ Nutrition Support regular Patient / S.O Not Indicated Pertinent Medications Thergran, Flomax, PRN MOM Pertinent Labs (07/25) chol 207 Nutritional Hx/Data Height 1.83 m Height (Calculated Centimeters) 182.9 Current Weight (lbs) 90.265 kg Weight (Calculated Kilograms) 90.3 Weight (Calculated Grams) 42268.9 Usual body Weight (lbs) 200 % Usual Body Weight 100 [place] Body Weight 178 lb % [place] Body Weight 112 Body Mass Index (BMI) 26.9 Recent Weight Change No Weight Status Overweight GI Symptoms GI Symptoms None Last BM 07/31 Difficult in: None Food Allergies No Skin Integrity/Comment: intact, Dev score 22 Current %PO Good (75-100%) Estimated Nutritional Goals BEE in Kcals: Using Current wt Calories/Kcals/Kg 1802-9608 kcal Kcals Calculated 20-25 kcal/kg Protein: Using Current wt Protein g/k-90 Protein Calculated 0.8-1 g/kg Fluid: ml 4677-1962 ml (1 ml/kcal) Nutritional Problem 1. Problem Problem No nutrition dx at this time Intervention/Recommendation Comments 1. continue regular diet Expected Outcomes/Goals Expected Outcomes/Goals Goal: PO intake to meet at least 75% of nutritional needs . Monitor PO intake, wt, labs and skin integrity F/U as low risk in [address]
[2018-08-08] MEDS: Multivitamin Tab PO SCH (08:36)
--- NOTE | 2018-08-09 16:43 | Progress Notes ---
DATE: SUBJECTIVE: Chart reviewed and the patient interviewed. Also discussed the patient's condition with the staff and reviewed records and labs. The patient is still extremely anxious and agitated and the patient today seems to be delusional and paranoid talking about he is getting in another country and he wants to leave in order to get ready. Also, is still disheveled and is still unable to provide any safe plan for self-care. The patient also still needs lots of redirections. At the same time, we will continue to monitor his behavior and his medications and continue to work on his placement and continue to follow up. JOB# [id number]
--- NOTE | 2018-08-09 16:43 | Progress Notes ---
DATE: 08/08/2018 PSYCHIATRIC PROGRESS NOTE SUBJECTIVE: Chart was reviewed and the patient interviewed. Also discussed the patient's condition with the staff and reviewed records and labs. The patient is still anxious and he is still wandering about the discharge plans and placement issue. The patient at times is still talking about going to different country and having his girlfriend and going to get there. The patient also is still at times agitated. Otherwise, he just is just doing better. The patient also is still depressed and at times is hopeless and helpless. ASSESSMENT: The patient is still depressed and still needs close monitoring. TREATMENT PLAN: Continue to monitor his behavior and his condition closely. Also, continue to work on placement issue and on discharge plans. [facility]# [id number]
--- NOTE | 2018-08-11 15:43 | Discharge Summary ---
DATE OF DISCHARGE: 08/08/2018 PATIENT'S AGE: 63. SEX: Male. PHYSICIAN: Dr. Huff. FINAL DIAGNOSES/PRIMARY DIAGNOSES: Schizoaffective disorder, depressed episode, severe, without psychotic features. REASON FOR HOSPITALIZATION: The patient was admitted to the hospital because of severe depression and suicidal ideations. The patient lost his placement in [facility] and has been homeless for 2 months and he started to feel sorry for himself and started to have thoughts of suicide and did not want to live anymore. HOSPITAL COURSE: The patient continued to be severely depressed. The patient continued to feel hopeless and helpless. He continued to feel sorry for himself saying that "I am 63-year-old and achieved nothing in life." The patient also was withdrawn and guarded. The patient also had no place to live. The patient was compliant with taking his medications and he started to participate more in the groups and he had no side effects of medications. Placement was an issue and finally [facility] accepted the patient and the patient was discharged there. Physical exam of the patient showed no major medical problems while in the hospital. AFTER DISCHARGE PLANS: The patient discharged from the hospital with plans to continue his treatment in [facility]. EXPECTED OUTCOME AFTER DISCHARGE: Fair if the patient continues to take his medications and followup with discharge plans. [facility]# [id number]
== END 2018-08-08 15:30 | DRG 885 ==
LOC: ER 11:53 → GERO 16:45
PROVIDERS: ADMIT Psychiatry & Neurology Psychiatry; ATTEND Psychiatry & Neurology Psychiatry
DX: F25.0 Schizoaffective disorder, bipolar type (principal); N40.0 Benign prostatic hyperplasia without lower urinary tract symptoms; K59.09 Other constipation; I10 Essential (primary) hypertension; G89.29 Other chronic pain; F29 Unspecified psychosis not due to a substance or known physiological condition
CPT/HCPCS: 36415-UA; 80053-TC; 80061-TC; 80164-TC; 80307; 80320-TC; 80329-TC; 81001-TC; 83036-90; 84443-TC; 84484-TC; 85025-TC; 86592-TC; 90899; 93005; G0410; Z7610

== ENCOUNTER 2018-08-17 20:36 | Emergency (ER) | payer MEDICARE, MEDICAID ==
--- NOTE | 2018-08-17 21:05 | ED Physician Chart ---
ED Chief Complaint/HPI - Patient Information Date Seen:: 08/17/18 Time Seen:: 21:03 Chief Complaint:: insomnia anxiety History of Present Illness:: 63 yr old male with hx of disc dx chronic pain insomnia Allergies:: Allergies Allergy/AdvReac Type Severity Reaction Status Date / Time No Known Allergies Allergy Verified 08/17/18 20:51 Vitals:: Vital Signs - 8 hr 08/17/18 20:40 Temp 98.3 F HR 80 RR 18 BP 119/76 O2 Sat % 96 ED Review of Systems - Review of Systems General/Constitutional: No fever, No chills, No weight loss, No weakness, No diaphoresis, No edema, No loss of appetite Skin: No skin lesions, No rash, No bruising Head: No headache, No light-headedness Eyes: No loss of vision, No pain, No diplopia ENT: No earache, No nasal drainage, No sore throat, No tinnitus Neck: No neck pain, No swelling, No thyromegaly, No stiffness, No mass noted Cardio Vascular: No chest pain, No palpitations, No PND, No orthopnea, No edema Pulmonary: No SOB, No cough, No sputum, No wheezing GI: No nausea, No vomiting, No diarrhea, No pain, No melena, No hematochezia, No constipation, No hematemesis G/U: No dysuria, No frequency, No hematuria Musculoskeletal: No bone or joint pain, No back pain, No muscle pain Endocrine: No polyuria, No polydipsia Psychiatric: No prior psych history, No depression, No anxiety, No suicidal ideation Hematopoietic: No bruising, No lymphadenopathy Allergic/Immuno: No urticaria, No angioedema Neurological: No syncope, No focal symptoms, No weakness, No paresthesia, No headache, No seizure, No dizziness, No confusion, No vertigo ED Past Medical History - Past Medical History Past Medical History: Other (bph) Family Medical History - Family Member Mother History Unknown: Yes Ethnicity: Unknown Living Status: Unknown Hx Family Cancer: (unknown) Hx Family Coronary Artery Disease: (unknown) Hx Family Congestive Heart Failure: (unknown) Hx Family Hypertension: (unknown) Hx Family Stroke: (unknown) Hx Family Diabetes: (unknown) Hx Family Seizures: (unknown) Hx Family Dementia: (unknown) Hx Family AIDS: (unknown) Hx Family HIV: No Hx Family COPD: (unknown) Hx Family Hepatitis: (unknown) Hx Family Psychiatric Problems: (unknown) Hx Family Tuberculosis: (unknown) ED Physical Exam - Physical Examination General/Constitutional: Awake, Well-developed, well-nourished, Alert, No distress, GCS 15, Non-toxic appearing, Ambulatory Head: Atraumatic Eyes: Lids, conjuctiva normal, PERRL, EOMI Skin: Nl inspection, No rash, No skin lesions, No ecchymosis, Well hydrated, No lymphadenopathy ENMT: External ears, nose nl, Nasal exam nl, Lips, teeth, gums nl Neck: Nontender, Full ROM w/o pain, No JVD, No nuchal rigidity, No bruit, No mass, No stridor Respiratory: Nl effort/Exclusion, Clear to Auscultation, No Wheeze/Rhonchi/Rales Cardio Vascular: RRR, No murmur, gallop, rubs, NL S1 S2 GI: No tenderness/rebounding/guarding, No organomegaly, No hernia, Normal BS's, Nondistended, No mass/bruits, No McBurney tenderness : No CVA tenderness Extremities: No tenderness or effusion, Full ROM, normal strength in all extremities, No edema, Normal digits & nails Neuro/Psych: Alert/oriented, DTR's symmetric, Normal sensory exam, Normal motor strength, Judgement/insight normal, Mood normal, Normal gait, No focal deficits Misc: Normal back, No paraspinal tenderness ED Assessment - Assessment General Assessment: insomnia anxiety agitation ED Septic Shock - . Is Septic Shock (SBP<90, OR Lactate>4 mmol\L) present?: No - <6hrs of presentation: Vital Signs: Vital Signs - 8 hr 08/17/18 20:40 Temp 98.3 F HR 80 RR 18 BP 119/76 O2 Sat % 96 ED Reassessment (Disposition) - Reassessment Reassessment:: insomnia anxiety - Patient Disposition Discharge/Transfer:: Home Condition at Disposition:: Stable
== END 2018-08-17 23:30 | disposition home or self-care (01) ==
LOC: ER 20:36
DX: F41.9 Anxiety disorder, unspecified (principal); G47.00 Insomnia, unspecified; R45.1 Restlessness and agitation; Z59.0 Homelessness

== ENCOUNTER 2018-08-21 11:01 | Inpatient (IN) | payer MEDICARE, MEDICAID ==
--- NOTE | 2018-08-21 11:42 | ED Physician Chart ---
ED Chief Complaint/HPI - Patient Information Date Seen:: 08/21/18 Time Seen:: 11:30 Chief Complaint:: depression History of Present Illness:: Patient has been anxious and depressed for 4 months. He has suicidal ideation. He's had 3 prior suicide attempts: Choking himself and overdosing. Patient stepped off a curb awkwardly last night causing him to get increased low back pain which radiated primarily down his right leg with what he describes as a sharp pain. Patient denies bladder or bowel problems. He was seen at [facility] both last night and this morning for this increased low back pain. Patient was admitted to our [facility] department 6 weeks ago for 6 days and discharged to [facility] from which he was discharged discharged 2 1/2 weeks ago. Patient is currently homeless. Allergies:: Allergies Allergy/AdvReac Type Severity Reaction Status Date / Time No Known Allergies Allergy Verified 08/17/18 20:51 Vitals:: Vital Signs - 8 hr 08/21/18 11:03 Temp 97.8 F HR 87 RR 18 BP 134/81 O2 Sat % 94 Historian:: Patient Review:: Nurse's Note Reviewed ED Review of Systems - Review of Systems General/Constitutional: No fever, No chills Skin: No skin lesions Head: No headache Eyes: No loss of vision ENT: No earache Neck: No neck pain, No swelling Cardio Vascular: No chest pain Pulmonary: No SOB GI: No nausea, No vomiting, No diarrhea G/U: No dysuria Musculoskeletal: Back pain Endocrine: No polyuria, No polydipsia Psychiatric: Prior psych history, Depression, Anxiety Hematopoietic: No bruising Allergic/Immuno: No urticaria Neurological: No syncope, No focal symptoms, No dizziness ED Past Medical History - Past Medical History Past Medical History: Other (chronic low back pain; depression; anxiety) Family History: Other (father had lung cancer; mother had dementia and depression) Social History: Non Smoker, No Alcohol, No Drug Use, Homeless Surgical History: None Psychiatricy History: Depression, Other (anxiety) Medication: Reviewed Family Medical History - Family Member Mother History Unknown: Yes Ethnicity: Unknown Living Status: Unknown Hx Family Cancer: (unknown) Hx Family Coronary Artery Disease: (unknown) Hx Family Congestive Heart Failure: (unknown) Hx Family Hypertension: (unknown) Hx Family Stroke: (unknown) Hx Family Diabetes: (unknown) Hx Family Seizures: (unknown) Hx Family Dementia: (unknown) Hx Family AIDS: (unknown) Hx Family HIV: No Hx Family COPD: (unknown) Hx Family Hepatitis: (unknown) Hx Family Psychiatric Problems: (unknown) Hx Family Tuberculosis: (unknown) ED Physical Exam - Physical Examination General/Constitutional: Awake, Well-developed, well-nourished, Alert, No distress, GCS 15, Non-toxic appearing, Ambulatory Head: Atraumatic Eyes: Lids, conjuctiva normal, PERRL, EOMI Skin: Nl inspection, No rash, No skin lesions, No ecchymosis, Well hydrated, No lymphadenopathy ENMT: External ears, nose nl, Nasal exam nl Other ENMT comments:: some teeth absent; 3 out of 4 gum retraction Neck: Nontender, Full ROM w/o pain, No JVD, No nuchal rigidity, No bruit, No mass, No stridor Respiratory: Nl effort/Exclusion, Clear to Auscultation, No Wheeze/Rhonchi/Rales Cardio Vascular: RRR, No murmur, gallop, rubs, NL S1 S2 GI: No tenderness/rebounding/guarding, No organomegaly, No hernia, Normal BS's, Nondistended, No mass/bruits, No McBurney tenderness : No CVA tenderness Extremities: No tenderness or effusion, Full ROM, normal strength in all extremities, No edema, Normal digits & nails Neuro/Psych: Alert/oriented, Judgement/insight normal, Mood normal, Normal gait , No focal deficits Other Neuro/Psych comments:: Straight leg raising at 60 bilaterally; deep tendon reflexes knees and ankles 2 out of 4 Misc: Normal back, No paraspinal tenderness ED Labs/Radiology/EKG Results - Lab Results Results: Laboratory Results WBC 4.3 Th/cmm (4.8-10.8) L 08/21/18 11:43 RBC 5.00 Mil/cmm (4.30-5.70) 08/21/18 11:43 Hgb 14.0 gm/dL (12-16) 08/21/18 11:43 Hct 42.3 % (41.0-60) 08/21/18 11:43 MCV 84.6 fl (80-99) 08/21/18 11:43 MCH 28.0 pg (26.0-30.0) 08/21/18 11:43 MCHC Differential 33.1 pg (28.0-36.0) 08/21/18 11:43 RDW 14.0 % (11.5-20.0) 08/21/18 11:43 Plt Count 319 Th/cmm (150-400) 08/21/18 11:43 MPV 7.6 fl 08/21/18 11:43 Neutrophils % 85.5 % (40.0-80.0) H 08/21/18 11:43 Lymphocytes % 12.2 % (20.0-50.0) L 08/21/18 11:43 Monocytes % 0.7 % (2.0-10.0) L 08/21/18 11:43 Eosinophils % 0.4 % (0.0-5.0) 08/21/18 11:43 Basophils % 1.2 % (0.0-2.0) 08/21/18 11:43 Sodium 138 mEq/L (136-145) 08/21/18 11:43 Potassium 4.3 mEq/L (3.5-5.1) 08/21/18 11:43 Chloride 104 mEq/L (98-107) 08/21/18 11:43 Carbon Dioxide 24.0 mEq/L (21.0-31.0) 08/21/18 11:43 Anion Gap 14.3 (7.0-16.0) 08/21/18 11:43 BUN 13 mg/dL (7-25) 08/21/18 11:43 Creatinine 1.1 mg/dL (0.7-1.3) 08/21/18 11:43 Est GFR ( Amer) > 60.0 ml/min (>90) 08/21/18 11:43 Est GFR (Non-Af Amer) > 60.0 ml/min 08/21/18 11:43 BUN/Creatinine Ratio 11.8 08/21/18 11:43 Glucose 221 mg/dL (70-105) H 08/21/18 11:43 Calcium 9.4 mg/dL (8.6-10.3) 08/21/18 11:43 Total Bilirubin 0.4 mg/dL (0.3-1.0) 08/21/18 11:43 AST 22 U/L (13-39) 08/21/18 11:43 ALT 24 U/L (7-52) 08/21/18 11:43 Alkaline Phosphatase 53 U/L (34-104) 08/21/18 11:43 Total Protein 6.9 gm/dL (6.0-8.3) 08/21/18 11:43 Albumin 4.3 gm/dL (4.2-5.5) 08/21/18 11:43 Globulin 2.6 gm/dL 08/21/18 11:43 Albumin/Globulin Ratio 1.7 (1.0-1.8) 08/21/18 11:43 Triglycerides 78 mg/dL (<150) 08/21/18 11:43 Cholesterol 208 mg/dL (<200) H 08/21/18 11:43 LDL Cholesterol Direct 133 mg/dL (75-193) 08/21/18 11:43 HDL Cholesterol 48 mg/dL (23-92) 08/21/18 11:43 TSH 0.48 uIU/ml (0.34-5.60) 08/21/18 11:43 - EKG Interpretations Rate & Rhythm: normal sinus rhythm with a rate of 72 [place]: normal ED Assessment - Assessment General Assessment: Patient is medically clear. Glucose is 221. CO2 is 24. ED Septic Shock - . Is Septic Shock (SBP<90, OR Lactate>4 mmol\L) present?: No - <6hrs of presentation: Vital Signs: Vital Signs - 8 hr 08/21/18 11:03 Temp 97.8 F HR 87 RR 18 BP 134/81 O2 Sat % 94 ED Reassessment (Disposition) - Reassessment Reassessment Condition:: Unchanged - Diagnosis Diagnosis:: Suicidal ideation; depression; hyperglycemia; probable diabetes; patient is medically clear; low back pain - Patient Disposition Discharge/Transfer:: psychiatric facility Condition at Disposition:: Stable, Unchanged
[2018-08-21 11:57] LABS: % BASOPHILS 1.2 % (0.0-2.0); % EOSINOPHILS 0.4 % (0.0-5.0); % LYMPHOCYTES 12.2 % (20.0-50.0); % MONOCYTES 0.7 % (2.0-10.0); % NEUTROPHILS 85.5 % (40.0-80.0); BASOPHILE ABSOLUTE 0.1 Th/cumm (0-0.2); HEMATOCRIT 42.3 % (41.0-60); LYMPHOCYTE ABSOLUTE 0.5 Th/cmm (1.5-3.0); MEAN CELL VOLUME 84.6 fl (80-99); MEAN CORPUSCULAR HGB CONC 33.1 pg (28.0-36.0); NEUTROPHILE ABSOLUTE 3.7 Th/cmm (1.8-8.0); PLATELET COUNT 319 Th/cmm (150-400); WHITE BLOOD COUNT 4.3 Th/cmm (4.8-10.8)
[2018-08-21 12:04] LABS: ALB/GLOB RATIO 1.7 (1.0-1.8); ALBUMIN 4.3 gm/dL (4.2-5.5); ALKALINE PHOSPHATASE 53 U/L (34-104); ANION GAP 14.3 (7.0-16.0); BILIRUBIN,TOTAL 0.4 mg/dL (0.3-1.0); BUN - UREA NITROGEN 13 mg/dL (7-25); CALCIUM SERUM 9.4 mg/dL (8.6-10.3); CHLORIDE 104 mEq/L (98-107); CHOLESTEROL 208 mg/dL (<200); CREATININE - SERUM 1.1 mg/dL (0.7-1.3); GFR AFRICAN-AMERICAN > 60.0 ml/min (>90); GFR NON AFRICAN-AMERICAN > 60.0 ml/min; GLUCOSE 221 mg/dL (70-105); HDL -HIGH DENSITY LIPOPROTEIN 48 mg/dL (23-92); POTASSIUM SERUM 4.3 mEq/L (3.5-5.1); SGOT 22 U/L (13-39); SGPT/ALT 24 U/L (7-52); SODIUM SERUM 138 mEq/L (136-145); TOTAL PROTEIN,SERUM 6.9 gm/dL (6.0-8.3); TRIGLYCERIDES 78 mg/dL (<150)
[2018-08-21 18:20] LABS: URINE SOURCE CLEAN C
[2018-08-21 18:23] LABS: URINE BILIRUBIN SMALL (NEGATIVE); URINE BLOOD NEGATIVE (NEGATIVE); URINE GLUCOSE (UA) NEGATIVE (NEGATIVE); URINE KETONE NEGATIVE (NEGATIVE); URINE LEUKOCYTE ESTERASE NEGATIVE (NEGATIVE); URINE NITRATE NEGATIVE (NEGATIVE); URINE PROTEIN 30 mg/dL (NEGATIVE); URINE UROBILINOGEN 0.2 E.U./dL (0.2 - 1.0)
[2018-08-21 18:32] LABS: URINE CLARITY HAZY (CLEAR); URINE COLOR YELLOW; URINE MICROSCOPIC INDICATED? YES
[2018-08-21 18:33] LABS: URINE BACTERIA FEW /hpf (NONE SEEN); URINE EPITHELIAL CELLS RARE /lpf (FEW)
[2018-08-21 18:39] VITALS: BP 153/100
--- NOTE | 2018-08-21 23:20 | History & Physical ---
ADMIT DATE: 08/21/2018 HISTORY OF PRESENT ILLNESS: The patient is a 63-year-old male with long history of hypertension, chronic back pain, psychosis, admitted to [facility] Dr. Huff's service for evaluation and treatment. The patient denies any chest pain, shortness of breath, nausea, vomiting, fever or chills. PAST MEDICAL HISTORY: Significant for hypertension, degenerative joint disease, chronic back pain, hyperlipidemia. PAST SURGICAL HISTORY: No recent surgery. ALLERGIES: None. MEDICATIONS: Follow admission reconciliation. SOCIAL HISTORY: No smoking, no alcohol, no drug. FAMILY HISTORY: Noncontributory. REVIEW OF SYSTEMS: IMMUNO SYSTEM: No history of chronic immune disorder. CARDIOVASCULAR SYSTEM: No coronary artery disease. ENDOCRINE SYSTEM: No diabetes or thyroid problem. GASTROINTESTINAL SYSTEM: No upper or lower gastrointestinal bleed. NEUROLOGICAL SYSTEM: Seizure disorder. SKELETOMUSCULAR SYSTEM: No muscular dystrophy. HEMATOLOGICAL SYSTEM: No bleeding tendency. RESPIRATORY SYSTEM: No asthma. GENITOURINARY SYSTEM: No dysuria or hematuria. PHYSICAL EXAMINATION: GENERAL: He is awake, alert, oriented. VITAL SIGNS: His temperature is 97.5, heart rate 80, blood pressure 153/100. HEENT: Normocephalic. Pupils reactive to light and accommodation. Sclerae clear. NECK: Supple. Negative for lymphadenopathy, JVD or bruit. CHEST: Entry of air bilaterally normal. No rhonchi or wheezing. HEART: S1, S2 normal. No gallop rhythm. ABDOMEN: Soft, bowel sounds positive. EXTREMITIES: No edema. NEUROLOGIC: He is awake, alert, oriented. No focal muscle deficits. Cranial nerves 2-12 are intact. LABORATORY DATA: White blood cell 4.3, hemoglobin 14, hematocrit 42.3, platelet is 390. Sodium 138, potassium 4.3, BUN 50, creatinine 0.1, cholesterol 208. ASSESSMENT: 1. Hypertension. 2. Chronic back pain. 3. Hyperlipidemia. 4. Psychosis. PLAN: The patient is in the hospital under Dr. Huff's service. Problem addressed during this hospitalization is psychosis. Medical problems addressed at discharge are hypertension, hyperlipidemia, chronic back pain. The patient is medically stable for activity. Thank you, Dr. Huff, for asking me to see your patient. The patient is full code. JOB# [id number]
[2018-08-22 08:22] LABS: CHOLESTEROL 223 mg/dL (<200); HDL -HIGH DENSITY LIPOPROTEIN 49 mg/dL (23-92); TRIGLYCERIDES 183 mg/dL (<150)
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
--- NOTE | 2018-08-22 14:43 | Internal Medicine Prog Note ---
Internal Medicine Subjective - Subjective Service Date: 08/22/18 Patient seen and examined:: without staff (HE FEELS WELL) Patient is:: awake, verbal, talking Per staff patient has:: no adverse event, tolerating meds Internal Medicine Objective - Results Result Diagrams: 08/21/18 11:43 08/21/18 11:43 Recent Labs: Laboratory Last Values WBC 4.3 Th/cmm (4.8-10.8) L 08/21/18 11:43 RBC 5.00 Mil/cmm (4.30-5.70) 08/21/18 11:43 Hgb 14.0 gm/dL (12-16) 08/21/18 11:43 Hct 42.3 % (41.0-60) 08/21/18 11:43 MCV 84.6 fl (80-99) 08/21/18 11:43 MCH 28.0 pg (26.0-30.0) 08/21/18 11:43 MCHC Differential 33.1 pg (28.0-36.0) 08/21/18 11:43 RDW 14.0 % (11.5-20.0) 08/21/18 11:43 Plt Count 319 Th/cmm (150-400) 08/21/18 11:43 MPV 7.6 fl 08/21/18 11:43 Neutrophils % 85.5 % (40.0-80.0) H 08/21/18 11:43 Lymphocytes % 12.2 % (20.0-50.0) L 08/21/18 11:43 Monocytes % 0.7 % (2.0-10.0) L 08/21/18 11:43 Eosinophils % 0.4 % (0.0-5.0) 08/21/18 11:43 Basophils % 1.2 % (0.0-2.0) 08/21/18 11:43 Sodium 138 mEq/L (136-145) 08/21/18 11:43 Potassium 4.3 mEq/L (3.5-5.1) 08/21/18 11:43 Chloride 104 mEq/L (98-107) 08/21/18 11:43 Carbon Dioxide 24.0 mEq/L (21.0-31.0) 08/21/18 11:43 Anion Gap 14.3 (7.0-16.0) 08/21/18 11:43 BUN 13 mg/dL (7-25) 08/21/18 11:43 Creatinine 1.1 mg/dL (0.7-1.3) 08/21/18 11:43 Est GFR ( Amer) > 60.0 ml/min (>90) 08/21/18 11:43 Est GFR (Non-Af Amer) > 60.0 ml/min 08/21/18 11:43 BUN/Creatinine Ratio 11.8 08/21/18 11:43 Glucose 221 mg/dL (70-105) H 08/21/18 11:43 POC Glucose 82 MG/DL (70 - 105) 08/22/18 06:31 Calcium 9.4 mg/dL (8.6-10.3) 08/21/18 11:43 Total Bilirubin 0.4 mg/dL (0.3-1.0) 08/21/18 11:43 AST 22 U/L (13-39) 08/21/18 11:43 ALT 24 U/L (7-52) 08/21/18 11:43 Alkaline Phosphatase 53 U/L (34-104) 08/21/18 11:43 Total Protein 6.9 gm/dL (6.0-8.3) 08/21/18 11:43 Albumin 4.3 gm/dL (4.2-5.5) 08/21/18 11:43 Globulin 2.6 gm/dL 08/21/18 11:43 Albumin/Globulin Ratio 1.7 (1.0-1.8) 08/21/18 11:43 Triglycerides 183 mg/dL (<150) H 08/22/18 07:50 Cholesterol 223 mg/dL (<200) H 08/22/18 07:50 LDL Cholesterol Direct 133 mg/dL (75-193) 08/22/18 07:50 HDL Cholesterol 49 mg/dL (23-92) 08/22/18 07:50 TSH 0.48 uIU/ml (0.34-5.60) 08/21/18 11:43 Urine Source CLEAN C 08/21/18 18:15 Urine Color YELLOW 08/21/18 18:15 Urine Clarity HAZY (CLEAR) 08/21/18 18:15 Urine pH 5.0 (4.6 - 8.0) 08/21/18 18:15 Ur Specific [place] [employer] >= 1.030 (1.005-1.030) 08/21/18 18:15 Urine Protein 30 mg/dL (NEGATIVE) H 08/21/18 18:15 Urine Glucose (UA) NEGATIVE mg/dL (NEGATIVE) 08/21/18 18:15 Urine Ketones NEGATIVE mg/dL (NEGATIVE) 08/21/18 18:15 Urine Blood NEGATIVE (NEGATIVE) 08/21/18 18:15 Urine Nitrate NEGATIVE (NEGATIVE) 08/21/18 18:15 Urine Bilirubin SMALL (NEGATIVE) H 08/21/18 18:15 Urine Urobilinogen 0.2 E.U./dL (0.2 - 1.0) 08/21/18 18:15 Ur Leukocyte Esterase NEGATIVE (NEGATIVE) 08/21/18 18:15 Urine RBC 2-5 /hpf (0-5) H 08/21/18 18:15 Urine WBC 2-5 /hpf (0-5) 08/21/18 18:15 Ur Epithelial Cells RARE /lpf (FEW) 08/21/18 18:15 Urine Bacteria FEW /hpf (NONE SEEN) 08/21/18 18:15 - Physical Exam Vitals and I&O: Vital Signs Temp 97.6 F 08/22/18 06:28 Pulse 86 08/22/18 08:17 Resp 20 08/22/18 06:28 BP 142/79 08/22/18 08:17 Pulse Ox 99 08/22/18 06:28 Intake & Output 08/21/18 08/22/18 08/22/18 18:59 06:59 18:59 Intake Total 120 Balance 120 Weight (lbs) 86.183 kg Intake: Oral 120 Other: # Voids 2 Weight Source Patient stated Active Medications: Current Medications Acetaminophen/Hydrocodone Bitart ([place] 5mg/325mg) 1 tab PO Q6HR PRN PRN Reason: Pain (Severe) Stop: 10/20/18 20:00 Amlodipine Besylate (Norvasc) 5 mg PO DAILY PATRICE Stop: 10/21/18 08:59 Last Admin: 08/22/18 08:17 Dose: 5 mg Lorazepam (Ativan) 0.5 mg PO Q4HR PRN; Protocol PRN Reason: Anxiety Stop: 09/20/18 19:34 Last Admin: 08/22/18 10:59 Dose: 0.5 mg Methocarbamol (Robaxin) 750 mg PO TID PATRICE Stop: 10/20/18 20:59 Last Admin: 08/22/18 13:15 Dose: Not Given Naproxen (Naprosyn) 500 mg PO BID PATRICE Stop: 10/21/18 08:59 Last Admin: 08/22/18 08:16 Dose: 500 mg Zolpidem Tartrate (Ambien) 5 mg PO HS PRN PRN Reason: Insomnia Stop: 10/20/18 19:34 Last Admin: 08/21/18 22:43 Dose: 5 mg General: alert HEENT: NC/AT, PERRLA, EOMI, anicteric sclerae, throat clear Neck: Supple, No JVD, No thyromegaly, +2 carotid pulse wo bruit, No LAD Lungs: CTAB Cardiovascular: RRR, Normal S1, Normal S2, without murmur Abdomen: soft, non-tender, non-distended Extremities: clear Neurological: no change - Procedures Procedures: Procedures Procedure Code Date CONTINUOUS INVASIVE MECHANICAL VENTILATION <96 CONSEC HRS 96.71 06/05/13 GROUP PSYCHOTHERAPY 82161 08/25/15 GROUP PSYCHOTHERAPY GZHZZZZ 08/25/15 INSERT EMERGENCY AIRWAY [id number] 06/05/13 INSERT ENDOTRACHEAL TUBE 96.04 06/05/13 VACCINATION NEC 99.55 06/24/13 Internal Medicine Assmt/Plan - Assessment Assessment: 1.HTN. 2.CHRONIC BACK PAIN. 3.HYPERLIPIDEMIA. 4.PSYCHOSIS - Plan Plan: CONTINUE ON CURRENT MEDICATION AND DIET. Nutritional Asmnt/Malnutr-PDOC - Dietary Evaluation Malnutrition Findings (Please click <Entered> for more info): Nutritional Asmnt/Malnutrition Start: 08/22/18 14: 11 Text: Status: Active Freq: Protocol: Document 08/22/18 14:11 VINCE (Rec: 08/22/18 14:31 VINCE [email or web address]) Nutritional Asmnt/Malnutrition Patient General Information Nutritional Screening High Risk Diagnosis SUICIDAL IDEATION Pertinent Medical Hx/Surgical Hx HTN, CHRONIC BACK PAIN, PSYCHOSIS, HYPERLIPIDEMIA, DEGENERATIVE JOINT DISEASE Subjective Information IA HR, CONSULT: HIGH GULCOSE 221 63 YEAR OLD MALE ADMITTED FOR SUICIDAL IDEATIONS. HT: 6 FT WT: 190 LB. (86KG) BMI: 25.77 (OVERWEIGHT) I/O: 120/NOT NOTED GI: SOFT, ACTIVE SKIN: WNL PUSHPA: 21 ESTIMATED ENERGY NEEDS: 7062-8188 KCALS (20-25 KCALS/ KG) 69-78 G PRO (0.8-0.9 G/KG) 0054-9604 ML FLUIDS (35-40 ML/ KG) DIETARY IS CURRENTLY PROVIDING AN ESTIMATED 2169 KCALS AND 97 G PRO, MEETING 100% KCAL AND 100%+ PRO NEEDS - ADEQUATE . CONSULT FOR HIGH GLUC 122 HAS RESOLVED WITH POC GLUC 82. WILL CONTINUE TO MONITOR NUTRITION RELATED LABS. Current Diet Order/ Nutrition Support REGULAR Pertinent Medications N/A Pertinent Labs 08/22: POC GLUC 82 08/21: GLUC 221 Nutritional Hx/Data Height 1.83 m Height (Calculated Centimeters) 182.9 Current Weight (lbs) 86.183 kg Weight (Calculated Kilograms) 86.2 Weight (Calculated Grams) 58951.6 [place] Body Weight 178 % [place] Body Weight 107 Body Mass Index (BMI) 25.7 Weight Status Overweight GI Symptoms GI Symptoms None Last BM NOT NOTED Skin Integrity/Comment: WNL Estimated Nutritional Goals BEE in Kcals: Using Current wt Calories/Kcals/Kg 20-25 Kcals Calculated 6281-8526 Protein: Using Current wt Protein g/k.8-0.9 Protein Calculated 69-78 Fluid: ml 4399-1784 Nutritional Problem 1. Problem Problem ALTERED NUTRITION RELATED LABORATORY VALUES Etiology R/T PATHOPHYSIOLOGICAL CAUSES Signs/Symptoms: AEB GLUC 122 Malnutrition Related to Morbid Obesity Malnutrition related to morbid obesity No Intervention/Recommendation Comments 1. CONTINUE WITH REGULAR DIET ORDERED. Expected Outcomes/Goals Expected Outcomes/Goals 1. PO INTAKE TO MEET >75% ESTIMATED NEEDS. 2. NUTRITION RELATED LABS TO TREND WNL IN 3-5 DAYS. 3. MONITOR PO INTAKE, WT, SKIN INTEGRITY, AND NUTRITION RELATED LABS. 4. F/U MR IN 3-5 DAYS.
[2018-08-23 06:07] LABS: A1C 5.8 % (4.8-5.6)
[2018-08-23] MEDS: Hydrocodone/APAP 5mg/325mg Tab PO PRN ×2 (08:11→13:56)
--- NOTE | 2018-08-23 12:11 | General Progress Note ---
Subjective - Review of Systems Service Date: 08/23/18 Subjective: resting comfortably no distress Objective - Results Result Diagrams: 08/21/18 11:43 08/21/18 11:43 Recent Labs: Laboratory Last Values WBC 4.3 Th/cmm (4.8-10.8) L 08/21/18 11:43 RBC 5.00 Mil/cmm (4.30-5.70) 08/21/18 11:43 Hgb 14.0 gm/dL (12-16) 08/21/18 11:43 Hct 42.3 % (41.0-60) 08/21/18 11:43 MCV 84.6 fl (80-99) 08/21/18 11:43 MCH 28.0 pg (26.0-30.0) 08/21/18 11:43 MCHC Differential 33.1 pg (28.0-36.0) 08/21/18 11:43 RDW 14.0 % (11.5-20.0) 08/21/18 11:43 Plt Count 319 Th/cmm (150-400) 08/21/18 11:43 MPV 7.6 fl 08/21/18 11:43 Neutrophils % 85.5 % (40.0-80.0) H 08/21/18 11:43 Lymphocytes % 12.2 % (20.0-50.0) L 08/21/18 11:43 Monocytes % 0.7 % (2.0-10.0) L 08/21/18 11:43 Eosinophils % 0.4 % (0.0-5.0) 08/21/18 11:43 Basophils % 1.2 % (0.0-2.0) 08/21/18 11:43 Sodium 138 mEq/L (136-145) 08/21/18 11:43 Potassium 4.3 mEq/L (3.5-5.1) 08/21/18 11:43 Chloride 104 mEq/L (98-107) 08/21/18 11:43 Carbon Dioxide 24.0 mEq/L (21.0-31.0) 08/21/18 11:43 Anion Gap 14.3 (7.0-16.0) 08/21/18 11:43 BUN 13 mg/dL (7-25) 08/21/18 11:43 Creatinine 1.1 mg/dL (0.7-1.3) 08/21/18 11:43 Est GFR ( Amer) > 60.0 ml/min (>90) 08/21/18 11:43 Est GFR (Non-Af Amer) > 60.0 ml/min 08/21/18 11:43 BUN/Creatinine Ratio 11.8 08/21/18 11:43 Glucose 221 mg/dL (70-105) H 08/21/18 11:43 POC Glucose 82 MG/DL (70 - 105) 08/22/18 06:31 Calcium 9.4 mg/dL (8.6-10.3) 08/21/18 11:43 Total Bilirubin 0.4 mg/dL (0.3-1.0) 08/21/18 11:43 AST 22 U/L (13-39) 08/21/18 11:43 ALT 24 U/L (7-52) 08/21/18 11:43 Alkaline Phosphatase 53 U/L (34-104) 08/21/18 11:43 Total Protein 6.9 gm/dL (6.0-8.3) 08/21/18 11:43 Albumin 4.3 gm/dL (4.2-5.5) 08/21/18 11:43 Globulin 2.6 gm/dL 08/21/18 11:43 Albumin/Globulin Ratio 1.7 (1.0-1.8) 08/21/18 11:43 Triglycerides 183 mg/dL (<150) H 08/22/18 07:50 Cholesterol 223 mg/dL (<200) H 08/22/18 07:50 LDL Cholesterol Direct 133 mg/dL (75-193) 08/22/18 07:50 HDL Cholesterol 49 mg/dL (23-92) 08/22/18 07:50 TSH 0.48 uIU/ml (0.34-5.60) 08/21/18 11:43 Urine Source CLEAN C 08/21/18 18:15 Urine Color YELLOW 08/21/18 18:15 Urine Clarity HAZY (CLEAR) 08/21/18 18:15 Urine pH 5.0 (4.6 - 8.0) 08/21/18 18:15 Ur Specific [place] >= 1.030 (1.005-1.030) 08/21/18 18:15 Urine Protein 30 mg/dL (NEGATIVE) H 08/21/18 18:15 Urine Glucose (UA) NEGATIVE mg/dL (NEGATIVE) 08/21/18 18:15 Urine Ketones NEGATIVE mg/dL (NEGATIVE) 08/21/18 18:15 Urine Blood NEGATIVE (NEGATIVE) 08/21/18 18:15 Urine Nitrate NEGATIVE (NEGATIVE) 08/21/18 18:15 Urine Bilirubin SMALL (NEGATIVE) H 08/21/18 18:15 Urine Urobilinogen 0.2 E.U./dL (0.2 - 1.0) 08/21/18 18:15 Ur Leukocyte Esterase NEGATIVE (NEGATIVE) 08/21/18 18:15 Urine RBC 2-5 /hpf (0-5) H 08/21/18 18:15 Urine WBC 2-5 /hpf (0-5) 08/21/18 18:15 Ur Epithelial Cells RARE /lpf (FEW) 08/21/18 18:15 Urine Bacteria FEW /hpf (NONE SEEN) 08/21/18 18:15 - Physical Exam Vitals and I&O: Vital Signs Temp 97.8 F 08/23/18 05:54 Pulse 68 08/23/18 08:10 Resp 19 08/23/18 05:54 BP 120/71 08/23/18 08:10 Pulse Ox 95 08/23/18 05:54 Intake & Output 08/22/18 08/23/18 08/23/18 18:59 06:59 18:59 Intake Total 1320 360 Balance 1320 360 Intake: Oral 1080 360 Other 240 Other: # Voids 4 2 # Bowel Movements 0 0 Active Medications: Current Medications Acetaminophen/Hydrocodone Bitart ([place] 5mg/325mg) 1 tab PO Q6HR PRN PRN Reason: Pain (Severe) Stop: 10/20/18 20:00 Last Admin: 08/23/18 08:11 Dose: 1 tab Amlodipine Besylate (Norvasc) 5 mg PO DAILY PATRICE Stop: 10/21/18 08:59 Last Admin: 08/23/18 08:10 Dose: 5 mg Lorazepam (Ativan) 0.5 mg PO Q4HR PRN; Protocol PRN Reason: Anxiety Stop: 09/20/18 19:34 Last Admin: 08/23/18 12:07 Dose: 0.5 mg Methocarbamol (Robaxin) 750 mg PO TID PATRICE Stop: 10/20/18 20:59 Last Admin: 08/23/18 08:10 Dose: 750 mg Naproxen (Naprosyn) 500 mg PO BID PATRICE Stop: 10/21/18 08:59 Last Admin: 08/23/18 08:10 Dose: 500 mg Zolpidem Tartrate (Ambien) 5 mg PO HS PRN PRN Reason: Insomnia Stop: 10/20/18 19:34 Last Admin: 08/22/18 20:39 Dose: 5 mg General: No acute distress HEENT: Atraumatic, PERRLA Neck: Supple, JVD Cardiovascular: Regular rate, Normal S1, Normal S2 Lungs: Clear to auscultation Abdomen: Bowel sounds, Soft - Procedures Procedures: Procedures Procedure Code Date CONTINUOUS INVASIVE MECHANICAL VENTILATION <96 CONSEC HRS 96.71 06/05/13 GROUP PSYCHOTHERAPY 60843 08/25/15 GROUP PSYCHOTHERAPY GZHZZZZ 08/25/15 INSERT EMERGENCY AIRWAY 00342 06/05/13 INSERT ENDOTRACHEAL TUBE 96.04 06/05/13 VACCINATION NEC 99.55 06/24/13 Assessment/Plan - Assessment Assessment: 1.HTN. 2.CHRONIC BACK PAIN. 3.HYPERLIPIDEMIA. 4.PSYCHOSIS - Plan Plan: continue current treatment Nutritional Asmnt/Malnutr-PDOC - Dietary Evaluation Malnutrition Findings (Please click <Entered> for more info): Nutritional Asmnt/Malnutrition Start: 08/22/18 14: 11 Text: Status: Active Freq: Protocol: Document 08/22/18 14:11 VINCE (Rec: 08/22/18 14:31 VINCE [email or web address]) Nutritional Asmnt/Malnutrition Patient General Information Nutritional Screening High Risk Diagnosis SUICIDAL IDEATION Pertinent Medical Hx/Surgical Hx HTN, CHRONIC BACK PAIN, PSYCHOSIS, HYPERLIPIDEMIA, DEGENERATIVE JOINT DISEASE Subjective Information IA HR, CONSULT: HIGH GULCOSE 221 63 YEAR OLD MALE ADMITTED FOR SUICIDAL IDEATIONS. HT: 6 FT WT: 190 LB. (86KG) BMI: 25.77 (OVERWEIGHT) I/O: 120/NOT NOTED GI: SOFT, ACTIVE SKIN: WNL PUSHPA: 21 ESTIMATED ENERGY NEEDS: 6665-7081 KCALS (20-25 KCALS/ KG) 69-78 G PRO (0.8-0.9 G/KG) 5458-0629 ML FLUIDS (35-40 ML/ KG) DIETARY IS CURRENTLY PROVIDING AN ESTIMATED 2169 KCALS AND 97 G PRO, MEETING 100% KCAL AND 100%+ PRO NEEDS - ADEQUATE . CONSULT FOR HIGH GLUC 122 HAS RESOLVED WITH POC GLUC 82. WILL CONTINUE TO MONITOR NUTRITION RELATED LABS. Current Diet Order/ Nutrition Support REGULAR Pertinent Medications N/A Pertinent Labs 08/22: POC GLUC 82 08/21: GLUC 221 Nutritional Hx/Data Height 1.83 m Height (Calculated Centimeters) 182.9 Current Weight (lbs) 86.183 kg Weight (Calculated Kilograms) 86.2 Weight (Calculated Grams) 08085.6 [place] Body Weight 178 % [place] Body Weight 107 Body Mass Index (BMI) 25.7 Weight Status Overweight GI Symptoms GI Symptoms None Last BM NOT NOTED Skin Integrity/Comment: WNL Estimated Nutritional Goals BEE in Kcals: Using Current wt Calories/Kcals/Kg 20-25 Kcals Calculated 1365-3289 Protein: Using Current wt Protein g/k.8-0.9 Protein Calculated 69-78 Fluid: ml 6056-5720 Nutritional Problem 1. Problem Problem ALTERED NUTRITION RELATED LABORATORY VALUES Etiology R/T PATHOPHYSIOLOGICAL CAUSES Signs/Symptoms: AEB GLUC 122 Malnutrition Related to Morbid Obesity Malnutrition related to morbid obesity No Intervention/Recommendation Comments 1. CONTINUE WITH REGULAR DIET ORDERED. Expected Outcomes/Goals Expected Outcomes/Goals 1. PO INTAKE TO MEET >75% ESTIMATED NEEDS. 2. NUTRITION RELATED LABS TO TREND WNL IN 3-5 DAYS. 3. MONITOR PO INTAKE, WT, SKIN INTEGRITY, AND NUTRITION RELATED LABS. 4. F/U MR IN 3-5 DAYS.
--- NOTE | 2018-08-24 07:07 | Progress Notes ---
DATE: 08/23/2018 SUBJECTIVE: The patient was seen and evaluated. The patient's chart was reviewed. This is a 63-year-old male brought in here on a 5150. The patient has increased suicidal ideation and depression, presenting himself in the ER and reported he wanted to overdose on medication. Today on [id number] evaluation, the patient reported that he had been off of his medications for about a week. He has been feeling depressed, melancholic. He wanted to overdose. He is reporting in the past he used to be on Seroquel 100 mg and Depakote 500 mg p.o. b.i.d. and Cymbalta 60 mg with good effect. MENTAL STATUS EXAMINATION: Depressed, melancholic with thoughts of overdose. ASSESSMENT AND PLAN: History of schizoaffective disorder. We will reinitiate the medication Seroquel 100 mg at nighttime and Cymbalta 30 mg a day, Depakote 500 p.o. b.i.d. and titrate as tolerated while observing him and provide support in both individual and group therapy. [facility]# [id number]
--- NOTE | 2018-08-24 16:01 | General Progress Note ---
Subjective - Review of Systems Service Date: 08/24/18 Subjective: resting comfortably no distress Objective - Results Result Diagrams: 08/21/18 11:43 08/21/18 11:43 Recent Labs: Laboratory Last Values WBC 4.3 Th/cmm (4.8-10.8) L 08/21/18 11:43 RBC 5.00 Mil/cmm (4.30-5.70) 08/21/18 11:43 Hgb 14.0 gm/dL (12-16) 08/21/18 11:43 Hct 42.3 % (41.0-60) 08/21/18 11:43 MCV 84.6 fl (80-99) 08/21/18 11:43 MCH 28.0 pg (26.0-30.0) 08/21/18 11:43 MCHC Differential 33.1 pg (28.0-36.0) 08/21/18 11:43 RDW 14.0 % (11.5-20.0) 08/21/18 11:43 Plt Count 319 Th/cmm (150-400) 08/21/18 11:43 MPV 7.6 fl 08/21/18 11:43 Neutrophils % 85.5 % (40.0-80.0) H 08/21/18 11:43 Lymphocytes % 12.2 % (20.0-50.0) L 08/21/18 11:43 Monocytes % 0.7 % (2.0-10.0) L 08/21/18 11:43 Eosinophils % 0.4 % (0.0-5.0) 08/21/18 11:43 Basophils % 1.2 % (0.0-2.0) 08/21/18 11:43 Sodium 138 mEq/L (136-145) 08/21/18 11:43 Potassium 4.3 mEq/L (3.5-5.1) 08/21/18 11:43 Chloride 104 mEq/L (98-107) 08/21/18 11:43 Carbon Dioxide 24.0 mEq/L (21.0-31.0) 08/21/18 11:43 Anion Gap 14.3 (7.0-16.0) 08/21/18 11:43 BUN 13 mg/dL (7-25) 08/21/18 11:43 Creatinine 1.1 mg/dL (0.7-1.3) 08/21/18 11:43 Est GFR ( Amer) > 60.0 ml/min (>90) 08/21/18 11:43 Est GFR (Non-Af Amer) > 60.0 ml/min 08/21/18 11:43 BUN/Creatinine Ratio 11.8 08/21/18 11:43 Glucose 221 mg/dL (70-105) H 08/21/18 11:43 POC Glucose 82 MG/DL (70 - 105) 08/22/18 06:31 Calcium 9.4 mg/dL (8.6-10.3) 08/21/18 11:43 Total Bilirubin 0.4 mg/dL (0.3-1.0) 08/21/18 11:43 AST 22 U/L (13-39) 08/21/18 11:43 ALT 24 U/L (7-52) 08/21/18 11:43 Alkaline Phosphatase 53 U/L (34-104) 08/21/18 11:43 Total Protein 6.9 gm/dL (6.0-8.3) 08/21/18 11:43 Albumin 4.3 gm/dL (4.2-5.5) 08/21/18 11:43 Globulin 2.6 gm/dL 08/21/18 11:43 Albumin/Globulin Ratio 1.7 (1.0-1.8) 08/21/18 11:43 Triglycerides 183 mg/dL (<150) H 08/22/18 07:50 Cholesterol 223 mg/dL (<200) H 08/22/18 07:50 LDL Cholesterol Direct 133 mg/dL (75-193) 08/22/18 07:50 HDL Cholesterol 49 mg/dL (23-92) 08/22/18 07:50 TSH 0.48 uIU/ml (0.34-5.60) 08/21/18 11:43 Urine Source CLEAN C 08/21/18 18:15 Urine Color YELLOW 08/21/18 18:15 Urine Clarity HAZY (CLEAR) 08/21/18 18:15 Urine pH 5.0 (4.6 - 8.0) 08/21/18 18:15 Ur Specific [place] >= 1.030 (1.005-1.030) 08/21/18 18:15 Urine Protein 30 mg/dL (NEGATIVE) H 08/21/18 18:15 Urine Glucose (UA) NEGATIVE mg/dL (NEGATIVE) 08/21/18 18:15 Urine Ketones NEGATIVE mg/dL (NEGATIVE) 08/21/18 18:15 Urine Blood NEGATIVE (NEGATIVE) 08/21/18 18:15 Urine Nitrate NEGATIVE (NEGATIVE) 08/21/18 18:15 Urine Bilirubin SMALL (NEGATIVE) H 08/21/18 18:15 Urine Urobilinogen 0.2 E.U./dL (0.2 - 1.0) 08/21/18 18:15 Ur Leukocyte Esterase NEGATIVE (NEGATIVE) 08/21/18 18:15 Urine RBC 2-5 /hpf (0-5) H 08/21/18 18:15 Urine WBC 2-5 /hpf (0-5) 08/21/18 18:15 Ur Epithelial Cells RARE /lpf (FEW) 08/21/18 18:15 Urine Bacteria FEW /hpf (NONE SEEN) 08/21/18 18:15 RPR NONREACTIVE (NONREACTIVE) 08/21/18 11:43 - Physical Exam Vitals and I&O: Vital Signs Temp 98.1 F 08/23/18 14:28 Pulse 65 08/24/18 08:03 Resp 19 08/23/18 20:00 BP 134/76 08/24/18 08:03 Pulse Ox 95 08/23/18 14:28 Active Medications: Current Medications Acetaminophen/Hydrocodone Bitart ([place] 5mg/325mg) 1 tab PO Q6HR PRN PRN Reason: Pain (Severe) Stop: 10/20/18 20:00 Last Admin: 08/23/18 13:56 Dose: 1 tab Amlodipine Besylate (Norvasc) 5 mg PO DAILY [facility] Stop: 10/21/18 08:59 Last Admin: 08/24/18 08:03 Dose: 5 mg Divalproex Sodium (Depakote Dr) 500 mg PO BID [facility]; Protocol Stop: 10/22/18 16:59 Last Admin: 08/24/18 08:03 Dose: 500 mg Duloxetine HCl (Cymbalta) 30 mg PO DAILY [facility]; Protocol Stop: 10/23/18 08:59 Last Admin: 08/24/18 08:03 Dose: 30 mg Lorazepam (Ativan) 0.5 mg PO Q4HR PRN; Protocol PRN Reason: Anxiety Stop: 09/20/18 19:34 Last Admin: 08/24/18 12:25 Dose: 0.5 mg Methocarbamol (Robaxin) 750 mg PO TID [facility] Stop: 10/20/18 20:59 Last Admin: 08/24/18 13:14 Dose: 750 mg Naproxen (Naprosyn) 500 mg PO BID [facility] Stop: 10/21/18 08:59 Last Admin: 08/24/18 08:03 Dose: 500 mg Quetiapine Fumarate (Seroquel) 100 mg PO HS [facility]; Protocol Stop: 10/22/18 20:59 Last Admin: 08/23/18 20:32 Dose: 100 mg Zolpidem Tartrate (Ambien) 5 mg PO HS PRN PRN Reason: Insomnia Stop: 10/20/18 19:34 Last Admin: 08/23/18 22:30 Dose: 5 mg General: No acute distress HEENT: Atraumatic, PERRLA Neck: Supple, JVD Cardiovascular: Regular rate, Normal S1, Normal S2 Lungs: Clear to auscultation Abdomen: Bowel sounds, Soft - Procedures Procedures: Procedures Procedure Code Date CONTINUOUS INVASIVE MECHANICAL VENTILATION <96 CONSEC HRS 96.71 06/05/13 GROUP PSYCHOTHERAPY 34245 08/25/15 GROUP PSYCHOTHERAPY GZHZZZZ 08/25/15 INSERT EMERGENCY AIRWAY [id number] 06/05/13 INSERT ENDOTRACHEAL TUBE 96.04 06/05/13 VACCINATION NEC 99.55 06/24/13 Assessment/Plan - Assessment Assessment: 1.HTN. 2.CHRONIC BACK PAIN. 3.HYPERLIPIDEMIA. 4.PSYCHOSIS - Plan Plan: continue current treatment Nutritional Asmnt/Malnutr-PDOC - Dietary Evaluation Malnutrition Findings (Please click <Entered> for more info): Nutritional Asmnt/Malnutrition Start: 08/22/18 14: 11 Text: Status: Active Freq: Protocol: Document 08/22/18 14:11 VINCE (Rec: 08/22/18 14:31 VINCE [email or web address]) Nutritional Asmnt/Malnutrition Patient General Information Nutritional Screening High Risk Diagnosis SUICIDAL IDEATION Pertinent Medical Hx/Surgical Hx HTN, CHRONIC BACK PAIN, PSYCHOSIS, HYPERLIPIDEMIA, DEGENERATIVE JOINT DISEASE Subjective Information IA HR, CONSULT: HIGH GULCOSE 221 63 YEAR OLD MALE ADMITTED FOR SUICIDAL IDEATIONS. HT: 6 FT WT: 190 LB. (86KG) BMI: 25.77 (OVERWEIGHT) I/O: 120/NOT NOTED GI: SOFT, ACTIVE SKIN: WNL PUSHPA: 21 ESTIMATED ENERGY NEEDS: 5776-9787 KCALS (20-25 KCALS/ KG) 69-78 G PRO (0.8-0.9 G/KG) 8898-5784 ML FLUIDS (35-40 ML/ KG) DIETARY IS CURRENTLY PROVIDING AN ESTIMATED 2169 KCALS AND 97 G PRO, MEETING 100% KCAL AND 100%+ PRO NEEDS - ADEQUATE . CONSULT FOR HIGH GLUC 122 HAS RESOLVED WITH POC GLUC 82. WILL CONTINUE TO MONITOR NUTRITION RELATED LABS. Current Diet Order/ Nutrition Support REGULAR Pertinent Medications N/A Pertinent Labs 08/22: POC GLUC 82 08/21: GLUC 221 Nutritional Hx/Data Height 1.83 m Height (Calculated Centimeters) 182.9 Current Weight (lbs) 86.183 kg Weight (Calculated Kilograms) 86.2 Weight (Calculated Grams) 54147.6 [place] Body Weight 178 % [place] Body Weight 107 Body Mass Index (BMI) 25.7 Weight Status Overweight GI Symptoms GI Symptoms None Last BM NOT NOTED Skin Integrity/Comment: WNL Estimated Nutritional Goals BEE in Kcals: Using Current wt Calories/Kcals/Kg 20-25 Kcals Calculated 6023-1491 Protein: Using Current wt Protein g/k.8-0.9 Protein Calculated 69-78 Fluid: ml 5568-4788 Nutritional Problem 1. Problem Problem ALTERED NUTRITION RELATED LABORATORY VALUES Etiology R/T PATHOPHYSIOLOGICAL CAUSES Signs/Symptoms: AEB GLUC 122 Malnutrition Related to Morbid Obesity Malnutrition related to morbid obesity No Intervention/Recommendation Comments 1. CONTINUE WITH REGULAR DIET ORDERED. Expected Outcomes/Goals Expected Outcomes/Goals 1. PO INTAKE TO MEET >75% ESTIMATED NEEDS. 2. NUTRITION RELATED LABS TO TREND WNL IN 3-5 DAYS. 3. MONITOR PO INTAKE, WT, SKIN INTEGRITY, AND NUTRITION RELATED LABS. 4. F/U MR IN 3-5 DAYS.
--- NOTE | 2018-08-24 23:56 | Progress Notes ---
DATE: 08/24/2018 The patient was seen and evaluated. then patient is pending ____ Dr. Wood. I am covering for Dr. Huff. SUBJECTIVE: Today on [id number] evaluation the patient is extremely angry, irritable, yelling ____ started on Seroquel 800 mg. When I attempted to discuss with them that he may have been noncompliant for almost 10 days and the importance of restarted medication safely he becomes more improved and refuses interview. MENTAL STATUS EXAMINATION: Irritable, agitated, screaming in anger. ASSESSMENT AND PLAN: The patient's ongoing anger internalize depression ____. A 63-year-old male with history of depression, bipolar, with substance use. We will continue to titrate the medications slowly and appropriately due to the patient's ongoing aggressive anger spells. JOB# [id number]
[2018-08-25] MEDS: Hydrocodone/APAP 5mg/325mg Tab PO PRN ×3 (08:43→21:21)
--- NOTE | 2018-08-25 18:55 | Progress Notes ---
DATE: 08/25/2018 Case was discussed with staff of the patient, reviewed records. This is a well-known case to me as seen him covering for Dr. Huff. This is a 63-year-old male who was readmitted ____ because of increasing depression and suicidal ideation. He presented himself to Emergency Room with plan to overdose on pills, feeling hopeless and helpless. The patient has multiple prior admissions. The patient continues to be depressed, continues to have poor insight. He reports he is very unhappy with Dr. Huff because he did not give him medication like he likes. The patient has a history of med seeking. He continues to have thoughts of wanting to overdose. He is on Seroquel 100 mg at bedtime and Depakote 500 mg twice a day, Cymbalta 60 mg twice a day. Continues to be unpredictable, impulsive, needing redirection. I will be increasing his Seroquel to 200 mg at bedtime. No side effects with the medication, no sedation, no nausea, no extrapyramidal symptoms. We will continue the patient in group therapy, milieu therapy, and adjust the medication as needed. JOB# [id number]
--- NOTE | 2018-08-25 19:05 | Internal Medicine Prog Note ---
Internal Medicine Subjective - Subjective Service Date: 08/25/18 Patient seen and examined:: with staff (HE FEELS WELL) Patient is:: awake, verbal, talking Per staff patient has:: no adverse event, tolerating meds Internal Medicine Objective - Results Result Diagrams: 08/21/18 11:43 08/21/18 11:43 Recent Labs: Laboratory Last Values WBC 4.3 Th/cmm (4.8-10.8) L 08/21/18 11:43 RBC 5.00 Mil/cmm (4.30-5.70) 08/21/18 11:43 Hgb 14.0 gm/dL (12-16) 08/21/18 11:43 Hct 42.3 % (41.0-60) 08/21/18 11:43 MCV 84.6 fl (80-99) 08/21/18 11:43 MCH 28.0 pg (26.0-30.0) 08/21/18 11:43 MCHC Differential 33.1 pg (28.0-36.0) 08/21/18 11:43 RDW 14.0 % (11.5-20.0) 08/21/18 11:43 Plt Count 319 Th/cmm (150-400) 08/21/18 11:43 MPV 7.6 fl 08/21/18 11:43 Neutrophils % 85.5 % (40.0-80.0) H 08/21/18 11:43 Lymphocytes % 12.2 % (20.0-50.0) L 08/21/18 11:43 Monocytes % 0.7 % (2.0-10.0) L 08/21/18 11:43 Eosinophils % 0.4 % (0.0-5.0) 08/21/18 11:43 Basophils % 1.2 % (0.0-2.0) 08/21/18 11:43 Sodium 138 mEq/L (136-145) 08/21/18 11:43 Potassium 4.3 mEq/L (3.5-5.1) 08/21/18 11:43 Chloride 104 mEq/L (98-107) 08/21/18 11:43 Carbon Dioxide 24.0 mEq/L (21.0-31.0) 08/21/18 11:43 Anion Gap 14.3 (7.0-16.0) 08/21/18 11:43 BUN 13 mg/dL (7-25) 08/21/18 11:43 Creatinine 1.1 mg/dL (0.7-1.3) 08/21/18 11:43 Est GFR ( Amer) > 60.0 ml/min (>90) 08/21/18 11:43 Est GFR (Non-Af Amer) > 60.0 ml/min 08/21/18 11:43 BUN/Creatinine Ratio 11.8 08/21/18 11:43 Glucose 221 mg/dL (70-105) H 08/21/18 11:43 POC Glucose 82 MG/DL (70 - 105) 08/22/18 06:31 Calcium 9.4 mg/dL (8.6-10.3) 08/21/18 11:43 Total Bilirubin 0.4 mg/dL (0.3-1.0) 08/21/18 11:43 AST 22 U/L (13-39) 08/21/18 11:43 ALT 24 U/L (7-52) 08/21/18 11:43 Alkaline Phosphatase 53 U/L (34-104) 08/21/18 11:43 Total Protein 6.9 gm/dL (6.0-8.3) 08/21/18 11:43 Albumin 4.3 gm/dL (4.2-5.5) 08/21/18 11:43 Globulin 2.6 gm/dL 08/21/18 11:43 Albumin/Globulin Ratio 1.7 (1.0-1.8) 08/21/18 11:43 Triglycerides 183 mg/dL (<150) H 08/22/18 07:50 Cholesterol 223 mg/dL (<200) H 08/22/18 07:50 LDL Cholesterol Direct 133 mg/dL (75-193) 08/22/18 07:50 HDL Cholesterol 49 mg/dL (23-92) 08/22/18 07:50 TSH 0.48 uIU/ml (0.34-5.60) 08/21/18 11:43 Urine Source CLEAN C 08/21/18 18:15 Urine Color YELLOW 08/21/18 18:15 Urine Clarity HAZY (CLEAR) 08/21/18 18:15 Urine pH 5.0 (4.6 - 8.0) 08/21/18 18:15 Ur Specific [place] >= 1.030 (1.005-1.030) 08/21/18 18:15 Urine Protein 30 mg/dL (NEGATIVE) H 08/21/18 18:15 Urine Glucose (UA) NEGATIVE mg/dL (NEGATIVE) 08/21/18 18:15 Urine Ketones NEGATIVE mg/dL (NEGATIVE) 08/21/18 18:15 Urine Blood NEGATIVE (NEGATIVE) 08/21/18 18:15 Urine Nitrate NEGATIVE (NEGATIVE) 08/21/18 18:15 Urine Bilirubin SMALL (NEGATIVE) H 08/21/18 18:15 Urine Urobilinogen 0.2 E.U./dL (0.2 - 1.0) 08/21/18 18:15 Ur Leukocyte Esterase NEGATIVE (NEGATIVE) 08/21/18 18:15 Urine RBC 2-5 /hpf (0-5) H 08/21/18 18:15 Urine WBC 2-5 /hpf (0-5) 08/21/18 18:15 Ur Epithelial Cells RARE /lpf (FEW) 08/21/18 18:15 Urine Bacteria FEW /hpf (NONE SEEN) 08/21/18 18:15 RPR NONREACTIVE (NONREACTIVE) 08/21/18 11:43 - Physical Exam Vitals and I&O: Vital Signs Temp 97.8 F 08/25/18 15:40 Pulse 82 08/25/18 15:40 Resp 20 08/25/18 15:40 BP 134/57 08/25/18 15:40 Pulse Ox 97 08/25/18 15:40 Intake & Output 08/25/18 08/25/18 08/26/18 06:59 18:59 06:59 Intake Total 240 1200 Balance 240 1200 Weight (lbs) 86.183 kg Intake: Oral 240 1200 Other: # Voids 3 4 # Bowel Movements 0 1 Weight Source Bedscale Active Medications: Current Medications Acetaminophen/Hydrocodone Bitart ([place] 5mg/325mg) 1 tab PO Q6HR PRN PRN Reason: Pain (Severe) Stop: 10/20/18 20:00 Last Admin: 08/25/18 15:10 Dose: 1 tab Amlodipine Besylate (Norvasc) 5 mg PO DAILY [facility] Stop: 10/21/18 08:59 Last Admin: 08/25/18 08:45 Dose: 5 mg Divalproex Sodium (Depakote Dr) 500 mg PO BID [facility]; Protocol Stop: 10/22/18 16:59 Last Admin: 08/25/18 16:51 Dose: 500 mg Duloxetine HCl (Cymbalta) 30 mg PO DAILY [facility]; Protocol Stop: 10/23/18 08:59 Last Admin: 08/25/18 08:45 Dose: 30 mg Lorazepam (Ativan) 0.5 mg PO Q4HR PRN; Protocol PRN Reason: Anxiety Stop: 09/20/18 19:34 Last Admin: 08/25/18 18:10 Dose: 0.5 mg Methocarbamol (Robaxin) 750 mg PO TID [facility] Stop: 10/20/18 20:59 Last Admin: 08/25/18 13:45 Dose: 750 mg Naproxen (Naprosyn) 500 mg PO BID [facility] Stop: 10/21/18 08:59 Last Admin: 08/25/18 16:51 Dose: 500 mg Quetiapine Fumarate (Seroquel) 200 mg PO HS [facility]; Protocol Stop: 10/24/18 20:59 Tamsulosin HCl (Flomax) 0.4 mg PO DAILY [facility] Stop: 10/24/18 08:59 Last Admin: 08/25/18 08:44 Dose: 0.4 mg Zolpidem Tartrate (Ambien) 5 mg PO HS PRN PRN Reason: Insomnia Stop: 10/20/18 19:34 Last Admin: 08/24/18 20:50 Dose: 5 mg General: alert HEENT: NC/AT, PERRLA, EOMI, anicteric sclerae, throat clear Neck: Supple, No JVD, No thyromegaly, +2 carotid pulse wo bruit, No LAD Lungs: CTAB Cardiovascular: RRR, Normal S1, Normal S2, without murmur Abdomen: soft, non-tender, non-distended Extremities: clear Neurological: no change - Procedures Procedures: Procedures Procedure Code Date CONTINUOUS INVASIVE MECHANICAL VENTILATION <96 CONSEC HRS 96.71 06/05/13 GROUP PSYCHOTHERAPY 95389 08/25/15 GROUP PSYCHOTHERAPY GZHZZZZ 08/25/15 INSERT EMERGENCY AIRWAY [id number] 06/05/13 INSERT ENDOTRACHEAL TUBE 96.04 06/05/13 VACCINATION NEC 99.55 06/24/13 Internal Medicine Assmt/Plan - Assessment Assessment: 1.HTN. 2.CHRONIC BACK PAIN. 3.HYPERLIPIDEMIA. 4.PSYCHOSIS - Plan Plan: CONTINUE ON CURRENT MEDICATION AND DIET. Nutritional Asmnt/Malnutr-PDOC - Dietary Evaluation Malnutrition Findings (Please click <Entered> for more info): Nutritional Asmnt/Malnutrition Start: 08/22/18 14: 11 Text: Status: Active Freq: Protocol: Document 08/22/18 14:11 VINCE (Rec: 08/22/18 14:31 VINCE [email or web address]) Nutritional Asmnt/Malnutrition Patient General Information Nutritional Screening High Risk Diagnosis SUICIDAL IDEATION Pertinent Medical Hx/Surgical Hx HTN, CHRONIC BACK PAIN, PSYCHOSIS, HYPERLIPIDEMIA, DEGENERATIVE JOINT DISEASE Subjective Information IA HR, CONSULT: HIGH GULCOSE 221 63 YEAR OLD MALE ADMITTED FOR SUICIDAL IDEATIONS. HT: 6 FT WT: 190 LB. (86KG) BMI: 25.77 (OVERWEIGHT) I/O: 120/NOT NOTED GI: SOFT, ACTIVE SKIN: WNL PUSHPA: 21 ESTIMATED ENERGY NEEDS: 2842-6470 KCALS (20-25 KCALS/ KG) 69-78 G PRO (0.8-0.9 G/KG) 9828-3163 ML FLUIDS (35-40 ML/ KG) DIETARY IS CURRENTLY PROVIDING AN ESTIMATED 2169 KCALS AND 97 G PRO, MEETING 100% KCAL AND 100%+ PRO NEEDS - ADEQUATE . CONSULT FOR HIGH GLUC 122 HAS RESOLVED WITH POC GLUC 82. WILL CONTINUE TO MONITOR NUTRITION RELATED LABS. Current Diet Order/ Nutrition Support REGULAR Pertinent Medications N/A Pertinent Labs 08/22: POC GLUC 82 08/21: GLUC 221 Nutritional Hx/Data Height 1.83 m Height (Calculated Centimeters) 182.9 Current Weight (lbs) 86.183 kg Weight (Calculated Kilograms) 86.2 Weight (Calculated Grams) 42976.6 [place] Body Weight 178 % [place] Body Weight 107 Body Mass Index (BMI) 25.7 Weight Status Overweight GI Symptoms GI Symptoms None Last BM NOT NOTED Skin Integrity/Comment: WNL Estimated Nutritional Goals BEE in Kcals: Using Current wt Calories/Kcals/Kg 20-25 Kcals Calculated 4224-9794 Protein: Using Current wt Protein g/k.8-0.9 Protein Calculated 69-78 Fluid: ml 7588-6101 Nutritional Problem 1. Problem Problem ALTERED NUTRITION RELATED LABORATORY VALUES Etiology R/T PATHOPHYSIOLOGICAL CAUSES Signs/Symptoms: AEB GLUC 122 Malnutrition Related to Morbid Obesity Malnutrition related to morbid obesity No Intervention/Recommendation Comments 1. CONTINUE WITH REGULAR DIET ORDERED. Expected Outcomes/Goals Expected Outcomes/Goals 1. PO INTAKE TO MEET >75% ESTIMATED NEEDS. 2. NUTRITION RELATED LABS TO TREND WNL IN 3-5 DAYS. 3. MONITOR PO INTAKE, WT, SKIN INTEGRITY, AND NUTRITION RELATED LABS. 4. F/U MR IN 3-5 DAYS.
[2018-08-26] MEDS: Hydrocodone/APAP 5mg/325mg Tab PO PRN ×3 (08:45→21:21)
--- NOTE | 2018-08-26 21:45 | Internal Medicine Prog Note ---
Internal Medicine Subjective - Subjective Service Date: 08/26/18 Patient seen and examined:: without staff (HE FEELS WELL) Patient is:: awake, verbal, talking Per staff patient has:: no adverse event, tolerating meds Internal Medicine Objective - Results Result Diagrams: 08/21/18 11:43 08/21/18 11:43 Recent Labs: Laboratory Last Values WBC 4.3 Th/cmm (4.8-10.8) L 08/21/18 11:43 RBC 5.00 Mil/cmm (4.30-5.70) 08/21/18 11:43 Hgb 14.0 gm/dL (12-16) 08/21/18 11:43 Hct 42.3 % (41.0-60) 08/21/18 11:43 MCV 84.6 fl (80-99) 08/21/18 11:43 MCH 28.0 pg (26.0-30.0) 08/21/18 11:43 MCHC Differential 33.1 pg (28.0-36.0) 08/21/18 11:43 RDW 14.0 % (11.5-20.0) 08/21/18 11:43 Plt Count 319 Th/cmm (150-400) 08/21/18 11:43 MPV 7.6 fl 08/21/18 11:43 Neutrophils % 85.5 % (40.0-80.0) H 08/21/18 11:43 Lymphocytes % 12.2 % (20.0-50.0) L 08/21/18 11:43 Monocytes % 0.7 % (2.0-10.0) L 08/21/18 11:43 Eosinophils % 0.4 % (0.0-5.0) 08/21/18 11:43 Basophils % 1.2 % (0.0-2.0) 08/21/18 11:43 Sodium 138 mEq/L (136-145) 08/21/18 11:43 Potassium 4.3 mEq/L (3.5-5.1) 08/21/18 11:43 Chloride 104 mEq/L (98-107) 08/21/18 11:43 Carbon Dioxide 24.0 mEq/L (21.0-31.0) 08/21/18 11:43 Anion Gap 14.3 (7.0-16.0) 08/21/18 11:43 BUN 13 mg/dL (7-25) 08/21/18 11:43 Creatinine 1.1 mg/dL (0.7-1.3) 08/21/18 11:43 Est GFR ( Amer) > 60.0 ml/min (>90) 08/21/18 11:43 Est GFR (Non-Af Amer) > 60.0 ml/min 08/21/18 11:43 BUN/Creatinine Ratio 11.8 08/21/18 11:43 Glucose 221 mg/dL (70-105) H 08/21/18 11:43 POC Glucose 82 MG/DL (70 - 105) 08/22/18 06:31 Calcium 9.4 mg/dL (8.6-10.3) 08/21/18 11:43 Total Bilirubin 0.4 mg/dL (0.3-1.0) 08/21/18 11:43 AST 22 U/L (13-39) 08/21/18 11:43 ALT 24 U/L (7-52) 08/21/18 11:43 Alkaline Phosphatase 53 U/L (34-104) 08/21/18 11:43 Total Protein 6.9 gm/dL (6.0-8.3) 08/21/18 11:43 Albumin 4.3 gm/dL (4.2-5.5) 08/21/18 11:43 Globulin 2.6 gm/dL 08/21/18 11:43 Albumin/Globulin Ratio 1.7 (1.0-1.8) 08/21/18 11:43 Triglycerides 183 mg/dL (<150) H 08/22/18 07:50 Cholesterol 223 mg/dL (<200) H 08/22/18 07:50 LDL Cholesterol Direct 133 mg/dL (75-193) 08/22/18 07:50 HDL Cholesterol 49 mg/dL (23-92) 08/22/18 07:50 TSH 0.48 uIU/ml (0.34-5.60) 08/21/18 11:43 Urine Source CLEAN C 08/21/18 18:15 Urine Color YELLOW 08/21/18 18:15 Urine Clarity HAZY (CLEAR) 08/21/18 18:15 Urine pH 5.0 (4.6 - 8.0) 08/21/18 18:15 Ur Specific [place] >= 1.030 (1.005-1.030) 08/21/18 18:15 Urine Protein 30 mg/dL (NEGATIVE) H 08/21/18 18:15 Urine Glucose (UA) NEGATIVE mg/dL (NEGATIVE) 08/21/18 18:15 Urine Ketones NEGATIVE mg/dL (NEGATIVE) 08/21/18 18:15 Urine Blood NEGATIVE (NEGATIVE) 08/21/18 18:15 Urine Nitrate NEGATIVE (NEGATIVE) 08/21/18 18:15 Urine Bilirubin SMALL (NEGATIVE) H 08/21/18 18:15 Urine Urobilinogen 0.2 E.U./dL (0.2 - 1.0) 08/21/18 18:15 Ur Leukocyte Esterase NEGATIVE (NEGATIVE) 08/21/18 18:15 Urine RBC 2-5 /hpf (0-5) H 08/21/18 18:15 Urine WBC 2-5 /hpf (0-5) 08/21/18 18:15 Ur Epithelial Cells RARE /lpf (FEW) 08/21/18 18:15 Urine Bacteria FEW /hpf (NONE SEEN) 08/21/18 18:15 RPR NONREACTIVE (NONREACTIVE) 08/21/18 11:43 - Physical Exam Vitals and I&O: Vital Signs Temp 97.5 F 08/26/18 20:14 Pulse 73 08/26/18 20:14 Resp 20 08/26/18 20:14 BP 124/76 08/26/18 20:14 Pulse Ox 95 08/26/18 20:14 Intake & Output 08/26/18 08/26/18 08/27/18 06:59 18:59 06:59 Intake Total 240 240 Balance 240 240 Weight (lbs) 86.183 kg Intake: Oral 240 240 Other: # Voids 3 2 3 # Bowel Movements 0 1 1 Weight Source Bedscale Active Medications: Current Medications Acetaminophen/Hydrocodone Bitart ([place] 5mg/325mg) 1 tab PO Q6HR PRN PRN Reason: Pain (Severe) Stop: 10/20/18 20:00 Last Admin: 08/26/18 21:21 Dose: 1 tab Amlodipine Besylate (Norvasc) 5 mg PO DAILY [facility] Stop: 10/21/18 08:59 Last Admin: 08/26/18 11:50 Dose: Not Given Divalproex Sodium (Depakote Dr) 500 mg PO BID [facility]; Protocol Stop: 10/22/18 16:59 Last Admin: 08/26/18 16:18 Dose: 500 mg Duloxetine HCl (Cymbalta) 30 mg PO DAILY [facility]; Protocol Stop: 10/23/18 08:59 Last Admin: 08/26/18 08:41 Dose: 30 mg Lorazepam (Ativan) 0.5 mg PO Q4HR PRN; Protocol PRN Reason: Anxiety Stop: 09/20/18 19:34 Last Admin: 08/26/18 18:27 Dose: 0.5 mg Methocarbamol (Robaxin) 750 mg PO TID [facility] Stop: 10/20/18 20:59 Last Admin: 08/26/18 20:16 Dose: 750 mg Naproxen (Naprosyn) 500 mg PO BID [facility] Stop: 10/21/18 08:59 Last Admin: 08/26/18 16:18 Dose: 500 mg Quetiapine Fumarate (Seroquel) 200 mg PO HS [facility]; Protocol Stop: 10/24/18 20:59 Last Admin: 08/26/18 20:15 Dose: 200 mg Tamsulosin HCl (Flomax) 0.4 mg PO DAILY [facility] Stop: 10/24/18 08:59 Last Admin: 08/26/18 08:41 Dose: 0.4 mg Zolpidem Tartrate (Ambien) 5 mg PO HS PRN PRN Reason: Insomnia Stop: 10/20/18 19:34 Last Admin: 08/26/18 21:22 Dose: 5 mg General: alert HEENT: NC/AT, PERRLA, EOMI, anicteric sclerae, throat clear Neck: Supple, No JVD, No thyromegaly, +2 carotid pulse wo bruit, No LAD Lungs: CTAB Cardiovascular: RRR, Normal S1, Normal S2, without murmur Abdomen: soft, non-tender, non-distended Extremities: clear Neurological: no change - Procedures Procedures: Procedures Procedure Code Date CONTINUOUS INVASIVE MECHANICAL VENTILATION <96 CONSEC HRS 96.71 06/05/13 GROUP PSYCHOTHERAPY 25380 08/25/15 GROUP PSYCHOTHERAPY GZHZZZZ 08/25/15 INSERT EMERGENCY AIRWAY 25556 06/05/13 INSERT ENDOTRACHEAL TUBE 96.04 06/05/13 VACCINATION NEC 99.55 06/24/13 Internal Medicine Assmt/Plan - Assessment Assessment: 1.HTN. 2.CHRONIC BACK PAIN. 3.HYPERLIPIDEMIA. 4.PSYCHOSIS - Plan Plan: CONTINUE ON CURRENT MEDICATION AND DIET. Nutritional Asmnt/Malnutr-PDOC - Dietary Evaluation Malnutrition Findings (Please click <Entered> for more info): Nutritional Asmnt/Malnutrition Start: 08/22/18 14: 11 Text: Status: Active Freq: Protocol: Document 08/22/18 14:11 VINCE (Rec: 08/22/18 14:31 [email or web address]) Nutritional Asmnt/Malnutrition Patient General Information Nutritional Screening High Risk Diagnosis SUICIDAL IDEATION Pertinent Medical Hx/Surgical Hx HTN, CHRONIC BACK PAIN, PSYCHOSIS, HYPERLIPIDEMIA, DEGENERATIVE JOINT DISEASE Subjective Information IA HR, CONSULT: HIGH GULCOSE 221 63 YEAR OLD MALE ADMITTED FOR SUICIDAL IDEATIONS. HT: 6 FT WT: 190 LB. (86KG) BMI: 25.77 (OVERWEIGHT) I/O: 120/NOT NOTED GI: SOFT, ACTIVE SKIN: WNL PUSHPA: 21 ESTIMATED ENERGY NEEDS: 6143-6988 KCALS (20-25 KCALS/ KG) 69-78 G PRO (0.8-0.9 G/KG) 4178-5339 ML FLUIDS (35-40 ML/ KG) DIETARY IS CURRENTLY PROVIDING AN ESTIMATED 2169 KCALS AND 97 G PRO, MEETING 100% KCAL AND 100%+ PRO NEEDS - ADEQUATE . CONSULT FOR HIGH GLUC 122 HAS RESOLVED WITH POC GLUC 82. WILL CONTINUE TO MONITOR NUTRITION RELATED LABS. Current Diet Order/ Nutrition Support REGULAR Pertinent Medications N/A Pertinent Labs 08/22: POC GLUC 82 08/21: GLUC 221 Nutritional Hx/Data Height 1.83 m Height (Calculated Centimeters) 182.9 Current Weight (lbs) 86.183 kg Weight (Calculated Kilograms) 86.2 Weight (Calculated Grams) 90359.6 [place] Body Weight 178 % [place] Body Weight 107 Body Mass Index (BMI) 25.7 Weight Status Overweight GI Symptoms GI Symptoms None Last BM NOT NOTED Skin Integrity/Comment: WNL Estimated Nutritional Goals BEE in Kcals: Using Current wt Calories/Kcals/Kg 20-25 Kcals Calculated 6841-4263 Protein: Using Current wt Protein g/k.8-0.9 Protein Calculated 69-78 Fluid: ml 5997-6814 Nutritional Problem 1. Problem Problem ALTERED NUTRITION RELATED LABORATORY VALUES Etiology R/T PATHOPHYSIOLOGICAL CAUSES Signs/Symptoms: AEB GLUC 122 Malnutrition Related to Morbid Obesity Malnutrition related to morbid obesity No Intervention/Recommendation Comments 1. CONTINUE WITH REGULAR DIET ORDERED. Expected Outcomes/Goals Expected Outcomes/Goals 1. PO INTAKE TO MEET >75% ESTIMATED NEEDS. 2. NUTRITION RELATED LABS TO TREND WNL IN 3-5 DAYS. 3. MONITOR PO INTAKE, WT, SKIN INTEGRITY, AND NUTRITION RELATED LABS. 4. F/U MR IN 3-5 DAYS.
--- NOTE | 2018-08-27 00:04 | Progress Notes ---
DATE: 08/26/2018 Case was discussed with staff of the patient, reviewed records. The patient continues to be upset, demanding. He said he was on Ativan 2 mg. He wants more addictive medication. He continued to redirection, but he is feeding himself. He seems to be in generally in better mood, though he is demanding more medication, no side effects with the medication, no sedation, no nausea, no extrapyramidal symptoms. He tolerated the increase in Seroquel yesterday. We will continue to work with the patient in group therapy, milieu therapy, and adjust the medication as needed. JOB# [id number]
[2018-08-27] MEDS: Hydrocodone/APAP 5mg/325mg Tab PO PRN ×2 (15:05→21:31)
--- NOTE | 2018-08-27 20:13 | Internal Medicine Prog Note ---
Internal Medicine Subjective - Subjective Service Date: 08/27/18 Patient seen and examined:: without staff (HE FEELS WELL) Patient is:: awake, verbal, talking Per staff patient has:: no adverse event, tolerating meds Internal Medicine Objective - Results Result Diagrams: 08/21/18 11:43 08/21/18 11:43 Recent Labs: Laboratory Last Values WBC 4.3 Th/cmm (4.8-10.8) L 08/21/18 11:43 RBC 5.00 Mil/cmm (4.30-5.70) 08/21/18 11:43 Hgb 14.0 gm/dL (12-16) 08/21/18 11:43 Hct 42.3 % (41.0-60) 08/21/18 11:43 MCV 84.6 fl (80-99) 08/21/18 11:43 MCH 28.0 pg (26.0-30.0) 08/21/18 11:43 MCHC Differential 33.1 pg (28.0-36.0) 08/21/18 11:43 RDW 14.0 % (11.5-20.0) 08/21/18 11:43 Plt Count 319 Th/cmm (150-400) 08/21/18 11:43 MPV 7.6 fl 08/21/18 11:43 Neutrophils % 85.5 % (40.0-80.0) H 08/21/18 11:43 Lymphocytes % 12.2 % (20.0-50.0) L 08/21/18 11:43 Monocytes % 0.7 % (2.0-10.0) L 08/21/18 11:43 Eosinophils % 0.4 % (0.0-5.0) 08/21/18 11:43 Basophils % 1.2 % (0.0-2.0) 08/21/18 11:43 Sodium 138 mEq/L (136-145) 08/21/18 11:43 Potassium 4.3 mEq/L (3.5-5.1) 08/21/18 11:43 Chloride 104 mEq/L (98-107) 08/21/18 11:43 Carbon Dioxide 24.0 mEq/L (21.0-31.0) 08/21/18 11:43 Anion Gap 14.3 (7.0-16.0) 08/21/18 11:43 BUN 13 mg/dL (7-25) 08/21/18 11:43 Creatinine 1.1 mg/dL (0.7-1.3) 08/21/18 11:43 Est GFR ( Amer) > 60.0 ml/min (>90) 08/21/18 11:43 Est GFR (Non-Af Amer) > 60.0 ml/min 08/21/18 11:43 BUN/Creatinine Ratio 11.8 08/21/18 11:43 Glucose 221 mg/dL (70-105) H 08/21/18 11:43 POC Glucose 82 MG/DL (70 - 105) 08/22/18 06:31 Calcium 9.4 mg/dL (8.6-10.3) 08/21/18 11:43 Total Bilirubin 0.4 mg/dL (0.3-1.0) 08/21/18 11:43 AST 22 U/L (13-39) 08/21/18 11:43 ALT 24 U/L (7-52) 08/21/18 11:43 Alkaline Phosphatase 53 U/L (34-104) 08/21/18 11:43 Total Protein 6.9 gm/dL (6.0-8.3) 08/21/18 11:43 Albumin 4.3 gm/dL (4.2-5.5) 08/21/18 11:43 Globulin 2.6 gm/dL 08/21/18 11:43 Albumin/Globulin Ratio 1.7 (1.0-1.8) 08/21/18 11:43 Triglycerides 183 mg/dL (<150) H 08/22/18 07:50 Cholesterol 223 mg/dL (<200) H 08/22/18 07:50 LDL Cholesterol Direct 133 mg/dL (75-193) 08/22/18 07:50 HDL Cholesterol 49 mg/dL (23-92) 08/22/18 07:50 TSH 0.48 uIU/ml (0.34-5.60) 08/21/18 11:43 Urine Source CLEAN C 08/21/18 18:15 Urine Color YELLOW 08/21/18 18:15 Urine Clarity HAZY (CLEAR) 08/21/18 18:15 Urine pH 5.0 (4.6 - 8.0) 08/21/18 18:15 Ur Specific [place] >= 1.030 (1.005-1.030) 08/21/18 18:15 Urine Protein 30 mg/dL (NEGATIVE) H 08/21/18 18:15 Urine Glucose (UA) NEGATIVE mg/dL (NEGATIVE) 08/21/18 18:15 Urine Ketones NEGATIVE mg/dL (NEGATIVE) 08/21/18 18:15 Urine Blood NEGATIVE (NEGATIVE) 08/21/18 18:15 Urine Nitrate NEGATIVE (NEGATIVE) 08/21/18 18:15 Urine Bilirubin SMALL (NEGATIVE) H 08/21/18 18:15 Urine Urobilinogen 0.2 E.U./dL (0.2 - 1.0) 08/21/18 18:15 Ur Leukocyte Esterase NEGATIVE (NEGATIVE) 08/21/18 18:15 Urine RBC 2-5 /hpf (0-5) H 08/21/18 18:15 Urine WBC 2-5 /hpf (0-5) 08/21/18 18:15 Ur Epithelial Cells RARE /lpf (FEW) 08/21/18 18:15 Urine Bacteria FEW /hpf (NONE SEEN) 08/21/18 18:15 RPR NONREACTIVE (NONREACTIVE) 08/21/18 11:43 - Physical Exam Vitals and I&O: Vital Signs Temp 98.3 F 08/27/18 15:53 Pulse 83 08/27/18 15:53 Resp 18 08/27/18 15:53 BP 123/76 08/27/18 15:53 Pulse Ox 96 08/27/18 15:53 Intake & Output 08/27/18 08/27/18 08/28/18 06:59 18:59 06:59 Intake Total 240 Balance 240 Intake: Oral 240 Other: # Voids 1 # Bowel Movements 1 Active Medications: Current Medications Acetaminophen/Hydrocodone Bitart ([place] 5mg/325mg) 1 tab PO Q6HR PRN PRN Reason: Pain (Severe) Stop: 10/20/18 20:00 Last Admin: 08/27/18 15:05 Dose: 1 tab Amlodipine Besylate (Norvasc) 5 mg PO DAILY [facility] Stop: 10/21/18 08:59 Last Admin: 08/27/18 08:38 Dose: 5 mg Divalproex Sodium (Depakote Dr) 500 mg PO BID [facility]; Protocol Stop: 10/22/18 16:59 Last Admin: 08/27/18 17:00 Dose: 500 mg Duloxetine HCl (Cymbalta) 60 mg PO DAILY [facility]; Protocol Stop: 10/26/18 08:59 Last Admin: 08/27/18 08:37 Dose: 60 mg Lorazepam (Ativan) 0.5 mg PO Q4HR PRN; Protocol PRN Reason: Anxiety Stop: 09/20/18 19:34 Last Admin: 08/27/18 19:48 Dose: 0.5 mg Methocarbamol (Robaxin) 750 mg PO TID [facility] Stop: 10/20/18 20:59 Last Admin: 08/27/18 15:05 Dose: 750 mg Naproxen (Naprosyn) 500 mg PO BID [facility] Stop: 10/21/18 08:59 Last Admin: 08/27/18 17:00 Dose: 500 mg Quetiapine Fumarate (Seroquel) 200 mg PO HS [facility]; Protocol Stop: 10/24/18 20:59 Last Admin: 08/26/18 20:15 Dose: 200 mg Tamsulosin HCl (Flomax) 0.4 mg PO DAILY [facility] Stop: 10/24/18 08:59 Last Admin: 08/27/18 08:37 Dose: 0.4 mg Zolpidem Tartrate (Ambien) 5 mg PO HS PRN PRN Reason: Insomnia Stop: 10/20/18 19:34 Last Admin: 08/26/18 21:22 Dose: 5 mg General: alert HEENT: NC/AT, PERRLA, EOMI, anicteric sclerae, throat clear Neck: Supple, No JVD, No thyromegaly, +2 carotid pulse wo bruit, No LAD Lungs: CTAB Cardiovascular: RRR, Normal S1, Normal S2, without murmur Abdomen: soft, non-tender, non-distended Extremities: clear Neurological: no change - Procedures Procedures: Procedures Procedure Code Date CONTINUOUS INVASIVE MECHANICAL VENTILATION <96 CONSEC HRS 96.71 06/05/13 GROUP PSYCHOTHERAPY 13446 08/25/15 GROUP PSYCHOTHERAPY GZHZZZZ 08/25/15 INSERT EMERGENCY AIRWAY [id number] 06/05/13 INSERT ENDOTRACHEAL TUBE 96.04 06/05/13 VACCINATION NEC 99.55 06/24/13 Internal Medicine Assmt/Plan - Assessment Assessment: 1.HTN. 2.CHRONIC BACK PAIN. 3.HYPERLIPIDEMIA. 4.PSYCHOSIS - Plan Plan: CONTINUE ON CURRENT MEDICATION AND DIET. Nutritional Asmnt/Malnutr-PDOC - Dietary Evaluation Malnutrition Findings (Please click <Entered> for more info): Nutritional Asmnt/Malnutrition Start: 08/22/18 14: 11 Text: Status: Active Freq: Protocol: Document 08/22/18 14:11 VINCE (Rec: 08/22/18 14:31 VINCE [email or web address]) Nutritional Asmnt/Malnutrition Patient General Information Nutritional Screening High Risk Diagnosis SUICIDAL IDEATION Pertinent Medical Hx/Surgical Hx HTN, CHRONIC BACK PAIN, PSYCHOSIS, HYPERLIPIDEMIA, DEGENERATIVE JOINT DISEASE Subjective Information IA HR, CONSULT: HIGH GULCOSE 221 63 YEAR OLD MALE ADMITTED FOR SUICIDAL IDEATIONS. HT: 6 FT WT: 190 LB. (86KG) BMI: 25.77 (OVERWEIGHT) I/O: 120/NOT NOTED GI: SOFT, ACTIVE SKIN: WNL PUSHPA: 21 ESTIMATED ENERGY NEEDS: 4079-6275 KCALS (20-25 KCALS/ KG) 69-78 G PRO (0.8-0.9 G/KG) 8663-6804 ML FLUIDS (35-40 ML/ KG) DIETARY IS CURRENTLY PROVIDING AN ESTIMATED 2169 KCALS AND 97 G PRO, MEETING 100% KCAL AND 100%+ PRO NEEDS - ADEQUATE . CONSULT FOR HIGH GLUC 122 HAS RESOLVED WITH POC GLUC 82. WILL CONTINUE TO MONITOR NUTRITION RELATED LABS. Current Diet Order/ Nutrition Support REGULAR Pertinent Medications N/A Pertinent Labs 08/22: POC GLUC 82 08/21: GLUC 221 Nutritional Hx/Data Height 1.83 m Height (Calculated Centimeters) 182.9 Current Weight (lbs) 86.183 kg Weight (Calculated Kilograms) 86.2 Weight (Calculated Grams) 56294.6 [place] Body Weight 178 % [place] Body Weight 107 Body Mass Index (BMI) 25.7 Weight Status Overweight GI Symptoms GI Symptoms None Last BM NOT NOTED Skin Integrity/Comment: WNL Estimated Nutritional Goals BEE in Kcals: Using Current wt Calories/Kcals/Kg 20-25 Kcals Calculated 4640-7314 Protein: Using Current wt Protein g/k.8-0.9 Protein Calculated 69-78 Fluid: ml 1775-8488 Nutritional Problem 1. Problem Problem ALTERED NUTRITION RELATED LABORATORY VALUES Etiology R/T PATHOPHYSIOLOGICAL CAUSES Signs/Symptoms: AEB GLUC 122 Malnutrition Related to Morbid Obesity Malnutrition related to morbid obesity No Intervention/Recommendation Comments 1. CONTINUE WITH REGULAR DIET ORDERED. Expected Outcomes/Goals Expected Outcomes/Goals 1. PO INTAKE TO MEET >75% ESTIMATED NEEDS. 2. NUTRITION RELATED LABS TO TREND WNL IN 3-5 DAYS. 3. MONITOR PO INTAKE, WT, SKIN INTEGRITY, AND NUTRITION RELATED LABS. 4. F/U MR IN 3-5 DAYS.
--- NOTE | 2018-08-28 09:04 | Progress Notes ---
DATE: 08/28/2018 DATE: 08/28/2018 SUBJECTIVE: Chart was reviewed and the patient interviewed. Also discussed the patient's condition with the staff and reviewed records and labs. The patient is still confused and is still paranoid and suspicious. The patient also is still irritable and is still disheveled. Also, during interview, the patient mumbles and seems to be preoccupied today and uncooperative in regard to his placement and in regard to his condition. He also is still in irritable and angry mood for no apparent reason. Otherwise, the patient is compliant with taking medications with no side effects of medications. ASSESSMENT: The patient is still psychotic and is still agitated. TREATMENT PLAN: We will continue to monitor his behavior closely. Also, continue Seroquel 200 mg at bedtime. Also, increase Cymbalta to 90 mg every day and will get a Depakote blood level today and we will continue to follow up. JOB# [id number]
[2018-08-28] MEDS: Hydrocodone/APAP 5mg/325mg Tab PO PRN ×2 (14:21→20:56)
--- NOTE | 2018-08-28 19:51 | Progress Notes ---
DATE: 08/27/2018 08/27/2018 PSYCHIATRIC PROGRESS NOTE SUBJECTIVE: Chart reviewed and the patient interviewed. Also discussed the patient's condition with the staff and reviewed records and labs. The patient continued to be severely depressed and anxious. The patient also is still paranoid. Also, is still interacting minimally with others. Also, in angry mood. The patient also still mumbles and talking to himself with words that are difficult to comprehend. Otherwise, the patient is compliant with taking his medications with no side effects of medications. ASSESSMENT: The patient is still paranoid and is still in irritable mood. TREATMENT PLAN: We will continue monitoring his behavior and his condition closely and will continue working on his irritability and severe level of depression. Also, we will increase Cymbalta to 60 mg every day and continue to follow up. JOB# [id number]
--- NOTE | 2018-08-28 23:41 | Internal Medicine Prog Note ---
Internal Medicine Subjective - Subjective Service Date: 08/28/18 Patient seen and examined:: without staff (HE FEELS WELL) Patient is:: awake, verbal, talking Per staff patient has:: no adverse event, tolerating meds Internal Medicine Objective - Results Result Diagrams: 08/21/18 11:43 08/21/18 11:43 Recent Labs: Laboratory Last Values WBC 4.3 Th/cmm (4.8-10.8) L 08/21/18 11:43 RBC 5.00 Mil/cmm (4.30-5.70) 08/21/18 11:43 Hgb 14.0 gm/dL (12-16) 08/21/18 11:43 Hct 42.3 % (41.0-60) 08/21/18 11:43 MCV 84.6 fl (80-99) 08/21/18 11:43 MCH 28.0 pg (26.0-30.0) 08/21/18 11:43 MCHC Differential 33.1 pg (28.0-36.0) 08/21/18 11:43 RDW 14.0 % (11.5-20.0) 08/21/18 11:43 Plt Count 319 Th/cmm (150-400) 08/21/18 11:43 MPV 7.6 fl 08/21/18 11:43 Neutrophils % 85.5 % (40.0-80.0) H 08/21/18 11:43 Lymphocytes % 12.2 % (20.0-50.0) L 08/21/18 11:43 Monocytes % 0.7 % (2.0-10.0) L 08/21/18 11:43 Eosinophils % 0.4 % (0.0-5.0) 08/21/18 11:43 Basophils % 1.2 % (0.0-2.0) 08/21/18 11:43 Sodium 138 mEq/L (136-145) 08/21/18 11:43 Potassium 4.3 mEq/L (3.5-5.1) 08/21/18 11:43 Chloride 104 mEq/L (98-107) 08/21/18 11:43 Carbon Dioxide 24.0 mEq/L (21.0-31.0) 08/21/18 11:43 Anion Gap 14.3 (7.0-16.0) 08/21/18 11:43 BUN 13 mg/dL (7-25) 08/21/18 11:43 Creatinine 1.1 mg/dL (0.7-1.3) 08/21/18 11:43 Est GFR ( Amer) > 60.0 ml/min (>90) 08/21/18 11:43 Est GFR (Non-Af Amer) > 60.0 ml/min 08/21/18 11:43 BUN/Creatinine Ratio 11.8 08/21/18 11:43 Glucose 221 mg/dL (70-105) H 08/21/18 11:43 POC Glucose 82 MG/DL (70 - 105) 08/22/18 06:31 Calcium 9.4 mg/dL (8.6-10.3) 08/21/18 11:43 Total Bilirubin 0.4 mg/dL (0.3-1.0) 08/21/18 11:43 AST 22 U/L (13-39) 08/21/18 11:43 ALT 24 U/L (7-52) 08/21/18 11:43 Alkaline Phosphatase 53 U/L (34-104) 08/21/18 11:43 Total Protein 6.9 gm/dL (6.0-8.3) 08/21/18 11:43 Albumin 4.3 gm/dL (4.2-5.5) 08/21/18 11:43 Globulin 2.6 gm/dL 08/21/18 11:43 Albumin/Globulin Ratio 1.7 (1.0-1.8) 08/21/18 11:43 Triglycerides 183 mg/dL (<150) H 08/22/18 07:50 Cholesterol 223 mg/dL (<200) H 08/22/18 07:50 LDL Cholesterol Direct 133 mg/dL (75-193) 08/22/18 07:50 HDL Cholesterol 49 mg/dL (23-92) 08/22/18 07:50 TSH 0.48 uIU/ml (0.34-5.60) 08/21/18 11:43 Urine Source CLEAN C 08/21/18 18:15 Urine Color YELLOW 08/21/18 18:15 Urine Clarity HAZY (CLEAR) 08/21/18 18:15 Urine pH 5.0 (4.6 - 8.0) 08/21/18 18:15 Ur Specific [place] >= 1.030 (1.005-1.030) 08/21/18 18:15 Urine Protein 30 mg/dL (NEGATIVE) H 08/21/18 18:15 Urine Glucose (UA) NEGATIVE mg/dL (NEGATIVE) 08/21/18 18:15 Urine Ketones NEGATIVE mg/dL (NEGATIVE) 08/21/18 18:15 Urine Blood NEGATIVE (NEGATIVE) 08/21/18 18:15 Urine Nitrate NEGATIVE (NEGATIVE) 08/21/18 18:15 Urine Bilirubin SMALL (NEGATIVE) H 08/21/18 18:15 Urine Urobilinogen 0.2 E.U./dL (0.2 - 1.0) 08/21/18 18:15 Ur Leukocyte Esterase NEGATIVE (NEGATIVE) 08/21/18 18:15 Urine RBC 2-5 /hpf (0-5) H 08/21/18 18:15 Urine WBC 2-5 /hpf (0-5) 08/21/18 18:15 Ur Epithelial Cells RARE /lpf (FEW) 08/21/18 18:15 Urine Bacteria FEW /hpf (NONE SEEN) 08/21/18 18:15 Valproic Acid 28.8 ug/mL (50.0-100.0) L 08/28/18 07:00 RPR NONREACTIVE (NONREACTIVE) 08/21/18 11:43 - Physical Exam Vitals and I&O: Vital Signs Temp 98.7 F 08/28/18 20:47 Pulse 74 08/28/18 20:47 Resp 20 08/28/18 20:47 BP 126/78 08/28/18 20:47 Pulse Ox 94 08/28/18 20:47 Intake & Output 08/28/18 08/28/18 08/29/18 06:59 18:59 06:59 Intake Total 240 1600 240 Balance 240 1600 240 Intake: Oral 240 1600 240 Other: # Voids 2 3 2 # Bowel Movements 0 0 0 Active Medications: Current Medications Acetaminophen/Hydrocodone Bitart ([place] 5mg/325mg) 1 tab PO Q6HR PRN PRN Reason: Pain (Severe) Stop: 10/20/18 20:00 Last Admin: 08/28/18 20:56 Dose: 1 tab Amlodipine Besylate (Norvasc) 5 mg PO DAILY [facility] Stop: 10/21/18 08:59 Last Admin: 08/28/18 08:13 Dose: 5 mg Divalproex Sodium (Depakote Dr) 500 mg PO BID [facility]; Protocol Stop: 10/22/18 16:59 Last Admin: 08/28/18 16:18 Dose: 500 mg Duloxetine HCl (Cymbalta) 90 mg PO DAILY [facility]; Protocol Stop: 10/27/18 08:59 Last Admin: 08/28/18 08:13 Dose: 90 mg Lorazepam (Ativan) 0.5 mg PO Q4HR PRN; Protocol PRN Reason: Anxiety Stop: 09/20/18 19:34 Last Admin: 08/28/18 21:30 Dose: 0.5 mg Methocarbamol (Robaxin) 750 mg PO TID [facility] Stop: 10/20/18 20:59 Last Admin: 08/28/18 20:57 Dose: 750 mg Naproxen (Naprosyn) 500 mg PO BID [facility] Stop: 10/21/18 08:59 Last Admin: 08/28/18 16:18 Dose: 500 mg Quetiapine Fumarate (Seroquel) 200 mg PO HS [facility]; Protocol Stop: 10/24/18 20:59 Last Admin: 08/28/18 20:57 Dose: 200 mg Tamsulosin HCl (Flomax) 0.4 mg PO DAILY [facility] Stop: 10/24/18 08:59 Last Admin: 08/28/18 08:14 Dose: 0.4 mg Zolpidem Tartrate (Ambien) 5 mg PO HS PRN PRN Reason: Insomnia Stop: 10/20/18 19:34 Last Admin: 08/28/18 20:56 Dose: 5 mg General: alert HEENT: NC/AT, PERRLA, EOMI, anicteric sclerae, throat clear Neck: Supple, No JVD, No thyromegaly, +2 carotid pulse wo bruit, No LAD Lungs: CTAB Cardiovascular: RRR, Normal S1, Normal S2, without murmur Abdomen: soft, non-tender, non-distended Extremities: clear Neurological: no change - Procedures Procedures: Procedures Procedure Code Date CONTINUOUS INVASIVE MECHANICAL VENTILATION <96 CONSEC HRS 96.71 06/05/13 GROUP PSYCHOTHERAPY 41565 08/25/15 GROUP PSYCHOTHERAPY GZHZZZZ 08/25/15 INSERT EMERGENCY AIRWAY [id number] 06/05/13 INSERT ENDOTRACHEAL TUBE 96.04 06/05/13 VACCINATION NEC 99.55 06/24/13 Internal Medicine Assmt/Plan - Assessment Assessment: 1.HTN. 2.CHRONIC BACK PAIN. 3.HYPERLIPIDEMIA. 4.PSYCHOSIS - Plan Plan: CONTINUE ON CURRENT MEDICATION AND DIET. Nutritional Asmnt/Malnutr-PDOC - Dietary Evaluation Malnutrition Findings (Please click <Entered> for more info): Nutritional Asmnt/Malnutrition Start: 08/22/18 14: 11 Text: Status: Active Freq: Protocol: Document 08/22/18 14:11 VINCE (Rec: 08/22/18 14:31 [email or web address]) Nutritional Asmnt/Malnutrition Patient General Information Nutritional Screening High Risk Diagnosis SUICIDAL IDEATION Pertinent Medical Hx/Surgical Hx HTN, CHRONIC BACK PAIN, PSYCHOSIS, HYPERLIPIDEMIA, DEGENERATIVE JOINT DISEASE Subjective Information IA HR, CONSULT: HIGH GULCOSE 221 63 YEAR OLD MALE ADMITTED FOR SUICIDAL IDEATIONS. HT: 6 FT WT: 190 LB. (86KG) BMI: 25.77 (OVERWEIGHT) I/O: 120/NOT NOTED GI: SOFT, ACTIVE SKIN: WNL PUSHPA: 21 ESTIMATED ENERGY NEEDS: 3825-7814 KCALS (20-25 KCALS/ KG) 69-78 G PRO (0.8-0.9 G/KG) 4247-6334 ML FLUIDS (35-40 ML/ KG) DIETARY IS CURRENTLY PROVIDING AN ESTIMATED 2169 KCALS AND 97 G PRO, MEETING 100% KCAL AND 100%+ PRO NEEDS - ADEQUATE . CONSULT FOR HIGH GLUC 122 HAS RESOLVED WITH POC GLUC 82. WILL CONTINUE TO MONITOR NUTRITION RELATED LABS. Current Diet Order/ Nutrition Support REGULAR Pertinent Medications N/A Pertinent Labs 08/22: POC GLUC 82 08/21: GLUC 221 Nutritional Hx/Data Height 1.83 m Height (Calculated Centimeters) 182.9 Current Weight (lbs) 86.183 kg Weight (Calculated Kilograms) 86.2 Weight (Calculated Grams) 81427.6 [place] Body Weight 178 % [place] Body Weight 107 Body Mass Index (BMI) 25.7 Weight Status Overweight GI Symptoms GI Symptoms None Last BM NOT NOTED Skin Integrity/Comment: WNL Estimated Nutritional Goals BEE in Kcals: Using Current wt Calories/Kcals/Kg 20-25 Kcals Calculated 7129-7441 Protein: Using Current wt Protein g/k.8-0.9 Protein Calculated 69-78 Fluid: ml 2603-9231 Nutritional Problem 1. Problem Problem ALTERED NUTRITION RELATED LABORATORY VALUES Etiology R/T PATHOPHYSIOLOGICAL CAUSES Signs/Symptoms: AEB GLUC 122 Malnutrition Related to Morbid Obesity Malnutrition related to morbid obesity No Intervention/Recommendation Comments 1. CONTINUE WITH REGULAR DIET ORDERED. Expected Outcomes/Goals Expected Outcomes/Goals 1. PO INTAKE TO MEET >75% ESTIMATED NEEDS. 2. NUTRITION RELATED LABS TO TREND WNL IN 3-5 DAYS. 3. MONITOR PO INTAKE, WT, SKIN INTEGRITY, AND NUTRITION RELATED LABS. 4. F/U MR IN 3-5 DAYS.
[2018-08-29] MEDS: Hydrocodone/APAP 5mg/325mg Tab PO PRN ×3 (08:45→21:14)
--- NOTE | 2018-08-29 18:28 | Progress Notes ---
DATE: 08/29/2018 SUBJECTIVE: Chart was reviewed and the patient interviewed. Also discussed the patient's condition with the staff and reviewed records and labs. The patient is still angry and is still paranoid. The patient also is still disheveled and restless. Also, is still unable to provide any safe plan for self-care and he is still in a depressed mood and still talking about him going to another [place] and over there, there is a lady, waiting for him. Also, grieving his 's and that she exhausted his resources and exhausted his money. At the same time, the patient is cooperative with taking his medications and compliant with taking his Depakote, Seroquel, and Cymbalta that was increased yesterday to 90 mg every day. Depakote blood level that was done yesterday, came back to be 28.8, which is below therapeutic level, but the patient was not taking it prior to his admission and will repeat Depakote blood level on Saturday and we will continue to follow up. Vital signs are stable and the gait is steady. Also, working on placement. JOB# [id number]
--- NOTE | 2018-08-29 20:59 | Internal Medicine Prog Note ---
Internal Medicine Subjective - Subjective Service Date: 08/29/18 Patient seen and examined:: with staff (HE IS DOING WELL) Patient is:: awake, verbal, talking Per staff patient has:: no adverse event, tolerating meds Internal Medicine Objective - Results Result Diagrams: 08/21/18 11:43 08/21/18 11:43 Recent Labs: Laboratory Last Values WBC 4.3 Th/cmm (4.8-10.8) L 08/21/18 11:43 RBC 5.00 Mil/cmm (4.30-5.70) 08/21/18 11:43 Hgb 14.0 gm/dL (12-16) 08/21/18 11:43 Hct 42.3 % (41.0-60) 08/21/18 11:43 MCV 84.6 fl (80-99) 08/21/18 11:43 MCH 28.0 pg (26.0-30.0) 08/21/18 11:43 MCHC Differential 33.1 pg (28.0-36.0) 08/21/18 11:43 RDW 14.0 % (11.5-20.0) 08/21/18 11:43 Plt Count 319 Th/cmm (150-400) 08/21/18 11:43 MPV 7.6 fl 08/21/18 11:43 Neutrophils % 85.5 % (40.0-80.0) H 08/21/18 11:43 Lymphocytes % 12.2 % (20.0-50.0) L 08/21/18 11:43 Monocytes % 0.7 % (2.0-10.0) L 08/21/18 11:43 Eosinophils % 0.4 % (0.0-5.0) 08/21/18 11:43 Basophils % 1.2 % (0.0-2.0) 08/21/18 11:43 Sodium 138 mEq/L (136-145) 08/21/18 11:43 Potassium 4.3 mEq/L (3.5-5.1) 08/21/18 11:43 Chloride 104 mEq/L (98-107) 08/21/18 11:43 Carbon Dioxide 24.0 mEq/L (21.0-31.0) 08/21/18 11:43 Anion Gap 14.3 (7.0-16.0) 08/21/18 11:43 BUN 13 mg/dL (7-25) 08/21/18 11:43 Creatinine 1.1 mg/dL (0.7-1.3) 08/21/18 11:43 Est GFR ( Amer) > 60.0 ml/min (>90) 08/21/18 11:43 Est GFR (Non-Af Amer) > 60.0 ml/min 08/21/18 11:43 BUN/Creatinine Ratio 11.8 08/21/18 11:43 Glucose 221 mg/dL (70-105) H 08/21/18 11:43 POC Glucose 82 MG/DL (70 - 105) 08/22/18 06:31 Calcium 9.4 mg/dL (8.6-10.3) 08/21/18 11:43 Total Bilirubin 0.4 mg/dL (0.3-1.0) 08/21/18 11:43 AST 22 U/L (13-39) 08/21/18 11:43 ALT 24 U/L (7-52) 08/21/18 11:43 Alkaline Phosphatase 53 U/L (34-104) 08/21/18 11:43 Total Protein 6.9 gm/dL (6.0-8.3) 08/21/18 11:43 Albumin 4.3 gm/dL (4.2-5.5) 08/21/18 11:43 Globulin 2.6 gm/dL 08/21/18 11:43 Albumin/Globulin Ratio 1.7 (1.0-1.8) 08/21/18 11:43 Triglycerides 183 mg/dL (<150) H 08/22/18 07:50 Cholesterol 223 mg/dL (<200) H 08/22/18 07:50 LDL Cholesterol Direct 133 mg/dL (75-193) 08/22/18 07:50 HDL Cholesterol 49 mg/dL (23-92) 08/22/18 07:50 TSH 0.48 uIU/ml (0.34-5.60) 08/21/18 11:43 Urine Source CLEAN C 08/21/18 18:15 Urine Color YELLOW 08/21/18 18:15 Urine Clarity HAZY (CLEAR) 08/21/18 18:15 Urine pH 5.0 (4.6 - 8.0) 08/21/18 18:15 Ur Specific [place] >= 1.030 (1.005-1.030) 08/21/18 18:15 Urine Protein 30 mg/dL (NEGATIVE) H 08/21/18 18:15 Urine Glucose (UA) NEGATIVE mg/dL (NEGATIVE) 08/21/18 18:15 Urine Ketones NEGATIVE mg/dL (NEGATIVE) 08/21/18 18:15 Urine Blood NEGATIVE (NEGATIVE) 08/21/18 18:15 Urine Nitrate NEGATIVE (NEGATIVE) 08/21/18 18:15 Urine Bilirubin SMALL (NEGATIVE) H 08/21/18 18:15 Urine Urobilinogen 0.2 E.U./dL (0.2 - 1.0) 08/21/18 18:15 Ur Leukocyte Esterase NEGATIVE (NEGATIVE) 08/21/18 18:15 Urine RBC 2-5 /hpf (0-5) H 08/21/18 18:15 Urine WBC 2-5 /hpf (0-5) 08/21/18 18:15 Ur Epithelial Cells RARE /lpf (FEW) 08/21/18 18:15 Urine Bacteria FEW /hpf (NONE SEEN) 08/21/18 18:15 Valproic Acid 28.8 ug/mL (50.0-100.0) L 08/28/18 07:00 RPR NONREACTIVE (NONREACTIVE) 08/21/18 11:43 - Physical Exam Vitals and I&O: Vital Signs Temp 97.4 F 08/29/18 20:00 Pulse 82 08/29/18 20:00 Resp 20 08/29/18 20:00 BP 118/66 08/29/18 20:00 Pulse Ox 96 08/29/18 20:00 Intake & Output 08/29/18 08/29/18 08/30/18 06:59 18:59 06:59 Intake Total 480 Balance 480 Intake: Oral 480 Other: # Voids 2 3 # Bowel Movements 0 1 Active Medications: Current Medications Acetaminophen/Hydrocodone Bitart ([place] 5mg/325mg) 1 tab PO Q6HR PRN PRN Reason: Pain (Severe) Stop: 10/20/18 20:00 Last Admin: 08/29/18 14:58 Dose: 1 tab Amlodipine Besylate (Norvasc) 5 mg PO DAILY [facility] Stop: 10/21/18 08:59 Last Admin: 08/29/18 08:45 Dose: Not Given Divalproex Sodium (Depakote Dr) 500 mg PO BID [facility]; Protocol Stop: 10/22/18 16:59 Last Admin: 08/29/18 16:20 Dose: 500 mg Duloxetine HCl (Cymbalta) 90 mg PO DAILY [facility]; Protocol Stop: 10/27/18 08:59 Last Admin: 08/29/18 08:41 Dose: 90 mg Lorazepam (Ativan) 0.5 mg PO Q4HR PRN; Protocol PRN Reason: Anxiety Stop: 09/20/18 19:34 Last Admin: 08/29/18 16:20 Dose: 0.5 mg Methocarbamol (Robaxin) 750 mg PO TID [facility] Stop: 10/20/18 20:59 Last Admin: 08/29/18 20:14 Dose: 750 mg Naproxen (Naprosyn) 500 mg PO BID [facility] Stop: 10/21/18 08:59 Last Admin: 08/29/18 16:21 Dose: Not Given Quetiapine Fumarate (Seroquel) 200 mg PO HS [facility]; Protocol Stop: 10/24/18 20:59 Last Admin: 08/29/18 20:14 Dose: 200 mg Tamsulosin HCl (Flomax) 0.4 mg PO DAILY [facility] Stop: 10/24/18 08:59 Last Admin: 08/29/18 08:45 Dose: 0.4 mg Zolpidem Tartrate (Ambien) 5 mg PO HS PRN PRN Reason: Insomnia Stop: 10/20/18 19:34 Last Admin: 08/29/18 20:15 Dose: 5 mg General: alert HEENT: NC/AT, PERRLA, EOMI, anicteric sclerae, throat clear Neck: Supple, No JVD, No thyromegaly, +2 carotid pulse wo bruit, No LAD Lungs: CTAB Cardiovascular: RRR, Normal S1, Normal S2, without murmur Abdomen: soft, non-tender, non-distended Extremities: clear Neurological: no change - Procedures Procedures: Procedures Procedure Code Date CONTINUOUS INVASIVE MECHANICAL VENTILATION <96 CONSEC HRS 96.71 06/05/13 GROUP PSYCHOTHERAPY 12172 08/25/15 GROUP PSYCHOTHERAPY GZHZZZZ 08/25/15 INSERT EMERGENCY AIRWAY [id number] 06/05/13 INSERT ENDOTRACHEAL TUBE 96.04 06/05/13 VACCINATION NEC 99.55 06/24/13 Internal Medicine Assmt/Plan - Assessment Assessment: 1.HTN. 2.CHRONIC BACK PAIN. 3.HYPERLIPIDEMIA. 4.PSYCHOSIS - Plan Plan: CONTINUE ON CURRENT MEDICATION AND DIET. Nutritional Asmnt/Malnutr-PDOC - Dietary Evaluation Malnutrition Findings (Please click <Entered> for more info): Nutritional Asmnt/Malnutrition Start: 08/22/18 14: 11 Text: Status: Active Freq: Protocol: Document 08/22/18 14:11 SALEEMLIVIA (Rec: 08/22/18 14:31 SALEEMLIVIA [email or web address]) Nutritional Asmnt/Malnutrition Patient General Information Nutritional Screening High Risk Diagnosis SUICIDAL IDEATION Pertinent Medical Hx/Surgical Hx HTN, CHRONIC BACK PAIN, PSYCHOSIS, HYPERLIPIDEMIA, DEGENERATIVE JOINT DISEASE Subjective Information IA HR, CONSULT: HIGH GULCOSE 221 63 YEAR OLD MALE ADMITTED FOR SUICIDAL IDEATIONS. HT: 6 FT WT: 190 LB. (86KG) BMI: 25.77 (OVERWEIGHT) I/O: 120/NOT NOTED GI: SOFT, ACTIVE SKIN: WNL PUSHPA: 21 ESTIMATED ENERGY NEEDS: 9878-1934 KCALS (20-25 KCALS/ KG) 69-78 G PRO (0.8-0.9 G/KG) 7989-3099 ML FLUIDS (35-40 ML/ KG) DIETARY IS CURRENTLY PROVIDING AN ESTIMATED 2169 KCALS AND 97 G PRO, MEETING 100% KCAL AND 100%+ PRO NEEDS - ADEQUATE . CONSULT FOR HIGH GLUC 122 HAS RESOLVED WITH POC GLUC 82. WILL CONTINUE TO MONITOR NUTRITION RELATED LABS. Current Diet Order/ Nutrition Support REGULAR Pertinent Medications N/A Pertinent Labs 08/22: POC GLUC 82 08/21: GLUC 221 Nutritional Hx/Data Height 1.83 m Height (Calculated Centimeters) 182.9 Current Weight (lbs) 86.183 kg Weight (Calculated Kilograms) 86.2 Weight (Calculated Grams) 31266.6 [place] Body Weight 178 % [place] Body Weight 107 Body Mass Index (BMI) 25.7 Weight Status Overweight GI Symptoms GI Symptoms None Last BM NOT NOTED Skin Integrity/Comment: WNL Estimated Nutritional Goals BEE in Kcals: Using Current wt Calories/Kcals/Kg 20-25 Kcals Calculated 9973-9157 Protein: Using Current wt Protein g/k.8-0.9 Protein Calculated 69-78 Fluid: ml 3474-2073 Nutritional Problem 1. Problem Problem ALTERED NUTRITION RELATED LABORATORY VALUES Etiology R/T PATHOPHYSIOLOGICAL CAUSES Signs/Symptoms: AEB GLUC 122 Malnutrition Related to Morbid Obesity Malnutrition related to morbid obesity No Intervention/Recommendation Comments 1. CONTINUE WITH REGULAR DIET ORDERED. Expected Outcomes/Goals Expected Outcomes/Goals 1. PO INTAKE TO MEET >75% ESTIMATED NEEDS. 2. NUTRITION RELATED LABS TO TREND WNL IN 3-5 DAYS. 3. MONITOR PO INTAKE, WT, SKIN INTEGRITY, AND NUTRITION RELATED LABS. 4. F/U MR IN 3-5 DAYS.
[2018-08-30] MEDS: Hydrocodone/APAP 5mg/325mg Tab PO PRN ×3 (08:26→21:38)
--- NOTE | 2018-08-30 21:02 | Internal Medicine Prog Note ---
Internal Medicine Subjective - Subjective Service Date: 08/30/18 Patient seen and examined:: without staff (HE FEELS WELL) Patient is:: awake, verbal, talking Per staff patient has:: no adverse event, tolerating meds Internal Medicine Objective - Results Result Diagrams: 08/21/18 11:43 08/21/18 11:43 Recent Labs: Laboratory Last Values WBC 4.3 Th/cmm (4.8-10.8) L 08/21/18 11:43 RBC 5.00 Mil/cmm (4.30-5.70) 08/21/18 11:43 Hgb 14.0 gm/dL (12-16) 08/21/18 11:43 Hct 42.3 % (41.0-60) 08/21/18 11:43 MCV 84.6 fl (80-99) 08/21/18 11:43 MCH 28.0 pg (26.0-30.0) 08/21/18 11:43 MCHC Differential 33.1 pg (28.0-36.0) 08/21/18 11:43 RDW 14.0 % (11.5-20.0) 08/21/18 11:43 Plt Count 319 Th/cmm (150-400) 08/21/18 11:43 MPV 7.6 fl 08/21/18 11:43 Neutrophils % 85.5 % (40.0-80.0) H 08/21/18 11:43 Lymphocytes % 12.2 % (20.0-50.0) L 08/21/18 11:43 Monocytes % 0.7 % (2.0-10.0) L 08/21/18 11:43 Eosinophils % 0.4 % (0.0-5.0) 08/21/18 11:43 Basophils % 1.2 % (0.0-2.0) 08/21/18 11:43 Sodium 138 mEq/L (136-145) 08/21/18 11:43 Potassium 4.3 mEq/L (3.5-5.1) 08/21/18 11:43 Chloride 104 mEq/L (98-107) 08/21/18 11:43 Carbon Dioxide 24.0 mEq/L (21.0-31.0) 08/21/18 11:43 Anion Gap 14.3 (7.0-16.0) 08/21/18 11:43 BUN 13 mg/dL (7-25) 08/21/18 11:43 Creatinine 1.1 mg/dL (0.7-1.3) 08/21/18 11:43 Est GFR ( Amer) > 60.0 ml/min (>90) 08/21/18 11:43 Est GFR (Non-Af Amer) > 60.0 ml/min 08/21/18 11:43 BUN/Creatinine Ratio 11.8 08/21/18 11:43 Glucose 221 mg/dL (70-105) H 08/21/18 11:43 POC Glucose 82 MG/DL (70 - 105) 08/22/18 06:31 Calcium 9.4 mg/dL (8.6-10.3) 08/21/18 11:43 Total Bilirubin 0.4 mg/dL (0.3-1.0) 08/21/18 11:43 AST 22 U/L (13-39) 08/21/18 11:43 ALT 24 U/L (7-52) 08/21/18 11:43 Alkaline Phosphatase 53 U/L (34-104) 08/21/18 11:43 Total Protein 6.9 gm/dL (6.0-8.3) 08/21/18 11:43 Albumin 4.3 gm/dL (4.2-5.5) 08/21/18 11:43 Globulin 2.6 gm/dL 08/21/18 11:43 Albumin/Globulin Ratio 1.7 (1.0-1.8) 08/21/18 11:43 Triglycerides 183 mg/dL (<150) H 08/22/18 07:50 Cholesterol 223 mg/dL (<200) H 08/22/18 07:50 LDL Cholesterol Direct 133 mg/dL (75-193) 08/22/18 07:50 HDL Cholesterol 49 mg/dL (23-92) 08/22/18 07:50 TSH 0.48 uIU/ml (0.34-5.60) 08/21/18 11:43 Urine Source CLEAN C 08/21/18 18:15 Urine Color YELLOW 08/21/18 18:15 Urine Clarity HAZY (CLEAR) 08/21/18 18:15 Urine pH 5.0 (4.6 - 8.0) 08/21/18 18:15 Ur Specific [place] >= 1.030 (1.005-1.030) 08/21/18 18:15 Urine Protein 30 mg/dL (NEGATIVE) H 08/21/18 18:15 Urine Glucose (UA) NEGATIVE mg/dL (NEGATIVE) 08/21/18 18:15 Urine Ketones NEGATIVE mg/dL (NEGATIVE) 08/21/18 18:15 Urine Blood NEGATIVE (NEGATIVE) 08/21/18 18:15 Urine Nitrate NEGATIVE (NEGATIVE) 08/21/18 18:15 Urine Bilirubin SMALL (NEGATIVE) H 08/21/18 18:15 Urine Urobilinogen 0.2 E.U./dL (0.2 - 1.0) 08/21/18 18:15 Ur Leukocyte Esterase NEGATIVE (NEGATIVE) 08/21/18 18:15 Urine RBC 2-5 /hpf (0-5) H 08/21/18 18:15 Urine WBC 2-5 /hpf (0-5) 08/21/18 18:15 Ur Epithelial Cells RARE /lpf (FEW) 08/21/18 18:15 Urine Bacteria FEW /hpf (NONE SEEN) 08/21/18 18:15 Valproic Acid 28.8 ug/mL (50.0-100.0) L 08/28/18 07:00 RPR NONREACTIVE (NONREACTIVE) 08/21/18 11:43 - Physical Exam Vitals and I&O: Vital Signs Temp 98.2 F 08/30/18 20:22 Pulse 85 08/30/18 20:22 Resp 19 08/30/18 20:22 BP 138/74 08/30/18 20:22 Pulse Ox 96 08/30/18 20:22 Intake & Output 08/30/18 08/30/18 08/31/18 06:59 18:59 06:59 Intake Total 960 1500 240 Balance 960 1500 240 Intake: Oral 960 1500 240 Other: # Voids 2 3 2 # Bowel Movements 0 Active Medications: Current Medications Acetaminophen/Hydrocodone Bitart ([place] 5mg/325mg) 1 tab PO Q6HR PRN PRN Reason: Pain (Severe) Stop: 10/20/18 20:00 Last Admin: 08/30/18 15:08 Dose: 1 tab Amlodipine Besylate (Norvasc) 5 mg PO DAILY [facility] Stop: 10/21/18 08:59 Last Admin: 08/30/18 08:27 Dose: 5 mg Divalproex Sodium (Depakote Dr) 500 mg PO BID [facility]; Protocol Stop: 10/22/18 16:59 Last Admin: 08/30/18 16:16 Dose: 500 mg Duloxetine HCl (Cymbalta) 90 mg PO DAILY [facility]; Protocol Stop: 10/27/18 08:59 Last Admin: 08/30/18 08:26 Dose: 90 mg Lorazepam (Ativan) 0.5 mg PO Q4HR PRN; Protocol PRN Reason: Anxiety Stop: 09/20/18 19:34 Last Admin: 08/30/18 20:34 Dose: 0.5 mg Methocarbamol (Robaxin) 750 mg PO TID [facility] Stop: 10/20/18 20:59 Last Admin: 08/30/18 20:33 Dose: 750 mg Naproxen (Naprosyn) 500 mg PO BID [facility] Stop: 10/21/18 08:59 Last Admin: 08/30/18 16:17 Dose: Not Given Quetiapine Fumarate (Seroquel) 200 mg PO HS [facility]; Protocol Stop: 10/24/18 20:59 Last Admin: 08/30/18 20:34 Dose: 200 mg Tamsulosin HCl (Flomax) 0.4 mg PO DAILY [facility] Stop: 10/24/18 08:59 Last Admin: 08/30/18 08:26 Dose: 0.4 mg Zolpidem Tartrate (Ambien) 5 mg PO HS PRN PRN Reason: Insomnia Stop: 10/20/18 19:34 Last Admin: 08/30/18 20:33 Dose: 5 mg General: alert HEENT: NC/AT, PERRLA, EOMI, anicteric sclerae, throat clear Neck: Supple, No JVD, No thyromegaly, +2 carotid pulse wo bruit, No LAD Lungs: CTAB Cardiovascular: RRR, Normal S1, Normal S2, without murmur Abdomen: soft, non-tender, non-distended Extremities: clear Neurological: no change - Procedures Procedures: Procedures Procedure Code Date CONTINUOUS INVASIVE MECHANICAL VENTILATION <96 CONSEC HRS 96.71 06/05/13 GROUP PSYCHOTHERAPY 74030 08/25/15 GROUP PSYCHOTHERAPY GZHZZZZ 08/25/15 INSERT EMERGENCY AIRWAY [id number] 06/05/13 INSERT ENDOTRACHEAL TUBE 96.04 06/05/13 VACCINATION NEC 99.55 06/24/13 Internal Medicine Assmt/Plan - Assessment Assessment: 1.HTN. 2.CHRONIC BACK PAIN. 3.HYPERLIPIDEMIA. 4.PSYCHOSIS - Plan Plan: CONTINUE ON CURRENT MEDICATION AND DIET. Nutritional Asmnt/Malnutr-PDOC - Dietary Evaluation Malnutrition Findings (Please click <Entered> for more info): Nutritional Asmnt/Malnutrition Start: 08/22/18 14: 11 Text: Status: Active Freq: Protocol: Document 08/22/18 14:11 VINCE (Rec: 08/22/18 14:31 [email or web address]) Nutritional Asmnt/Malnutrition Patient General Information Nutritional Screening High Risk Diagnosis SUICIDAL IDEATION Pertinent Medical Hx/Surgical Hx HTN, CHRONIC BACK PAIN, PSYCHOSIS, HYPERLIPIDEMIA, DEGENERATIVE JOINT DISEASE Subjective Information IA HR, CONSULT: HIGH GULCOSE 221 63 YEAR OLD MALE ADMITTED FOR SUICIDAL IDEATIONS. HT: 6 FT WT: 190 LB. (86KG) BMI: 25.77 (OVERWEIGHT) I/O: 120/NOT NOTED GI: SOFT, ACTIVE SKIN: WNL PUSHPA: 21 ESTIMATED ENERGY NEEDS: 5162-4865 KCALS (20-25 KCALS/ KG) 69-78 G PRO (0.8-0.9 G/KG) 9890-7193 ML FLUIDS (35-40 ML/ KG) DIETARY IS CURRENTLY PROVIDING AN ESTIMATED 2169 KCALS AND 97 G PRO, MEETING 100% KCAL AND 100%+ PRO NEEDS - ADEQUATE . CONSULT FOR HIGH GLUC 122 HAS RESOLVED WITH POC GLUC 82. WILL CONTINUE TO MONITOR NUTRITION RELATED LABS. Current Diet Order/ Nutrition Support REGULAR Pertinent Medications N/A Pertinent Labs 08/22: POC GLUC 82 08/21: GLUC 221 Nutritional Hx/Data Height 1.83 m Height (Calculated Centimeters) 182.9 Current Weight (lbs) 86.183 kg Weight (Calculated Kilograms) 86.2 Weight (Calculated Grams) 27148.6 [place] Body Weight 178 % [place] Body Weight 107 Body Mass Index (BMI) 25.7 Weight Status Overweight GI Symptoms GI Symptoms None Last BM NOT NOTED Skin Integrity/Comment: WNL Estimated Nutritional Goals BEE in Kcals: Using Current wt Calories/Kcals/Kg 20-25 Kcals Calculated 3110-9326 Protein: Using Current wt Protein g/k.8-0.9 Protein Calculated 69-78 Fluid: ml 4833-9417 Nutritional Problem 1. Problem Problem ALTERED NUTRITION RELATED LABORATORY VALUES Etiology R/T PATHOPHYSIOLOGICAL CAUSES Signs/Symptoms: AEB GLUC 122 Malnutrition Related to Morbid Obesity Malnutrition related to morbid obesity No Intervention/Recommendation Comments 1. CONTINUE WITH REGULAR DIET ORDERED. Expected Outcomes/Goals Expected Outcomes/Goals 1. PO INTAKE TO MEET >75% ESTIMATED NEEDS. 2. NUTRITION RELATED LABS TO TREND WNL IN 3-5 DAYS. 3. MONITOR PO INTAKE, WT, SKIN INTEGRITY, AND NUTRITION RELATED LABS. 4. F/U MR IN 3-5 DAYS.
--- NOTE | 2018-08-30 23:37 | Progress Notes ---
DATE: 08/30/2018 SUBJECTIVE: Chart was reviewed and the patient interviewed. Also discussed the patient's condition with the staff and reviewed records and labs. The patient is still depressed and withdrawn. The patient also is guarded and interacting minimally with others. The patient also is still at times suspicious and paranoid. Also, he still wants to be left alone. Personal hygiene is poor and the patient is still preoccupied and seems to be responding. Otherwise, no side effects of medications. ASSESSMENT: The patient is still depressed and is still paranoid. TREATMENT PLAN: Continue to monitor behavior and condition closely. Also, continue adjusting psychotropic medications and working on placement issue. JOB# [id number]
[2018-08-31] MEDS: Hydrocodone/APAP 5mg/325mg Tab PO PRN ×4 (04:57→22:18)
--- NOTE | 2018-08-31 21:44 | Internal Medicine Prog Note ---
Internal Medicine Subjective - Subjective Service Date: 08/31/18 Patient seen and examined:: with staff (HE STILL HAS PAIN) Patient is:: awake, verbal, talking Per staff patient has:: no adverse event, tolerating meds Internal Medicine Objective - Results Result Diagrams: 08/21/18 11:43 08/21/18 11:43 Recent Labs: Laboratory Last Values WBC 4.3 Th/cmm (4.8-10.8) L 08/21/18 11:43 RBC 5.00 Mil/cmm (4.30-5.70) 08/21/18 11:43 Hgb 14.0 gm/dL (12-16) 08/21/18 11:43 Hct 42.3 % (41.0-60) 08/21/18 11:43 MCV 84.6 fl (80-99) 08/21/18 11:43 MCH 28.0 pg (26.0-30.0) 08/21/18 11:43 MCHC Differential 33.1 pg (28.0-36.0) 08/21/18 11:43 RDW 14.0 % (11.5-20.0) 08/21/18 11:43 Plt Count 319 Th/cmm (150-400) 08/21/18 11:43 MPV 7.6 fl 08/21/18 11:43 Neutrophils % 85.5 % (40.0-80.0) H 08/21/18 11:43 Lymphocytes % 12.2 % (20.0-50.0) L 08/21/18 11:43 Monocytes % 0.7 % (2.0-10.0) L 08/21/18 11:43 Eosinophils % 0.4 % (0.0-5.0) 08/21/18 11:43 Basophils % 1.2 % (0.0-2.0) 08/21/18 11:43 Sodium 138 mEq/L (136-145) 08/21/18 11:43 Potassium 4.3 mEq/L (3.5-5.1) 08/21/18 11:43 Chloride 104 mEq/L (98-107) 08/21/18 11:43 Carbon Dioxide 24.0 mEq/L (21.0-31.0) 08/21/18 11:43 Anion Gap 14.3 (7.0-16.0) 08/21/18 11:43 BUN 13 mg/dL (7-25) 08/21/18 11:43 Creatinine 1.1 mg/dL (0.7-1.3) 08/21/18 11:43 Est GFR ( Amer) > 60.0 ml/min (>90) 08/21/18 11:43 Est GFR (Non-Af Amer) > 60.0 ml/min 08/21/18 11:43 BUN/Creatinine Ratio 11.8 08/21/18 11:43 Glucose 221 mg/dL (70-105) H 08/21/18 11:43 POC Glucose 82 MG/DL (70 - 105) 08/22/18 06:31 Calcium 9.4 mg/dL (8.6-10.3) 08/21/18 11:43 Total Bilirubin 0.4 mg/dL (0.3-1.0) 08/21/18 11:43 AST 22 U/L (13-39) 08/21/18 11:43 ALT 24 U/L (7-52) 08/21/18 11:43 Alkaline Phosphatase 53 U/L (34-104) 08/21/18 11:43 Total Protein 6.9 gm/dL (6.0-8.3) 08/21/18 11:43 Albumin 4.3 gm/dL (4.2-5.5) 08/21/18 11:43 Globulin 2.6 gm/dL 08/21/18 11:43 Albumin/Globulin Ratio 1.7 (1.0-1.8) 08/21/18 11:43 Triglycerides 183 mg/dL (<150) H 08/22/18 07:50 Cholesterol 223 mg/dL (<200) H 08/22/18 07:50 LDL Cholesterol Direct 133 mg/dL (75-193) 08/22/18 07:50 HDL Cholesterol 49 mg/dL (23-92) 08/22/18 07:50 TSH 0.48 uIU/ml (0.34-5.60) 08/21/18 11:43 Urine Source CLEAN C 08/21/18 18:15 Urine Color YELLOW 08/21/18 18:15 Urine Clarity HAZY (CLEAR) 08/21/18 18:15 Urine pH 5.0 (4.6 - 8.0) 08/21/18 18:15 Ur Specific [place] >= 1.030 (1.005-1.030) 08/21/18 18:15 Urine Protein 30 mg/dL (NEGATIVE) H 08/21/18 18:15 Urine Glucose (UA) NEGATIVE mg/dL (NEGATIVE) 08/21/18 18:15 Urine Ketones NEGATIVE mg/dL (NEGATIVE) 08/21/18 18:15 Urine Blood NEGATIVE (NEGATIVE) 08/21/18 18:15 Urine Nitrate NEGATIVE (NEGATIVE) 08/21/18 18:15 Urine Bilirubin SMALL (NEGATIVE) H 08/21/18 18:15 Urine Urobilinogen 0.2 E.U./dL (0.2 - 1.0) 08/21/18 18:15 Ur Leukocyte Esterase NEGATIVE (NEGATIVE) 08/21/18 18:15 Urine RBC 2-5 /hpf (0-5) H 08/21/18 18:15 Urine WBC 2-5 /hpf (0-5) 08/21/18 18:15 Ur Epithelial Cells RARE /lpf (FEW) 08/21/18 18:15 Urine Bacteria FEW /hpf (NONE SEEN) 08/21/18 18:15 Valproic Acid 28.8 ug/mL (50.0-100.0) L 08/28/18 07:00 RPR NONREACTIVE (NONREACTIVE) 08/21/18 11:43 - Physical Exam Vitals and I&O: Vital Signs Temp 97.7 F 08/31/18 20:12 Pulse 69 08/31/18 20:12 Resp 18 08/31/18 20:12 BP 128/83 08/31/18 20:12 Pulse Ox 90 08/31/18 20:12 Intake & Output 08/31/18 08/31/18 09/01/18 06:59 18:59 06:59 Intake Total 240 900 240 Balance 240 900 240 Weight (lbs) 86.183 kg Intake: Oral 240 900 240 Other: # Voids 2 3 3 # Bowel Movements 1 0 Weight Source Bedscale Active Medications: Current Medications Acetaminophen/Hydrocodone Bitart ([place] 5mg/325mg) 1 tab PO Q6HR PRN PRN Reason: Pain (Severe) Stop: 10/20/18 20:00 Last Admin: 08/31/18 16:07 Dose: 1 tab Amlodipine Besylate (Norvasc) 5 mg PO DAILY [facility] Stop: 10/21/18 08:59 Last Admin: 08/31/18 09:09 Dose: 5 mg Divalproex Sodium (Depakote Dr) 500 mg PO BID [facility]; Protocol Stop: 10/22/18 16:59 Last Admin: 08/31/18 16:29 Dose: 500 mg Duloxetine HCl (Cymbalta) 90 mg PO DAILY [facility]; Protocol Stop: 10/27/18 08:59 Last Admin: 08/31/18 09:09 Dose: 90 mg Gabapentin (Neurontin) 100 mg PO TID [facility] Stop: 10/30/18 08:59 Last Admin: 08/31/18 20:55 Dose: 100 mg Lorazepam (Ativan) 0.5 mg PO Q4HR PRN; Protocol PRN Reason: Anxiety Stop: 09/20/18 19:34 Last Admin: 08/31/18 14:58 Dose: 0.5 mg Methocarbamol (Robaxin) 750 mg PO TID [facility] Stop: 10/20/18 20:59 Last Admin: 08/31/18 20:54 Dose: 750 mg Naproxen (Naprosyn) 500 mg PO BID [facility] Stop: 10/21/18 08:59 Last Admin: 08/31/18 16:29 Dose: 500 mg Quetiapine Fumarate (Seroquel) 200 mg PO HS [facility]; Protocol Stop: 10/24/18 20:59 Last Admin: 08/31/18 20:55 Dose: 200 mg Tamsulosin HCl (Flomax) 0.4 mg PO DAILY [facility] Stop: 10/24/18 08:59 Last Admin: 08/31/18 09:09 Dose: 0.4 mg Zolpidem Tartrate (Ambien) 5 mg PO HS PRN PRN Reason: Insomnia Stop: 10/20/18 19:34 Last Admin: 08/31/18 21:24 Dose: 5 mg General: alert HEENT: NC/AT, PERRLA, EOMI, anicteric sclerae, throat clear Neck: Supple, No JVD, No thyromegaly, +2 carotid pulse wo bruit, No LAD Lungs: CTAB Cardiovascular: RRR, Normal S1, Normal S2, without murmur Abdomen: soft, non-tender, non-distended Extremities: clear Neurological: no change - Procedures Procedures: Procedures Procedure Code Date CONTINUOUS INVASIVE MECHANICAL VENTILATION <96 CONSEC HRS 96.71 06/05/13 GROUP PSYCHOTHERAPY 98033 08/25/15 GROUP PSYCHOTHERAPY GZHZZZZ 08/25/15 INSERT EMERGENCY AIRWAY [id number] 06/05/13 INSERT ENDOTRACHEAL TUBE 96.04 06/05/13 VACCINATION NEC 99.55 06/24/13 Internal Medicine Assmt/Plan - Assessment Assessment: 1.HTN. 2.CHRONIC BACK PAIN. 3.HYPERLIPIDEMIA. 4.PSYCHOSIS - Plan Plan: CONTINUE ON CURRENT MEDICATION AND DIET. Nutritional Asmnt/Malnutr-PDOC - Dietary Evaluation Malnutrition Findings (Please click <Entered> for more info): Nutritional Asmnt/Malnutrition Start: 08/22/18 14: 11 Text: Status: Active Freq: Protocol: Document 08/22/18 14:11 VINCE (Rec: 08/22/18 14:31 VINCE [email or web address]) Nutritional Asmnt/Malnutrition Patient General Information Nutritional Screening High Risk Diagnosis SUICIDAL IDEATION Pertinent Medical Hx/Surgical Hx HTN, CHRONIC BACK PAIN, PSYCHOSIS, HYPERLIPIDEMIA, DEGENERATIVE JOINT DISEASE Subjective Information IA HR, CONSULT: HIGH GULCOSE 221 63 YEAR OLD MALE ADMITTED FOR SUICIDAL IDEATIONS. HT: 6 FT WT: 190 LB. (86KG) BMI: 25.77 (OVERWEIGHT) I/O: 120/NOT NOTED GI: SOFT, ACTIVE SKIN: WNL PUSHPA: 21 ESTIMATED ENERGY NEEDS: 2012-4488 KCALS (20-25 KCALS/ KG) 69-78 G PRO (0.8-0.9 G/KG) 1309-6365 ML FLUIDS (35-40 ML/ KG) DIETARY IS CURRENTLY PROVIDING AN ESTIMATED 2169 KCALS AND 97 G PRO, MEETING 100% KCAL AND 100%+ PRO NEEDS - ADEQUATE . CONSULT FOR HIGH GLUC 122 HAS RESOLVED WITH POC GLUC 82. WILL CONTINUE TO MONITOR NUTRITION RELATED LABS. Current Diet Order/ Nutrition Support REGULAR Pertinent Medications N/A Pertinent Labs 08/22: POC GLUC 82 08/21: GLUC 221 Nutritional Hx/Data Height 1.83 m Height (Calculated Centimeters) 182.9 Current Weight (lbs) 86.183 kg Weight (Calculated Kilograms) 86.2 Weight (Calculated Grams) 87657.6 [place] Body Weight 178 % [place] Body Weight 107 Body Mass Index (BMI) 25.7 Weight Status Overweight GI Symptoms GI Symptoms None Last BM NOT NOTED Skin Integrity/Comment: WNL Estimated Nutritional Goals BEE in Kcals: Using Current wt Calories/Kcals/Kg 20-25 Kcals Calculated 2669-9680 Protein: Using Current wt Protein g/k.8-0.9 Protein Calculated 69-78 Fluid: ml 5822-2771 Nutritional Problem 1. Problem Problem ALTERED NUTRITION RELATED LABORATORY VALUES Etiology R/T PATHOPHYSIOLOGICAL CAUSES Signs/Symptoms: AEB GLUC 122 Malnutrition Related to Morbid Obesity Malnutrition related to morbid obesity No Intervention/Recommendation Comments 1. CONTINUE WITH REGULAR DIET ORDERED. Expected Outcomes/Goals Expected Outcomes/Goals 1. PO INTAKE TO MEET >75% ESTIMATED NEEDS. 2. NUTRITION RELATED LABS TO TREND WNL IN 3-5 DAYS. 3. MONITOR PO INTAKE, WT, SKIN INTEGRITY, AND NUTRITION RELATED LABS. 4. F/U MR IN 3-5 DAYS.
--- NOTE | 2018-09-01 01:32 | Progress Notes ---
DATE: 08/31/2018 SUBJECTIVE: Chart reviewed and the patient interviewed. Also discussed the patient's condition with the staff and reviewed records and labs. The patient is complaining of pain in his legs. The patient also has been in a depressed mood and is still suspicious and is still paranoid. He also is still restless and still unable to come up with any safe plan for self-care. ASSESSMENT: The patient is still psychotic and is still paranoid. TREATMENT PLAN: Continue to monitor his behavior and his condition closely. Also, continue to work on discharge plans and placement issue and also on adjusting psychotropic medications. JOB# [id number]
[2018-09-01] MEDS: Hydrocodone/APAP 5mg/325mg Tab PO PRN ×2 (08:22→17:23)
--- NOTE | 2018-09-01 20:26 | Internal Medicine Prog Note ---
Internal Medicine Subjective - Subjective Service Date: 09/01/18 Patient seen and examined:: with staff (HE FEELS WELL) Patient is:: awake, verbal, talking Per staff patient has:: no adverse event, tolerating meds Internal Medicine Objective - Results Result Diagrams: 08/21/18 11:43 08/21/18 11:43 Recent Labs: Laboratory Last Values WBC 4.3 Th/cmm (4.8-10.8) L 08/21/18 11:43 RBC 5.00 Mil/cmm (4.30-5.70) 08/21/18 11:43 Hgb 14.0 gm/dL (12-16) 08/21/18 11:43 Hct 42.3 % (41.0-60) 08/21/18 11:43 MCV 84.6 fl (80-99) 08/21/18 11:43 MCH 28.0 pg (26.0-30.0) 08/21/18 11:43 MCHC Differential 33.1 pg (28.0-36.0) 08/21/18 11:43 RDW 14.0 % (11.5-20.0) 08/21/18 11:43 Plt Count 319 Th/cmm (150-400) 08/21/18 11:43 MPV 7.6 fl 08/21/18 11:43 Neutrophils % 85.5 % (40.0-80.0) H 08/21/18 11:43 Lymphocytes % 12.2 % (20.0-50.0) L 08/21/18 11:43 Monocytes % 0.7 % (2.0-10.0) L 08/21/18 11:43 Eosinophils % 0.4 % (0.0-5.0) 08/21/18 11:43 Basophils % 1.2 % (0.0-2.0) 08/21/18 11:43 Sodium 138 mEq/L (136-145) 08/21/18 11:43 Potassium 4.3 mEq/L (3.5-5.1) 08/21/18 11:43 Chloride 104 mEq/L (98-107) 08/21/18 11:43 Carbon Dioxide 24.0 mEq/L (21.0-31.0) 08/21/18 11:43 Anion Gap 14.3 (7.0-16.0) 08/21/18 11:43 BUN 13 mg/dL (7-25) 08/21/18 11:43 Creatinine 1.1 mg/dL (0.7-1.3) 08/21/18 11:43 Est GFR ( Amer) > 60.0 ml/min (>90) 08/21/18 11:43 Est GFR (Non-Af Amer) > 60.0 ml/min 08/21/18 11:43 BUN/Creatinine Ratio 11.8 08/21/18 11:43 Glucose 221 mg/dL (70-105) H 08/21/18 11:43 POC Glucose 82 MG/DL (70 - 105) 08/22/18 06:31 Calcium 9.4 mg/dL (8.6-10.3) 08/21/18 11:43 Total Bilirubin 0.4 mg/dL (0.3-1.0) 08/21/18 11:43 AST 22 U/L (13-39) 08/21/18 11:43 ALT 24 U/L (7-52) 08/21/18 11:43 Alkaline Phosphatase 53 U/L (34-104) 08/21/18 11:43 Total Protein 6.9 gm/dL (6.0-8.3) 08/21/18 11:43 Albumin 4.3 gm/dL (4.2-5.5) 08/21/18 11:43 Globulin 2.6 gm/dL 08/21/18 11:43 Albumin/Globulin Ratio 1.7 (1.0-1.8) 08/21/18 11:43 Triglycerides 183 mg/dL (<150) H 08/22/18 07:50 Cholesterol 223 mg/dL (<200) H 08/22/18 07:50 LDL Cholesterol Direct 133 mg/dL (75-193) 08/22/18 07:50 HDL Cholesterol 49 mg/dL (23-92) 08/22/18 07:50 TSH 0.48 uIU/ml (0.34-5.60) 08/21/18 11:43 Urine Source CLEAN C 08/21/18 18:15 Urine Color YELLOW 08/21/18 18:15 Urine Clarity HAZY (CLEAR) 08/21/18 18:15 Urine pH 5.0 (4.6 - 8.0) 08/21/18 18:15 Ur Specific [place] >= 1.030 (1.005-1.030) 08/21/18 18:15 Urine Protein 30 mg/dL (NEGATIVE) H 08/21/18 18:15 Urine Glucose (UA) NEGATIVE mg/dL (NEGATIVE) 08/21/18 18:15 Urine Ketones NEGATIVE mg/dL (NEGATIVE) 08/21/18 18:15 Urine Blood NEGATIVE (NEGATIVE) 08/21/18 18:15 Urine Nitrate NEGATIVE (NEGATIVE) 08/21/18 18:15 Urine Bilirubin SMALL (NEGATIVE) H 08/21/18 18:15 Urine Urobilinogen 0.2 E.U./dL (0.2 - 1.0) 08/21/18 18:15 Ur Leukocyte Esterase NEGATIVE (NEGATIVE) 08/21/18 18:15 Urine RBC 2-5 /hpf (0-5) H 08/21/18 18:15 Urine WBC 2-5 /hpf (0-5) 08/21/18 18:15 Ur Epithelial Cells RARE /lpf (FEW) 08/21/18 18:15 Urine Bacteria FEW /hpf (NONE SEEN) 08/21/18 18:15 Valproic Acid 28.8 ug/mL (50.0-100.0) L 08/28/18 07:00 RPR NONREACTIVE (NONREACTIVE) 08/21/18 11:43 - Physical Exam Vitals and I&O: Vital Signs Temp 98.0 F 09/01/18 14:40 Pulse 77 09/01/18 14:40 Resp 20 09/01/18 14:40 BP 105/56 09/01/18 14:40 Pulse Ox 96 09/01/18 14:40 Intake & Output 09/01/18 09/01/18 09/02/18 06:59 18:59 06:59 Intake Total 240 1200 Balance 240 1200 Weight (lbs) 86.183 kg Intake: Oral 240 1200 Other: # Voids 3 4 # Bowel Movements 0 1 Weight Source Bedscale Active Medications: Current Medications Acetaminophen/Hydrocodone Bitart ([place] 5mg/325mg) 1 tab PO Q6HR PRN PRN Reason: Pain (Severe) Stop: 10/20/18 20:00 Last Admin: 09/01/18 17:23 Dose: 1 tab Amlodipine Besylate (Norvasc) 5 mg PO DAILY [facility] Stop: 10/21/18 08:59 Last Admin: 09/01/18 08:22 Dose: 5 mg Divalproex Sodium (Depakote Dr) 500 mg PO BID [facility]; Protocol Stop: 10/22/18 16:59 Last Admin: 09/01/18 17:02 Dose: 500 mg Duloxetine HCl (Cymbalta) 90 mg PO DAILY [facility]; Protocol Stop: 10/27/18 08:59 Last Admin: 09/01/18 08:22 Dose: 90 mg Gabapentin (Neurontin) 100 mg PO TID [facility] Stop: 10/30/18 08:59 Last Admin: 09/01/18 13:10 Dose: 100 mg Lorazepam (Ativan) 0.5 mg PO Q4HR PRN; Protocol PRN Reason: Anxiety Stop: 09/20/18 19:34 Last Admin: 09/01/18 13:10 Dose: 0.5 mg Methocarbamol (Robaxin) 750 mg PO TID [facility] Stop: 10/20/18 20:59 Last Admin: 09/01/18 13:10 Dose: 750 mg Naproxen (Naprosyn) 500 mg PO BID [facility] Stop: 10/21/18 08:59 Last Admin: 09/01/18 17:02 Dose: 500 mg Quetiapine Fumarate (Seroquel) 800 mg PO HS [facility]; Protocol Stop: 10/31/18 20:59 Tamsulosin HCl (Flomax) 0.4 mg PO DAILY [facility] Stop: 10/24/18 08:59 Last Admin: 09/01/18 08:21 Dose: 0.4 mg Zolpidem Tartrate (Ambien) 5 mg PO HS PRN PRN Reason: Insomnia Stop: 10/20/18 19:34 Last Admin: 08/31/18 21:24 Dose: 5 mg General: alert HEENT: NC/AT, PERRLA, EOMI, anicteric sclerae, throat clear Neck: Supple, No JVD, No thyromegaly, +2 carotid pulse wo bruit, No LAD Lungs: CTAB Cardiovascular: RRR, Normal S1, Normal S2, without murmur Abdomen: soft, non-tender, non-distended Extremities: clear Neurological: no change - Procedures Procedures: Procedures Procedure Code Date CONTINUOUS INVASIVE MECHANICAL VENTILATION <96 CONSEC HRS 96.71 06/05/13 GROUP PSYCHOTHERAPY 63413 08/25/15 GROUP PSYCHOTHERAPY [id number] 08/25/15 INSERT EMERGENCY AIRWAY 24061 06/05/13 INSERT ENDOTRACHEAL TUBE 96.04 06/05/13 VACCINATION NEC 99.55 06/24/13 Internal Medicine Assmt/Plan - Assessment Assessment: 1.HTN. 2.CHRONIC BACK PAIN. 3.HYPERLIPIDEMIA. 4.PSYCHOSIS - Plan Plan: CONTINUE ON CURRENT MEDICATION AND DIET. Nutritional Asmnt/Malnutr-PDOC - Dietary Evaluation Malnutrition Findings (Please click <Entered> for more info): Nutritional Asmnt/Malnutrition Start: 08/22/18 14: 11 Text: Status: Active Freq: Protocol: Document 08/22/18 14:11 VINCE (Rec: 08/22/18 14:31 VINCE [email or web address]) Nutritional Asmnt/Malnutrition Patient General Information Nutritional Screening High Risk Diagnosis SUICIDAL IDEATION Pertinent Medical Hx/Surgical Hx HTN, CHRONIC BACK PAIN, PSYCHOSIS, HYPERLIPIDEMIA, DEGENERATIVE JOINT DISEASE Subjective Information IA HR, CONSULT: HIGH GULCOSE 221 63 YEAR OLD MALE ADMITTED FOR SUICIDAL IDEATIONS. HT: 6 FT WT: 190 LB. (86KG) BMI: 25.77 (OVERWEIGHT) I/O: 120/NOT NOTED GI: SOFT, ACTIVE SKIN: WNL PUSHPA: 21 ESTIMATED ENERGY NEEDS: 5958-6255 KCALS (20-25 KCALS/ KG) 69-78 G PRO (0.8-0.9 G/KG) 0371-9720 ML FLUIDS (35-40 ML/ KG) DIETARY IS CURRENTLY PROVIDING AN ESTIMATED 2169 KCALS AND 97 G PRO, MEETING 100% KCAL AND 100%+ PRO NEEDS - ADEQUATE . CONSULT FOR HIGH GLUC 122 HAS RESOLVED WITH POC GLUC 82. WILL CONTINUE TO MONITOR NUTRITION RELATED LABS. Current Diet Order/ Nutrition Support REGULAR Pertinent Medications N/A Pertinent Labs 08/22: POC GLUC 82 08/21: GLUC 221 Nutritional Hx/Data Height 1.83 m Height (Calculated Centimeters) 182.9 Current Weight (lbs) 86.183 kg Weight (Calculated Kilograms) 86.2 Weight (Calculated Grams) 86321.6 [place] Body Weight 178 % [place] Body Weight 107 Body Mass Index (BMI) 25.7 Weight Status Overweight GI Symptoms GI Symptoms None Last BM NOT NOTED Skin Integrity/Comment: WNL Estimated Nutritional Goals BEE in Kcals: Using Current wt Calories/Kcals/Kg 20-25 Kcals Calculated 5550-0778 Protein: Using Current wt Protein g/k.8-0.9 Protein Calculated 69-78 Fluid: ml 5723-3692 Nutritional Problem 1. Problem Problem ALTERED NUTRITION RELATED LABORATORY VALUES Etiology R/T PATHOPHYSIOLOGICAL CAUSES Signs/Symptoms: AEB GLUC 122 Malnutrition Related to Morbid Obesity Malnutrition related to morbid obesity No Intervention/Recommendation Comments 1. CONTINUE WITH REGULAR DIET ORDERED. Expected Outcomes/Goals Expected Outcomes/Goals 1. PO INTAKE TO MEET >75% ESTIMATED NEEDS. 2. NUTRITION RELATED LABS TO TREND WNL IN 3-5 DAYS. 3. MONITOR PO INTAKE, WT, SKIN INTEGRITY, AND NUTRITION RELATED LABS. 4. F/U MR IN 3-5 DAYS.
[2018-09-02] MEDS: Hydrocodone/APAP 5mg/325mg Tab PO PRN ×2 (12:10→17:53)
--- NOTE | 2018-09-02 16:16 | Progress Notes ---
DATE: SUBJECTIVE: Chart was reviewed and the patient interviewed. Also discussed the patient's condition with the staff and reviewed records and labs. The patient is still in angry mood and he is still suspicious and paranoid. The patient also is still argumentative about "my Ativan." He is asking for more Ativan. The patient is easily annoyed and easily agitated. Also, he is still in a depressed mood with severe mood swings. Also, the patient is still talking about the loss of his . Otherwise, the patient is compliant with taking medications with no side effect of medications. Depakote blood level that was done on 08/28 came back to be 28.8. ASSESSMENT: The patient is still depressed and paranoid. TREATMENT PLAN: We will increase Depakote to 750 mg every day. Also, continue adjusting psychotropic medications and work on behavioral modification. JOB# [id number]
--- NOTE | 2018-09-02 21:21 | Internal Medicine Prog Note ---
Internal Medicine Subjective - Subjective Service Date: 09/02/18 Patient seen and examined:: without staff (HE STILL COMPLAINING ABOUT PAIN) Patient is:: awake, verbal, talking Per staff patient has:: no adverse event, tolerating meds Internal Medicine Objective - Results Result Diagrams: 08/21/18 11:43 08/21/18 11:43 Recent Labs: Laboratory Last Values WBC 4.3 Th/cmm (4.8-10.8) L 08/21/18 11:43 RBC 5.00 Mil/cmm (4.30-5.70) 08/21/18 11:43 Hgb 14.0 gm/dL (12-16) 08/21/18 11:43 Hct 42.3 % (41.0-60) 08/21/18 11:43 MCV 84.6 fl (80-99) 08/21/18 11:43 MCH 28.0 pg (26.0-30.0) 08/21/18 11:43 MCHC Differential 33.1 pg (28.0-36.0) 08/21/18 11:43 RDW 14.0 % (11.5-20.0) 08/21/18 11:43 Plt Count 319 Th/cmm (150-400) 08/21/18 11:43 MPV 7.6 fl 08/21/18 11:43 Neutrophils % 85.5 % (40.0-80.0) H 08/21/18 11:43 Lymphocytes % 12.2 % (20.0-50.0) L 08/21/18 11:43 Monocytes % 0.7 % (2.0-10.0) L 08/21/18 11:43 Eosinophils % 0.4 % (0.0-5.0) 08/21/18 11:43 Basophils % 1.2 % (0.0-2.0) 08/21/18 11:43 Sodium 138 mEq/L (136-145) 08/21/18 11:43 Potassium 4.3 mEq/L (3.5-5.1) 08/21/18 11:43 Chloride 104 mEq/L (98-107) 08/21/18 11:43 Carbon Dioxide 24.0 mEq/L (21.0-31.0) 08/21/18 11:43 Anion Gap 14.3 (7.0-16.0) 08/21/18 11:43 BUN 13 mg/dL (7-25) 08/21/18 11:43 Creatinine 1.1 mg/dL (0.7-1.3) 08/21/18 11:43 Est GFR ( Amer) > 60.0 ml/min (>90) 08/21/18 11:43 Est GFR (Non-Af Amer) > 60.0 ml/min 08/21/18 11:43 BUN/Creatinine Ratio 11.8 08/21/18 11:43 Glucose 221 mg/dL (70-105) H 08/21/18 11:43 POC Glucose 82 MG/DL (70 - 105) 08/22/18 06:31 Calcium 9.4 mg/dL (8.6-10.3) 08/21/18 11:43 Total Bilirubin 0.4 mg/dL (0.3-1.0) 08/21/18 11:43 AST 22 U/L (13-39) 08/21/18 11:43 ALT 24 U/L (7-52) 08/21/18 11:43 Alkaline Phosphatase 53 U/L (34-104) 08/21/18 11:43 Total Protein 6.9 gm/dL (6.0-8.3) 08/21/18 11:43 Albumin 4.3 gm/dL (4.2-5.5) 08/21/18 11:43 Globulin 2.6 gm/dL 08/21/18 11:43 Albumin/Globulin Ratio 1.7 (1.0-1.8) 08/21/18 11:43 Triglycerides 183 mg/dL (<150) H 08/22/18 07:50 Cholesterol 223 mg/dL (<200) H 08/22/18 07:50 LDL Cholesterol Direct 133 mg/dL (75-193) 08/22/18 07:50 HDL Cholesterol 49 mg/dL (23-92) 08/22/18 07:50 TSH 0.48 uIU/ml (0.34-5.60) 08/21/18 11:43 Urine Source CLEAN C 08/21/18 18:15 Urine Color YELLOW 08/21/18 18:15 Urine Clarity HAZY (CLEAR) 08/21/18 18:15 Urine pH 5.0 (4.6 - 8.0) 08/21/18 18:15 Ur Specific [place] >= 1.030 (1.005-1.030) 08/21/18 18:15 Urine Protein 30 mg/dL (NEGATIVE) H 08/21/18 18:15 Urine Glucose (UA) NEGATIVE mg/dL (NEGATIVE) 08/21/18 18:15 Urine Ketones NEGATIVE mg/dL (NEGATIVE) 08/21/18 18:15 Urine Blood NEGATIVE (NEGATIVE) 08/21/18 18:15 Urine Nitrate NEGATIVE (NEGATIVE) 08/21/18 18:15 Urine Bilirubin SMALL (NEGATIVE) H 08/21/18 18:15 Urine Urobilinogen 0.2 E.U./dL (0.2 - 1.0) 08/21/18 18:15 Ur Leukocyte Esterase NEGATIVE (NEGATIVE) 08/21/18 18:15 Urine RBC 2-5 /hpf (0-5) H 08/21/18 18:15 Urine WBC 2-5 /hpf (0-5) 08/21/18 18:15 Ur Epithelial Cells RARE /lpf (FEW) 08/21/18 18:15 Urine Bacteria FEW /hpf (NONE SEEN) 08/21/18 18:15 Valproic Acid 28.8 ug/mL (50.0-100.0) L 08/28/18 07:00 RPR NONREACTIVE (NONREACTIVE) 08/21/18 11:43 - Physical Exam Vitals and I&O: Vital Signs Temp 97.9 F 09/02/18 19:53 Pulse 87 09/02/18 19:53 Resp 20 09/02/18 19:53 BP 114/68 09/02/18 19:53 Pulse Ox 95 09/02/18 19:53 Intake & Output 09/02/18 09/02/18 09/03/18 06:59 18:59 06:59 Intake Total 120 1500 240 Balance 120 1500 240 Weight (lbs) 86.183 kg Intake: Oral 120 1500 240 Other: # Voids 2 3 3 # Bowel Movements 0 0 0 Weight Source Bedscale Active Medications: Current Medications Acetaminophen/Hydrocodone Bitart ([place] 10 Mg/325 Mg) 1 tab PO Q6H PRN PRN Reason: Pain (Moderate) Stop: 11/01/18 21:14 Amlodipine Besylate (Norvasc) 5 mg PO DAILY [facility] Stop: 10/21/18 08:59 Last Admin: 09/02/18 08:57 Dose: 5 mg Divalproex Sodium (Depakote Dr) 750 mg PO BID [facility]; Protocol Stop: 11/01/18 08:59 Last Admin: 09/02/18 17:39 Dose: 750 mg Duloxetine HCl (Cymbalta) 90 mg PO DAILY [facility]; Protocol Stop: 10/27/18 08:59 Last Admin: 09/02/18 09:04 Dose: 90 mg Gabapentin (Neurontin) 100 mg PO TID [facility] Stop: 10/30/18 08:59 Last Admin: 09/02/18 14:05 Dose: Not Given Lorazepam (Ativan) 0.5 mg PO Q4HR PRN; Protocol PRN Reason: Anxiety Stop: 09/20/18 19:34 Last Admin: 09/02/18 15:19 Dose: 0.5 mg Methocarbamol (Robaxin) 750 mg PO TID [facility] Stop: 10/20/18 20:59 Last Admin: 09/02/18 15:20 Dose: 750 mg Naproxen (Naprosyn) 500 mg PO BID [facility] Stop: 10/21/18 08:59 Last Admin: 09/02/18 17:39 Dose: 500 mg Quetiapine Fumarate (Seroquel) 800 mg PO HS [facility]; Protocol Stop: 10/31/18 20:59 Last Admin: 09/01/18 21:13 Dose: 800 mg Tamsulosin HCl (Flomax) 0.4 mg PO DAILY [facility] Stop: 10/24/18 08:59 Last Admin: 09/02/18 09:04 Dose: 0.4 mg Zolpidem Tartrate (Ambien) 5 mg PO HS PRN PRN Reason: Insomnia Stop: 10/20/18 19:34 Last Admin: 09/01/18 21:14 Dose: 5 mg General: alert HEENT: NC/AT, PERRLA, EOMI, anicteric sclerae, throat clear Neck: Supple, No JVD, No thyromegaly, +2 carotid pulse wo bruit, No LAD Lungs: CTAB Cardiovascular: RRR, Normal S1, Normal S2, without murmur Abdomen: soft, non-tender, non-distended Extremities: clear Neurological: no change - Procedures Procedures: Procedures Procedure Code Date CONTINUOUS INVASIVE MECHANICAL VENTILATION <96 CONSEC HRS 96.71 06/05/13 GROUP PSYCHOTHERAPY 71644 08/25/15 GROUP PSYCHOTHERAPY GZHZZZZ 08/25/15 INSERT EMERGENCY AIRWAY [id number] 06/05/13 INSERT ENDOTRACHEAL TUBE 96.04 06/05/13 VACCINATION NEC 99.55 06/24/13 Internal Medicine Assmt/Plan - Assessment Assessment: 1.HTN. 2.CHRONIC BACK PAIN. 3.HYPERLIPIDEMIA. 4.PSYCHOSIS - Plan Plan: CONTINUE ON CURRENT MEDICATION AND DIET. Nutritional Asmnt/Malnutr-PDOC - Dietary Evaluation Malnutrition Findings (Please click <Entered> for more info): Nutritional Asmnt/Malnutrition Start: 08/22/18 14: 11 Text: Status: Active Freq: Protocol: Document 08/22/18 14:11 VINCE (Rec: 08/22/18 14:31 VINCE [email or web address]) Nutritional Asmnt/Malnutrition Patient General Information Nutritional Screening High Risk Diagnosis SUICIDAL IDEATION Pertinent Medical Hx/Surgical Hx HTN, CHRONIC BACK PAIN, PSYCHOSIS, HYPERLIPIDEMIA, DEGENERATIVE JOINT DISEASE Subjective Information IA HR, CONSULT: HIGH GULCOSE 221 63 YEAR OLD MALE ADMITTED FOR SUICIDAL IDEATIONS. HT: 6 FT WT: 190 LB. (86KG) BMI: 25.77 (OVERWEIGHT) I/O: 120/NOT NOTED GI: SOFT, ACTIVE SKIN: WNL PUSHPA: 21 ESTIMATED ENERGY NEEDS: 4927-0001 KCALS (20-25 KCALS/ KG) 69-78 G PRO (0.8-0.9 G/KG) 4461-4252 ML FLUIDS (35-40 ML/ KG) DIETARY IS CURRENTLY PROVIDING AN ESTIMATED 2169 KCALS AND 97 G PRO, MEETING 100% KCAL AND 100%+ PRO NEEDS - ADEQUATE . CONSULT FOR HIGH GLUC 122 HAS RESOLVED WITH POC GLUC 82. WILL CONTINUE TO MONITOR NUTRITION RELATED LABS. Current Diet Order/ Nutrition Support REGULAR Pertinent Medications N/A Pertinent Labs 08/22: POC GLUC 82 08/21: GLUC 221 Nutritional Hx/Data Height 1.83 m Height (Calculated Centimeters) 182.9 Current Weight (lbs) 86.183 kg Weight (Calculated Kilograms) 86.2 Weight (Calculated Grams) 54141.6 [place] Body Weight 178 % [place] Body Weight 107 Body Mass Index (BMI) 25.7 Weight Status Overweight GI Symptoms GI Symptoms None Last BM NOT NOTED Skin Integrity/Comment: WNL Estimated Nutritional Goals BEE in Kcals: Using Current wt Calories/Kcals/Kg 20-25 Kcals Calculated 4997-4090 Protein: Using Current wt Protein g/k.8-0.9 Protein Calculated 69-78 Fluid: ml 7833-8062 Nutritional Problem 1. Problem Problem ALTERED NUTRITION RELATED LABORATORY VALUES Etiology R/T PATHOPHYSIOLOGICAL CAUSES Signs/Symptoms: AEB GLUC 122 Malnutrition Related to Morbid Obesity Malnutrition related to morbid obesity No Intervention/Recommendation Comments 1. CONTINUE WITH REGULAR DIET ORDERED. Expected Outcomes/Goals Expected Outcomes/Goals 1. PO INTAKE TO MEET >75% ESTIMATED NEEDS. 2. NUTRITION RELATED LABS TO TREND WNL IN 3-5 DAYS. 3. MONITOR PO INTAKE, WT, SKIN INTEGRITY, AND NUTRITION RELATED LABS. 4. F/U MR IN 3-5 DAYS.
[2018-09-03] MEDS: Hydrocodone/APAP 10 mg/325 mg Tab PO PRN ×3 (09:02→20:43)
--- NOTE | 2018-09-03 20:50 | Internal Medicine Prog Note ---
Internal Medicine Subjective - Subjective Patient seen and examined:: without staff (HE HAS LESS PAIN) Patient is:: awake, verbal, talking Per staff patient has:: no adverse event, tolerating meds Internal Medicine Objective - Results Result Diagrams: 08/21/18 11:43 08/21/18 11:43 Recent Labs: Laboratory Last Values WBC 4.3 Th/cmm (4.8-10.8) L 08/21/18 11:43 RBC 5.00 Mil/cmm (4.30-5.70) 08/21/18 11:43 Hgb 14.0 gm/dL (12-16) 08/21/18 11:43 Hct 42.3 % (41.0-60) 08/21/18 11:43 MCV 84.6 fl (80-99) 08/21/18 11:43 MCH 28.0 pg (26.0-30.0) 08/21/18 11:43 MCHC Differential 33.1 pg (28.0-36.0) 08/21/18 11:43 RDW 14.0 % (11.5-20.0) 08/21/18 11:43 Plt Count 319 Th/cmm (150-400) 08/21/18 11:43 MPV 7.6 fl 08/21/18 11:43 Neutrophils % 85.5 % (40.0-80.0) H 08/21/18 11:43 Lymphocytes % 12.2 % (20.0-50.0) L 08/21/18 11:43 Monocytes % 0.7 % (2.0-10.0) L 08/21/18 11:43 Eosinophils % 0.4 % (0.0-5.0) 08/21/18 11:43 Basophils % 1.2 % (0.0-2.0) 08/21/18 11:43 Sodium 138 mEq/L (136-145) 08/21/18 11:43 Potassium 4.3 mEq/L (3.5-5.1) 08/21/18 11:43 Chloride 104 mEq/L (98-107) 08/21/18 11:43 Carbon Dioxide 24.0 mEq/L (21.0-31.0) 08/21/18 11:43 Anion Gap 14.3 (7.0-16.0) 08/21/18 11:43 BUN 13 mg/dL (7-25) 08/21/18 11:43 Creatinine 1.1 mg/dL (0.7-1.3) 08/21/18 11:43 Est GFR ( Amer) > 60.0 ml/min (>90) 08/21/18 11:43 Est GFR (Non-Af Amer) > 60.0 ml/min 08/21/18 11:43 BUN/Creatinine Ratio 11.8 08/21/18 11:43 Glucose 221 mg/dL (70-105) H 08/21/18 11:43 POC Glucose 82 MG/DL (70 - 105) 08/22/18 06:31 Calcium 9.4 mg/dL (8.6-10.3) 08/21/18 11:43 Total Bilirubin 0.4 mg/dL (0.3-1.0) 08/21/18 11:43 AST 22 U/L (13-39) 08/21/18 11:43 ALT 24 U/L (7-52) 08/21/18 11:43 Alkaline Phosphatase 53 U/L (34-104) 08/21/18 11:43 Total Protein 6.9 gm/dL (6.0-8.3) 08/21/18 11:43 Albumin 4.3 gm/dL (4.2-5.5) 08/21/18 11:43 Globulin 2.6 gm/dL 08/21/18 11:43 Albumin/Globulin Ratio 1.7 (1.0-1.8) 08/21/18 11:43 Triglycerides 183 mg/dL (<150) H 08/22/18 07:50 Cholesterol 223 mg/dL (<200) H 08/22/18 07:50 LDL Cholesterol Direct 133 mg/dL (75-193) 08/22/18 07:50 HDL Cholesterol 49 mg/dL (23-92) 08/22/18 07:50 TSH 0.48 uIU/ml (0.34-5.60) 08/21/18 11:43 Urine Source CLEAN C 08/21/18 18:15 Urine Color YELLOW 08/21/18 18:15 Urine Clarity HAZY (CLEAR) 08/21/18 18:15 Urine pH 5.0 (4.6 - 8.0) 08/21/18 18:15 Ur Specific [place] >= 1.030 (1.005-1.030) 08/21/18 18:15 Urine Protein 30 mg/dL (NEGATIVE) H 08/21/18 18:15 Urine Glucose (UA) NEGATIVE mg/dL (NEGATIVE) 08/21/18 18:15 Urine Ketones NEGATIVE mg/dL (NEGATIVE) 08/21/18 18:15 Urine Blood NEGATIVE (NEGATIVE) 08/21/18 18:15 Urine Nitrate NEGATIVE (NEGATIVE) 08/21/18 18:15 Urine Bilirubin SMALL (NEGATIVE) H 08/21/18 18:15 Urine Urobilinogen 0.2 E.U./dL (0.2 - 1.0) 08/21/18 18:15 Ur Leukocyte Esterase NEGATIVE (NEGATIVE) 08/21/18 18:15 Urine RBC 2-5 /hpf (0-5) H 08/21/18 18:15 Urine WBC 2-5 /hpf (0-5) 08/21/18 18:15 Ur Epithelial Cells RARE /lpf (FEW) 08/21/18 18:15 Urine Bacteria FEW /hpf (NONE SEEN) 08/21/18 18:15 Valproic Acid 28.8 ug/mL (50.0-100.0) L 08/28/18 07:00 RPR NONREACTIVE (NONREACTIVE) 08/21/18 11:43 - Physical Exam Vitals and I&O: Vital Signs Temp 97.4 F 09/03/18 20:00 Pulse 84 09/03/18 20:00 Resp 20 09/03/18 20:00 BP 128/89 09/03/18 20:00 Pulse Ox 97 09/03/18 20:00 Intake & Output 09/03/18 09/03/18 09/04/18 06:59 18:59 06:59 Intake Total 480 1600 Balance 480 1600 Weight (lbs) 86.183 kg Intake: Oral 480 1600 Other: # Voids 1 4 # Bowel Movements 0 1 Stool Characteristics Formed Weight Source Bedscale Active Medications: Current Medications Acetaminophen/Hydrocodone Bitart ([place] 10 Mg/325 Mg) 1 tab PO Q6H PRN PRN Reason: Pain (Moderate) Stop: 11/01/18 21:14 Last Admin: 09/03/18 20:43 Dose: 1 tab Amlodipine Besylate (Norvasc) 5 mg PO DAILY [facility] Stop: 10/21/18 08:59 Last Admin: 09/03/18 09:02 Dose: 5 mg Divalproex Sodium (Depakote Dr) 750 mg PO BID [facility]; Protocol Stop: 11/01/18 08:59 Last Admin: 09/03/18 17:12 Dose: 750 mg Duloxetine HCl (Cymbalta) 90 mg PO DAILY [facility]; Protocol Stop: 10/27/18 08:59 Last Admin: 09/03/18 09:01 Dose: 90 mg Gabapentin (Neurontin) 100 mg PO TID [facility] Stop: 10/30/18 08:59 Last Admin: 09/03/18 20:39 Dose: 100 mg Lorazepam (Ativan) 1 mg PO Q4HR PRN; Protocol PRN Reason: Anxiety Stop: 09/20/18 19:34 Last Admin: 09/03/18 20:42 Dose: 1 mg Methocarbamol (Robaxin) 750 mg PO TID [facility] Stop: 10/20/18 20:59 Last Admin: 09/03/18 20:40 Dose: 750 mg Naproxen (Naprosyn) 500 mg PO BID [facility] Stop: 10/21/18 08:59 Last Admin: 09/03/18 17:12 Dose: 500 mg Quetiapine Fumarate (Seroquel) 800 mg PO HS [facility]; Protocol Stop: 10/31/18 20:59 Last Admin: 09/03/18 20:44 Dose: 800 mg Tamsulosin HCl (Flomax) 0.4 mg PO DAILY [facility] Stop: 10/24/18 08:59 Last Admin: 09/03/18 09:02 Dose: 0.4 mg Zolpidem Tartrate (Ambien) 5 mg PO HS PRN PRN Reason: Insomnia Stop: 10/20/18 19:34 Last Admin: 09/03/18 20:42 Dose: 5 mg General: alert HEENT: NC/AT, PERRLA, EOMI, anicteric sclerae, throat clear Neck: Supple, No JVD, No thyromegaly, +2 carotid pulse wo bruit, No LAD Lungs: CTAB Cardiovascular: RRR, Normal S1, Normal S2, without murmur Abdomen: soft, non-tender, non-distended Extremities: clear Neurological: no change - Procedures Procedures: Procedures Procedure Code Date CONTINUOUS INVASIVE MECHANICAL VENTILATION <96 CONSEC HRS 96.71 06/05/13 GROUP PSYCHOTHERAPY 91901 08/25/15 GROUP PSYCHOTHERAPY GZHZZZZ 08/25/15 INSERT EMERGENCY AIRWAY [id number] 06/05/13 INSERT ENDOTRACHEAL TUBE 96.04 06/05/13 VACCINATION NEC 99.55 06/24/13 Internal Medicine Assmt/Plan - Assessment Assessment: 1.HTN. 2.CHRONIC BACK PAIN. 3.HYPERLIPIDEMIA. 4.PSYCHOSIS - Plan Plan: CONTINUE ON CURRENT MEDICATION AND DIET. Nutritional Asmnt/Malnutr-PDOC - Dietary Evaluation Malnutrition Findings (Please click <Entered> for more info): Nutritional Asmnt/Malnutrition Start: 08/22/18 14: 11 Text: Status: Active Freq: Protocol: Document 08/22/18 14:11 VINCE (Rec: 08/22/18 14:31 [email or web address]) Nutritional Asmnt/Malnutrition Patient General Information Nutritional Screening High Risk Diagnosis SUICIDAL IDEATION Pertinent Medical Hx/Surgical Hx HTN, CHRONIC BACK PAIN, PSYCHOSIS, HYPERLIPIDEMIA, DEGENERATIVE JOINT DISEASE Subjective Information IA HR, CONSULT: HIGH GULCOSE 221 63 YEAR OLD MALE ADMITTED FOR SUICIDAL IDEATIONS. HT: 6 FT WT: 190 LB. (86KG) BMI: 25.77 (OVERWEIGHT) I/O: 120/NOT NOTED GI: SOFT, ACTIVE SKIN: WNL PUSHPA: 21 ESTIMATED ENERGY NEEDS: 6812-1951 KCALS (20-25 KCALS/ KG) 69-78 G PRO (0.8-0.9 G/KG) 5682-0060 ML FLUIDS (35-40 ML/ KG) DIETARY IS CURRENTLY PROVIDING AN ESTIMATED 2169 KCALS AND 97 G PRO, MEETING 100% KCAL AND 100%+ PRO NEEDS - ADEQUATE . CONSULT FOR HIGH GLUC 122 HAS RESOLVED WITH POC GLUC 82. WILL CONTINUE TO MONITOR NUTRITION RELATED LABS. Current Diet Order/ Nutrition Support REGULAR Pertinent Medications N/A Pertinent Labs 08/22: POC GLUC 82 08/21: GLUC 221 Nutritional Hx/Data Height 1.83 m Height (Calculated Centimeters) 182.9 Current Weight (lbs) 86.183 kg Weight (Calculated Kilograms) 86.2 Weight (Calculated Grams) 39952.6 [place] Body Weight 178 % [place] Body Weight 107 Body Mass Index (BMI) 25.7 Weight Status Overweight GI Symptoms GI Symptoms None Last BM NOT NOTED Skin Integrity/Comment: WNL Estimated Nutritional Goals BEE in Kcals: Using Current wt Calories/Kcals/Kg 20-25 Kcals Calculated 0046-2538 Protein: Using Current wt Protein g/k.8-0.9 Protein Calculated 69-78 Fluid: ml 2915-5831 Nutritional Problem 1. Problem Problem ALTERED NUTRITION RELATED LABORATORY VALUES Etiology R/T PATHOPHYSIOLOGICAL CAUSES Signs/Symptoms: AEB GLUC 122 Malnutrition Related to Morbid Obesity Malnutrition related to morbid obesity No Intervention/Recommendation Comments 1. CONTINUE WITH REGULAR DIET ORDERED. Expected Outcomes/Goals Expected Outcomes/Goals 1. PO INTAKE TO MEET >75% ESTIMATED NEEDS. 2. NUTRITION RELATED LABS TO TREND WNL IN 3-5 DAYS. 3. MONITOR PO INTAKE, WT, SKIN INTEGRITY, AND NUTRITION RELATED LABS. 4. F/U MR IN 3-5 DAYS.
--- NOTE | 2018-09-04 00:23 | Progress Notes ---
DATE: 09/03/2018 SUBJECTIVE: Chart was reviewed and the patient interviewed. Also discussed the patient's condition with the staff and reviewed records and labs. The patient is demanding and is still anxious and in a depressed mood. The patient's anxiety level is getting stronger. Also, still seems to be suspicious and paranoid. The patient denies any side effects of medications. ASSESSMENT: The patient is still agitated and depressed. TREATMENT PLAN: We will continue monitoring his behavior. Also, decrease Ativan 1 mg every 8 hours on a p.r.n. basis. Also, continue to work on discharge plans and placement issue. JOB# [id number]
[2018-09-04] MEDS: Hydrocodone/APAP 10 mg/325 mg Tab PO PRN ×3 (08:21→20:29)
--- NOTE | 2018-09-04 16:03 | Progress Notes ---
DATE: 09/04/2018 Case was discussed with staff of the patient, reviewed records. The patient continues to be unpredictable, impulsive, needing redirection. He continues to have poor insight. He is reporting that he should be on Adderall and he could be in higher dose of Ativan and nobody is listening to him and that he will harm himself and I discussed with him that these are addictive medications that make him more depressed and addicted and Dr. Huff is monitoring his behavior. He actually is trying to decrease his Ativan because of his addiction working on discharge plan. No side effects. The patient seems to be trying to get me to give him addictive medication and he should be on it. We will continue outpatient group therapy, milieu therapy, adjust medication as needed. JOB# [id number]
--- NOTE | 2018-09-04 20:10 | Internal Medicine Prog Note ---
Internal Medicine Subjective - Subjective Service Date: 09/04/18 Patient seen and examined:: with staff (HE FEELS BETTER) Patient is:: awake, verbal, talking Per staff patient has:: no adverse event, tolerating meds Internal Medicine Objective - Results Result Diagrams: 08/21/18 11:43 08/21/18 11:43 Recent Labs: Laboratory Last Values WBC 4.3 Th/cmm (4.8-10.8) L 08/21/18 11:43 RBC 5.00 Mil/cmm (4.30-5.70) 08/21/18 11:43 Hgb 14.0 gm/dL (12-16) 08/21/18 11:43 Hct 42.3 % (41.0-60) 08/21/18 11:43 MCV 84.6 fl (80-99) 08/21/18 11:43 MCH 28.0 pg (26.0-30.0) 08/21/18 11:43 MCHC Differential 33.1 pg (28.0-36.0) 08/21/18 11:43 RDW 14.0 % (11.5-20.0) 08/21/18 11:43 Plt Count 319 Th/cmm (150-400) 08/21/18 11:43 MPV 7.6 fl 08/21/18 11:43 Neutrophils % 85.5 % (40.0-80.0) H 08/21/18 11:43 Lymphocytes % 12.2 % (20.0-50.0) L 08/21/18 11:43 Monocytes % 0.7 % (2.0-10.0) L 08/21/18 11:43 Eosinophils % 0.4 % (0.0-5.0) 08/21/18 11:43 Basophils % 1.2 % (0.0-2.0) 08/21/18 11:43 Sodium 138 mEq/L (136-145) 08/21/18 11:43 Potassium 4.3 mEq/L (3.5-5.1) 08/21/18 11:43 Chloride 104 mEq/L (98-107) 08/21/18 11:43 Carbon Dioxide 24.0 mEq/L (21.0-31.0) 08/21/18 11:43 Anion Gap 14.3 (7.0-16.0) 08/21/18 11:43 BUN 13 mg/dL (7-25) 08/21/18 11:43 Creatinine 1.1 mg/dL (0.7-1.3) 08/21/18 11:43 Est GFR ( Amer) > 60.0 ml/min (>90) 08/21/18 11:43 Est GFR (Non-Af Amer) > 60.0 ml/min 08/21/18 11:43 BUN/Creatinine Ratio 11.8 08/21/18 11:43 Glucose 221 mg/dL (70-105) H 08/21/18 11:43 POC Glucose 82 MG/DL (70 - 105) 08/22/18 06:31 Calcium 9.4 mg/dL (8.6-10.3) 08/21/18 11:43 Total Bilirubin 0.4 mg/dL (0.3-1.0) 08/21/18 11:43 AST 22 U/L (13-39) 08/21/18 11:43 ALT 24 U/L (7-52) 08/21/18 11:43 Alkaline Phosphatase 53 U/L (34-104) 08/21/18 11:43 Total Protein 6.9 gm/dL (6.0-8.3) 08/21/18 11:43 Albumin 4.3 gm/dL (4.2-5.5) 08/21/18 11:43 Globulin 2.6 gm/dL 08/21/18 11:43 Albumin/Globulin Ratio 1.7 (1.0-1.8) 08/21/18 11:43 Triglycerides 183 mg/dL (<150) H 08/22/18 07:50 Cholesterol 223 mg/dL (<200) H 08/22/18 07:50 LDL Cholesterol Direct 133 mg/dL (75-193) 08/22/18 07:50 HDL Cholesterol 49 mg/dL (23-92) 08/22/18 07:50 TSH 0.48 uIU/ml (0.34-5.60) 08/21/18 11:43 Urine Source CLEAN C 08/21/18 18:15 Urine Color YELLOW 08/21/18 18:15 Urine Clarity HAZY (CLEAR) 08/21/18 18:15 Urine pH 5.0 (4.6 - 8.0) 08/21/18 18:15 Ur Specific [place] >= 1.030 (1.005-1.030) 08/21/18 18:15 Urine Protein 30 mg/dL (NEGATIVE) H 08/21/18 18:15 Urine Glucose (UA) NEGATIVE mg/dL (NEGATIVE) 08/21/18 18:15 Urine Ketones NEGATIVE mg/dL (NEGATIVE) 08/21/18 18:15 Urine Blood NEGATIVE (NEGATIVE) 08/21/18 18:15 Urine Nitrate NEGATIVE (NEGATIVE) 08/21/18 18:15 Urine Bilirubin SMALL (NEGATIVE) H 08/21/18 18:15 Urine Urobilinogen 0.2 E.U./dL (0.2 - 1.0) 08/21/18 18:15 Ur Leukocyte Esterase NEGATIVE (NEGATIVE) 08/21/18 18:15 Urine RBC 2-5 /hpf (0-5) H 08/21/18 18:15 Urine WBC 2-5 /hpf (0-5) 08/21/18 18:15 Ur Epithelial Cells RARE /lpf (FEW) 08/21/18 18:15 Urine Bacteria FEW /hpf (NONE SEEN) 08/21/18 18:15 Valproic Acid 57.3 ug/mL (50.0-100.0) 09/04/18 06:10 RPR NONREACTIVE (NONREACTIVE) 08/21/18 11:43 - Physical Exam Vitals and I&O: Vital Signs Temp 98.2 F 09/04/18 14:00 Pulse 95 09/04/18 14:00 Resp 18 09/04/18 14:00 BP 97/62 09/04/18 14:00 Pulse Ox 98 09/04/18 14:00 Intake & Output 09/04/18 09/04/18 09/05/18 06:59 18:59 06:59 Intake Total 120 1350 Balance 120 1350 Intake: Oral 120 1350 Other: # Voids 2 Stool Characteristics Formed Active Medications: Current Medications Acetaminophen/Hydrocodone Bitart ([place] 10 Mg/325 Mg) 1 tab PO Q6H PRN PRN Reason: Pain (Moderate) Stop: 11/01/18 21:14 Last Admin: 09/04/18 14:13 Dose: 1 tab Amlodipine Besylate (Norvasc) 5 mg PO DAILY [facility] Stop: 10/21/18 08:59 Last Admin: 09/04/18 08:21 Dose: 5 mg Divalproex Sodium (Depakote Dr) 750 mg PO BID COUNTS INCLUDE 234 BEDS AT [facility]; Protocol Stop: 11/01/18 08:59 Last Admin: 09/04/18 16:38 Dose: 750 mg Duloxetine HCl (Cymbalta) 90 mg PO DAILY [facility]S INCLUDE 234 BEDS AT THE [facility]; Protocol Stop: 10/27/18 08:59 Last Admin: 09/04/18 08:21 Dose: 90 mg Gabapentin (Neurontin) 100 mg PO TID COUNTS INCLUDE 234 BEDS AT THE [facility] Stop: 10/30/18 08:59 Last Admin: 09/04/18 14:13 Dose: 100 mg Lorazepam (Ativan) 1 mg PO Q4HR PRN; Protocol PRN Reason: Anxiety Stop: 09/20/18 19:34 Last Admin: 09/04/18 14:12 Dose: 1 mg Methocarbamol (Robaxin) 750 mg PO TID COUNTS INCLUDE 234 BEDS AT [facility] Stop: 10/20/18 20:59 Last Admin: 09/04/18 14:12 Dose: 750 mg Naproxen (Naprosyn) 500 mg PO BID [facility]S INCLUDE 234 BEDS AT [facility] Stop: 10/21/18 08:59 Last Admin: 09/04/18 16:38 Dose: 500 mg Quetiapine Fumarate (Seroquel) 800 mg PO HS [facility]; Protocol Stop: 10/31/18 20:59 Last Admin: 09/03/18 20:44 Dose: 800 mg Tamsulosin HCl (Flomax) 0.4 mg PO DAILY [facility]S INCLUDE 234 BEDS AT [facility] Stop: 10/24/18 08:59 Last Admin: 09/04/18 08:18 Dose: 0.4 mg Zolpidem Tartrate (Ambien) 5 mg PO HS PRN PRN Reason: Insomnia Stop: 10/20/18 19:34 Last Admin: 09/03/18 20:42 Dose: 5 mg General: alert HEENT: NC/AT, PERRLA, EOMI, anicteric sclerae, throat clear Neck: Supple, No JVD, No thyromegaly, +2 carotid pulse wo bruit, No LAD Lungs: CTAB Cardiovascular: RRR, Normal S1, Normal S2, without murmur Abdomen: soft, non-tender, non-distended Extremities: clear Neurological: no change - Procedures Procedures: Procedures Procedure Code Date CONTINUOUS INVASIVE MECHANICAL VENTILATION <96 CONSEC HRS 96.71 06/05/13 GROUP PSYCHOTHERAPY 00415 08/25/15 GROUP PSYCHOTHERAPY GZHZZZZ 08/25/15 INSERT EMERGENCY AIRWAY [id number] 06/05/13 INSERT ENDOTRACHEAL TUBE 96.04 06/05/13 VACCINATION NEC 99.55 06/24/13 Internal Medicine Assmt/Plan - Assessment Assessment: 1.HTN. 2.CHRONIC BACK PAIN. 3.HYPERLIPIDEMIA. 4.PSYCHOSIS - Plan Plan: CONTINUE ON CURRENT MEDICATION AND DIET. Nutritional Asmnt/Malnutr-PDOC - Dietary Evaluation Malnutrition Findings (Please click <Entered> for more info): Nutritional Asmnt/Malnutrition Start: 08/22/18 14: 11 Text: Status: Active Freq: Protocol: Document 08/22/18 14:11 VINCE (Rec: 08/22/18 14:31 VINCE [email or web address]) Nutritional Asmnt/Malnutrition Patient General Information Nutritional Screening High Risk Diagnosis SUICIDAL IDEATION Pertinent Medical Hx/Surgical Hx HTN, CHRONIC BACK PAIN, PSYCHOSIS, HYPERLIPIDEMIA, DEGENERATIVE JOINT DISEASE Subjective Information IA HR, CONSULT: HIGH GULCOSE 221 63 YEAR OLD MALE ADMITTED FOR SUICIDAL IDEATIONS. HT: 6 FT WT: 190 LB. (86KG) BMI: 25.77 (OVERWEIGHT) I/O: 120/NOT NOTED GI: SOFT, ACTIVE SKIN: WNL PUSHPA: 21 ESTIMATED ENERGY NEEDS: 7064-2825 KCALS (20-25 KCALS/ KG) 69-78 G PRO (0.8-0.9 G/KG) 1647-7880 ML FLUIDS (35-40 ML/ KG) DIETARY IS CURRENTLY PROVIDING AN ESTIMATED 2169 KCALS AND 97 G PRO, MEETING 100% KCAL AND 100%+ PRO NEEDS - ADEQUATE . CONSULT FOR HIGH GLUC 122 HAS RESOLVED WITH POC GLUC 82. WILL CONTINUE TO MONITOR NUTRITION RELATED LABS. Current Diet Order/ Nutrition Support REGULAR Pertinent Medications N/A Pertinent Labs 08/22: POC GLUC 82 08/21: GLUC 221 Nutritional Hx/Data Height 1.83 m Height (Calculated Centimeters) 182.9 Current Weight (lbs) 86.183 kg Weight (Calculated Kilograms) 86.2 Weight (Calculated Grams) 52608.6 [place] Body Weight 178 % [place] Body Weight 107 Body Mass Index (BMI) 25.7 Weight Status Overweight GI Symptoms GI Symptoms None Last BM NOT NOTED Skin Integrity/Comment: WNL Estimated Nutritional Goals BEE in Kcals: Using Current wt Calories/Kcals/Kg 20-25 Kcals Calculated 7731-3739 Protein: Using Current wt Protein g/k.8-0.9 Protein Calculated 69-78 Fluid: ml 7015-9659 Nutritional Problem 1. Problem Problem ALTERED NUTRITION RELATED LABORATORY VALUES Etiology R/T PATHOPHYSIOLOGICAL CAUSES Signs/Symptoms: AEB GLUC 122 Malnutrition Related to Morbid Obesity Malnutrition related to morbid obesity No Intervention/Recommendation Comments 1. CONTINUE WITH REGULAR DIET ORDERED. Expected Outcomes/Goals Expected Outcomes/Goals 1. PO INTAKE TO MEET >75% ESTIMATED NEEDS. 2. NUTRITION RELATED LABS TO TREND WNL IN 3-5 DAYS. 3. MONITOR PO INTAKE, WT, SKIN INTEGRITY, AND NUTRITION RELATED LABS. 4. F/U MR IN 3-5 DAYS.
--- NOTE | 2018-09-04 20:16 | Progress Notes ---
DATE: 09/01/2018 DATE: 09/01/2018. SUBJECTIVE: Chart was reviewed and the patient interviewed. Also discussed the patient's condition with the staff and reviewed records and labs. The patient remained easily agitated and he is still in angry and in irritable mood. The patient also is still paranoid and suspicious. The patient is also complaining of lack of sleep. Also still restless and anxious with mood swings. Also, the patient at times not clear about placement issue and giving mixed messages to where he will go after his discharge. Otherwise, the patient is cooperative and compliant with taking his medications with no side effects of medications. ASSESSMENT: The patient is still anxious and is still in irritable mood. TREATMENT PLAN: We will continue Seroquel same dose and continue adjusting his condition and his medications closely. Also, working on his severe mood swings and anxiety. Also, working with his human services case manager in regard to discharge plans and placement issue. JOB# [id number]
[2018-09-05] MEDS: Hydrocodone/APAP 10 mg/325 mg Tab PO PRN ×3 (02:15→21:14)
--- NOTE | 2018-09-05 15:53 | Internal Medicine Prog Note ---
Internal Medicine Subjective - Subjective Service Date: 09/05/18 Patient seen and examined:: without staff (HE HAS LESS PAIN) Patient is:: awake, verbal, talking Per staff patient has:: no adverse event, tolerating meds Internal Medicine Objective - Results Result Diagrams: 08/21/18 11:43 08/21/18 11:43 Recent Labs: Laboratory Last Values WBC 4.3 Th/cmm (4.8-10.8) L 08/21/18 11:43 RBC 5.00 Mil/cmm (4.30-5.70) 08/21/18 11:43 Hgb 14.0 gm/dL (12-16) 08/21/18 11:43 Hct 42.3 % (41.0-60) 08/21/18 11:43 MCV 84.6 fl (80-99) 08/21/18 11:43 MCH 28.0 pg (26.0-30.0) 08/21/18 11:43 MCHC Differential 33.1 pg (28.0-36.0) 08/21/18 11:43 RDW 14.0 % (11.5-20.0) 08/21/18 11:43 Plt Count 319 Th/cmm (150-400) 08/21/18 11:43 MPV 7.6 fl 08/21/18 11:43 Neutrophils % 85.5 % (40.0-80.0) H 08/21/18 11:43 Lymphocytes % 12.2 % (20.0-50.0) L 08/21/18 11:43 Monocytes % 0.7 % (2.0-10.0) L 08/21/18 11:43 Eosinophils % 0.4 % (0.0-5.0) 08/21/18 11:43 Basophils % 1.2 % (0.0-2.0) 08/21/18 11:43 Sodium 138 mEq/L (136-145) 08/21/18 11:43 Potassium 4.3 mEq/L (3.5-5.1) 08/21/18 11:43 Chloride 104 mEq/L (98-107) 08/21/18 11:43 Carbon Dioxide 24.0 mEq/L (21.0-31.0) 08/21/18 11:43 Anion Gap 14.3 (7.0-16.0) 08/21/18 11:43 BUN 13 mg/dL (7-25) 08/21/18 11:43 Creatinine 1.1 mg/dL (0.7-1.3) 08/21/18 11:43 Est GFR ( Amer) > 60.0 ml/min (>90) 08/21/18 11:43 Est GFR (Non-Af Amer) > 60.0 ml/min 08/21/18 11:43 BUN/Creatinine Ratio 11.8 08/21/18 11:43 Glucose 221 mg/dL (70-105) H 08/21/18 11:43 POC Glucose 82 MG/DL (70 - 105) 08/22/18 06:31 Calcium 9.4 mg/dL (8.6-10.3) 08/21/18 11:43 Total Bilirubin 0.4 mg/dL (0.3-1.0) 08/21/18 11:43 AST 22 U/L (13-39) 08/21/18 11:43 ALT 24 U/L (7-52) 08/21/18 11:43 Alkaline Phosphatase 53 U/L (34-104) 08/21/18 11:43 Total Protein 6.9 gm/dL (6.0-8.3) 08/21/18 11:43 Albumin 4.3 gm/dL (4.2-5.5) 08/21/18 11:43 Globulin 2.6 gm/dL 08/21/18 11:43 Albumin/Globulin Ratio 1.7 (1.0-1.8) 08/21/18 11:43 Triglycerides 183 mg/dL (<150) H 08/22/18 07:50 Cholesterol 223 mg/dL (<200) H 08/22/18 07:50 LDL Cholesterol Direct 133 mg/dL (75-193) 08/22/18 07:50 HDL Cholesterol 49 mg/dL (23-92) 08/22/18 07:50 TSH 0.48 uIU/ml (0.34-5.60) 08/21/18 11:43 Urine Source CLEAN C 08/21/18 18:15 Urine Color YELLOW 08/21/18 18:15 Urine Clarity HAZY (CLEAR) 08/21/18 18:15 Urine pH 5.0 (4.6 - 8.0) 08/21/18 18:15 Ur Specific [place] >= 1.030 (1.005-1.030) 08/21/18 18:15 Urine Protein 30 mg/dL (NEGATIVE) H 08/21/18 18:15 Urine Glucose (UA) NEGATIVE mg/dL (NEGATIVE) 08/21/18 18:15 Urine Ketones NEGATIVE mg/dL (NEGATIVE) 08/21/18 18:15 Urine Blood NEGATIVE (NEGATIVE) 08/21/18 18:15 Urine Nitrate NEGATIVE (NEGATIVE) 08/21/18 18:15 Urine Bilirubin SMALL (NEGATIVE) H 08/21/18 18:15 Urine Urobilinogen 0.2 E.U./dL (0.2 - 1.0) 08/21/18 18:15 Ur Leukocyte Esterase NEGATIVE (NEGATIVE) 08/21/18 18:15 Urine RBC 2-5 /hpf (0-5) H 08/21/18 18:15 Urine WBC 2-5 /hpf (0-5) 08/21/18 18:15 Ur Epithelial Cells RARE /lpf (FEW) 08/21/18 18:15 Urine Bacteria FEW /hpf (NONE SEEN) 08/21/18 18:15 Valproic Acid 57.3 ug/mL (50.0-100.0) 09/04/18 06:10 RPR NONREACTIVE (NONREACTIVE) 08/21/18 11:43 - Physical Exam Vitals and I&O: Vital Signs Temp 98.1 F 09/05/18 14:00 Pulse 87 09/05/18 14:00 Resp 20 09/05/18 14:00 BP 112/75 09/05/18 14:00 Pulse Ox 95 09/05/18 14:00 Intake & Output 09/04/18 09/05/18 09/05/18 18:59 06:59 18:59 Intake Total 1350 120 Balance 1350 120 Intake: Oral 1350 120 Other: # Voids 2 Stool Characteristics Formed Formed Active Medications: Current Medications Acetaminophen/Hydrocodone Bitart ([place] 10 Mg/325 Mg) 1 tab PO Q6H PRN PRN Reason: Pain (Moderate) Stop: 11/01/18 21:14 Last Admin: 09/05/18 14:15 Dose: 1 tab Amlodipine Besylate (Norvasc) 5 mg PO DAILY [facility] Stop: 10/21/18 08:59 Last Admin: 09/05/18 08:20 Dose: Not Given Divalproex Sodium (Depakote Dr) 750 mg PO BID [facility]; Protocol Stop: 11/01/18 08:59 Last Admin: 09/05/18 08:20 Dose: 750 mg Duloxetine HCl (Cymbalta) 90 mg PO DAILY [facility]; Protocol Stop: 10/27/18 08:59 Last Admin: 09/05/18 08:20 Dose: 90 mg Gabapentin (Neurontin) 100 mg PO TID [facility] Stop: 10/30/18 08:59 Last Admin: 09/05/18 14:12 Dose: 100 mg Lorazepam (Ativan) 1 mg PO Q4HR PRN; Protocol PRN Reason: Anxiety Stop: 09/20/18 19:34 Last Admin: 09/05/18 14:13 Dose: 1 mg Methocarbamol (Robaxin) 750 mg PO TID [facility] Stop: 10/20/18 20:59 Last Admin: 09/05/18 14:12 Dose: 750 mg Naproxen (Naprosyn) 500 mg PO BID [facility] Stop: 10/21/18 08:59 Last Admin: 09/05/18 08:21 Dose: 500 mg Quetiapine Fumarate (Seroquel) 800 mg PO HS [facility]; Protocol Stop: 10/31/18 20:59 Last Admin: 09/04/18 20:27 Dose: 800 mg Tamsulosin HCl (Flomax) 0.4 mg PO DAILY [facility] Stop: 10/24/18 08:59 Last Admin: 09/05/18 08:21 Dose: 0.4 mg Zolpidem Tartrate (Ambien) 5 mg PO HS PRN PRN Reason: Insomnia Stop: 10/20/18 19:34 Last Admin: 09/04/18 20:29 Dose: 5 mg General: alert HEENT: NC/AT, PERRLA, EOMI, anicteric sclerae, throat clear Neck: Supple, No JVD, No thyromegaly, +2 carotid pulse wo bruit, No LAD Lungs: CTAB Cardiovascular: RRR, Normal S1, Normal S2, without murmur Abdomen: soft, non-tender, non-distended Extremities: clear Neurological: no change - Procedures Procedures: Procedures Procedure Code Date CONTINUOUS INVASIVE MECHANICAL VENTILATION <96 CONSEC HRS 96.71 06/05/13 GROUP PSYCHOTHERAPY 94229 08/25/15 GROUP PSYCHOTHERAPY GZHZZZZ 08/25/15 INSERT EMERGENCY AIRWAY 37252 06/05/13 INSERT ENDOTRACHEAL TUBE 96.04 06/05/13 VACCINATION NEC 99.55 06/24/13 Internal Medicine Assmt/Plan - Assessment Assessment: 1.HTN. 2.CHRONIC BACK PAIN. 3.HYPERLIPIDEMIA. 4.PSYCHOSIS - Plan Plan: CONTINUE ON CURRENT MEDICATION AND DIET. Nutritional Asmnt/Malnutr-PDOC - Dietary Evaluation Malnutrition Findings (Please click <Entered> for more info): Nutritional Asmnt/Malnutrition Start: 08/22/18 14: 11 Text: Status: Active Freq: Protocol: Document 08/22/18 14:11 VINCE (Rec: 08/22/18 14:31 VINCE [email or web address]) Nutritional Asmnt/Malnutrition Patient General Information Nutritional Screening High Risk Diagnosis SUICIDAL IDEATION Pertinent Medical Hx/Surgical Hx HTN, CHRONIC BACK PAIN, PSYCHOSIS, HYPERLIPIDEMIA, DEGENERATIVE JOINT DISEASE Subjective Information IA HR, CONSULT: HIGH GULCOSE 221 63 YEAR OLD MALE ADMITTED FOR SUICIDAL IDEATIONS. HT: 6 FT WT: 190 LB. (86KG) BMI: 25.77 (OVERWEIGHT) I/O: 120/NOT NOTED GI: SOFT, ACTIVE SKIN: WNL PUSHPA: 21 ESTIMATED ENERGY NEEDS: 7537-2796 KCALS (20-25 KCALS/ KG) 69-78 G PRO (0.8-0.9 G/KG) 9781-1097 ML FLUIDS (35-40 ML/ KG) DIETARY IS CURRENTLY PROVIDING AN ESTIMATED 2169 KCALS AND 97 G PRO, MEETING 100% KCAL AND 100%+ PRO NEEDS - ADEQUATE . CONSULT FOR HIGH GLUC 122 HAS RESOLVED WITH POC GLUC 82. WILL CONTINUE TO MONITOR NUTRITION RELATED LABS. Current Diet Order/ Nutrition Support REGULAR Pertinent Medications N/A Pertinent Labs 08/22: POC GLUC 82 08/21: GLUC 221 Nutritional Hx/Data Height 1.83 m Height (Calculated Centimeters) 182.9 Current Weight (lbs) 86.183 kg Weight (Calculated Kilograms) 86.2 Weight (Calculated Grams) 52181.6 [place] Body Weight 178 % [place] Body Weight 107 Body Mass Index (BMI) 25.7 Weight Status Overweight GI Symptoms GI Symptoms None Last BM NOT NOTED Skin Integrity/Comment: WNL Estimated Nutritional Goals BEE in Kcals: Using Current wt Calories/Kcals/Kg 20-25 Kcals Calculated 1970-6923 Protein: Using Current wt Protein g/k.8-0.9 Protein Calculated 69-78 Fluid: ml 9454-8368 Nutritional Problem 1. Problem Problem ALTERED NUTRITION RELATED LABORATORY VALUES Etiology R/T PATHOPHYSIOLOGICAL CAUSES Signs/Symptoms: AEB GLUC 122 Malnutrition Related to Morbid Obesity Malnutrition related to morbid obesity No Intervention/Recommendation Comments 1. CONTINUE WITH REGULAR DIET ORDERED. Expected Outcomes/Goals Expected Outcomes/Goals 1. PO INTAKE TO MEET >75% ESTIMATED NEEDS. 2. NUTRITION RELATED LABS TO TREND WNL IN 3-5 DAYS. 3. MONITOR PO INTAKE, WT, SKIN INTEGRITY, AND NUTRITION RELATED LABS. 4. F/U MR IN 3-5 DAYS.
--- NOTE | 2018-09-06 00:11 | Progress Notes ---
DATE: 09/05/2018 SUBJECTIVE: Chart was reviewed and the patient interviewed. Also discussed the patient's condition with the staff and reviewed records and labs. The patient continued to be anxious and continued to be in irritable and depressed mood. The patient also is demanding at times and he is still talking about wants to get "Ritalin or Adderall." Continue to work ____ in regard to his addiction and his history of drug use and at the same time that it is not appropriate medication for him. Also, is still talking about his discharge plans and placement issue. ASSESSMENT: The patient is still irritable and is still anxious. TREATMENT PLAN: We will continue monitoring his behavior and his condition and also working on discharge plans and placement issue. [facility]# [id number]
[2018-09-06] MEDS: Hydrocodone/APAP 10 mg/325 mg Tab PO PRN ×3 (09:46→23:55)
--- NOTE | 2018-09-06 20:52 | General Progress Note ---
Subjective - Review of Systems Service Date: 09/06/18 Subjective: resting comfortably no distress Objective - Results Result Diagrams: 08/21/18 11:43 08/21/18 11:43 Recent Labs: Laboratory Last Values WBC 4.3 Th/cmm (4.8-10.8) L 08/21/18 11:43 RBC 5.00 Mil/cmm (4.30-5.70) 08/21/18 11:43 Hgb 14.0 gm/dL (12-16) 08/21/18 11:43 Hct 42.3 % (41.0-60) 08/21/18 11:43 MCV 84.6 fl (80-99) 08/21/18 11:43 MCH 28.0 pg (26.0-30.0) 08/21/18 11:43 MCHC Differential 33.1 pg (28.0-36.0) 08/21/18 11:43 RDW 14.0 % (11.5-20.0) 08/21/18 11:43 Plt Count 319 Th/cmm (150-400) 08/21/18 11:43 MPV 7.6 fl 08/21/18 11:43 Neutrophils % 85.5 % (40.0-80.0) H 08/21/18 11:43 Lymphocytes % 12.2 % (20.0-50.0) L 08/21/18 11:43 Monocytes % 0.7 % (2.0-10.0) L 08/21/18 11:43 Eosinophils % 0.4 % (0.0-5.0) 08/21/18 11:43 Basophils % 1.2 % (0.0-2.0) 08/21/18 11:43 Sodium 138 mEq/L (136-145) 08/21/18 11:43 Potassium 4.3 mEq/L (3.5-5.1) 08/21/18 11:43 Chloride 104 mEq/L (98-107) 08/21/18 11:43 Carbon Dioxide 24.0 mEq/L (21.0-31.0) 08/21/18 11:43 Anion Gap 14.3 (7.0-16.0) 08/21/18 11:43 BUN 13 mg/dL (7-25) 08/21/18 11:43 Creatinine 1.1 mg/dL (0.7-1.3) 08/21/18 11:43 Est GFR ( Amer) > 60.0 ml/min (>90) 08/21/18 11:43 Est GFR (Non-Af Amer) > 60.0 ml/min 08/21/18 11:43 BUN/Creatinine Ratio 11.8 08/21/18 11:43 Glucose 221 mg/dL (70-105) H 08/21/18 11:43 POC Glucose 82 MG/DL (70 - 105) 08/22/18 06:31 Calcium 9.4 mg/dL (8.6-10.3) 08/21/18 11:43 Total Bilirubin 0.4 mg/dL (0.3-1.0) 08/21/18 11:43 AST 22 U/L (13-39) 08/21/18 11:43 ALT 24 U/L (7-52) 08/21/18 11:43 Alkaline Phosphatase 53 U/L (34-104) 08/21/18 11:43 Total Protein 6.9 gm/dL (6.0-8.3) 08/21/18 11:43 Albumin 4.3 gm/dL (4.2-5.5) 08/21/18 11:43 Globulin 2.6 gm/dL 08/21/18 11:43 Albumin/Globulin Ratio 1.7 (1.0-1.8) 08/21/18 11:43 Triglycerides 183 mg/dL (<150) H 08/22/18 07:50 Cholesterol 223 mg/dL (<200) H 08/22/18 07:50 LDL Cholesterol Direct 133 mg/dL (75-193) 08/22/18 07:50 HDL Cholesterol 49 mg/dL (23-92) 08/22/18 07:50 TSH 0.48 uIU/ml (0.34-5.60) 08/21/18 11:43 Urine Source CLEAN C 08/21/18 18:15 Urine Color YELLOW 08/21/18 18:15 Urine Clarity HAZY (CLEAR) 08/21/18 18:15 Urine pH 5.0 (4.6 - 8.0) 08/21/18 18:15 Ur Specific [place] >= 1.030 (1.005-1.030) 08/21/18 18:15 Urine Protein 30 mg/dL (NEGATIVE) H 08/21/18 18:15 Urine Glucose (UA) NEGATIVE mg/dL (NEGATIVE) 08/21/18 18:15 Urine Ketones NEGATIVE mg/dL (NEGATIVE) 08/21/18 18:15 Urine Blood NEGATIVE (NEGATIVE) 08/21/18 18:15 Urine Nitrate NEGATIVE (NEGATIVE) 08/21/18 18:15 Urine Bilirubin SMALL (NEGATIVE) H 08/21/18 18:15 Urine Urobilinogen 0.2 E.U./dL (0.2 - 1.0) 08/21/18 18:15 Ur Leukocyte Esterase NEGATIVE (NEGATIVE) 08/21/18 18:15 Urine RBC 2-5 /hpf (0-5) H 08/21/18 18:15 Urine WBC 2-5 /hpf (0-5) 08/21/18 18:15 Ur Epithelial Cells RARE /lpf (FEW) 08/21/18 18:15 Urine Bacteria FEW /hpf (NONE SEEN) 08/21/18 18:15 Valproic Acid 57.3 ug/mL (50.0-100.0) 09/04/18 06:10 RPR NONREACTIVE (NONREACTIVE) 08/21/18 11:43 - Physical Exam Vitals and I&O: Vital Signs Temp 98.3 F 09/06/18 14:00 Pulse 89 09/06/18 14:00 Resp 18 09/06/18 14:00 BP 111/70 09/06/18 14:00 Pulse Ox 96 09/06/18 14:00 Intake & Output 09/06/18 09/06/18 09/07/18 06:59 18:59 06:59 Intake Total 240 1300 Balance 240 1300 Intake: Oral 240 1300 Other: # Voids 2 # Bowel Movements 11 Stool Characteristics Formed Formed Active Medications: Current Medications Acetaminophen/Hydrocodone Bitart ([place] 10 Mg/325 Mg) 1 tab PO Q6H PRN PRN Reason: Pain (Moderate) Stop: 11/01/18 21:14 Last Admin: 09/06/18 17:01 Dose: 1 tab Amlodipine Besylate (Norvasc) 5 mg PO DAILY [facility] Stop: 10/21/18 08:59 Last Admin: 09/06/18 08:24 Dose: 5 mg Divalproex Sodium (Depakote Dr) 750 mg PO BID [facility]; Protocol Stop: 11/01/18 08:59 Last Admin: 09/06/18 16:56 Dose: 750 mg Duloxetine HCl (Cymbalta) 90 mg PO DAILY [facility]; Protocol Stop: 10/27/18 08:59 Last Admin: 09/06/18 08:29 Dose: 90 mg Gabapentin (Neurontin) 100 mg PO TID [facility] Stop: 10/30/18 08:59 Last Admin: 09/06/18 20:46 Dose: 100 mg Lorazepam (Ativan) 1 mg PO Q4HR PRN; Protocol PRN Reason: Anxiety Stop: 09/20/18 19:34 Last Admin: 09/06/18 08:23 Dose: 1 mg Methocarbamol (Robaxin) 750 mg PO TID [facility] Stop: 10/20/18 20:59 Last Admin: 09/06/18 20:45 Dose: 750 mg Naproxen (Naprosyn) 500 mg PO BID [facility] Stop: 10/21/18 08:59 Last Admin: 09/06/18 16:55 Dose: 500 mg Quetiapine Fumarate (Seroquel) 800 mg PO HS [facility]; Protocol Stop: 10/31/18 20:59 Last Admin: 09/06/18 20:45 Dose: 800 mg Tamsulosin HCl (Flomax) 0.4 mg PO DAILY [facility] Stop: 10/24/18 08:59 Last Admin: 09/06/18 08:28 Dose: 0.4 mg Zolpidem Tartrate (Ambien) 5 mg PO HS PRN PRN Reason: Insomnia Stop: 10/20/18 19:34 Last Admin: 09/06/18 20:46 Dose: 5 mg General: No acute distress HEENT: Atraumatic, PERRLA Neck: Supple, JVD Cardiovascular: Regular rate, Normal S1, Normal S2 Lungs: Clear to auscultation Abdomen: Bowel sounds, Soft - Procedures Procedures: Procedures Procedure Code Date CONTINUOUS INVASIVE MECHANICAL VENTILATION <96 CONSEC HRS 96.71 06/05/13 GROUP PSYCHOTHERAPY 51335 08/25/15 GROUP PSYCHOTHERAPY GZHZZZZ 08/25/15 INSERT EMERGENCY AIRWAY [id number] 06/05/13 INSERT ENDOTRACHEAL TUBE 96.04 06/05/13 VACCINATION NEC 99.55 06/24/13 Assessment/Plan - Assessment Assessment: 1.HTN. 2.CHRONIC BACK PAIN. 3.HYPERLIPIDEMIA. 4.PSYCHOSIS - Plan Plan: continue current treatment Nutritional Asmnt/Malnutr-PDOC - Dietary Evaluation Malnutrition Findings (Please click <Entered> for more info): Nutritional Asmnt/Malnutrition Start: 08/22/18 14: 11 Text: Status: Active Freq: Protocol: Document 08/22/18 14:11 VINCE (Rec: 08/22/18 14:31 VINCE [email or web address]) Nutritional Asmnt/Malnutrition Patient General Information Nutritional Screening High Risk Diagnosis SUICIDAL IDEATION Pertinent Medical Hx/Surgical Hx HTN, CHRONIC BACK PAIN, PSYCHOSIS, HYPERLIPIDEMIA, DEGENERATIVE JOINT DISEASE Subjective Information IA HR, CONSULT: HIGH GULCOSE 221 63 YEAR OLD MALE ADMITTED FOR SUICIDAL IDEATIONS. HT: 6 FT WT: 190 LB. (86KG) BMI: 25.77 (OVERWEIGHT) I/O: 120/NOT NOTED GI: SOFT, ACTIVE SKIN: WNL PUSHPA: 21 ESTIMATED ENERGY NEEDS: 7480-2190 KCALS (20-25 KCALS/ KG) 69-78 G PRO (0.8-0.9 G/KG) 6956-9662 ML FLUIDS (35-40 ML/ KG) DIETARY IS CURRENTLY PROVIDING AN ESTIMATED 2169 KCALS AND 97 G PRO, MEETING 100% KCAL AND 100%+ PRO NEEDS - ADEQUATE . CONSULT FOR HIGH GLUC 122 HAS RESOLVED WITH POC GLUC 82. WILL CONTINUE TO MONITOR NUTRITION RELATED LABS. Current Diet Order/ Nutrition Support REGULAR Pertinent Medications N/A Pertinent Labs 08/22: POC GLUC 82 08/21: GLUC 221 Nutritional Hx/Data Height 1.83 m Height (Calculated Centimeters) 182.9 Current Weight (lbs) 86.183 kg Weight (Calculated Kilograms) 86.2 Weight (Calculated Grams) 20582.6 [place] Body Weight 178 % [place] Body Weight 107 Body Mass Index (BMI) 25.7 Weight Status Overweight GI Symptoms GI Symptoms None Last BM NOT NOTED Skin Integrity/Comment: WNL Estimated Nutritional Goals BEE in Kcals: Using Current wt Calories/Kcals/Kg 20-25 Kcals Calculated 1483-9599 Protein: Using Current wt Protein g/k.8-0.9 Protein Calculated 69-78 Fluid: ml 2534-5921 Nutritional Problem 1. Problem Problem ALTERED NUTRITION RELATED LABORATORY VALUES Etiology R/T PATHOPHYSIOLOGICAL CAUSES Signs/Symptoms: AEB GLUC 122 Malnutrition Related to Morbid Obesity Malnutrition related to morbid obesity No Intervention/Recommendation Comments 1. CONTINUE WITH REGULAR DIET ORDERED. Expected Outcomes/Goals Expected Outcomes/Goals 1. PO INTAKE TO MEET >75% ESTIMATED NEEDS. 2. NUTRITION RELATED LABS TO TREND WNL IN 3-5 DAYS. 3. MONITOR PO INTAKE, WT, SKIN INTEGRITY, AND NUTRITION RELATED LABS. 4. F/U MR IN 3-5 DAYS.
--- NOTE | 2018-09-06 21:57 | Progress Notes ---
DATE: 09/06/2018 SUBJECTIVE: Case was discussed with staff of the patient, reviewed records. We have a lengthy talk about his medications. He believes he needs to be on Adderall and that I could verified by calling the pharmacy and I did explain to him. Apparently, Dr. Huff, does not want him to be on Adderall. He is actually trying to taper off the Valium. I told in my book the only way ____ not using drugs and also they have to be evaluated by a psychologist for ADD and he reported that he want to change his doctors. He continues to have poor insight. He apparently talked to Dr. Huff about it as well and Dr. Huff also talks in his notes about his addiction. Staff is working on discharge plan. He continues to have poor insight, unpredictable, and impulsive. We will continue to work with the patient in group therapy, milieu therapy, and adjust the medications as needed. JOB# [id number]
[2018-09-07] MEDS: Hydrocodone/APAP 10 mg/325 mg Tab PO PRN ×3 (08:36→21:50)
--- NOTE | 2018-09-07 11:43 | General Progress Note ---
Subjective - Review of Systems Service Date: 09/07/18 Subjective: resting comfortably no distress Objective - Results Result Diagrams: 08/21/18 11:43 08/21/18 11:43 Recent Labs: Laboratory Last Values WBC 4.3 Th/cmm (4.8-10.8) L 08/21/18 11:43 RBC 5.00 Mil/cmm (4.30-5.70) 08/21/18 11:43 Hgb 14.0 gm/dL (12-16) 08/21/18 11:43 Hct 42.3 % (41.0-60) 08/21/18 11:43 MCV 84.6 fl (80-99) 08/21/18 11:43 MCH 28.0 pg (26.0-30.0) 08/21/18 11:43 MCHC Differential 33.1 pg (28.0-36.0) 08/21/18 11:43 RDW 14.0 % (11.5-20.0) 08/21/18 11:43 Plt Count 319 Th/cmm (150-400) 08/21/18 11:43 MPV 7.6 fl 08/21/18 11:43 Neutrophils % 85.5 % (40.0-80.0) H 08/21/18 11:43 Lymphocytes % 12.2 % (20.0-50.0) L 08/21/18 11:43 Monocytes % 0.7 % (2.0-10.0) L 08/21/18 11:43 Eosinophils % 0.4 % (0.0-5.0) 08/21/18 11:43 Basophils % 1.2 % (0.0-2.0) 08/21/18 11:43 Sodium 138 mEq/L (136-145) 08/21/18 11:43 Potassium 4.3 mEq/L (3.5-5.1) 08/21/18 11:43 Chloride 104 mEq/L (98-107) 08/21/18 11:43 Carbon Dioxide 24.0 mEq/L (21.0-31.0) 08/21/18 11:43 Anion Gap 14.3 (7.0-16.0) 08/21/18 11:43 BUN 13 mg/dL (7-25) 08/21/18 11:43 Creatinine 1.1 mg/dL (0.7-1.3) 08/21/18 11:43 Est GFR ( Amer) > 60.0 ml/min (>90) 08/21/18 11:43 Est GFR (Non-Af Amer) > 60.0 ml/min 08/21/18 11:43 BUN/Creatinine Ratio 11.8 08/21/18 11:43 Glucose 221 mg/dL (70-105) H 08/21/18 11:43 POC Glucose 82 MG/DL (70 - 105) 08/22/18 06:31 Calcium 9.4 mg/dL (8.6-10.3) 08/21/18 11:43 Total Bilirubin 0.4 mg/dL (0.3-1.0) 08/21/18 11:43 AST 22 U/L (13-39) 08/21/18 11:43 ALT 24 U/L (7-52) 08/21/18 11:43 Alkaline Phosphatase 53 U/L (34-104) 08/21/18 11:43 Total Protein 6.9 gm/dL (6.0-8.3) 08/21/18 11:43 Albumin 4.3 gm/dL (4.2-5.5) 08/21/18 11:43 Globulin 2.6 gm/dL 08/21/18 11:43 Albumin/Globulin Ratio 1.7 (1.0-1.8) 08/21/18 11:43 Triglycerides 183 mg/dL (<150) H 08/22/18 07:50 Cholesterol 223 mg/dL (<200) H 08/22/18 07:50 LDL Cholesterol Direct 133 mg/dL (75-193) 08/22/18 07:50 HDL Cholesterol 49 mg/dL (23-92) 08/22/18 07:50 TSH 0.48 uIU/ml (0.34-5.60) 08/21/18 11:43 Urine Source CLEAN C 08/21/18 18:15 Urine Color YELLOW 08/21/18 18:15 Urine Clarity HAZY (CLEAR) 08/21/18 18:15 Urine pH 5.0 (4.6 - 8.0) 08/21/18 18:15 Ur Specific [place] >= 1.030 (1.005-1.030) 08/21/18 18:15 Urine Protein 30 mg/dL (NEGATIVE) H 08/21/18 18:15 Urine Glucose (UA) NEGATIVE mg/dL (NEGATIVE) 08/21/18 18:15 Urine Ketones NEGATIVE mg/dL (NEGATIVE) 08/21/18 18:15 Urine Blood NEGATIVE (NEGATIVE) 08/21/18 18:15 Urine Nitrate NEGATIVE (NEGATIVE) 08/21/18 18:15 Urine Bilirubin SMALL (NEGATIVE) H 08/21/18 18:15 Urine Urobilinogen 0.2 E.U./dL (0.2 - 1.0) 08/21/18 18:15 Ur Leukocyte Esterase NEGATIVE (NEGATIVE) 08/21/18 18:15 Urine RBC 2-5 /hpf (0-5) H 08/21/18 18:15 Urine WBC 2-5 /hpf (0-5) 08/21/18 18:15 Ur Epithelial Cells RARE /lpf (FEW) 08/21/18 18:15 Urine Bacteria FEW /hpf (NONE SEEN) 08/21/18 18:15 Valproic Acid 57.3 ug/mL (50.0-100.0) 09/04/18 06:10 RPR NONREACTIVE (NONREACTIVE) 08/21/18 11:43 - Physical Exam Vitals and I&O: Vital Signs Temp 96.9 F 09/07/18 06:25 Pulse 80 09/07/18 08:48 Resp 21 09/07/18 06:25 BP 106/70 09/07/18 08:48 Pulse Ox 98 09/07/18 06:25 Intake & Output 09/06/18 09/07/18 09/07/18 18:59 06:59 18:59 Intake Total 1300 480 Balance 1300 480 Intake: Oral 1300 480 Other: # Voids 3 # Bowel Movements 11 0 Stool Characteristics Formed Formed Active Medications: Current Medications Acetaminophen/Hydrocodone Bitart ([place] 10 Mg/325 Mg) 1 tab PO Q6H PRN PRN Reason: Pain (Moderate) Stop: 11/01/18 21:14 Last Admin: 09/07/18 08:36 Dose: 1 tab Amlodipine Besylate (Norvasc) 5 mg PO DAILY [facility] Stop: 10/21/18 08:59 Last Admin: 09/07/18 08:48 Dose: Not Given Divalproex Sodium (Depakote Dr) 750 mg PO BID [facility]; Protocol Stop: 11/01/18 08:59 Last Admin: 09/07/18 08:37 Dose: 750 mg Duloxetine HCl (Cymbalta) 90 mg PO DAILY [facility]; Protocol Stop: 10/27/18 08:59 Last Admin: 09/07/18 08:34 Dose: 90 mg Gabapentin (Neurontin) 100 mg PO TID [facility] Stop: 10/30/18 08:59 Last Admin: 09/07/18 08:35 Dose: 100 mg Lorazepam (Ativan) 1 mg PO Q4HR PRN; Protocol PRN Reason: Anxiety Stop: 09/20/18 19:34 Last Admin: 09/07/18 11:19 Dose: 1 mg Methocarbamol (Robaxin) 750 mg PO TID [facility] Stop: 10/20/18 20:59 Last Admin: 09/07/18 08:38 Dose: 750 mg Naproxen (Naprosyn) 500 mg PO BID [facility] Stop: 10/21/18 08:59 Last Admin: 09/07/18 08:40 Dose: 500 mg Quetiapine Fumarate (Seroquel) 800 mg PO HS [facility]; Protocol Stop: 10/31/18 20:59 Last Admin: 09/06/18 20:45 Dose: 800 mg Tamsulosin HCl (Flomax) 0.4 mg PO DAILY [facility] Stop: 10/24/18 08:59 Last Admin: 09/07/18 08:57 Dose: 0.4 mg Zolpidem Tartrate (Ambien) 5 mg PO HS PRN PRN Reason: Insomnia Stop: 10/20/18 19:34 Last Admin: 09/06/18 20:46 Dose: 5 mg General: No acute distress HEENT: Atraumatic, PERRLA Neck: Supple, JVD Cardiovascular: Regular rate, Normal S1, Normal S2 Lungs: Clear to auscultation Abdomen: Bowel sounds, Soft - Procedures Procedures: Procedures Procedure Code Date CONTINUOUS INVASIVE MECHANICAL VENTILATION <96 CONSEC HRS 96.71 06/05/13 GROUP PSYCHOTHERAPY 37501 08/25/15 GROUP PSYCHOTHERAPY GZHZZZZ 08/25/15 INSERT EMERGENCY AIRWAY [id number] 06/05/13 INSERT ENDOTRACHEAL TUBE 96.04 06/05/13 VACCINATION NEC 99.55 06/24/13 Assessment/Plan - Assessment Assessment: 1.HTN. 2.CHRONIC BACK PAIN. 3.HYPERLIPIDEMIA. 4.PSYCHOSIS - Plan Plan: continue current treatment Nutritional Asmnt/Malnutr-PDOC - Dietary Evaluation Malnutrition Findings (Please click <Entered> for more info): Nutritional Asmnt/Malnutrition Start: 08/22/18 14: 11 Text: Status: Active Freq: Protocol: Document 08/22/18 14:11 VINCE (Rec: 08/22/18 14:31 VINCE [email or web address]) Nutritional Asmnt/Malnutrition Patient General Information Nutritional Screening High Risk Diagnosis SUICIDAL IDEATION Pertinent Medical Hx/Surgical Hx HTN, CHRONIC BACK PAIN, PSYCHOSIS, HYPERLIPIDEMIA, DEGENERATIVE JOINT DISEASE Subjective Information IA HR, CONSULT: HIGH GULCOSE 221 63 YEAR OLD MALE ADMITTED FOR SUICIDAL IDEATIONS. HT: 6 FT WT: 190 LB. (86KG) BMI: 25.77 (OVERWEIGHT) I/O: 120/NOT NOTED GI: SOFT, ACTIVE SKIN: WNL PUSHPA: 21 ESTIMATED ENERGY NEEDS: 4688-5705 KCALS (20-25 KCALS/ KG) 69-78 G PRO (0.8-0.9 G/KG) 6140-2242 ML FLUIDS (35-40 ML/ KG) DIETARY IS CURRENTLY PROVIDING AN ESTIMATED 2169 KCALS AND 97 G PRO, MEETING 100% KCAL AND 100%+ PRO NEEDS - ADEQUATE . CONSULT FOR HIGH GLUC 122 HAS RESOLVED WITH POC GLUC 82. WILL CONTINUE TO MONITOR NUTRITION RELATED LABS. Current Diet Order/ Nutrition Support REGULAR Pertinent Medications N/A Pertinent Labs 08/22: POC GLUC 82 08/21: GLUC 221 Nutritional Hx/Data Height 1.83 m Height (Calculated Centimeters) 182.9 Current Weight (lbs) 86.183 kg Weight (Calculated Kilograms) 86.2 Weight (Calculated Grams) 23368.6 [place] Body Weight 178 % [place] Body Weight 107 Body Mass Index (BMI) 25.7 Weight Status Overweight GI Symptoms GI Symptoms None Last BM NOT NOTED Skin Integrity/Comment: WNL Estimated Nutritional Goals BEE in Kcals: Using Current wt Calories/Kcals/Kg 20-25 Kcals Calculated 8279-5530 Protein: Using Current wt Protein g/k.8-0.9 Protein Calculated 69-78 Fluid: ml 8363-3762 Nutritional Problem 1. Problem Problem ALTERED NUTRITION RELATED LABORATORY VALUES Etiology R/T PATHOPHYSIOLOGICAL CAUSES Signs/Symptoms: AEB GLUC 122 Malnutrition Related to Morbid Obesity Malnutrition related to morbid obesity No Intervention/Recommendation Comments 1. CONTINUE WITH REGULAR DIET ORDERED. Expected Outcomes/Goals Expected Outcomes/Goals 1. PO INTAKE TO MEET >75% ESTIMATED NEEDS. 2. NUTRITION RELATED LABS TO TREND WNL IN 3-5 DAYS. 3. MONITOR PO INTAKE, WT, SKIN INTEGRITY, AND NUTRITION RELATED LABS. 4. F/U MR IN 3-5 DAYS.
--- NOTE | 2018-09-07 23:51 | Progress Notes ---
DATE: 09/07/2018 Case was discussed with staff of the patient, reviewed records. The patient reported that he still wants to harm himself. He does not have any specific plan. He is angry because Dr. Huff refused to give him Ritalin or any addictive medication, he is trying to taper him off the Ativan. The patient continues to have poor insight, unpredictable, impulsive, demanding continuous to be unable make safe plan for self-care. He has been hospitalized many times. We will continue to work with the patient in group therapy, milieu therapy, and adjust the medication as needed. JOB# [id number]
[2018-09-08] MEDS: Hydrocodone/APAP 10 mg/325 mg Tab PO PRN ×3 (09:22→20:26)
--- NOTE | 2018-09-08 21:14 | Internal Medicine Prog Note ---
Internal Medicine Subjective - Subjective Service Date: 09/08/18 Patient seen and examined:: without staff (he feels well) Patient is:: awake, verbal, talking Per staff patient has:: no adverse event, tolerating meds Internal Medicine Objective - Results Result Diagrams: 08/21/18 11:43 08/21/18 11:43 Recent Labs: Laboratory Last Values WBC 4.3 Th/cmm (4.8-10.8) L 08/21/18 11:43 RBC 5.00 Mil/cmm (4.30-5.70) 08/21/18 11:43 Hgb 14.0 gm/dL (12-16) 08/21/18 11:43 Hct 42.3 % (41.0-60) 08/21/18 11:43 MCV 84.6 fl (80-99) 08/21/18 11:43 MCH 28.0 pg (26.0-30.0) 08/21/18 11:43 MCHC Differential 33.1 pg (28.0-36.0) 08/21/18 11:43 RDW 14.0 % (11.5-20.0) 08/21/18 11:43 Plt Count 319 Th/cmm (150-400) 08/21/18 11:43 MPV 7.6 fl 08/21/18 11:43 Neutrophils % 85.5 % (40.0-80.0) H 08/21/18 11:43 Lymphocytes % 12.2 % (20.0-50.0) L 08/21/18 11:43 Monocytes % 0.7 % (2.0-10.0) L 08/21/18 11:43 Eosinophils % 0.4 % (0.0-5.0) 08/21/18 11:43 Basophils % 1.2 % (0.0-2.0) 08/21/18 11:43 Sodium 138 mEq/L (136-145) 08/21/18 11:43 Potassium 4.3 mEq/L (3.5-5.1) 08/21/18 11:43 Chloride 104 mEq/L (98-107) 08/21/18 11:43 Carbon Dioxide 24.0 mEq/L (21.0-31.0) 08/21/18 11:43 Anion Gap 14.3 (7.0-16.0) 08/21/18 11:43 BUN 13 mg/dL (7-25) 08/21/18 11:43 Creatinine 1.1 mg/dL (0.7-1.3) 08/21/18 11:43 Est GFR ( Amer) > 60.0 ml/min (>90) 08/21/18 11:43 Est GFR (Non-Af Amer) > 60.0 ml/min 08/21/18 11:43 BUN/Creatinine Ratio 11.8 08/21/18 11:43 Glucose 221 mg/dL (70-105) H 08/21/18 11:43 POC Glucose 82 MG/DL (70 - 105) 08/22/18 06:31 Calcium 9.4 mg/dL (8.6-10.3) 08/21/18 11:43 Total Bilirubin 0.4 mg/dL (0.3-1.0) 08/21/18 11:43 AST 22 U/L (13-39) 08/21/18 11:43 ALT 24 U/L (7-52) 08/21/18 11:43 Alkaline Phosphatase 53 U/L (34-104) 08/21/18 11:43 Total Protein 6.9 gm/dL (6.0-8.3) 08/21/18 11:43 Albumin 4.3 gm/dL (4.2-5.5) 08/21/18 11:43 Globulin 2.6 gm/dL 08/21/18 11:43 Albumin/Globulin Ratio 1.7 (1.0-1.8) 08/21/18 11:43 Triglycerides 183 mg/dL (<150) H 08/22/18 07:50 Cholesterol 223 mg/dL (<200) H 08/22/18 07:50 LDL Cholesterol Direct 133 mg/dL (75-193) 08/22/18 07:50 HDL Cholesterol 49 mg/dL (23-92) 08/22/18 07:50 TSH 0.48 uIU/ml (0.34-5.60) 08/21/18 11:43 Urine Source CLEAN C 08/21/18 18:15 Urine Color YELLOW 08/21/18 18:15 Urine Clarity HAZY (CLEAR) 08/21/18 18:15 Urine pH 5.0 (4.6 - 8.0) 08/21/18 18:15 Ur Specific [place] >= 1.030 (1.005-1.030) 08/21/18 18:15 Urine Protein 30 mg/dL (NEGATIVE) H 08/21/18 18:15 Urine Glucose (UA) NEGATIVE mg/dL (NEGATIVE) 08/21/18 18:15 Urine Ketones NEGATIVE mg/dL (NEGATIVE) 08/21/18 18:15 Urine Blood NEGATIVE (NEGATIVE) 08/21/18 18:15 Urine Nitrate NEGATIVE (NEGATIVE) 08/21/18 18:15 Urine Bilirubin SMALL (NEGATIVE) H 08/21/18 18:15 Urine Urobilinogen 0.2 E.U./dL (0.2 - 1.0) 08/21/18 18:15 Ur Leukocyte Esterase NEGATIVE (NEGATIVE) 08/21/18 18:15 Urine RBC 2-5 /hpf (0-5) H 08/21/18 18:15 Urine WBC 2-5 /hpf (0-5) 08/21/18 18:15 Ur Epithelial Cells RARE /lpf (FEW) 08/21/18 18:15 Urine Bacteria FEW /hpf (NONE SEEN) 08/21/18 18:15 Valproic Acid 57.3 ug/mL (50.0-100.0) 09/04/18 06:10 RPR NONREACTIVE (NONREACTIVE) 08/21/18 11:43 - Physical Exam Vitals and I&O: Vital Signs Temp 97.7 F 09/08/18 20:16 Pulse 83 09/08/18 20:16 Resp 20 09/08/18 20:16 BP 137/86 09/08/18 20:16 Pulse Ox 93 09/08/18 20:16 Intake & Output 09/08/18 09/08/18 09/09/18 06:59 18:59 06:59 Intake Total 240 240 Balance 240 240 Intake: Oral 240 240 Other: # Voids 2 3 2 # Bowel Movements 1 Stool Characteristics Formed Formed Active Medications: Current Medications Acetaminophen/Hydrocodone Bitart ([place] 10 Mg/325 Mg) 1 tab PO Q6H PRN PRN Reason: Pain (Moderate) Stop: 11/01/18 21:14 Last Admin: 09/08/18 20:26 Dose: 1 tab Amlodipine Besylate (Norvasc) 5 mg PO DAILY [facility] Stop: 10/21/18 08:59 Last Admin: 09/08/18 14:24 Dose: Not Given Divalproex Sodium (Depakote Dr) 750 mg PO BID [facility]; Protocol Stop: 11/01/18 08:59 Last Admin: 09/08/18 16:37 Dose: 750 mg Duloxetine HCl (Cymbalta) 60 mg PO BID [facility]; Protocol Stop: 11/07/18 16:59 Last Admin: 09/08/18 16:38 Dose: 60 mg Gabapentin (Neurontin) 300 mg PO TID [facility] Stop: 11/07/18 13:59 Last Admin: 09/08/18 20:26 Dose: 300 mg Lorazepam (Ativan) 1 mg PO Q4HR PRN; Protocol PRN Reason: Anxiety Stop: 09/20/18 19:34 Last Admin: 09/08/18 16:38 Dose: 1 mg Methocarbamol (Robaxin) 750 mg PO TID [facility] Stop: 10/20/18 20:59 Last Admin: 09/08/18 20:25 Dose: 750 mg Naproxen (Naprosyn) 500 mg PO BID [facility] Stop: 10/21/18 08:59 Last Admin: 09/08/18 16:38 Dose: 500 mg Quetiapine Fumarate (Seroquel) 800 mg PO HS [facility]; Protocol Stop: 10/31/18 20:59 Last Admin: 09/08/18 20:25 Dose: 800 mg Tamsulosin HCl (Flomax) 0.4 mg PO DAILY [facility] Stop: 10/24/18 08:59 Last Admin: 09/08/18 09:22 Dose: 0.4 mg Zolpidem Tartrate (Ambien) 5 mg PO HS PRN PRN Reason: Insomnia Stop: 10/20/18 19:34 Last Admin: 09/08/18 20:26 Dose: 5 mg General: alert HEENT: NC/AT, PERRLA, EOMI, anicteric sclerae, throat clear Neck: Supple, No JVD, No thyromegaly, +2 carotid pulse wo bruit, No LAD Lungs: CTAB Cardiovascular: RRR, Normal S1, Normal S2, without murmur Abdomen: soft, non-tender, non-distended Extremities: clear Neurological: no change - Procedures Procedures: Procedures Procedure Code Date CONTINUOUS INVASIVE MECHANICAL VENTILATION <96 CONSEC HRS 96.71 06/05/13 GROUP PSYCHOTHERAPY 02364 08/25/15 GROUP PSYCHOTHERAPY GZHZZZZ 08/25/15 INSERT EMERGENCY AIRWAY [id number] 06/05/13 INSERT ENDOTRACHEAL TUBE 96.04 06/05/13 VACCINATION NEC 99.55 06/24/13 Internal Medicine Assmt/Plan - Assessment Assessment: 1.HTN. 2.CHRONIC BACK PAIN. 3.HYPERLIPIDEMIA. 4.PSYCHOSIS - Plan Plan: CONTINUE ON CURRENT MEDICATION AND DIET. Nutritional Asmnt/Malnutr-PDOC - Dietary Evaluation Malnutrition Findings (Please click <Entered> for more info): Nutritional Asmnt/Malnutrition Start: 08/22/18 14: 11 Text: Status: Active Freq: Protocol: Document 08/22/18 14:11 VINCE (Rec: 08/22/18 14:31 VINCE [id number]) Nutritional Asmnt/Malnutrition Patient General Information Nutritional Screening High Risk Diagnosis SUICIDAL IDEATION Pertinent Medical Hx/Surgical Hx HTN, CHRONIC BACK PAIN, PSYCHOSIS, HYPERLIPIDEMIA, DEGENERATIVE JOINT DISEASE Subjective Information IA HR, CONSULT: HIGH GULCOSE 221 63 YEAR OLD MALE ADMITTED FOR SUICIDAL IDEATIONS. HT: 6 FT WT: 190 LB. (86KG) BMI: 25.77 (OVERWEIGHT) I/O: 120/NOT NOTED GI: SOFT, ACTIVE SKIN: WNL PUSHPA: 21 ESTIMATED ENERGY NEEDS: 3902-4298 KCALS (20-25 KCALS/ KG) 69-78 G PRO (0.8-0.9 G/KG) 9106-4588 ML FLUIDS (35-40 ML/ KG) DIETARY IS CURRENTLY PROVIDING AN ESTIMATED 2169 KCALS AND 97 G PRO, MEETING 100% KCAL AND 100%+ PRO NEEDS - ADEQUATE . CONSULT FOR HIGH GLUC 122 HAS RESOLVED WITH POC GLUC 82. WILL CONTINUE TO MONITOR NUTRITION RELATED LABS. Current Diet Order/ Nutrition Support REGULAR Pertinent Medications N/A Pertinent Labs 08/22: POC GLUC 82 08/21: GLUC 221 Nutritional Hx/Data Height 1.83 m Height (Calculated Centimeters) 182.9 Current Weight (lbs) 86.183 kg Weight (Calculated Kilograms) 86.2 Weight (Calculated Grams) 20403.6 [place] Body Weight 178 % [place] Body Weight 107 Body Mass Index (BMI) 25.7 Weight Status Overweight GI Symptoms GI Symptoms None Last BM NOT NOTED Skin Integrity/Comment: WNL Estimated Nutritional Goals BEE in Kcals: Using Current wt Calories/Kcals/Kg 20-25 Kcals Calculated 0647-8736 Protein: Using Current wt Protein g/k.8-0.9 Protein Calculated 69-78 Fluid: ml 0528-1653 Nutritional Problem 1. Problem Problem ALTERED NUTRITION RELATED LABORATORY VALUES Etiology R/T PATHOPHYSIOLOGICAL CAUSES Signs/Symptoms: AEB GLUC 122 Malnutrition Related to Morbid Obesity Malnutrition related to morbid obesity No Intervention/Recommendation Comments 1. CONTINUE WITH REGULAR DIET ORDERED. Expected Outcomes/Goals Expected Outcomes/Goals 1. PO INTAKE TO MEET >75% ESTIMATED NEEDS. 2. NUTRITION RELATED LABS TO TREND WNL IN 3-5 DAYS. 3. MONITOR PO INTAKE, WT, SKIN INTEGRITY, AND NUTRITION RELATED LABS. 4. F/U MR IN 3-5 DAYS.
--- NOTE | 2018-09-08 21:28 | Progress Notes ---
DATE: 09/08/2018 Case was discussed with staff of the patient, reviewed records. Also discussed here with the staff. Apparently, Dr. Huff gave an order for the patient to leave; however, the patient is reporting suicidal ideation. He reports that he wants all his medications back where he is taking Restoril, benzodiazepine, Adderall and I explained to him that Dr. Huff is not willing to do that because that is the reason why he keeps coming back and I asked him maybe we need to send him to another place, [facility] or [facility] and ask for different doctors as he said he will try to change doctors here and that was not honored by the staff and I explained to him the hazards of the way he is using drugs with his multiple prior hospitalizations. He said he talked [place], and he told me he wanted to change doctors that he can do it and I explained to him that will be hard to change doctors here because we all have the same philosophy and nobody will give him anything else and thus maybe he need to go to a different facility and I discussed him the hazards of using these drugs and I will be increasing his Neurontin dose to help with his anxiety that he is alleging to 300 mg 3 times a day and Cymbalta increased to 60 mg twice a day. He is on Depakote 750 mg twice a day and Seroquel 800 mg at bedtime. The patient does not seem to be ready to be discharged with his threat to harm himself. I think I am adjusting his medications and hopefully he will come to his senses and realize that he should not be on any addictive medication. We will continue outpatient group therapy, milieu therapy, and adjust medications as needed. JOB# [id number]
[2018-09-09] MEDS: Hydrocodone/APAP 10 mg/325 mg Tab PO PRN ×2 (08:37→17:32)
--- NOTE | 2018-09-09 21:15 | Internal Medicine Prog Note ---
Internal Medicine Subjective - Subjective Service Date: 09/09/18 Patient seen and examined:: without staff (HE FEELS WELL) Patient is:: awake, verbal, talking Per staff patient has:: no adverse event, tolerating meds Internal Medicine Objective - Results Result Diagrams: 08/21/18 11:43 08/21/18 11:43 Recent Labs: Laboratory Last Values WBC 4.3 Th/cmm (4.8-10.8) L 08/21/18 11:43 RBC 5.00 Mil/cmm (4.30-5.70) 08/21/18 11:43 Hgb 14.0 gm/dL (12-16) 08/21/18 11:43 Hct 42.3 % (41.0-60) 08/21/18 11:43 MCV 84.6 fl (80-99) 08/21/18 11:43 MCH 28.0 pg (26.0-30.0) 08/21/18 11:43 MCHC Differential 33.1 pg (28.0-36.0) 08/21/18 11:43 RDW 14.0 % (11.5-20.0) 08/21/18 11:43 Plt Count 319 Th/cmm (150-400) 08/21/18 11:43 MPV 7.6 fl 08/21/18 11:43 Neutrophils % 85.5 % (40.0-80.0) H 08/21/18 11:43 Lymphocytes % 12.2 % (20.0-50.0) L 08/21/18 11:43 Monocytes % 0.7 % (2.0-10.0) L 08/21/18 11:43 Eosinophils % 0.4 % (0.0-5.0) 08/21/18 11:43 Basophils % 1.2 % (0.0-2.0) 08/21/18 11:43 Sodium 138 mEq/L (136-145) 08/21/18 11:43 Potassium 4.3 mEq/L (3.5-5.1) 08/21/18 11:43 Chloride 104 mEq/L (98-107) 08/21/18 11:43 Carbon Dioxide 24.0 mEq/L (21.0-31.0) 08/21/18 11:43 Anion Gap 14.3 (7.0-16.0) 08/21/18 11:43 BUN 13 mg/dL (7-25) 08/21/18 11:43 Creatinine 1.1 mg/dL (0.7-1.3) 08/21/18 11:43 Est GFR ( Amer) > 60.0 ml/min (>90) 08/21/18 11:43 Est GFR (Non-Af Amer) > 60.0 ml/min 08/21/18 11:43 BUN/Creatinine Ratio 11.8 08/21/18 11:43 Glucose 221 mg/dL (70-105) H 08/21/18 11:43 POC Glucose 82 MG/DL (70 - 105) 08/22/18 06:31 Calcium 9.4 mg/dL (8.6-10.3) 08/21/18 11:43 Total Bilirubin 0.4 mg/dL (0.3-1.0) 08/21/18 11:43 AST 22 U/L (13-39) 08/21/18 11:43 ALT 24 U/L (7-52) 08/21/18 11:43 Alkaline Phosphatase 53 U/L (34-104) 08/21/18 11:43 Total Protein 6.9 gm/dL (6.0-8.3) 08/21/18 11:43 Albumin 4.3 gm/dL (4.2-5.5) 08/21/18 11:43 Globulin 2.6 gm/dL 08/21/18 11:43 Albumin/Globulin Ratio 1.7 (1.0-1.8) 08/21/18 11:43 Triglycerides 183 mg/dL (<150) H 08/22/18 07:50 Cholesterol 223 mg/dL (<200) H 08/22/18 07:50 LDL Cholesterol Direct 133 mg/dL (75-193) 08/22/18 07:50 HDL Cholesterol 49 mg/dL (23-92) 08/22/18 07:50 TSH 0.48 uIU/ml (0.34-5.60) 08/21/18 11:43 Urine Source CLEAN C 08/21/18 18:15 Urine Color YELLOW 08/21/18 18:15 Urine Clarity HAZY (CLEAR) 08/21/18 18:15 Urine pH 5.0 (4.6 - 8.0) 08/21/18 18:15 Ur Specific [place] >= 1.030 (1.005-1.030) 08/21/18 18:15 Urine Protein 30 mg/dL (NEGATIVE) H 08/21/18 18:15 Urine Glucose (UA) NEGATIVE mg/dL (NEGATIVE) 08/21/18 18:15 Urine Ketones NEGATIVE mg/dL (NEGATIVE) 08/21/18 18:15 Urine Blood NEGATIVE (NEGATIVE) 08/21/18 18:15 Urine Nitrate NEGATIVE (NEGATIVE) 08/21/18 18:15 Urine Bilirubin SMALL (NEGATIVE) H 08/21/18 18:15 Urine Urobilinogen 0.2 E.U./dL (0.2 - 1.0) 08/21/18 18:15 Ur Leukocyte Esterase NEGATIVE (NEGATIVE) 08/21/18 18:15 Urine RBC 2-5 /hpf (0-5) H 08/21/18 18:15 Urine WBC 2-5 /hpf (0-5) 08/21/18 18:15 Ur Epithelial Cells RARE /lpf (FEW) 08/21/18 18:15 Urine Bacteria FEW /hpf (NONE SEEN) 08/21/18 18:15 Valproic Acid 57.3 ug/mL (50.0-100.0) 09/04/18 06:10 RPR NONREACTIVE (NONREACTIVE) 08/21/18 11:43 - Physical Exam Vitals and I&O: Vital Signs Temp 98.8 F 09/09/18 19:52 Pulse 87 09/09/18 19:52 Resp 20 09/09/18 19:52 BP 125/75 09/09/18 19:52 Pulse Ox 95 09/09/18 19:52 Intake & Output 09/09/18 09/09/18 09/10/18 06:59 18:59 06:59 Intake Total 240 240 Balance 240 240 Weight (lbs) 86.183 kg Intake: Oral 240 240 Other: # Voids 2 2 3 # Bowel Movements 1 0 Stool Characteristics Formed Formed Weight Source Bedscale Active Medications: Current Medications Acetaminophen/Hydrocodone Bitart ([place] 10 Mg/325 Mg) 1 tab PO Q6H PRN PRN Reason: Pain (Moderate) Stop: 11/01/18 21:14 Last Admin: 09/09/18 17:32 Dose: 1 tab Amlodipine Besylate (Norvasc) 5 mg PO DAILY [facility] Stop: 10/21/18 08:59 Last Admin: 09/09/18 08:39 Dose: 5 mg Divalproex Sodium (Depakote Dr) 750 mg PO BID [facility]; Protocol Stop: 11/01/18 08:59 Last Admin: 09/09/18 17:33 Dose: 750 mg Duloxetine HCl (Cymbalta) 60 mg PO BID [facility]; Protocol Stop: 11/07/18 16:59 Last Admin: 09/09/18 17:33 Dose: 60 mg Gabapentin (Neurontin) 300 mg PO TID [facility] Stop: 11/07/18 13:59 Last Admin: 09/09/18 20:52 Dose: 300 mg Lorazepam (Ativan) 1 mg PO Q4HR PRN; Protocol PRN Reason: Anxiety Stop: 09/20/18 19:34 Last Admin: 09/09/18 17:34 Dose: 1 mg Methocarbamol (Robaxin) 750 mg PO TID [facility] Stop: 10/20/18 20:59 Last Admin: 09/09/18 20:51 Dose: 750 mg Naproxen (Naprosyn) 500 mg PO BID [facility] Stop: 10/21/18 08:59 Last Admin: 09/09/18 17:33 Dose: 500 mg Quetiapine Fumarate (Seroquel) 800 mg PO HS [facility]; Protocol Stop: 10/31/18 20:59 Last Admin: 09/09/18 20:51 Dose: 800 mg Tamsulosin HCl (Flomax) 0.4 mg PO DAILY [facility] Stop: 10/24/18 08:59 Last Admin: 09/09/18 08:37 Dose: 0.4 mg Zolpidem Tartrate (Ambien) 5 mg PO HS PRN PRN Reason: Insomnia Stop: 10/20/18 19:34 Last Admin: 09/09/18 20:52 Dose: 5 mg General: alert HEENT: NC/AT, PERRLA, EOMI, anicteric sclerae, throat clear Neck: Supple, No JVD, No thyromegaly, +2 carotid pulse wo bruit, No LAD Lungs: CTAB Cardiovascular: RRR, Normal S1, Normal S2, without murmur Abdomen: soft, non-tender, non-distended Extremities: clear Neurological: no change - Procedures Procedures: Procedures Procedure Code Date CONTINUOUS INVASIVE MECHANICAL VENTILATION <96 CONSEC HRS 96.71 06/05/13 GROUP PSYCHOTHERAPY 50931 08/25/15 GROUP PSYCHOTHERAPY GZHZZZZ 08/25/15 INSERT EMERGENCY AIRWAY [id number] 06/05/13 INSERT ENDOTRACHEAL TUBE 96.04 06/05/13 VACCINATION NEC 99.55 06/24/13 Internal Medicine Assmt/Plan - Assessment Assessment: 1.HTN. 2.CHRONIC BACK PAIN. 3.HYPERLIPIDEMIA. 4.PSYCHOSIS - Plan Plan: CONTINUE ON CURRENT MEDICATION AND DIET. Nutritional Asmnt/Malnutr-PDOC - Dietary Evaluation Malnutrition Findings (Please click <Entered> for more info): Nutritional Asmnt/Malnutrition Start: 08/22/18 14: 11 Text: Status: Active Freq: Protocol: Document 08/22/18 14:11 VINCE (Rec: 08/22/18 14:31 VINCE [email or web address]) Nutritional Asmnt/Malnutrition Patient General Information Nutritional Screening High Risk Diagnosis SUICIDAL IDEATION Pertinent Medical Hx/Surgical Hx HTN, CHRONIC BACK PAIN, PSYCHOSIS, HYPERLIPIDEMIA, DEGENERATIVE JOINT DISEASE Subjective Information IA HR, CONSULT: HIGH GULCOSE 221 63 YEAR OLD MALE ADMITTED FOR SUICIDAL IDEATIONS. HT: 6 FT WT: 190 LB. (86KG) BMI: 25.77 (OVERWEIGHT) I/O: 120/NOT NOTED GI: SOFT, ACTIVE SKIN: WNL PUSHPA: 21 ESTIMATED ENERGY NEEDS: 4895-6764 KCALS (20-25 KCALS/ KG) 69-78 G PRO (0.8-0.9 G/KG) 4123-3669 ML FLUIDS (35-40 ML/ KG) DIETARY IS CURRENTLY PROVIDING AN ESTIMATED 2169 KCALS AND 97 G PRO, MEETING 100% KCAL AND 100%+ PRO NEEDS - ADEQUATE . CONSULT FOR HIGH GLUC 122 HAS RESOLVED WITH POC GLUC 82. WILL CONTINUE TO MONITOR NUTRITION RELATED LABS. Current Diet Order/ Nutrition Support REGULAR Pertinent Medications N/A Pertinent Labs 08/22: POC GLUC 82 08/21: GLUC 221 Nutritional Hx/Data Height 1.83 m Height (Calculated Centimeters) 182.9 Current Weight (lbs) 86.183 kg Weight (Calculated Kilograms) 86.2 Weight (Calculated Grams) 41032.6 [place] Body Weight 178 % [place] Body Weight 107 Body Mass Index (BMI) 25.7 Weight Status Overweight GI Symptoms GI Symptoms None Last BM NOT NOTED Skin Integrity/Comment: WNL Estimated Nutritional Goals BEE in Kcals: Using Current wt Calories/Kcals/Kg 20-25 Kcals Calculated 8534-3016 Protein: Using Current wt Protein g/k.8-0.9 Protein Calculated 69-78 Fluid: ml 8471-6715 Nutritional Problem 1. Problem Problem ALTERED NUTRITION RELATED LABORATORY VALUES Etiology R/T PATHOPHYSIOLOGICAL CAUSES Signs/Symptoms: AEB GLUC 122 Malnutrition Related to Morbid Obesity Malnutrition related to morbid obesity No Intervention/Recommendation Comments 1. CONTINUE WITH REGULAR DIET ORDERED. Expected Outcomes/Goals Expected Outcomes/Goals 1. PO INTAKE TO MEET >75% ESTIMATED NEEDS. 2. NUTRITION RELATED LABS TO TREND WNL IN 3-5 DAYS. 3. MONITOR PO INTAKE, WT, SKIN INTEGRITY, AND NUTRITION RELATED LABS. 4. F/U MR IN 3-5 DAYS.
--- NOTE | 2018-09-10 01:35 | Progress Notes ---
DATE: 09/09/2018 Case was discussed with staff of the patient, reviewed records. The patient continues to report feeling depressed. Continues to have thoughts of wanting to harm himself. Continues to have poor insight, needing redirection, asking for addictive medication. He tolerated the increase to his medications with no side effects, no sedation, no nausea. We will continue to work with the patient in group therapy, milieu therapy, and adjust the medication as needed. JOB# [id number]
[2018-09-10] MEDS: Hydrocodone/APAP 10 mg/325 mg Tab PO PRN ×3 (09:05→20:24)
--- NOTE | 2018-09-10 22:54 | Internal Medicine Prog Note ---
Internal Medicine Subjective - Subjective Service Date: 09/10/18 Patient seen and examined:: without staff Patient is:: awake, verbal, talking Per staff patient has:: no adverse event, tolerating meds Internal Medicine Objective - Results Result Diagrams: 08/21/18 11:43 08/21/18 11:43 Recent Labs: Laboratory Last Values WBC 4.3 Th/cmm (4.8-10.8) L 08/21/18 11:43 RBC 5.00 Mil/cmm (4.30-5.70) 08/21/18 11:43 Hgb 14.0 gm/dL (12-16) 08/21/18 11:43 Hct 42.3 % (41.0-60) 08/21/18 11:43 MCV 84.6 fl (80-99) 08/21/18 11:43 MCH 28.0 pg (26.0-30.0) 08/21/18 11:43 MCHC Differential 33.1 pg (28.0-36.0) 08/21/18 11:43 RDW 14.0 % (11.5-20.0) 08/21/18 11:43 Plt Count 319 Th/cmm (150-400) 08/21/18 11:43 MPV 7.6 fl 08/21/18 11:43 Neutrophils % 85.5 % (40.0-80.0) H 08/21/18 11:43 Lymphocytes % 12.2 % (20.0-50.0) L 08/21/18 11:43 Monocytes % 0.7 % (2.0-10.0) L 08/21/18 11:43 Eosinophils % 0.4 % (0.0-5.0) 08/21/18 11:43 Basophils % 1.2 % (0.0-2.0) 08/21/18 11:43 Sodium 138 mEq/L (136-145) 08/21/18 11:43 Potassium 4.3 mEq/L (3.5-5.1) 08/21/18 11:43 Chloride 104 mEq/L (98-107) 08/21/18 11:43 Carbon Dioxide 24.0 mEq/L (21.0-31.0) 08/21/18 11:43 Anion Gap 14.3 (7.0-16.0) 08/21/18 11:43 BUN 13 mg/dL (7-25) 08/21/18 11:43 Creatinine 1.1 mg/dL (0.7-1.3) 08/21/18 11:43 Est GFR ( Amer) > 60.0 ml/min (>90) 08/21/18 11:43 Est GFR (Non-Af Amer) > 60.0 ml/min 08/21/18 11:43 BUN/Creatinine Ratio 11.8 08/21/18 11:43 Glucose 221 mg/dL (70-105) H 08/21/18 11:43 POC Glucose 82 MG/DL (70 - 105) 08/22/18 06:31 Calcium 9.4 mg/dL (8.6-10.3) 08/21/18 11:43 Total Bilirubin 0.4 mg/dL (0.3-1.0) 08/21/18 11:43 AST 22 U/L (13-39) 08/21/18 11:43 ALT 24 U/L (7-52) 08/21/18 11:43 Alkaline Phosphatase 53 U/L (34-104) 08/21/18 11:43 Total Protein 6.9 gm/dL (6.0-8.3) 08/21/18 11:43 Albumin 4.3 gm/dL (4.2-5.5) 08/21/18 11:43 Globulin 2.6 gm/dL 08/21/18 11:43 Albumin/Globulin Ratio 1.7 (1.0-1.8) 08/21/18 11:43 Triglycerides 183 mg/dL (<150) H 08/22/18 07:50 Cholesterol 223 mg/dL (<200) H 08/22/18 07:50 LDL Cholesterol Direct 133 mg/dL (75-193) 08/22/18 07:50 HDL Cholesterol 49 mg/dL (23-92) 08/22/18 07:50 TSH 0.48 uIU/ml (0.34-5.60) 08/21/18 11:43 Urine Source CLEAN C 08/21/18 18:15 Urine Color YELLOW 08/21/18 18:15 Urine Clarity HAZY (CLEAR) 08/21/18 18:15 Urine pH 5.0 (4.6 - 8.0) 08/21/18 18:15 Ur Specific [place] >= 1.030 (1.005-1.030) 08/21/18 18:15 Urine Protein 30 mg/dL (NEGATIVE) H 08/21/18 18:15 Urine Glucose (UA) NEGATIVE mg/dL (NEGATIVE) 08/21/18 18:15 Urine Ketones NEGATIVE mg/dL (NEGATIVE) 08/21/18 18:15 Urine Blood NEGATIVE (NEGATIVE) 08/21/18 18:15 Urine Nitrate NEGATIVE (NEGATIVE) 08/21/18 18:15 Urine Bilirubin SMALL (NEGATIVE) H 08/21/18 18:15 Urine Urobilinogen 0.2 E.U./dL (0.2 - 1.0) 08/21/18 18:15 Ur Leukocyte Esterase NEGATIVE (NEGATIVE) 08/21/18 18:15 Urine RBC 2-5 /hpf (0-5) H 08/21/18 18:15 Urine WBC 2-5 /hpf (0-5) 08/21/18 18:15 Ur Epithelial Cells RARE /lpf (FEW) 08/21/18 18:15 Urine Bacteria FEW /hpf (NONE SEEN) 08/21/18 18:15 Valproic Acid 57.3 ug/mL (50.0-100.0) 09/04/18 06:10 RPR NONREACTIVE (NONREACTIVE) 08/21/18 11:43 - Physical Exam Vitals and I&O: Vital Signs Temp 98.3 F 09/10/18 20:00 Pulse 83 09/10/18 20:00 Resp 20 09/10/18 20:00 BP 119/74 09/10/18 20:00 Pulse Ox 96 09/10/18 20:00 Intake & Output 09/10/18 09/10/18 09/11/18 06:59 18:59 06:59 Intake Total 240 900 Balance 240 900 Weight (lbs) 86.183 kg Intake: Oral 240 900 Other: # Voids 1 3 # Bowel Movements 0 1 Stool Characteristics Formed Weight Source Bedscale Active Medications: Current Medications Acetaminophen/Hydrocodone Bitart ([place] 10 Mg/325 Mg) 1 tab PO Q6H PRN PRN Reason: Pain (Moderate) Stop: 11/01/18 21:14 Last Admin: 09/10/18 20:24 Dose: 1 tab Amlodipine Besylate (Norvasc) 5 mg PO DAILY [facility] Stop: 10/21/18 08:59 Last Admin: 09/10/18 08:54 Dose: 5 mg Divalproex Sodium (Depakote Dr) 750 mg PO BID [facility]; Protocol Stop: 11/01/18 08:59 Last Admin: 09/10/18 16:08 Dose: 750 mg Duloxetine HCl (Cymbalta) 60 mg PO BID [facility]; Protocol Stop: 11/07/18 16:59 Last Admin: 09/10/18 16:08 Dose: 60 mg Gabapentin (Neurontin) 300 mg PO TID [facility] Stop: 11/07/18 13:59 Last Admin: 09/10/18 20:24 Dose: 300 mg Lorazepam (Ativan) 1 mg PO Q4HR PRN; Protocol PRN Reason: Anxiety Stop: 09/20/18 19:34 Last Admin: 09/10/18 21:17 Dose: 1 mg Methocarbamol (Robaxin) 750 mg PO TID [facility] Stop: 10/20/18 20:59 Last Admin: 09/10/18 20:23 Dose: 750 mg Naproxen (Naprosyn) 500 mg PO BID [facility] Stop: 10/21/18 08:59 Last Admin: 09/10/18 16:08 Dose: 500 mg Quetiapine Fumarate (Seroquel) 800 mg PO HS [facility]; Protocol Stop: 10/31/18 20:59 Last Admin: 09/10/18 20:24 Dose: 800 mg Tamsulosin HCl (Flomax) 0.4 mg PO DAILY [facility] Stop: 10/24/18 08:59 Last Admin: 09/10/18 08:53 Dose: 0.4 mg Zolpidem Tartrate (Ambien) 5 mg PO HS PRN PRN Reason: Insomnia Stop: 10/20/18 19:34 Last Admin: 09/10/18 21:17 Dose: 5 mg General: alert HEENT: NC/AT, PERRLA, EOMI, anicteric sclerae, throat clear Neck: Supple, No JVD, No thyromegaly, +2 carotid pulse wo bruit, No LAD Lungs: CTAB Cardiovascular: RRR, Normal S1, Normal S2, without murmur Abdomen: soft, non-tender, non-distended Extremities: clear Neurological: no change - Procedures Procedures: Procedures Procedure Code Date CONTINUOUS INVASIVE MECHANICAL VENTILATION <96 CONSEC HRS 96.71 06/05/13 GROUP PSYCHOTHERAPY 01209 08/25/15 GROUP PSYCHOTHERAPY GZHZZZZ 08/25/15 INSERT EMERGENCY AIRWAY [id number] 06/05/13 INSERT ENDOTRACHEAL TUBE 96.04 06/05/13 VACCINATION NEC 99.55 06/24/13 Internal Medicine Assmt/Plan - Assessment Assessment: 1.HTN. 2.CHRONIC BACK PAIN. 3.HYPERLIPIDEMIA. 4.PSYCHOSIS - Plan Plan: CONTINUE ON CURRENT MEDICATION AND DIET. Nutritional Asmnt/Malnutr-PDOC - Dietary Evaluation Malnutrition Findings (Please click <Entered> for more info): Nutritional Asmnt/Malnutrition Start: 08/22/18 14: 11 Text: Status: Active Freq: Protocol: Document 08/22/18 14:11 VINCE (Rec: 08/22/18 14:31 VINCE [email or web address]) Nutritional Asmnt/Malnutrition Patient General Information Nutritional Screening High Risk Diagnosis SUICIDAL IDEATION Pertinent Medical Hx/Surgical Hx HTN, CHRONIC BACK PAIN, PSYCHOSIS, HYPERLIPIDEMIA, DEGENERATIVE JOINT DISEASE Subjective Information IA HR, CONSULT: HIGH GULCOSE 221 63 YEAR OLD MALE ADMITTED FOR SUICIDAL IDEATIONS. HT: 6 FT WT: 190 LB. (86KG) BMI: 25.77 (OVERWEIGHT) I/O: 120/NOT NOTED GI: SOFT, ACTIVE SKIN: WNL PUSHPA: 21 ESTIMATED ENERGY NEEDS: 5932-5207 KCALS (20-25 KCALS/ KG) 69-78 G PRO (0.8-0.9 G/KG) 8703-1168 ML FLUIDS (35-40 ML/ KG) DIETARY IS CURRENTLY PROVIDING AN ESTIMATED 2169 KCALS AND 97 G PRO, MEETING 100% KCAL AND 100%+ PRO NEEDS - ADEQUATE . CONSULT FOR HIGH GLUC 122 HAS RESOLVED WITH POC GLUC 82. WILL CONTINUE TO MONITOR NUTRITION RELATED LABS. Current Diet Order/ Nutrition Support REGULAR Pertinent Medications N/A Pertinent Labs 08/22: POC GLUC 82 08/21: GLUC 221 Nutritional Hx/Data Height 1.83 m Height (Calculated Centimeters) 182.9 Current Weight (lbs) 86.183 kg Weight (Calculated Kilograms) 86.2 Weight (Calculated Grams) 25458.6 [place] Body Weight 178 % [place] Body Weight 107 Body Mass Index (BMI) 25.7 Weight Status Overweight GI Symptoms GI Symptoms None Last BM NOT NOTED Skin Integrity/Comment: WNL Estimated Nutritional Goals BEE in Kcals: Using Current wt Calories/Kcals/Kg 20-25 Kcals Calculated 3277-4708 Protein: Using Current wt Protein g/k.8-0.9 Protein Calculated 69-78 Fluid: ml 4317-6477 Nutritional Problem 1. Problem Problem ALTERED NUTRITION RELATED LABORATORY VALUES Etiology R/T PATHOPHYSIOLOGICAL CAUSES Signs/Symptoms: AEB GLUC 122 Malnutrition Related to Morbid Obesity Malnutrition related to morbid obesity No Intervention/Recommendation Comments 1. CONTINUE WITH REGULAR DIET ORDERED. Expected Outcomes/Goals Expected Outcomes/Goals 1. PO INTAKE TO MEET >75% ESTIMATED NEEDS. 2. NUTRITION RELATED LABS TO TREND WNL IN 3-5 DAYS. 3. MONITOR PO INTAKE, WT, SKIN INTEGRITY, AND NUTRITION RELATED LABS. 4. F/U MR IN 3-5 DAYS.
--- NOTE | 2018-09-11 00:42 | Progress Notes ---
DATE: SUBJECTIVE: Chart was reviewed and the patient interviewed. Also, discussed the patient's condition with the staff and reviewed records and labs. The patient is still anxious and he is still in a depressed mood. The patient is also easily irritable and easily agitated. The patient also is asking for "Adderall." He still has low energy and lack of motivations. Also during groups, the patient seems to be slightly sleepy and slightly sedated. Otherwise, the patient has no complaint or side effects of medications. ASSESSMENT: The patient is still depressed and needs placement. TREATMENT PLAN: Continue to monitor his behavior. Also, continue adjusting psychotropic medications and work on placement. The patient is still unable to make up his mind between placement in [place] versus [facility]. JOB# [id number]
[2018-09-11] MEDS: Hydrocodone/APAP 10 mg/325 mg Tab PO PRN ×4 (02:04→22:38)
--- NOTE | 2018-09-11 18:44 | Internal Medicine Prog Note ---
Internal Medicine Subjective - Subjective Service Date: 09/11/18 Patient seen and examined:: without staff (HE FEELS BETTER) Patient is:: awake, verbal, talking Per staff patient has:: no adverse event, tolerating meds Internal Medicine Objective - Results Result Diagrams: 08/21/18 11:43 08/21/18 11:43 Recent Labs: Laboratory Last Values WBC 4.3 Th/cmm (4.8-10.8) L 08/21/18 11:43 RBC 5.00 Mil/cmm (4.30-5.70) 08/21/18 11:43 Hgb 14.0 gm/dL (12-16) 08/21/18 11:43 Hct 42.3 % (41.0-60) 08/21/18 11:43 MCV 84.6 fl (80-99) 08/21/18 11:43 MCH 28.0 pg (26.0-30.0) 08/21/18 11:43 MCHC Differential 33.1 pg (28.0-36.0) 08/21/18 11:43 RDW 14.0 % (11.5-20.0) 08/21/18 11:43 Plt Count 319 Th/cmm (150-400) 08/21/18 11:43 MPV 7.6 fl 08/21/18 11:43 Neutrophils % 85.5 % (40.0-80.0) H 08/21/18 11:43 Lymphocytes % 12.2 % (20.0-50.0) L 08/21/18 11:43 Monocytes % 0.7 % (2.0-10.0) L 08/21/18 11:43 Eosinophils % 0.4 % (0.0-5.0) 08/21/18 11:43 Basophils % 1.2 % (0.0-2.0) 08/21/18 11:43 Sodium 138 mEq/L (136-145) 08/21/18 11:43 Potassium 4.3 mEq/L (3.5-5.1) 08/21/18 11:43 Chloride 104 mEq/L (98-107) 08/21/18 11:43 Carbon Dioxide 24.0 mEq/L (21.0-31.0) 08/21/18 11:43 Anion Gap 14.3 (7.0-16.0) 08/21/18 11:43 BUN 13 mg/dL (7-25) 08/21/18 11:43 Creatinine 1.1 mg/dL (0.7-1.3) 08/21/18 11:43 Est GFR ( Amer) > 60.0 ml/min (>90) 08/21/18 11:43 Est GFR (Non-Af Amer) > 60.0 ml/min 08/21/18 11:43 BUN/Creatinine Ratio 11.8 08/21/18 11:43 Glucose 221 mg/dL (70-105) H 08/21/18 11:43 POC Glucose 82 MG/DL (70 - 105) 08/22/18 06:31 Calcium 9.4 mg/dL (8.6-10.3) 08/21/18 11:43 Total Bilirubin 0.4 mg/dL (0.3-1.0) 08/21/18 11:43 AST 22 U/L (13-39) 08/21/18 11:43 ALT 24 U/L (7-52) 08/21/18 11:43 Alkaline Phosphatase 53 U/L (34-104) 08/21/18 11:43 Total Protein 6.9 gm/dL (6.0-8.3) 08/21/18 11:43 Albumin 4.3 gm/dL (4.2-5.5) 08/21/18 11:43 Globulin 2.6 gm/dL 08/21/18 11:43 Albumin/Globulin Ratio 1.7 (1.0-1.8) 08/21/18 11:43 Triglycerides 183 mg/dL (<150) H 08/22/18 07:50 Cholesterol 223 mg/dL (<200) H 08/22/18 07:50 LDL Cholesterol Direct 133 mg/dL (75-193) 08/22/18 07:50 HDL Cholesterol 49 mg/dL (23-92) 08/22/18 07:50 TSH 0.48 uIU/ml (0.34-5.60) 08/21/18 11:43 Urine Source CLEAN C 08/21/18 18:15 Urine Color YELLOW 08/21/18 18:15 Urine Clarity HAZY (CLEAR) 08/21/18 18:15 Urine pH 5.0 (4.6 - 8.0) 08/21/18 18:15 Ur Specific [place] >= 1.030 (1.005-1.030) 08/21/18 18:15 Urine Protein 30 mg/dL (NEGATIVE) H 08/21/18 18:15 Urine Glucose (UA) NEGATIVE mg/dL (NEGATIVE) 08/21/18 18:15 Urine Ketones NEGATIVE mg/dL (NEGATIVE) 08/21/18 18:15 Urine Blood NEGATIVE (NEGATIVE) 08/21/18 18:15 Urine Nitrate NEGATIVE (NEGATIVE) 08/21/18 18:15 Urine Bilirubin SMALL (NEGATIVE) H 08/21/18 18:15 Urine Urobilinogen 0.2 E.U./dL (0.2 - 1.0) 08/21/18 18:15 Ur Leukocyte Esterase NEGATIVE (NEGATIVE) 08/21/18 18:15 Urine RBC 2-5 /hpf (0-5) H 08/21/18 18:15 Urine WBC 2-5 /hpf (0-5) 08/21/18 18:15 Ur Epithelial Cells RARE /lpf (FEW) 08/21/18 18:15 Urine Bacteria FEW /hpf (NONE SEEN) 08/21/18 18:15 Valproic Acid 57.3 ug/mL (50.0-100.0) 09/04/18 06:10 RPR NONREACTIVE (NONREACTIVE) 08/21/18 11:43 - Physical Exam Vitals and I&O: Vital Signs Temp 98.0 F 09/11/18 14:00 Pulse 83 09/11/18 14:00 Resp 20 09/11/18 14:00 BP 105/62 09/11/18 14:00 Pulse Ox 96 09/11/18 14:00 Intake & Output 09/10/18 09/11/18 09/11/18 18:59 06:59 18:59 Intake Total 285 005 1267 Balance 243 935 9393 Intake: Oral 059 238 6534 Other: # Voids 3 2 4 # Bowel Movements 1 1 Active Medications: Current Medications Acetaminophen/Hydrocodone Bitart ([place] 10 Mg/325 Mg) 1 tab PO Q6H PRN PRN Reason: Pain (Moderate) Stop: 11/01/18 21:14 Last Admin: 09/11/18 16:09 Dose: 1 tab Amlodipine Besylate (Norvasc) 5 mg PO DAILY [facility] Stop: 10/21/18 08:59 Last Admin: 09/11/18 08:28 Dose: 5 mg Divalproex Sodium (Depakote Dr) 750 mg PO BID [facility]; Protocol Stop: 11/01/18 08:59 Last Admin: 09/11/18 16:09 Dose: 750 mg Duloxetine HCl (Cymbalta) 60 mg PO BID [facility]; Protocol Stop: 11/07/18 16:59 Last Admin: 09/11/18 16:09 Dose: 60 mg Gabapentin (Neurontin) 300 mg PO TID [facility] Stop: 11/07/18 13:59 Last Admin: 09/11/18 14:23 Dose: 300 mg Lorazepam (Ativan) 1 mg PO Q4HR PRN; Protocol PRN Reason: Anxiety Stop: 09/20/18 19:34 Last Admin: 09/11/18 18:08 Dose: 1 mg Methocarbamol (Robaxin) 750 mg PO TID [facility] Stop: 10/20/18 20:59 Last Admin: 09/11/18 14:23 Dose: 750 mg Naproxen (Naprosyn) 500 mg PO BID [facility] Stop: 10/21/18 08:59 Last Admin: 09/11/18 16:10 Dose: 500 mg Quetiapine Fumarate (Seroquel) 800 mg PO HS [facility]; Protocol Stop: 10/31/18 20:59 Last Admin: 09/10/18 20:24 Dose: 800 mg Tamsulosin HCl (Flomax) 0.4 mg PO DAILY [facility] Stop: 10/24/18 08:59 Last Admin: 09/11/18 08:29 Dose: 0.4 mg Zolpidem Tartrate (Ambien) 5 mg PO HS PRN PRN Reason: Insomnia Stop: 10/20/18 19:34 Last Admin: 09/10/18 21:17 Dose: 5 mg General: alert HEENT: NC/AT, PERRLA, EOMI, anicteric sclerae, throat clear Neck: Supple, No JVD, No thyromegaly, +2 carotid pulse wo bruit, No LAD Lungs: CTAB Cardiovascular: RRR, Normal S1, Normal S2, without murmur Abdomen: soft, non-tender, non-distended Extremities: clear Neurological: no change - Procedures Procedures: Procedures Procedure Code Date CONTINUOUS INVASIVE MECHANICAL VENTILATION <96 CONSEC HRS 96.71 06/05/13 GROUP PSYCHOTHERAPY 43863 08/25/15 GROUP PSYCHOTHERAPY GZHZZZZ 08/25/15 INSERT EMERGENCY AIRWAY [id number] 06/05/13 INSERT ENDOTRACHEAL TUBE 96.04 06/05/13 VACCINATION NEC 99.55 06/24/13 Internal Medicine Assmt/Plan - Assessment Assessment: 1.HTN. 2.CHRONIC BACK PAIN. 3.HYPERLIPIDEMIA. 4.PSYCHOSIS - Plan Plan: CONTINUE ON CURRENT MEDICATION AND DIET. Nutritional Asmnt/Malnutr-PDOC - Dietary Evaluation Malnutrition Findings (Please click <Entered> for more info): Nutritional Asmnt/Malnutrition Start: 08/22/18 14: 11 Text: Status: Active Freq: Protocol: Document 08/22/18 14:11 VINCE (Rec: 08/22/18 14:31 [email or web address]) Nutritional Asmnt/Malnutrition Patient General Information Nutritional Screening High Risk Diagnosis SUICIDAL IDEATION Pertinent Medical Hx/Surgical Hx HTN, CHRONIC BACK PAIN, PSYCHOSIS, HYPERLIPIDEMIA, DEGENERATIVE JOINT DISEASE Subjective Information IA HR, CONSULT: HIGH GULCOSE 221 63 YEAR OLD MALE ADMITTED FOR SUICIDAL IDEATIONS. HT: 6 FT WT: 190 LB. (86KG) BMI: 25.77 (OVERWEIGHT) I/O: 120/NOT NOTED GI: SOFT, ACTIVE SKIN: WNL PUSHPA: 21 ESTIMATED ENERGY NEEDS: 4219-9015 KCALS (20-25 KCALS/ KG) 69-78 G PRO (0.8-0.9 G/KG) 0315-0016 ML FLUIDS (35-40 ML/ KG) DIETARY IS CURRENTLY PROVIDING AN ESTIMATED 2169 KCALS AND 97 G PRO, MEETING 100% KCAL AND 100%+ PRO NEEDS - ADEQUATE . CONSULT FOR HIGH GLUC 122 HAS RESOLVED WITH POC GLUC 82. WILL CONTINUE TO MONITOR NUTRITION RELATED LABS. Current Diet Order/ Nutrition Support REGULAR Pertinent Medications N/A Pertinent Labs 08/22: POC GLUC 82 08/21: GLUC 221 Nutritional Hx/Data Height 1.83 m Height (Calculated Centimeters) 182.9 Current Weight (lbs) 86.183 kg Weight (Calculated Kilograms) 86.2 Weight (Calculated Grams) 67398.6 [place] Body Weight 178 % [place] Body Weight 107 Body Mass Index (BMI) 25.7 Weight Status Overweight GI Symptoms GI Symptoms None Last BM NOT NOTED Skin Integrity/Comment: WNL Estimated Nutritional Goals BEE in Kcals: Using Current wt Calories/Kcals/Kg 20-25 Kcals Calculated 7223-6752 Protein: Using Current wt Protein g/k.8-0.9 Protein Calculated 69-78 Fluid: ml 5373-0555 Nutritional Problem 1. Problem Problem ALTERED NUTRITION RELATED LABORATORY VALUES Etiology R/T PATHOPHYSIOLOGICAL CAUSES Signs/Symptoms: AEB GLUC 122 Malnutrition Related to Morbid Obesity Malnutrition related to morbid obesity No Intervention/Recommendation Comments 1. CONTINUE WITH REGULAR DIET ORDERED. Expected Outcomes/Goals Expected Outcomes/Goals 1. PO INTAKE TO MEET >75% ESTIMATED NEEDS. 2. NUTRITION RELATED LABS TO TREND WNL IN 3-5 DAYS. 3. MONITOR PO INTAKE, WT, SKIN INTEGRITY, AND NUTRITION RELATED LABS. 4. F/U MR IN 3-5 DAYS.
--- NOTE | 2018-09-11 20:47 | Progress Notes ---
DATE: 09/11/2018 SUBJECTIVE: Chart was reviewed and the patient interviewed. Also discussed the patient's condition with the staff and reviewed records and labs. The patient is still extremely angry and is still in irritable mood. The patient also is still demanding and asking for more medications, "Adderall and Restoril, otherwise, 1'm not gonna go anywhere." The patient showing more behavioral problems and more behavioral issues. At the same time, nurse outreach case manager still working on placement issue and on discharge plans. Still trying to get him into [facility] or in [place]. The patient is uncooperative in regard to his placement, but at the same time trying to get him into a safe environment. At the same time, we will continue monitoring his behavior and continue to follow up closely. JOB# [id number]
[2018-09-12] MEDS: Hydrocodone/APAP 10 mg/325 mg Tab PO PRN ×3 (09:22→22:42)
--- NOTE | 2018-09-12 23:11 | Internal Medicine Prog Note ---
Internal Medicine Subjective - Subjective Service Date: 09/12/18 Patient seen and examined:: without staff (HE FEELS BETTER,LESS BACK PAIN) Patient is:: awake, verbal, talking Per staff patient has:: no adverse event, tolerating meds Internal Medicine Objective - Results Result Diagrams: 08/21/18 11:43 08/21/18 11:43 Recent Labs: Laboratory Last Values WBC 4.3 Th/cmm (4.8-10.8) L 08/21/18 11:43 RBC 5.00 Mil/cmm (4.30-5.70) 08/21/18 11:43 Hgb 14.0 gm/dL (12-16) 08/21/18 11:43 Hct 42.3 % (41.0-60) 08/21/18 11:43 MCV 84.6 fl (80-99) 08/21/18 11:43 MCH 28.0 pg (26.0-30.0) 08/21/18 11:43 MCHC Differential 33.1 pg (28.0-36.0) 08/21/18 11:43 RDW 14.0 % (11.5-20.0) 08/21/18 11:43 Plt Count 319 Th/cmm (150-400) 08/21/18 11:43 MPV 7.6 fl 08/21/18 11:43 Neutrophils % 85.5 % (40.0-80.0) H 08/21/18 11:43 Lymphocytes % 12.2 % (20.0-50.0) L 08/21/18 11:43 Monocytes % 0.7 % (2.0-10.0) L 08/21/18 11:43 Eosinophils % 0.4 % (0.0-5.0) 08/21/18 11:43 Basophils % 1.2 % (0.0-2.0) 08/21/18 11:43 Sodium 138 mEq/L (136-145) 08/21/18 11:43 Potassium 4.3 mEq/L (3.5-5.1) 08/21/18 11:43 Chloride 104 mEq/L (98-107) 08/21/18 11:43 Carbon Dioxide 24.0 mEq/L (21.0-31.0) 08/21/18 11:43 Anion Gap 14.3 (7.0-16.0) 08/21/18 11:43 BUN 13 mg/dL (7-25) 08/21/18 11:43 Creatinine 1.1 mg/dL (0.7-1.3) 08/21/18 11:43 Est GFR ( Amer) > 60.0 ml/min (>90) 08/21/18 11:43 Est GFR (Non-Af Amer) > 60.0 ml/min 08/21/18 11:43 BUN/Creatinine Ratio 11.8 08/21/18 11:43 Glucose 221 mg/dL (70-105) H 08/21/18 11:43 POC Glucose 82 MG/DL (70 - 105) 08/22/18 06:31 Calcium 9.4 mg/dL (8.6-10.3) 08/21/18 11:43 Total Bilirubin 0.4 mg/dL (0.3-1.0) 08/21/18 11:43 AST 22 U/L (13-39) 08/21/18 11:43 ALT 24 U/L (7-52) 08/21/18 11:43 Alkaline Phosphatase 53 U/L (34-104) 08/21/18 11:43 Total Protein 6.9 gm/dL (6.0-8.3) 08/21/18 11:43 Albumin 4.3 gm/dL (4.2-5.5) 08/21/18 11:43 Globulin 2.6 gm/dL 08/21/18 11:43 Albumin/Globulin Ratio 1.7 (1.0-1.8) 08/21/18 11:43 Triglycerides 183 mg/dL (<150) H 08/22/18 07:50 Cholesterol 223 mg/dL (<200) H 08/22/18 07:50 LDL Cholesterol Direct 133 mg/dL (75-193) 08/22/18 07:50 HDL Cholesterol 49 mg/dL (23-92) 08/22/18 07:50 TSH 0.48 uIU/ml (0.34-5.60) 08/21/18 11:43 Urine Source CLEAN C 08/21/18 18:15 Urine Color YELLOW 08/21/18 18:15 Urine Clarity HAZY (CLEAR) 08/21/18 18:15 Urine pH 5.0 (4.6 - 8.0) 08/21/18 18:15 Ur Specific [place] >= 1.030 (1.005-1.030) 08/21/18 18:15 Urine Protein 30 mg/dL (NEGATIVE) H 08/21/18 18:15 Urine Glucose (UA) NEGATIVE mg/dL (NEGATIVE) 08/21/18 18:15 Urine Ketones NEGATIVE mg/dL (NEGATIVE) 08/21/18 18:15 Urine Blood NEGATIVE (NEGATIVE) 08/21/18 18:15 Urine Nitrate NEGATIVE (NEGATIVE) 08/21/18 18:15 Urine Bilirubin SMALL (NEGATIVE) H 08/21/18 18:15 Urine Urobilinogen 0.2 E.U./dL (0.2 - 1.0) 08/21/18 18:15 Ur Leukocyte Esterase NEGATIVE (NEGATIVE) 08/21/18 18:15 Urine RBC 2-5 /hpf (0-5) H 08/21/18 18:15 Urine WBC 2-5 /hpf (0-5) 08/21/18 18:15 Ur Epithelial Cells RARE /lpf (FEW) 08/21/18 18:15 Urine Bacteria FEW /hpf (NONE SEEN) 08/21/18 18:15 Valproic Acid 57.3 ug/mL (50.0-100.0) 09/04/18 06:10 RPR NONREACTIVE (NONREACTIVE) 08/21/18 11:43 - Physical Exam Vitals and I&O: Vital Signs Temp 98.0 F 09/12/18 20:39 Pulse 85 09/12/18 20:39 Resp 20 09/12/18 20:39 BP 122/70 09/12/18 20:39 Pulse Ox 92 09/12/18 20:39 Intake & Output 09/12/18 09/12/18 09/13/18 06:59 18:59 06:59 Intake Total 1000 240 Balance 1000 240 Intake: Oral 1000 240 Other: # Voids 4 2 # Bowel Movements 1 Active Medications: Current Medications Acetaminophen/Hydrocodone Bitart ([place] 10 Mg/325 Mg) 1 tab PO Q6H PRN PRN Reason: Pain (Moderate) Stop: 11/01/18 21:14 Last Admin: 09/12/18 22:42 Dose: 1 tab Amlodipine Besylate (Norvasc) 5 mg PO DAILY [facility] Stop: 10/21/18 08:59 Last Admin: 09/12/18 08:58 Dose: 5 mg Divalproex Sodium (Depakote Dr) 750 mg PO BID [facility]; Protocol Stop: 11/01/18 08:59 Last Admin: 09/12/18 17:36 Dose: 750 mg Duloxetine HCl (Cymbalta) 60 mg PO BID [facility]; Protocol Stop: 11/07/18 16:59 Last Admin: 09/12/18 17:37 Dose: 60 mg Gabapentin (Neurontin) 300 mg PO TID [facility] Stop: 11/07/18 13:59 Last Admin: 09/12/18 21:07 Dose: 300 mg Lorazepam (Ativan) 1 mg PO Q4HR PRN; Protocol PRN Reason: Anxiety Stop: 09/20/18 19:34 Last Admin: 09/12/18 18:14 Dose: 1 mg Methocarbamol (Robaxin) 750 mg PO TID [facility] Stop: 10/20/18 20:59 Last Admin: 09/12/18 21:06 Dose: 750 mg Naproxen (Naprosyn) 500 mg PO BID [facility] Stop: 10/21/18 08:59 Last Admin: 09/12/18 17:36 Dose: 500 mg Quetiapine Fumarate (Seroquel) 800 mg PO HS [facility]; Protocol Stop: 10/31/18 20:59 Last Admin: 09/12/18 21:07 Dose: 800 mg Tamsulosin HCl (Flomax) 0.4 mg PO DAILY [facility] Stop: 10/24/18 08:59 Last Admin: 09/12/18 09:04 Dose: 0.4 mg Zolpidem Tartrate (Ambien) 5 mg PO HS PRN PRN Reason: Insomnia Stop: 10/20/18 19:34 Last Admin: 09/11/18 22:40 Dose: 5 mg General: alert HEENT: NC/AT, PERRLA, EOMI, anicteric sclerae, throat clear Neck: Supple, No JVD, No thyromegaly, +2 carotid pulse wo bruit, No LAD Lungs: CTAB Cardiovascular: RRR, Normal S1, Normal S2, without murmur Abdomen: soft, non-tender, non-distended Extremities: clear Neurological: no change - Procedures Procedures: Procedures Procedure Code Date CONTINUOUS INVASIVE MECHANICAL VENTILATION <96 CONSEC HRS 96.71 06/05/13 GROUP PSYCHOTHERAPY 65165 08/25/15 GROUP PSYCHOTHERAPY GZHZZZZ 08/25/15 INSERT EMERGENCY AIRWAY [id number] 06/05/13 INSERT ENDOTRACHEAL TUBE 96.04 06/05/13 VACCINATION NEC 99.55 06/24/13 Internal Medicine Assmt/Plan - Assessment Assessment: 1.HTN. 2.CHRONIC BACK PAIN. 3.HYPERLIPIDEMIA. 4.PSYCHOSIS - Plan Plan: CONTINUE ON CURRENT MEDICATION AND DIET. Nutritional Asmnt/Malnutr-PDOC - Dietary Evaluation Malnutrition Findings (Please click <Entered> for more info): Nutritional Asmnt/Malnutrition Start: 08/22/18 14: 11 Text: Status: Active Freq: Protocol: Document 08/22/18 14:11 VINCE (Rec: 08/22/18 14:31 VINCE [email or web address]) Nutritional Asmnt/Malnutrition Patient General Information Nutritional Screening High Risk Diagnosis SUICIDAL IDEATION Pertinent Medical Hx/Surgical Hx HTN, CHRONIC BACK PAIN, PSYCHOSIS, HYPERLIPIDEMIA, DEGENERATIVE JOINT DISEASE Subjective Information IA HR, CONSULT: HIGH GULCOSE 221 63 YEAR OLD MALE ADMITTED FOR SUICIDAL IDEATIONS. HT: 6 FT WT: 190 LB. (86KG) BMI: 25.77 (OVERWEIGHT) I/O: 120/NOT NOTED GI: SOFT, ACTIVE SKIN: WNL PUSHPA: 21 ESTIMATED ENERGY NEEDS: 1937-6925 KCALS (20-25 KCALS/ KG) 69-78 G PRO (0.8-0.9 G/KG) 5462-5606 ML FLUIDS (35-40 ML/ KG) DIETARY IS CURRENTLY PROVIDING AN ESTIMATED 2169 KCALS AND 97 G PRO, MEETING 100% KCAL AND 100%+ PRO NEEDS - ADEQUATE . CONSULT FOR HIGH GLUC 122 HAS RESOLVED WITH POC GLUC 82. WILL CONTINUE TO MONITOR NUTRITION RELATED LABS. Current Diet Order/ Nutrition Support REGULAR Pertinent Medications N/A Pertinent Labs 08/22: POC GLUC 82 08/21: GLUC 221 Nutritional Hx/Data Height 1.83 m Height (Calculated Centimeters) 182.9 Current Weight (lbs) 86.183 kg Weight (Calculated Kilograms) 86.2 Weight (Calculated Grams) 31743.6 [place] Body Weight 178 % [place] Body Weight 107 Body Mass Index (BMI) 25.7 Weight Status Overweight GI Symptoms GI Symptoms None Last BM NOT NOTED Skin Integrity/Comment: WNL Estimated Nutritional Goals BEE in Kcals: Using Current wt Calories/Kcals/Kg 20-25 Kcals Calculated 2047-2734 Protein: Using Current wt Protein g/k.8-0.9 Protein Calculated 69-78 Fluid: ml 6328-4390 Nutritional Problem 1. Problem Problem ALTERED NUTRITION RELATED LABORATORY VALUES Etiology R/T PATHOPHYSIOLOGICAL CAUSES Signs/Symptoms: AEB GLUC 122 Malnutrition Related to Morbid Obesity Malnutrition related to morbid obesity No Intervention/Recommendation Comments 1. CONTINUE WITH REGULAR DIET ORDERED. Expected Outcomes/Goals Expected Outcomes/Goals 1. PO INTAKE TO MEET >75% ESTIMATED NEEDS. 2. NUTRITION RELATED LABS TO TREND WNL IN 3-5 DAYS. 3. MONITOR PO INTAKE, WT, SKIN INTEGRITY, AND NUTRITION RELATED LABS. 4. F/U MR IN 3-5 DAYS.
--- NOTE | 2018-09-13 05:21 | Progress Notes ---
DATE: SUBJECTIVE: Chart was reviewed and the patient interviewed. Also, discussed the patient's condition with the staff and reviewed records and labs. The patient is still demanding and is still manipulative. The patient also is still angry. The patient also responded to going to nursing facility "I am not going to go anywhere" in an anger tone. The patient also still tends to isolate himself and withdrawn and interacting minimally with others. The patient also wants Adderall and demanding and in spite of explaining to him that it is not appropriate for him yet he is still demanding to get it. Otherwise, the patient is compliant with taking his medications including Depakote, Seroquel, Cymbalta, and Neurontin. We will get Depakote. We will continue to work on placement issue and discharge plans. JOB# [id number]
[2018-09-13] MEDS: Hydrocodone/APAP 10 mg/325 mg Tab PO PRN ×3 (09:30→22:40)
--- NOTE | 2018-09-13 20:40 | Progress Notes ---
DATE: 09/13/2018 SUBJECTIVE: Chart was reviewed and the patient interviewed. Also discussed the patient's condition with the staff and reviewed records and labs. The patient is still demanding and is still easily irritable and agitated. The patient also still having mood swings and still has difficulty making up decisions in regards to placement issue. The patient also is restless and in a depressed mood. Otherwise, the patient denies any side effects of medications. ASSESSMENT: The patient is still demanding and agitated. TREATMENT PLAN: Continue to monitor his behavior and his medications and continue to work on his discharge plans and placement issue. JOB# [id number]
--- NOTE | 2018-09-13 20:56 | Internal Medicine Prog Note ---
Internal Medicine Subjective - Subjective Service Date: 09/13/18 Patient seen and examined:: without staff (HE FEELS WELL) Patient is:: awake, verbal, talking Per staff patient has:: no adverse event, tolerating meds Internal Medicine Objective - Results Result Diagrams: 08/21/18 11:43 08/21/18 11:43 Recent Labs: Laboratory Last Values WBC 4.3 Th/cmm (4.8-10.8) L 08/21/18 11:43 RBC 5.00 Mil/cmm (4.30-5.70) 08/21/18 11:43 Hgb 14.0 gm/dL (12-16) 08/21/18 11:43 Hct 42.3 % (41.0-60) 08/21/18 11:43 MCV 84.6 fl (80-99) 08/21/18 11:43 MCH 28.0 pg (26.0-30.0) 08/21/18 11:43 MCHC Differential 33.1 pg (28.0-36.0) 08/21/18 11:43 RDW 14.0 % (11.5-20.0) 08/21/18 11:43 Plt Count 319 Th/cmm (150-400) 08/21/18 11:43 MPV 7.6 fl 08/21/18 11:43 Neutrophils % 85.5 % (40.0-80.0) H 08/21/18 11:43 Lymphocytes % 12.2 % (20.0-50.0) L 08/21/18 11:43 Monocytes % 0.7 % (2.0-10.0) L 08/21/18 11:43 Eosinophils % 0.4 % (0.0-5.0) 08/21/18 11:43 Basophils % 1.2 % (0.0-2.0) 08/21/18 11:43 Sodium 138 mEq/L (136-145) 08/21/18 11:43 Potassium 4.3 mEq/L (3.5-5.1) 08/21/18 11:43 Chloride 104 mEq/L (98-107) 08/21/18 11:43 Carbon Dioxide 24.0 mEq/L (21.0-31.0) 08/21/18 11:43 Anion Gap 14.3 (7.0-16.0) 08/21/18 11:43 BUN 13 mg/dL (7-25) 08/21/18 11:43 Creatinine 1.1 mg/dL (0.7-1.3) 08/21/18 11:43 Est GFR ( Amer) > 60.0 ml/min (>90) 08/21/18 11:43 Est GFR (Non-Af Amer) > 60.0 ml/min 08/21/18 11:43 BUN/Creatinine Ratio 11.8 08/21/18 11:43 Glucose 221 mg/dL (70-105) H 08/21/18 11:43 POC Glucose 82 MG/DL (70 - 105) 08/22/18 06:31 Calcium 9.4 mg/dL (8.6-10.3) 08/21/18 11:43 Total Bilirubin 0.4 mg/dL (0.3-1.0) 08/21/18 11:43 AST 22 U/L (13-39) 08/21/18 11:43 ALT 24 U/L (7-52) 08/21/18 11:43 Alkaline Phosphatase 53 U/L (34-104) 08/21/18 11:43 Total Protein 6.9 gm/dL (6.0-8.3) 08/21/18 11:43 Albumin 4.3 gm/dL (4.2-5.5) 08/21/18 11:43 Globulin 2.6 gm/dL 08/21/18 11:43 Albumin/Globulin Ratio 1.7 (1.0-1.8) 08/21/18 11:43 Triglycerides 183 mg/dL (<150) H 08/22/18 07:50 Cholesterol 223 mg/dL (<200) H 08/22/18 07:50 LDL Cholesterol Direct 133 mg/dL (75-193) 08/22/18 07:50 HDL Cholesterol 49 mg/dL (23-92) 08/22/18 07:50 TSH 0.48 uIU/ml (0.34-5.60) 08/21/18 11:43 Urine Source CLEAN C 08/21/18 18:15 Urine Color YELLOW 08/21/18 18:15 Urine Clarity HAZY (CLEAR) 08/21/18 18:15 Urine pH 5.0 (4.6 - 8.0) 08/21/18 18:15 Ur Specific [place] >= 1.030 (1.005-1.030) 08/21/18 18:15 Urine Protein 30 mg/dL (NEGATIVE) H 08/21/18 18:15 Urine Glucose (UA) NEGATIVE mg/dL (NEGATIVE) 08/21/18 18:15 Urine Ketones NEGATIVE mg/dL (NEGATIVE) 08/21/18 18:15 Urine Blood NEGATIVE (NEGATIVE) 08/21/18 18:15 Urine Nitrate NEGATIVE (NEGATIVE) 08/21/18 18:15 Urine Bilirubin SMALL (NEGATIVE) H 08/21/18 18:15 Urine Urobilinogen 0.2 E.U./dL (0.2 - 1.0) 08/21/18 18:15 Ur Leukocyte Esterase NEGATIVE (NEGATIVE) 08/21/18 18:15 Urine RBC 2-5 /hpf (0-5) H 08/21/18 18:15 Urine WBC 2-5 /hpf (0-5) 08/21/18 18:15 Ur Epithelial Cells RARE /lpf (FEW) 08/21/18 18:15 Urine Bacteria FEW /hpf (NONE SEEN) 08/21/18 18:15 Valproic Acid 57.3 ug/mL (50.0-100.0) 09/04/18 06:10 RPR NONREACTIVE (NONREACTIVE) 08/21/18 11:43 - Physical Exam Vitals and I&O: Vital Signs Temp 96.6 F 09/13/18 20:44 Pulse 84 09/13/18 20:44 Resp 19 09/13/18 20:44 BP 110/61 09/13/18 20:44 Pulse Ox 93 09/13/18 20:44 Intake & Output 09/13/18 09/13/18 09/14/18 06:59 18:59 06:59 Intake Total 240 1000 240 Balance 240 1000 240 Intake: Oral 240 1000 240 Other: # Voids 2 4 2 # Bowel Movements 1 Active Medications: Current Medications Acetaminophen/Hydrocodone Bitart ([place] 10 Mg/325 Mg) 1 tab PO Q6H PRN PRN Reason: Pain (Moderate) Stop: 11/01/18 21:14 Last Admin: 09/13/18 16:12 Dose: 1 tab Amlodipine Besylate (Norvasc) 5 mg PO DAILY [facility] Stop: 10/21/18 08:59 Last Admin: 09/13/18 09:30 Dose: 5 mg Divalproex Sodium (Depakote Dr) 750 mg PO BID [facility]; Protocol Stop: 11/01/18 08:59 Last Admin: 09/13/18 16:11 Dose: 750 mg Duloxetine HCl (Cymbalta) 60 mg PO BID [facility]; Protocol Stop: 11/07/18 16:59 Last Admin: 09/13/18 16:11 Dose: 60 mg Gabapentin (Neurontin) 300 mg PO TID [facility] Stop: 11/07/18 13:59 Last Admin: 09/13/18 14:35 Dose: 300 mg Lorazepam (Ativan) 1 mg PO Q4HR PRN; Protocol PRN Reason: Anxiety Stop: 09/20/18 19:34 Last Admin: 09/13/18 14:36 Dose: 1 mg Methocarbamol (Robaxin) 750 mg PO TID [facility] Stop: 10/20/18 20:59 Last Admin: 09/13/18 14:34 Dose: 750 mg Naproxen (Naprosyn) 500 mg PO BID [facility] Stop: 10/21/18 08:59 Last Admin: 09/13/18 16:12 Dose: 500 mg Quetiapine Fumarate (Seroquel) 800 mg PO HS [facility]; Protocol Stop: 10/31/18 20:59 Last Admin: 09/12/18 21:07 Dose: 800 mg Tamsulosin HCl (Flomax) 0.4 mg PO DAILY [facility] Stop: 10/24/18 08:59 Last Admin: 09/13/18 09:28 Dose: 0.4 mg Zolpidem Tartrate (Ambien) 5 mg PO HS PRN PRN Reason: Insomnia Stop: 10/20/18 19:34 Last Admin: 09/13/18 01:19 Dose: 5 mg General: alert HEENT: NC/AT, PERRLA, EOMI, anicteric sclerae, throat clear Neck: Supple, No JVD, No thyromegaly, +2 carotid pulse wo bruit, No LAD Lungs: CTAB Cardiovascular: RRR, Normal S1, Normal S2, without murmur Abdomen: soft, non-tender, non-distended Extremities: clear Neurological: no change - Procedures Procedures: Procedures Procedure Code Date CONTINUOUS INVASIVE MECHANICAL VENTILATION <96 CONSEC HRS 96.71 06/05/13 GROUP PSYCHOTHERAPY 98083 08/25/15 GROUP PSYCHOTHERAPY GZHZZZZ 08/25/15 INSERT EMERGENCY AIRWAY 51781 06/05/13 INSERT ENDOTRACHEAL TUBE 96.04 06/05/13 VACCINATION NEC 99.55 06/24/13 Internal Medicine Assmt/Plan - Assessment Assessment: 1.HTN. 2.CHRONIC BACK PAIN. 3.HYPERLIPIDEMIA. 4.PSYCHOSIS - Plan Plan: CONTINUE ON CURRENT MEDICATION AND DIET. Nutritional Asmnt/Malnutr-PDOC - Dietary Evaluation Malnutrition Findings (Please click <Entered> for more info): Nutritional Asmnt/Malnutrition Start: 08/22/18 14: 11 Text: Status: Active Freq: Protocol: Document 08/22/18 14:11 VINCE (Rec: 08/22/18 14:31 VINCE [email or web address]) Nutritional Asmnt/Malnutrition Patient General Information Nutritional Screening High Risk Diagnosis SUICIDAL IDEATION Pertinent Medical Hx/Surgical Hx HTN, CHRONIC BACK PAIN, PSYCHOSIS, HYPERLIPIDEMIA, DEGENERATIVE JOINT DISEASE Subjective Information IA HR, CONSULT: HIGH GULCOSE 221 63 YEAR OLD MALE ADMITTED FOR SUICIDAL IDEATIONS. HT: 6 FT WT: 190 LB. (86KG) BMI: 25.77 (OVERWEIGHT) I/O: 120/NOT NOTED GI: SOFT, ACTIVE SKIN: WNL PUSHPA: 21 ESTIMATED ENERGY NEEDS: 9240-1358 KCALS (20-25 KCALS/ KG) 69-78 G PRO (0.8-0.9 G/KG) 1323-5959 ML FLUIDS (35-40 ML/ KG) DIETARY IS CURRENTLY PROVIDING AN ESTIMATED 2169 KCALS AND 97 G PRO, MEETING 100% KCAL AND 100%+ PRO NEEDS - ADEQUATE . CONSULT FOR HIGH GLUC 122 HAS RESOLVED WITH POC GLUC 82. WILL CONTINUE TO MONITOR NUTRITION RELATED LABS. Current Diet Order/ Nutrition Support REGULAR Pertinent Medications N/A Pertinent Labs 08/22: POC GLUC 82 08/21: GLUC 221 Nutritional Hx/Data Height 1.83 m Height (Calculated Centimeters) 182.9 Current Weight (lbs) 86.183 kg Weight (Calculated Kilograms) 86.2 Weight (Calculated Grams) 64280.6 [place] Body Weight 178 % [place] Body Weight 107 Body Mass Index (BMI) 25.7 Weight Status Overweight GI Symptoms GI Symptoms None Last BM NOT NOTED Skin Integrity/Comment: WNL Estimated Nutritional Goals BEE in Kcals: Using Current wt Calories/Kcals/Kg 20-25 Kcals Calculated 0151-4537 Protein: Using Current wt Protein g/k.8-0.9 Protein Calculated 69-78 Fluid: ml 1927-1256 Nutritional Problem 1. Problem Problem ALTERED NUTRITION RELATED LABORATORY VALUES Etiology R/T PATHOPHYSIOLOGICAL CAUSES Signs/Symptoms: AEB GLUC 122 Malnutrition Related to Morbid Obesity Malnutrition related to morbid obesity No Intervention/Recommendation Comments 1. CONTINUE WITH REGULAR DIET ORDERED. Expected Outcomes/Goals Expected Outcomes/Goals 1. PO INTAKE TO MEET >75% ESTIMATED NEEDS. 2. NUTRITION RELATED LABS TO TREND WNL IN 3-5 DAYS. 3. MONITOR PO INTAKE, WT, SKIN INTEGRITY, AND NUTRITION RELATED LABS. 4. F/U MR IN 3-5 DAYS.
[2018-09-14] MEDS: Hydrocodone/APAP 10 mg/325 mg Tab PO PRN ×3 (09:16→22:07)
--- NOTE | 2018-09-14 20:15 | Progress Notes ---
DATE: 09/14/2018 SUBJECTIVE: Chart was reviewed and the patient interviewed. Also discussed the patient's condition with the staff and reviewed records and labs. The patient seems to be slightly calmer. The patient is less irritable and less agitated. He is still uncooperative in regard to his discharge plans and is still working on his discharge. The patient also still has no idea where he wants to live in spite of different options presented to him. He also still had episodes of anger and irritability, but seems to be less and also seems to have less mood swings. ASSESSMENT: The patient is still depressed and anxious and needs placement. TREATMENT PLAN: Continue to work on his discharge plans and placement issues and continue to follow up. [facility]# [id number]
--- NOTE | 2018-09-14 20:57 | Internal Medicine Prog Note ---
Internal Medicine Subjective - Subjective Service Date: 09/14/18 Patient seen and examined:: without staff (HE FEELS BETTER) Patient is:: awake, verbal, talking Per staff patient has:: no adverse event, tolerating meds Internal Medicine Objective - Results Result Diagrams: 08/21/18 11:43 08/21/18 11:43 Recent Labs: Laboratory Last Values WBC 4.3 Th/cmm (4.8-10.8) L 08/21/18 11:43 RBC 5.00 Mil/cmm (4.30-5.70) 08/21/18 11:43 Hgb 14.0 gm/dL (12-16) 08/21/18 11:43 Hct 42.3 % (41.0-60) 08/21/18 11:43 MCV 84.6 fl (80-99) 08/21/18 11:43 MCH 28.0 pg (26.0-30.0) 08/21/18 11:43 MCHC Differential 33.1 pg (28.0-36.0) 08/21/18 11:43 RDW 14.0 % (11.5-20.0) 08/21/18 11:43 Plt Count 319 Th/cmm (150-400) 08/21/18 11:43 MPV 7.6 fl 08/21/18 11:43 Neutrophils % 85.5 % (40.0-80.0) H 08/21/18 11:43 Lymphocytes % 12.2 % (20.0-50.0) L 08/21/18 11:43 Monocytes % 0.7 % (2.0-10.0) L 08/21/18 11:43 Eosinophils % 0.4 % (0.0-5.0) 08/21/18 11:43 Basophils % 1.2 % (0.0-2.0) 08/21/18 11:43 Sodium 138 mEq/L (136-145) 08/21/18 11:43 Potassium 4.3 mEq/L (3.5-5.1) 08/21/18 11:43 Chloride 104 mEq/L (98-107) 08/21/18 11:43 Carbon Dioxide 24.0 mEq/L (21.0-31.0) 08/21/18 11:43 Anion Gap 14.3 (7.0-16.0) 08/21/18 11:43 BUN 13 mg/dL (7-25) 08/21/18 11:43 Creatinine 1.1 mg/dL (0.7-1.3) 08/21/18 11:43 Est GFR ( Amer) > 60.0 ml/min (>90) 08/21/18 11:43 Est GFR (Non-Af Amer) > 60.0 ml/min 08/21/18 11:43 BUN/Creatinine Ratio 11.8 08/21/18 11:43 Glucose 221 mg/dL (70-105) H 08/21/18 11:43 POC Glucose 82 MG/DL (70 - 105) 08/22/18 06:31 Calcium 9.4 mg/dL (8.6-10.3) 08/21/18 11:43 Total Bilirubin 0.4 mg/dL (0.3-1.0) 08/21/18 11:43 AST 22 U/L (13-39) 08/21/18 11:43 ALT 24 U/L (7-52) 08/21/18 11:43 Alkaline Phosphatase 53 U/L (34-104) 08/21/18 11:43 Total Protein 6.9 gm/dL (6.0-8.3) 08/21/18 11:43 Albumin 4.3 gm/dL (4.2-5.5) 08/21/18 11:43 Globulin 2.6 gm/dL 08/21/18 11:43 Albumin/Globulin Ratio 1.7 (1.0-1.8) 08/21/18 11:43 Triglycerides 183 mg/dL (<150) H 08/22/18 07:50 Cholesterol 223 mg/dL (<200) H 08/22/18 07:50 LDL Cholesterol Direct 133 mg/dL (75-193) 08/22/18 07:50 HDL Cholesterol 49 mg/dL (23-92) 08/22/18 07:50 TSH 0.48 uIU/ml (0.34-5.60) 08/21/18 11:43 Urine Source CLEAN C 08/21/18 18:15 Urine Color YELLOW 08/21/18 18:15 Urine Clarity HAZY (CLEAR) 08/21/18 18:15 Urine pH 5.0 (4.6 - 8.0) 08/21/18 18:15 Ur Specific [place] >= 1.030 (1.005-1.030) 08/21/18 18:15 Urine Protein 30 mg/dL (NEGATIVE) H 08/21/18 18:15 Urine Glucose (UA) NEGATIVE mg/dL (NEGATIVE) 08/21/18 18:15 Urine Ketones NEGATIVE mg/dL (NEGATIVE) 08/21/18 18:15 Urine Blood NEGATIVE (NEGATIVE) 08/21/18 18:15 Urine Nitrate NEGATIVE (NEGATIVE) 08/21/18 18:15 Urine Bilirubin SMALL (NEGATIVE) H 08/21/18 18:15 Urine Urobilinogen 0.2 E.U./dL (0.2 - 1.0) 08/21/18 18:15 Ur Leukocyte Esterase NEGATIVE (NEGATIVE) 08/21/18 18:15 Urine RBC 2-5 /hpf (0-5) H 08/21/18 18:15 Urine WBC 2-5 /hpf (0-5) 08/21/18 18:15 Ur Epithelial Cells RARE /lpf (FEW) 08/21/18 18:15 Urine Bacteria FEW /hpf (NONE SEEN) 08/21/18 18:15 Valproic Acid 57.3 ug/mL (50.0-100.0) 09/04/18 06:10 RPR NONREACTIVE (NONREACTIVE) 08/21/18 11:43 - Physical Exam Vitals and I&O: Vital Signs Temp 98.8 F 09/14/18 20:11 Pulse 82 09/14/18 20:11 Resp 20 09/14/18 20:11 BP 123/74 09/14/18 20:11 Pulse Ox 93 09/14/18 20:11 Intake & Output 09/14/18 09/14/18 09/15/18 06:59 18:59 06:59 Intake Total 240 1000 240 Balance 240 1000 240 Intake: Oral 240 1000 240 Other: # Voids 2 4 # Bowel Movements 1 Active Medications: Current Medications Acetaminophen/Hydrocodone Bitart ([place] 10 Mg/325 Mg) 1 tab PO Q6H PRN PRN Reason: Pain (Moderate) Stop: 11/01/18 21:14 Last Admin: 09/14/18 15:36 Dose: 1 tab Amlodipine Besylate (Norvasc) 5 mg PO DAILY [facility] Stop: 10/21/18 08:59 Last Admin: 09/14/18 09:16 Dose: 5 mg Divalproex Sodium (Depakote Dr) 750 mg PO BID [facility]; Protocol Stop: 11/01/18 08:59 Last Admin: 09/14/18 17:23 Dose: 750 mg Duloxetine HCl (Cymbalta) 60 mg PO BID [facility]; Protocol Stop: 11/07/18 16:59 Last Admin: 09/14/18 17:23 Dose: 60 mg Gabapentin (Neurontin) 300 mg PO TID [facility] Stop: 11/07/18 13:59 Last Admin: 09/14/18 20:42 Dose: 300 mg Lorazepam (Ativan) 1 mg PO Q4HR PRN; Protocol PRN Reason: Anxiety Stop: 09/20/18 19:34 Last Admin: 09/14/18 17:23 Dose: 1 mg Methocarbamol (Robaxin) 750 mg PO TID [facility] Stop: 10/20/18 20:59 Last Admin: 09/14/18 20:41 Dose: 750 mg Naproxen (Naprosyn) 500 mg PO BID [facility] Stop: 10/21/18 08:59 Last Admin: 09/14/18 17:24 Dose: 500 mg Quetiapine Fumarate (Seroquel) 800 mg PO HS [facility]; Protocol Stop: 10/31/18 20:59 Last Admin: 09/14/18 20:42 Dose: 800 mg Tamsulosin HCl (Flomax) 0.4 mg PO DAILY [facility] Stop: 10/24/18 08:59 Last Admin: 09/14/18 09:15 Dose: 0.4 mg Zolpidem Tartrate (Ambien) 5 mg PO HS PRN PRN Reason: Insomnia Stop: 10/20/18 19:34 Last Admin: 09/14/18 20:42 Dose: 5 mg General: alert HEENT: NC/AT, PERRLA, EOMI, anicteric sclerae, throat clear Neck: Supple, No JVD, No thyromegaly, +2 carotid pulse wo bruit, No LAD Lungs: CTAB Cardiovascular: RRR, Normal S1, Normal S2, without murmur Abdomen: soft, non-tender, non-distended Extremities: clear Neurological: no change - Procedures Procedures: Procedures Procedure Code Date CONTINUOUS INVASIVE MECHANICAL VENTILATION <96 CONSEC HRS 96.71 06/05/13 GROUP PSYCHOTHERAPY 97116 08/25/15 GROUP PSYCHOTHERAPY GZHZZZZ 08/25/15 INSERT EMERGENCY AIRWAY [id number] 06/05/13 INSERT ENDOTRACHEAL TUBE 96.04 06/05/13 VACCINATION NEC 99.55 06/24/13 Internal Medicine Assmt/Plan - Assessment Assessment: 1.HTN. 2.CHRONIC BACK PAIN. 3.HYPERLIPIDEMIA. 4.PSYCHOSIS - Plan Plan: CONTINUE ON CURRENT MEDICATION AND DIET. Nutritional Asmnt/Malnutr-PDOC - Dietary Evaluation Malnutrition Findings (Please click <Entered> for more info): Nutritional Asmnt/Malnutrition Start: 08/22/18 14: 11 Text: Status: Active Freq: Protocol: Document 08/22/18 14:11 VINCE (Rec: 08/22/18 14:31 VINCE [email or web address]) Nutritional Asmnt/Malnutrition Patient General Information Nutritional Screening High Risk Diagnosis SUICIDAL IDEATION Pertinent Medical Hx/Surgical Hx HTN, CHRONIC BACK PAIN, PSYCHOSIS, HYPERLIPIDEMIA, DEGENERATIVE JOINT DISEASE Subjective Information IA HR, CONSULT: HIGH GULCOSE 221 63 YEAR OLD MALE ADMITTED FOR SUICIDAL IDEATIONS. HT: 6 FT WT: 190 LB. (86KG) BMI: 25.77 (OVERWEIGHT) I/O: 120/NOT NOTED GI: SOFT, ACTIVE SKIN: WNL PUSHPA: 21 ESTIMATED ENERGY NEEDS: 8491-4451 KCALS (20-25 KCALS/ KG) 69-78 G PRO (0.8-0.9 G/KG) 2626-4293 ML FLUIDS (35-40 ML/ KG) DIETARY IS CURRENTLY PROVIDING AN ESTIMATED 2169 KCALS AND 97 G PRO, MEETING 100% KCAL AND 100%+ PRO NEEDS - ADEQUATE . CONSULT FOR HIGH GLUC 122 HAS RESOLVED WITH POC GLUC 82. WILL CONTINUE TO MONITOR NUTRITION RELATED LABS. Current Diet Order/ Nutrition Support REGULAR Pertinent Medications N/A Pertinent Labs 08/22: POC GLUC 82 08/21: GLUC 221 Nutritional Hx/Data Height 1.83 m Height (Calculated Centimeters) 182.9 Current Weight (lbs) 86.183 kg Weight (Calculated Kilograms) 86.2 Weight (Calculated Grams) 51391.6 [place] Body Weight 178 % [place] Body Weight 107 Body Mass Index (BMI) 25.7 Weight Status Overweight GI Symptoms GI Symptoms None Last BM NOT NOTED Skin Integrity/Comment: WNL Estimated Nutritional Goals BEE in Kcals: Using Current wt Calories/Kcals/Kg 20-25 Kcals Calculated 6194-6070 Protein: Using Current wt Protein g/k.8-0.9 Protein Calculated 69-78 Fluid: ml 9091-6008 Nutritional Problem 1. Problem Problem ALTERED NUTRITION RELATED LABORATORY VALUES Etiology R/T PATHOPHYSIOLOGICAL CAUSES Signs/Symptoms: AEB GLUC 122 Malnutrition Related to Morbid Obesity Malnutrition related to morbid obesity No Intervention/Recommendation Comments 1. CONTINUE WITH REGULAR DIET ORDERED. Expected Outcomes/Goals Expected Outcomes/Goals 1. PO INTAKE TO MEET >75% ESTIMATED NEEDS. 2. NUTRITION RELATED LABS TO TREND WNL IN 3-5 DAYS. 3. MONITOR PO INTAKE, WT, SKIN INTEGRITY, AND NUTRITION RELATED LABS. 4. F/U MR IN 3-5 DAYS.
[2018-09-15] MEDS: Hydrocodone/APAP 10 mg/325 mg Tab PO PRN ×2 (08:29→14:59)
--- NOTE | 2018-09-16 05:57 | Progress Notes ---
DATE: 09/15/2018 SUBJECTIVE: Chart was reviewed and the patient interviewed. Also discussed the patient's condition with the staff and reviewed records and labs. The patient is still manipulative in regard to taking medications, and he is still asking for special medications to be given before he moved to a facility. [facility] and I am planning to transfer the patient there today. Instructed the staff importance of enforcing the discharge of the [facility] and hopefully that will happen. The patient is not suicidal or homicidal. [facility]# [id number]
--- NOTE | 2018-09-17 01:02 | Discharge Summary ---
DATE OF DISCHARGE: 09/15/2018 PATIENT'S AGE: 63-year-old. SEX: Male. PHYSICIAN: Charisma Huff MD, MPH. FINAL DIAGNOSIS: PRIMARY DIAGNOSES: Schizoaffective disorder, depressed episode, severe, with psychotic features. REASON FOR HOSPITALIZATION: The patient was admitted to the hospital because of increased depression and suicidal ideations and the patient was placed on 5150 hold because of thoughts of suicide. Upon arrival to the Emergency Room and was planned to overdose some pills. HOSPITAL COURSE: The patient continued to be severely anxious and severely depressed. The patient also was feeling hopeless and helpless. The patient also continued to agree his care plan with us. The patient's Seroquel increased to 800 mg at bedtime and Cymbalta to 60 mg twice a day and Depakote to 750 twice a day. Gradually, the patient's affect was brighter. Placement was an issue. Finally, [facility] accepted the patient. Physical exam of the patient showed no major medical problems. Blood workup was also basically within normal. AFTER-DISCHARGE PLANS: The patient discharged from the hospital, went to [facility] with plans to follow him there. EXPECTED OUTCOME AFTER DISCHARGE: Poor because of the patient's history with noncompliant with treatment recommendation and also with his manipulative behavior. [facility]# [id number]
== END 2018-09-15 16:30 | DRG 885 ==
LOC: ER 11:01 → GERO 17:55
PROVIDERS: ADMIT Psychiatry & Neurology Psychiatry; ATTEND Psychiatry & Neurology Psychiatry
DX: F25.1 Schizoaffective disorder, depressive type (principal); E11.65 Type 2 diabetes mellitus with hyperglycemia; R45.851 Suicidal ideations; I10 Essential (primary) hypertension; M54.9 Dorsalgia, unspecified; E78.5 Hyperlipidemia, unspecified; F41.9 Anxiety disorder, unspecified; G89.29 Other chronic pain; M54.5 Low back pain; M19.90 Unspecified osteoarthritis, unspecified site; Z59.0 Homelessness
CPT/HCPCS: 36415-UA; 80053-TC; 80061-TC; 80164-TC; 81001-TC; 82948-90; 83036-90; 84443-TC; 85025-TC; 86592-TC; 90899; 93005; G0410; Z7610

== ENCOUNTER 2019-02-25 20:45 | Inpatient (IN) | payer MEDICARE, MEDICAID ==
[2019-02-26] MEDS ORDERED: Magnesium Hydroxide (MOM) 30 mL UDC PO PRN (02:29)
[2019-02-26] MEDS ORDERED: Maalox 30 mL Cup PO PRN (02:29)
[2019-02-26] MEDS: Multivitamin Tab PO SCH (09:47)
[2019-02-27] MEDS: Hydrocodone/APAP 10 mg/325 mg Tab PO PRN ×2 (06:32→12:28)
[2019-02-27] MEDS: Multivitamin Tab PO SCH (09:08)
--- NOTE | 2019-02-27 20:21 | Internal Medicine Prog Note ---
Internal Medicine Subjective - Subjective Service Date: 02/27/19 Patient seen and examined:: with staff (HE FEELS BETTER) Patient is:: awake, verbal, in bed, talking, confused Per staff patient has:: no adverse event Internal Medicine Objective - Physical Exam Vitals and I&O: Vital Signs Temp 97.5 F 02/27/19 13:55 Pulse 91 02/27/19 13:55 Resp 18 02/27/19 13:55 BP 102/68 02/27/19 13:55 Pulse Ox 95 02/27/19 13:55 Intake & Output 02/27/19 02/27/19 02/28/19 06:59 18:59 06:59 Intake Total 120 1200 Balance 120 1200 Intake: Oral 120 1200 Other: # Voids 3 # Bowel Movements 1 Active Medications: Current Medications Acetaminophen (Tylenol) 650 mg PO Q4HR PRN PRN Reason: Mild Pain / Temp above 100 Stop: 04/27/19 02:28 Acetaminophen/Hydrocodone Bitart ([place] 10 Mg/325 Mg) 1 tab PO Q6H PRN PRN Reason: Pain (Severe 7-10) Stop: 04/27/19 02:38 Last Admin: 02/27/19 12:28 Dose: 1 tab Al Hydrox/Mg Hydrox/Simethicone (Maalox) 30 ml PO Q4HR PRN PRN Reason: GI DISTRESS Stop: 04/27/19 02:28 Duloxetine HCl (Cymbalta) 60 mg PO DAILY [facility]; Protocol Stop: 04/28/19 08:59 Last Admin: 02/27/19 09:35 Dose: 60 mg Lorazepam (Ativan) 1 mg PO Q4HR PRN; Protocol PRN Reason: Anxiety Stop: 04/27/19 02:33 Last Admin: 02/27/19 17:41 Dose: 1 mg Magnesium Hydroxide (Milk Of Magnesia) 30 ml PO HS PRN PRN Reason: Constipation Multivitamins/Vitamin C (Theragran) 1 tab PO DAILY [facility] Stop: 04/27/19 08:59 Last Admin: 02/27/19 09:08 Dose: 1 tab Naproxen (Naprosyn) 500 mg PO BIDWM [facility] Stop: 04/27/19 11:59 Last Admin: 02/27/19 17:50 Dose: Not Given Quetiapine Fumarate (Seroquel) 400 mg PO HS [facility]; Protocol Stop: 04/27/19 20:59 Last Admin: 02/26/19 21:10 Dose: Not Given Tamsulosin HCl (Flomax) 0.4 mg PO DAILY [facility] Stop: 04/27/19 08:59 Last Admin: 02/27/19 09:08 Dose: 0.4 mg Temazepam (Restoril) 15 mg PO HS PRN; Protocol PRN Reason: Insomnia Stop: 04/27/19 03:25 General: alert, demented HEENT: NC/AT, PERRLA, EOMI, anicteric sclerae, throat clear Neck: Supple, No JVD, No thyromegaly, +2 carotid pulse wo bruit, No LAD Lungs: CTAB Cardiovascular: RRR, Normal S1, Normal S2, without murmur Abdomen: soft, non-tender, non-distended Extremities: clear Neurological: no change - Procedures Procedures: Procedures Procedure Code Date CONTINUOUS INVASIVE MECHANICAL VENTILATION <96 CONSEC HRS 96.71 06/05/13 GROUP PSYCHOTHERAPY 00487 08/25/15 GROUP PSYCHOTHERAPY GZHZZZZ 08/25/15 INSERT EMERGENCY AIRWAY [id number] 06/05/13 INSERT ENDOTRACHEAL TUBE 96.04 06/05/13 VACCINATION NEC 99.55 06/24/13 Internal Medicine Assmt/Plan - Assessment Assessment: 1.CHRONIC BACK PAIN 2.BPH. 3.PSYCHOSIS - Plan Plan: CONTINUE ON CURRENT MEDICATION AND DIET
[2019-02-28] MEDS: Multivitamin Tab PO SCH (09:02)
[2019-02-28] MEDS: Hydrocodone/APAP 10 mg/325 mg Tab PO PRN (10:47)
--- NOTE | 2019-02-28 21:05 | Internal Medicine Prog Note ---
Internal Medicine Subjective - Subjective Service Date: 02/28/19 Patient seen and examined:: without staff (HE FEELS WELL) Patient is:: awake, verbal, in bed, talking, confused Per staff patient has:: no adverse event Internal Medicine Objective - Physical Exam Vitals and I&O: Vital Signs Temp 97.7 F 02/28/19 20:33 Pulse 103 02/28/19 20:33 Resp 20 02/28/19 20:33 BP 108/77 02/28/19 20:33 Pulse Ox 97 02/28/19 20:33 Intake & Output 02/28/19 02/28/19 03/01/19 06:59 18:59 06:59 Intake Total 300 240 Balance 300 240 Intake: Oral 300 240 Other: # Voids 1 3 2 # Bowel Movements 0 1 Stool Characteristics Soft Active Medications: Current Medications Acetaminophen (Tylenol) 650 mg PO Q4HR PRN PRN Reason: Mild Pain / Temp above 100 Stop: 04/27/19 02:28 Acetaminophen/Hydrocodone Bitart ([place] 10 Mg/325 Mg) 1 tab PO Q6H PRN PRN Reason: Pain (Severe 7-10) Stop: 04/27/19 02:38 Last Admin: 02/28/19 10:47 Dose: 1 tab Al Hydrox/Mg Hydrox/Simethicone (Maalox) 30 ml PO Q4HR PRN PRN Reason: GI DISTRESS Stop: 04/27/19 02:28 Duloxetine HCl (Cymbalta) 60 mg PO DAILY PATRICE; Protocol Stop: 04/28/19 08:59 Last Admin: 02/28/19 09:01 Dose: 60 mg Lorazepam (Ativan) 1 mg PO Q4HR PRN; Protocol PRN Reason: Anxiety Stop: 04/27/19 02:33 Last Admin: 02/28/19 15:15 Dose: 1 mg Magnesium Hydroxide (Milk Of Magnesia) 30 ml PO HS PRN PRN Reason: Constipation Multivitamins/Vitamin C (Theragran) 1 tab PO DAILY PATRICE Stop: 04/27/19 08:59 Last Admin: 02/28/19 09:02 Dose: 1 tab Naproxen (Naprosyn) 500 mg PO BIDWM PATRICE Stop: 04/27/19 11:59 Last Admin: 02/28/19 18:16 Dose: Not Given Quetiapine Fumarate (Seroquel) 400 mg PO HS PATRICE; Protocol Stop: 04/27/19 20:59 Last Admin: 02/27/19 20:52 Dose: 400 mg Tamsulosin HCl (Flomax) 0.4 mg PO DAILY PATRICE Stop: 04/27/19 08:59 Last Admin: 02/28/19 09:02 Dose: 0.4 mg Temazepam (Restoril) 15 mg PO HS PRN; Protocol PRN Reason: Insomnia Stop: 04/27/19 03:25 Last Admin: 02/27/19 20:50 Dose: 15 mg General: alert, demented HEENT: NC/AT, PERRLA, EOMI, anicteric sclerae, throat clear Neck: Supple, No JVD, No thyromegaly, +2 carotid pulse wo bruit, No LAD Lungs: CTAB Cardiovascular: RRR, Normal S1, Normal S2, without murmur Abdomen: soft, non-tender, non-distended Extremities: clear Neurological: no change - Procedures Procedures: Procedures Procedure Code Date CONTINUOUS INVASIVE MECHANICAL VENTILATION <96 CONSEC HRS 96.71 06/05/13 GROUP PSYCHOTHERAPY 43856 08/25/15 GROUP PSYCHOTHERAPY GZHZZZZ 08/25/15 INSERT EMERGENCY AIRWAY 26481 06/05/13 INSERT ENDOTRACHEAL TUBE 96.04 06/05/13 VACCINATION NEC 99.55 06/24/13 Internal Medicine Assmt/Plan - Assessment Assessment: 1.CHRONIC BACK PAIN 2.BPH. 3.PSYCHOSIS - Plan Plan: CONTINUE ON CURRENT MEDICATION AND DIET
[2019-03-01] MEDS: Hydrocodone/APAP 10 mg/325 mg Tab PO PRN ×2 (06:41→13:01)
[2019-03-01] MEDS: Multivitamin Tab PO SCH (08:35)
--- NOTE | 2019-03-01 19:12 | Internal Medicine Prog Note ---
Internal Medicine Subjective - Subjective Service Date: 03/01/19 Patient seen and examined:: without staff (HE IS DOING BETTER) Patient is:: awake, verbal, in bed, talking, confused Per staff patient has:: no adverse event Internal Medicine Objective - Physical Exam Vitals and I&O: Vital Signs Temp 97.3 F 03/01/19 14:03 Pulse 86 03/01/19 14:03 Resp 20 03/01/19 14:03 BP 125/68 03/01/19 14:03 Pulse Ox 97 03/01/19 14:03 Intake & Output 03/01/19 03/01/19 03/02/19 06:59 18:59 06:59 Intake Total 360 Balance 360 Intake: Oral 360 Other: # Voids 1 3 # Bowel Movements 1 Active Medications: Current Medications Acetaminophen (Tylenol) 650 mg PO Q4HR PRN PRN Reason: Mild Pain / Temp above 100 Stop: 04/27/19 02:28 Acetaminophen/Hydrocodone Bitart ([place] 10 Mg/325 Mg) 1 tab PO Q6H PRN PRN Reason: Pain (Severe 7-10) Stop: 04/27/19 02:38 Last Admin: 03/01/19 13:01 Dose: 1 tab Al Hydrox/Mg Hydrox/Simethicone (Maalox) 30 ml PO Q4HR PRN PRN Reason: GI DISTRESS Stop: 04/27/19 02:28 Duloxetine HCl (Cymbalta) 60 mg PO DAILY PATRICE; Protocol Stop: 04/28/19 08:59 Last Admin: 03/01/19 08:35 Dose: 60 mg Lorazepam (Ativan) 1 mg PO Q4HR PRN; Protocol PRN Reason: Anxiety Stop: 04/27/19 02:33 Last Admin: 03/01/19 15:21 Dose: 1 mg Magnesium Hydroxide (Milk Of Magnesia) 30 ml PO HS PRN PRN Reason: Constipation Multivitamins/Vitamin C (Theragran) 1 tab PO DAILY PATRICE Stop: 04/27/19 08:59 Last Admin: 03/01/19 08:35 Dose: Not Given Naproxen (Naprosyn) 500 mg PO BIDWM PATRICE Stop: 04/27/19 11:59 Last Admin: 03/01/19 08:32 Dose: 500 mg Quetiapine Fumarate (Seroquel) 400 mg PO HS PATRICE; Protocol Stop: 04/27/19 20:59 Last Admin: 02/28/19 21:03 Dose: 400 mg Tamsulosin HCl (Flomax) 0.4 mg PO DAILY PATRICE Stop: 04/27/19 08:59 Last Admin: 03/01/19 08:32 Dose: 0.4 mg Temazepam (Restoril) 15 mg PO HS PRN; Protocol PRN Reason: Insomnia Stop: 04/27/19 03:25 Last Admin: 02/28/19 22:02 Dose: 15 mg General: alert, demented HEENT: NC/AT, PERRLA, EOMI, anicteric sclerae, throat clear Neck: Supple, No JVD, No thyromegaly, +2 carotid pulse wo bruit, No LAD Lungs: CTAB Cardiovascular: RRR, Normal S1, Normal S2, without murmur Abdomen: soft, non-tender, non-distended Extremities: clear Neurological: no change - Procedures Procedures: Procedures Procedure Code Date CONTINUOUS INVASIVE MECHANICAL VENTILATION <96 CONSEC HRS 96.71 06/05/13 GROUP PSYCHOTHERAPY [id number] 08/25/15 GROUP PSYCHOTHERAPY GZHZZZZ 08/25/15 INSERT EMERGENCY AIRWAY [id number] 06/05/13 INSERT ENDOTRACHEAL TUBE 96.04 06/05/13 VACCINATION NEC 99.55 06/24/13 Internal Medicine Assmt/Plan - Assessment Assessment: 1.CHRONIC BACK PAIN 2.BPH. 3.PSYCHOSIS - Plan Plan: CONTINUE ON CURRENT MEDICATION AND DIET
--- NOTE | 2019-03-01 20:34 | History & Physical ---
ADMIT DATE: 02/25/2019 HISTORY OF PRESENT ILLNESS: The patient is a 63-year-old male with long history of degenerative disk disease, chronic back pain, benign prostatic hypertrophy, psychosis, admitted to [facility] under Dr. Huff's service for evaluation and treatment. The patient still has back pain. No fever, no chills. PAST MEDICAL HISTORY: Significant for chronic back pain, degenerative disk disease, benign prostatic hypertrophy, psychosis. PAST SURGICAL HISTORY: No recent surgery. ALLERGIES: None. MEDICATIONS: Follow admission reconciliation. SOCIAL HISTORY: No smoking, alcohol or drug. FAMILY HISTORY: Noncontributory. REVIEW OF SYSTEMS: RENAL SYSTEM: No history of chronic renal disorder. CARDIOVASCULAR SYSTEM: No coronary artery disease. ENDOCRINE SYSTEM: No diabetes or thyroid problem. GASTROINTESTINAL SYSTEM: No upper or lower gastrointestinal bleed. NEUROLOGICAL SYSTEM: No seizure disorder. SKELETOMUSCULAR SYSTEM: He has chronic back pain. GENITOURINARY SYSTEM: He has benign prostatic hypertrophy. RESPIRATORY SYSTEM: No asthma. ____: Nontender. PHYSICAL EXAMINATION: GENERAL: He is awake, alert, mildly confused. VITAL SIGNS: Temperature 98.1, heart rate 85, blood pressure 138/68. HEENT: Normocephalic. Pupils reacting to light and accommodation. Sclerae clear. NECK: Supple. Negative for lymphadenopathy, JVD or bruit. CHEST: Bilaterally normal. No rhonchi or wheezing. HEART: S1, S2 normal. No gallop rhythm. ABDOMEN: Soft, bowel sounds positive. EXTREMITIES: No edema. NEUROLOGIC: He is awake, alert, mildly confused. No focal muscle deficits. Cranial nerves 2-12 are intact. ASSESSMENT: 1. Degenerative disk disease. 2. Chronic back pain. 3. Benign prostatic hypertrophy. 4. Psychosis. PLAN: The patient admitted to the hospital under Dr. Huff's service. Medical problem addressed during this hospitalization is psychosis. Medical problems addressed at discharge, chronic back pain, degenerative disk disease, benign prostatic hypertrophy. The patient is medically stable for activity. Thank you Dr. Huff for asking me to see your patient. The patient is a full code. JOB# [id number]
--- NOTE | 2019-03-01 20:34 | Progress Notes ---
DATE: 02/27/2019 SUBJECTIVE: Chart was reviewed and the patient interviewed. Also discussed the patient's condition with the staff and reviewed records and labs. The patient is still severely depressed and anxious. The patient also is restless and he is still in irritable mood. The patient also is suspicious and paranoid, but he is interacting more. The patient refused to take Seroquel last night for no apparent reason. Otherwise, the patient is compliant with taking medications with no side effects of medications. ASSESSMENT: The patient is still psychotic and is still depressed. TREATMENT PLAN: Continue to monitor his behavior and his condition closely. Also, we will increase his Cymbalta to 60 mg every day and we will continue to follow up. [facility]# [id number]
--- NOTE | 2019-03-01 20:34 | Psychiatric Evaluation ---
DATE OF SERVICE: PSYCHIATRIC INITIAL EVALUATION AND MENTAL STATUS EXAM PATIENT'S AGE: 63. SEX: Male. PHYSICIAN: Dr. Huff. CHIEF COMPLAINT: "I have been depressed." HISTORY OF PRESENT ILLNESS: The patient is a 63-year-old male who is well known to me for treatment of schizoaffective disorder. The patient was admitted to the hospital to [facility] Room because the patient has been depressed and has been feeling hopeless and helpless. The patient said that he has been in the streets and he has been having difficulty with his mood. The patient also has been restless and has severe anxiety, especially being in the streets. The patient also has been having lack of energy and lack of motivations. Also, has been interacting minimally with others. He also has been suspicious and paranoid, lately about his surroundings. Also, questionable if he was taking his medications. PAST PSYCHIATRIC HISTORY: Multiple psychiatric hospitalizations and treatment for schizoaffective disorder. PAST MEDICAL HISTORY: The patient has hypertension as well as chronic back pain, and hyperlipidemia. SOCIAL HISTORY: The patient is homeless. The patient denies any alcohol or any street drug use. He denies any legal issues or abuse issues. ALLERGIES: No known allergies. MENTAL STATUS EXAMINATION: The patient appears his stated age. Anxious. Depressed mood. Poor eye contact. Low tone and rate of speech. Thought processes are mainly goal directed. The patient denies any hallucinations or delusions, but he admits to being paranoid. The patient denies any suicidal or homicidal ideations. The patient is alert and oriented to time, place, person, and situation. Intact immediate and remote memories. Fair insight and he knows that he needs help. Fair judgment and he seems to be of average intelligence based on his verbal ability. ASSESSMENT: PRIMARY DIAGNOSIS: Depressive mood disorder, depressed episode, severe, with psychotic features. MEDICAL DIAGNOSES: 1. Hypertension. 2. Hyperlipidemia. 3. Chronic back pain. 4. Benign prostatic hypertrophy. TREATMENT PLAN: We will monitor the patient's behavior and condition closely. We will start individual as well as milieu psychotherapy. We will adjust psychotropic medications and work on his ineffective coping. ESTIMATED LENGTH OF STAY: 5-7 days. PATIENT'S STRENGTHS AND WEAKNESSES: The patient's strength is not clear at this time. Weaknesses is ineffective coping and also questionable if he was compliant with taking his medications. AFTER DISCHARGE PLAN: The patient will need placement and outpatient treatment and followup will continue as an outpatient. CRITERIA FOR DISCHARGE: The patient will not be as depressed and will not be psychotic and will stabilize psychotropic medications and will establish outpatient treatment plans. [facility]# [id number]
--- NOTE | 2019-03-01 20:35 | Progress Notes ---
DATE: PSYCHIATRIC FOLLOWUP NOTE Covering for Dr. Huff. IDENTIFYING DATA: A 63-year-old male with severe depression. Today on [id number] evaluation, the patient is withdrawn, disengaged, reported that he needs Adderall, some Concerta that is the only medication that works for his depression. MENTAL STATUS EXAMINATION: Ambivalent, disengaged, depressed, distraught. ASSESSMENT AND PLAN: The patient with a history of schizoaffective depressive type, who continues to be depressed, but also secondary gain in regards to stimulants. We will continue to redirect him and target the patient's severe depression with comorbid anxiety and continue with medications as followed. Reconciliation reviewed. Cymbalta 60 mg a day, Seroquel 400 mg at nighttime. JOB# [id number]
--- NOTE | 2019-03-01 20:35 | Psychiatric Evaluation ---
DATE OF SERVICE: 03/01/2019 SUBJECTIVE: The patient was seen and evaluated. The patient's chart reviewed. Covering for Dr. Huff. Today on [id number] evaluation, the patient continues to perseverate that he needs to be on Concerta or Adderall. He is only willing to talk to the physician who is going to prescribe it to him. ASSESSMENT AND PLAN: History of depression, schizoaffective disorder. Continues to perseverate on stimulants. We will continue maintaining strict boundaries and continue to target the patient's severe depression. JOB# [id number]
[2019-03-02] MEDS: Multivitamin Tab PO SCH (08:21)
[2019-03-02] MEDS: Hydrocodone/APAP 10 mg/325 mg Tab PO PRN ×2 (09:00→15:17)
--- NOTE | 2019-03-02 18:41 | Internal Medicine Prog Note ---
Internal Medicine Subjective - Subjective Service Date: 03/02/19 Patient seen and examined:: without staff (HE IS DOING WELL) Patient is:: awake, verbal, in bed, talking, confused Per staff patient has:: no adverse event Internal Medicine Objective - Physical Exam Vitals and I&O: Vital Signs Temp 97.8 F 03/02/19 14:42 Pulse 72 03/02/19 14:42 Resp 19 03/02/19 14:42 BP 114/71 03/02/19 14:42 Pulse Ox 99 03/02/19 14:42 Intake & Output 03/01/19 03/02/19 03/02/19 18:59 06:59 18:59 Intake Total 160 1200 Balance 160 1200 Intake: Oral 160 1200 Other: # Voids 3 3 4 # Bowel Movements 1 0 1 Active Medications: Current Medications Acetaminophen (Tylenol) 650 mg PO Q4HR PRN PRN Reason: Mild Pain / Temp above 100 Stop: 04/27/19 02:28 Acetaminophen/Hydrocodone Bitart ([place] 10 Mg/325 Mg) 1 tab PO Q6H PRN PRN Reason: Pain (Severe 7-10) Stop: 04/27/19 02:38 Last Admin: 03/02/19 15:17 Dose: 1 tab Al Hydrox/Mg Hydrox/Simethicone (Maalox) 30 ml PO Q4HR PRN PRN Reason: GI DISTRESS Stop: 04/27/19 02:28 Duloxetine HCl (Cymbalta) 60 mg PO DAILY PATRICE; Protocol Stop: 04/28/19 08:59 Last Admin: 03/02/19 08:20 Dose: 60 mg Lorazepam (Ativan) 1 mg PO Q4HR PRN; Protocol PRN Reason: Anxiety Stop: 04/27/19 02:33 Last Admin: 03/02/19 15:17 Dose: 1 mg Magnesium Hydroxide (Milk Of Magnesia) 30 ml PO HS PRN PRN Reason: Constipation Multivitamins/Vitamin C (Theragran) 1 tab PO DAILY PATRICE Stop: 04/27/19 08:59 Last Admin: 03/02/19 08:21 Dose: 1 tab Naproxen (Naprosyn) 500 mg PO BIDWM PATRICE Stop: 04/27/19 11:59 Last Admin: 03/02/19 17:34 Dose: 500 mg Quetiapine Fumarate (Seroquel) 400 mg PO HS PATRICE; Protocol Stop: 04/27/19 20:59 Last Admin: 03/01/19 20:26 Dose: 400 mg Tamsulosin HCl (Flomax) 0.4 mg PO DAILY PATRICE Stop: 04/27/19 08:59 Last Admin: 03/02/19 08:21 Dose: 0.4 mg Temazepam (Restoril) 15 mg PO HS PRN; Protocol PRN Reason: Insomnia Stop: 04/27/19 03:25 Last Admin: 03/01/19 20:26 Dose: 15 mg General: alert, demented HEENT: NC/AT, PERRLA, EOMI, anicteric sclerae, throat clear Neck: Supple, No JVD, No thyromegaly, +2 carotid pulse wo bruit, No LAD Lungs: CTAB Cardiovascular: RRR, Normal S1, Normal S2, without murmur Abdomen: soft, non-tender, non-distended Extremities: clear Neurological: no change - Procedures Procedures: Procedures Procedure Code Date CONTINUOUS INVASIVE MECHANICAL VENTILATION <96 CONSEC HRS 96.71 06/05/13 GROUP PSYCHOTHERAPY [id number] 08/25/15 GROUP PSYCHOTHERAPY GZHZZZZ 08/25/15 INSERT EMERGENCY AIRWAY [id number] 06/05/13 INSERT ENDOTRACHEAL TUBE 96.04 06/05/13 VACCINATION NEC 99.55 06/24/13 Internal Medicine Assmt/Plan - Assessment Assessment: 1.CHRONIC BACK PAIN 2.BPH. 3.PSYCHOSIS - Plan Plan: CONTINUE ON CURRENT MEDICATION AND DIET
--- NOTE | 2019-03-02 20:57 | Progress Notes ---
DATE: 03/02/2019 SUBJECTIVE: The patient perseverative, but calm, no agitation. Mood "a lot better." Fair sleep, fair appetite. Linear engaged. No SI, no HI, no intent, no plan. No psychotic symptoms. Full discharge summary by Dr. Huff is to follow. JOB# [id number]
[2019-03-03] MEDS: Multivitamin Tab PO SCH (08:52)
--- NOTE | 2019-03-03 09:00 | Diagnostic Imaging Report ---
CHEST X-RAY: AP view INDICATION: pain rule out TB COMPARISON: Chest x-ray 08/26/2015 FINDINGS: There is no focal consolidation or pleural effusions The heart is normal in size. The osseous structures demonstrate no acute abnormalities. IMPRESSION: No acute cardiopulmonary disease. No radiographic evidence of active tuberculosis
--- NOTE | 2019-03-03 09:19 | Progress Notes ---
DATE: 03/03/2019 SUBJECTIVE: The patient was to have left yesterday. There were some delays in his discharge. The patient is calm right now. No SI, no HI, no intent, no plan, wanting to leave. No events per staff. We will discharge today. JOB# [id number]
[2019-03-03] MEDS: Hydrocodone/APAP 10 mg/325 mg Tab PO PRN (10:02)
== END 2019-03-03 13:15 | DRG 885 ==
LOC: GERO 20:45
PROVIDERS: ADMIT Psychiatry & Neurology Psychiatry; ATTEND Psychiatry & Neurology Psychiatry
DX: F32.3 Major depressive disorder, single episode, severe with psychotic features (principal); I10 Essential (primary) hypertension; G89.29 Other chronic pain; E78.5 Hyperlipidemia, unspecified; M54.9 Dorsalgia, unspecified; N40.0 Benign prostatic hyperplasia without lower urinary tract symptoms; Z59.0 Homelessness
CPT/HCPCS: 71045-TC; 83036-90; G0410; Z7610